=== PATIENT | female | born 1955 | race Caucasian/White ===

== ENCOUNTER → 2016-11-15 | Outpatient (CLI) | payer OTHER ==
[~2016-11-15] MED LIST: ASPI1TAB PO; CALCTAB68 PO; CLAR10CA3 PO; CO Q200C PO; CRES5TAB PO; CULT10CA2 PO; ESTRCAP PO; MULTCAP PO; [UNRECOGNIZED DRUG - OTHER] PO; claritan
--- NOTE | 2016-11-22 01:11 | ECWPNPC ---
PATIENT NAME: IAM DHALIWAL : 1955 GENDER: FEMALE VISIT DATE: 11/15/2016 DISCHARGE DATE: 11/15/16 1120 VISIT LOCKED DATE TIME: PHYSICIAN: ELENO BONE RESOURCE: ELENO BONE REASON FOR APPOINTMENT 1. NECK AREA HISTORY OF PRESENT ILLNESS HISTORY OF PRESENT ILLNESS: PAIN THE PATIENT DESCRIBES THE PAIN... 61 YEAR OLD FEMALE PATIENT WITH HISTORY OF CHRONIC NECK PAIN. PATIENT DESCRIBES THE PAIN BURNING, STABBING, AND HAVING IT ALL THE TIME WITH A PAIN SCORE OF 7/8-10. PATIENT IS CURRENTLY ONLY USING IBUPROFEN AND ASPER CREME TO AID IN PAIN RELIEF AND REPORTS THAT IT DOES HELP AT TIMES. PATIENT SPOKE WITH DR. NOE, A SALES REPRESENTATIVE [employer]IST[employer] FOR A SECOND OPINION THAT STATED HE DID NOT SEE AN ISSUE WITH THE PATIENT MOVING FORWARD WITH INJECTIONS. MRS. DHALIWAL STATES THAT ANY TYPE OF MOVEMENT INCREASES THE PAIN AND IT IS GETTING DIFFICULT TO MOVE HER HEAD IN ANY DIRECTION. PATIENT DENIES UNEXPLAINABLE WEIGHT LOSS, FEVER, CHILLS, NEW CHANGES ON HER URINARY OR BOWEL CONTROL. FALL RISK SCREENING: SCREENING :NO FALLS IN THE PAST YEAR CURRENT MEDICATIONS TAKING CRESTOR 5 MG TABLET 1 TABLET ORALLY ONCE A DAY, NOTES: 05-20-162299 TAKING ASPIR-81 81 MG TABLET DELAYED RELEASE 1 TABLET ORALLY EVERY OTHER DAY, NOTES: 05-14-16 TAKING FISH OIL TRIPLE STRENGTH 2100 MG 1 CAPSULE ORALLY ONCE A DAY, NOTES: 05-20-161829 TAKING COQ-10 200 MG CAPSULE 1 CAPSULE WITH A MEAL ORALLY ONCE A DAY, NOTES: 05-20-161829 TAKING CALTRATE 600+D PLUS MINERALS 600-800 MG-UNIT TABLET 1 TABLET ORALLY TWICE A DAY, NOTES: 05-20-161829 TAKING ESTROVEN + ENERGY MAX STRENGTH TABLET 1 TAB ORALLY , NOTES: 05-21-16829 TAKING CLARITIN 10 MG TABLET 1 TABLET ORALLY ONCE A DAY, NOTES: 05-21 TAKING EMERGEN-C IMMUNE PACKET ORALLY ONCE DAILY, NOTES: 05-20-16829 TAKING MULTIVITAMINS CAPSULE ORALLY ONCE DAILY, NOTES: 05-20-161829 TAKING CULTURELLE CAPSULE ORALLY ONCE DAILY, NOTES: 05-20-161529 TAKING ASPERCREME 10 % CREAM 1 APPLICATION TO AFFECTED AREA NEEDED EXTERNALLY TWICE DAILY, NOTES: 2329 TAKING IBUPROFEN 200 MG 1 TAB ORAL EVERY OTHER NIGHT-ALTERNATE WITH TYLENOL TAKING TYLENOL ARTHRITIS PAIN 650 MG TABLET EXTENDED RELEASE 1 ORALLY AT BEDTIME-ALTERNATE WITH IBUPROFEN TAKING LOTEMAX 0.5 % SUSPENSION 1 DROP INTO AFFECTED EYE OPHTHALMIC DAILY TAKING MOVE [employer] ADVANCE - TABLET ORALLY TAKING DULOXETINE HCL 30 MG CAPSULE DELAYED RELEASE PARTICLES 1 CAPSULE ORALLY ONCE A DAY DISCONTINUED VENLAFAXINE HCL ER 75 MG CAPSULE EXTENDED RELEASE 24 HOUR 1 CAPSULE WITH FOOD ORALLY ONCE A DAY, NOTES: 05-21-16 0830 DISCONTINUED VALIUM 5 MG TABLET 2 TABLET S ORALLY ON ARRIVAL TO CLINIC FOR PROCEDURE MDD=2, NOTES: 05-21-16 1110 DISCONTINUED PERCOCET 7.5-325 MG TABLET 1 TABLET ORALLY TAKE 1 TAB PRIOR TO PROCEDURE AND ONE TAB IN 4 HOURS MDD=2, NOTES: 05-21-16 111 DISCONTINUED VALIUM 5 MG TABLET 1 TABLET ORALLY TAKE ONE TAB 1 HOUR PRIOR TO TESTING AND ONE ON ARRIVAL TO THE TEST. DO NOT DRIVE MEDICATION LIST REVIEWED AND RECONCILED WITH THE PATIENT PAST MEDICAL HISTORY BRI - CPAP IMPLANTABLE LOOP RECORDER- FOR EPISODES OF SYNCOPE HYPERLIPID CHRONIC BACK AND NECK PAIN HEADACHES DIZZINESS ALLERGIES TAPE: RASH ORANGE: DRY MOUTH/DIFFICULTY SWALLOWING PINE: RASH/CONGESTION GRASS: SNEEZING, WATERY EYES SURGICAL HISTORY TONSILLECTOMY 1965 D/C (MISCARRIAGE) 12/1978 D/C ENDOMETRIAL ABLATION 08/1979 HYSTERECTOMY/OOPHORECTOMY 11/2009 IMPLANTABLE LOOP RECORDER 01/2015 THYROID BX 06/2016 FAMILY HISTORY NO FAMILY HISTORY DOCUMENTED. SOCIAL HISTORY GENERAL: TOBACCO USE ARE YOU A:NONSMOKER LEARNING BARRIERS / SPECIAL NEEDS ORIENTED TO PLAN OF CARE: PATIENT, PAIN MANAGEMENT PATIENT, ORIENTED TO PLAN OF CARE: PATIENT, PAIN MANAGEMENT PATIENT. NEW PATIENT PAIN DIARY TODAY'S VISITNOTES FROM 0-10, WHAT LEVEL IS YOUR PAIN TODAY?0 PAIN CLINIC PFS, CLERGY, PUBLIC HEALTH REFERRALS PFS REFERRAL NEEDED?NO CLERGY REFERRAL NEEDED?NO PUBLIC HEALTH REFERRAL NEEDED?NO WAS THE PROVIDER NOTIFIED OF ANY PERTINENT INFO?NO PFS REFERRAL NEEDED?NO CLERGY REFERRAL NEEDED?NO PUBLIC HEALTH REFERRAL NEEDED?NO WAS THE PROVIDER NOTIFIED OF ANY PERTINENT INFO?NO HOSPITALIZATION/MAJOR DIAGNOSTIC PROCEDURE NO HOSPITALIZATION HISTORY. REVIEW OF SYSTEMS CONSTITUTIONAL: ANY CHANGE IN YOUR MEDICAL CONDITION? NO . CHILLS NO . FEVER NO . INFECTION: DO YOU HAVE NEW INFECTIONS? NO . DO YOU HAVE HISTORY OF MRSA? NO . MUSCULOSKELETAL: ANY NEW PATTERNS OF PAIN OR NUMBNESS? YES, ARMS AND UNABLE TO REGIONAL REHABILITATION DIRECTOR??? . GASTROENTEROLOGY: ANY NEW CHANGE IN BOWEL CONTROL? NO . GENITOURINARY: ANY NEW CHANGE IN BLADDER CONTROL? NO . IS THERE A CHANCE YOU COULD BE ? NO . HEMATOLOGY/LYMPH: DO YOU TAKE ANY BLOOD THINNERS? (FOR EXAMPLE- COUMADIN, PLAVIX, AGGRENOX, PLATEL, PRADAXA, OR XARELTO) NO . WHEN WAS YOUR LAST DOSE? DATE: TIME: . NEUROLOGY: HAVE YOU FALLEN IN THE PAST 6 MONTHS? NO . ANY NEW EXTREMITY NUMBNESS OR WEAKNESS? NO . CARDIOLOGY: DO YOU HAVE A PACEMAKER OR DEFIBRILLATOR? YES, HAS A LOOP RECORDER . RESPIRATORY: HAVE YOU BEEN SICK IN THE PAST WEEK? NO . FEVER NO . FLU LIKE SYMPTOMS? NO . COUGH NO . INTEGUMENTARY: DO YOU HAVE ANY RASHES OR OPEN SORES? NO . ALLERGIC/IMMUNO: ARE YOU ALLERGIC TO SHELLFISH OR IV DYE? NO . ANY NEW ALLERGIES? NO . PSYCHIATRIC: DO YOU HAVE THOUGHTS OF HURTING YOURSELF OR SOMEONE ELSE? NO . ARE YOU ABUSED, NEGLECTED, OR IN AN UNSAFE ENVIRONMENT? NO . ENDOCRINOLOGY: ARE YOU DIABETIC? NO . OTHER: DO YOU NEED ANY PRESCRIPTIONS? NO . IF YES, PLEASE LIST: ____ . ANY NEW PROBLEMS WITH YOUR MEDICATIONS? NO . WHEN DID YOU LAST EAT? ____ . WHEN DID YOU LAST DRINK? ____ . WHAT DID YOU LAST DRINK? ____ . NAME OF PERSON DRIVING YOU HOME? ____ . DO YOU HAVE ANY OTHER QUESTIONS OR CONCERNS YES, HAS ANYONE BEEN ABLE TO TALK WITH ANY OF THE SALES REPRESENTATIVE [employer] REGISTERS? CONCERN - INCREASED WEAKNESS IN ARMS, NUMBNESS, ABILITY TO REGIONAL REHABILITATION DIRECTOR? CHANGE IN MEDICINE BY PRIMARY CARE. WHO IS IN CHARGE??? . REVIEWED BY: PROVIDER: ELENO BONE MD . VITAL SIGNS WT 175 LBS, HT 66 IN, BMI 28.24 INDEX, BP 148/88 MM HG, HR 71 /MIN, RR 16 /MIN, TEMP 99.O, OXYGEN SAT % 100%, NA INITIALS SC09:41, REVIEWED BY: CM. EXAMINATION : PATIENT IS ALERT O X 3 AND COOPERATIVE. TENDERNESS IN THE CERVICAL AREA AND PARASPINAL MUSCLE GROUP. LEFT ARM IS WEAKER THEN THE RIGHT AT EXTENSION AND FLEXION. 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 MRI DONE OF THE CERVICAL SPINE ON 04/22/16 SHOWS CERVICAL SPONDYLOSIS FROM C2-C3 THROUGH C6-C7 AND A 1.2 CM HYPO DENSITY IN THE LEFT THYROID LOBE. PATIENT ABLE TO MOVE HEAD TO LEFT 5 DEGREES, RIGHT 45 DEGREES, EXTEND 5 DEGREES AND THE PATIENT IS UNABLE TO FLEX HER NECK. ASSESSMENTS MYALGIA - M79.1 SPONDYLOSIS WITHOUT MYELOPATHY OR RADICULOPATHY, CERVICAL REGION - M47.812 TREATMENT MYALGIA NOTES: WE DISCUSSED SEVERAL ISSUES WITH MRS. DHALIWAL''S PAIN MANAGEMENT CASE. AT THIS TIME THE PATIENT WILL CONTINUE WITH THE SAME MEDICATION MANAGEMENT BEFORE. MRS. DHALIWAL WAS RECOMMENDED TO CONTINUE SEEING A NEUROLOGIST FOR THE NUMBNESS IN THE ARMS. PATIENT REPORTS NOT WANTING TO USE MEDICATIONS DUE TO HER DROPPING HEART RATE AND WOULD PREFER TO TRY INJECTIONS. I WOULD LIKE TO SPEAK WITH THE SALES REPRESENTATIVE [employer]ASH REGISTERS DR. NOE HE STATED THAT THE PATIENT IS ABLE TO GET INJECTIONS IF SHE WISHES. I WOULD LIKE THE PATIENT TO RETURN TO THE CLINIC IN 2 WEEKS AFTER I HAVE SPOKEN WITH THE SALES REPRESENTATIVE [employer] REGISTERS. INSTRUCTIONS WERE GIVEN, QUESTIONS WERE ANSWERED, PATIENT REPORTS UNDERSTANDING AND AGREES WITH THE PLAN. I, KARLA RIVERA, DOCUMENTED THE ABOVE INFORMATION ACTING A SCRIBE FOR DR. BONE. I HAVE REVIEWED THE ABOVE DOCUMENT, WRITTEN BY KARLA COWAN AND I VERIFY THAT IT IS ACCURATE. PROCEDURE CODES FA211 ESTABILISHED PATIENT [facility] FACILITY CHARGE G8427 DOC MEDS VERIFIED W/PT OR RE G8730 PAIN ASSESS POS TOOL F/U PLAN DOC FOLLOW UP 3 WEEKS ELECTRONICALLY SIGNED BY ELENO OBNE MD ON 11/21/2016 AT 06:02 PM EST DISCLAIMER : THIS IS A VISIT SUMMARY EXTRACTED FROM THE [employer] CHART. IT IS NOT A COPY OF THE [employer] PROGRESS NOTE. ALCON
== END ==
LOC: M PAIN 09:20
PROVIDERS: ATTEND Anesthesiology
DX: Z09 Encounter for follow-up examination after completed treatment for conditions other than malignant neoplasm (principal); G89.29 Other chronic pain; M79.1 Myalgia; M47.812 Spondylosis without myelopathy or radiculopathy, cervical region; E78.5 Hyperlipidemia, unspecified; R51 Headache; J30.89 Other allergic rhinitis; J30.1 Allergic rhinitis due to pollen; L23.1 Allergic contact dermatitis due to adhesives; Z91.018 Allergy to other foods; Z79.82 Long term (current) use of aspirin; Z79.1 Long term (current) use of non-steroidal anti-inflammatories (NSAID); Z79.899 Other long term (current) drug therapy; Z86.69 Personal history of other diseases of the nervous system and sense organs; G47.30 Sleep apnea, unspecified; Z95.818 Presence of other cardiac implants and grafts

== ENCOUNTER → 2016-12-03 | Outpatient (CLI) | payer OTHER ==
--- NOTE | 2016-12-04 23:50 | ECWPNPC ---
PATIENT NAME: IAM DHALIWAL : 1955 GENDER: FEMALE VISIT DATE: 12/03/2016 DISCHARGE DATE: 12/03/16 1239 VISIT LOCKED DATE TIME: PHYSICIAN: ELENO BONE RESOURCE: ELENO BONE REASON FOR APPOINTMENT 1. NECK PAIN HISTORY OF PRESENT ILLNESS HISTORY OF PRESENT ILLNESS: PAIN THE PATIENT DESCRIBES THE PAIN... 61 YEAR OLD FEMALE WITH HISTORY OF CHRONIC NECK PAIN. PATIENT DESCRIBES THE PAIN BURNING AND HAVING IT ALL THE TIME AND STABBING BUT IT COMES AND GOES WITH A PAIN SCORE OF 8/10 ON TODAY'S VISIT. PATIENT REPORTS THAT SHE HAS HAD A LOOP RECORDER PUT IN JANUARY 2015. PATIENT STATES THAT SHE TAKES DULOXETINE AND DOES NOT FEEL A DIFFERENCE IN HER PAIN LEVELS. PATIENT REPORTS THAT SHE HAS TINGLINESS IN THE ARM AND SHE HAD DIFFICULTIES PICKING UP ITEMS. PATIENT DENIES UNEXPLAINABLE WEIGHT LOSS, FEVER, CHILLS, NEW CHANGES ON HER URINARY OR BOWEL CONTROL. FALL RISK SCREENING: SCREENING :NO FALLS IN THE PAST YEAR CURRENT MEDICATIONS TAKING CRESTOR 5 MG TABLET 1 TABLET ORALLY ONCE A DAY, NOTES: 05-20-162299 TAKING ASPIR-81 81 MG TABLET DELAYED RELEASE 1 TABLET ORALLY EVERY OTHER DAY, NOTES: 05-14-16 TAKING FISH OIL TRIPLE STRENGTH 2100 MG 1 CAPSULE ORALLY ONCE A DAY, NOTES: 05-20-161829 TAKING COQ-10 200 MG CAPSULE 1 CAPSULE WITH A MEAL ORALLY ONCE A DAY, NOTES: 05-20-161829 TAKING CALTRATE 600+D PLUS MINERALS 600-800 MG-UNIT TABLET 1 TABLET ORALLY TWICE A DAY, NOTES: 05-20-161829 TAKING ESTROVEN + ENERGY MAX STRENGTH TABLET 1 TAB ORALLY , NOTES: 05-21-16829 TAKING CLARITIN 10 MG TABLET 1 TABLET ORALLY ONCE A DAY, NOTES: 05-21 TAKING EMERGEN-C IMMUNE PACKET ORALLY ONCE DAILY, NOTES: 05-20-16829 TAKING MULTIVITAMINS CAPSULE ORALLY ONCE DAILY, NOTES: 05-20-161829 TAKING CULTURELLE CAPSULE ORALLY ONCE DAILY, NOTES: 05-20-161529 TAKING ASPERCREME 10 % CREAM 1 APPLICATION TO AFFECTED AREA NEEDED EXTERNALLY TWICE DAILY, NOTES: 2330 TAKING IBUPROFEN 200 MG 1 TAB ORAL NIGHTLY TAKING [employer] ADVANCE - TABLET ORALLY TAKING DULOXETINE HCL 30 MG CAPSULE DELAYED RELEASE PARTICLES 1 CAPSULE ORALLY ONCE A DAY NOT-TAKING TYLENOL ARTHRITIS PAIN 650 MG TABLET EXTENDED RELEASE 1 ORALLY AT BEDTIME-ALTERNATE WITH IBUPROFEN DISCONTINUED LOTEMAX 0.5 % SUSPENSION 1 DROP INTO AFFECTED EYE OPHTHALMIC DAILY MEDICATION LIST REVIEWED AND RECONCILED WITH THE PATIENT PAST MEDICAL HISTORY BRI - CPAP IMPLANTABLE LOOP RECORDER- FOR EPISODES OF SYNCOPE HYPERLIPID CHRONIC BACK AND NECK PAIN HEADACHES DIZZINESS ALLERGIES TAPE: RASH ORANGE: DRY MOUTH/DIFFICULTY SWALLOWING PINE: RASH/CONGESTION GRASS: SNEEZING, WATERY EYES SURGICAL HISTORY TONSILLECTOMY 1965 D/C (MISCARRIAGE) 12/1978 D/C ENDOMETRIAL ABLATION 08/1979 HYSTERECTOMY/OOPHORECTOMY 11/2009 IMPLANTABLE LOOP RECORDER 01/2015 THYROID BX 06/2016 FAMILY HISTORY NO FAMILY HISTORY DOCUMENTED. SOCIAL HISTORY GENERAL: TOBACCO USE ARE YOU A:NONSMOKER LEARNING BARRIERS / SPECIAL NEEDS ORIENTED TO PLAN OF CARE: PATIENT, PAIN MANAGEMENT PATIENT, ORIENTED TO PLAN OF CARE: PATIENT, PAIN MANAGEMENT PATIENT. NEW PATIENT PAIN DIARY TODAY'S VISITNOTES FROM 0-10, WHAT LEVEL IS YOUR PAIN TODAY?0 PAIN CLINIC PFS, CLERGY, PUBLIC HEALTH REFERRALS PFS REFERRAL NEEDED?NO CLERGY REFERRAL NEEDED?NO PUBLIC HEALTH REFERRAL NEEDED?NO WAS THE PROVIDER NOTIFIED OF ANY PERTINENT INFO?NO PFS REFERRAL NEEDED?NO CLERGY REFERRAL NEEDED?NO PUBLIC HEALTH REFERRAL NEEDED?NO WAS THE PROVIDER NOTIFIED OF ANY PERTINENT INFO?NO HOSPITALIZATION/MAJOR DIAGNOSTIC PROCEDURE NO HOSPITALIZATION HISTORY. REVIEW OF SYSTEMS CONSTITUTIONAL: ANY CHANGE IN YOUR MEDICAL CONDITION? NO . CHILLS NO . FEVER NO . INFECTION: DO YOU HAVE NEW INFECTIONS? NO . DO YOU HAVE HISTORY OF MRSA? NO . MUSCULOSKELETAL: ANY NEW PATTERNS OF PAIN OR NUMBNESS? NO . GASTROENTEROLOGY: ANY NEW CHANGE IN BOWEL CONTROL? NO . GENITOURINARY: ANY NEW CHANGE IN BLADDER CONTROL? NO . IS THERE A CHANCE YOU COULD BE ? NO . HEMATOLOGY/LYMPH: DO YOU TAKE ANY BLOOD THINNERS? (FOR EXAMPLE- COUMADIN, PLAVIX, AGGRENOX, PLATEL, PRADAXA, OR XARELTO) NO . WHEN WAS YOUR LAST DOSE? DATE: TIME: . NEUROLOGY: HAVE YOU FALLEN IN THE PAST 6 MONTHS? NO . ANY NEW EXTREMITY NUMBNESS OR WEAKNESS? NO . CARDIOLOGY: DO YOU HAVE A PACEMAKER OR DEFIBRILLATOR? NO . RESPIRATORY: HAVE YOU BEEN SICK IN THE PAST WEEK? NO . FEVER NO . FLU LIKE SYMPTOMS? NO . COUGH NO . INTEGUMENTARY: DO YOU HAVE ANY RASHES OR OPEN SORES? NO . ALLERGIC/IMMUNO: ARE YOU ALLERGIC TO SHELLFISH OR IV DYE? NO . ANY NEW ALLERGIES? NO . PSYCHIATRIC: DO YOU HAVE THOUGHTS OF HURTING YOURSELF OR SOMEONE ELSE? NO . ARE YOU ABUSED, NEGLECTED, OR IN AN UNSAFE ENVIRONMENT? NO . ENDOCRINOLOGY: ARE YOU DIABETIC? NO . OTHER: DO YOU NEED ANY PRESCRIPTIONS? NO . IF YES, PLEASE LIST: ____ . ANY NEW PROBLEMS WITH YOUR MEDICATIONS? NO . WHEN DID YOU LAST EAT? ____ . WHEN DID YOU LAST DRINK? ____ . WHAT DID YOU LAST DRINK? ____ . NAME OF PERSON DRIVING YOU HOME? ____ . DO YOU HAVE ANY OTHER QUESTIONS OR CONCERNS YES NOTES INCREASE IN ARM WEAKNESS, INABILITY TO GRASP ITEMS WITH HANDS. ALSO NOTES LEG/FEET WEAKNESS. &QUOT;COULD WE SEND PMC NOTES TO DR WREN?&QUOT; . REVIEWED BY: PROVIDER: ELENO BONE MD . VITAL SIGNS WT 193.8 LBS, HT 66 IN, BMI 31.28 INDEX, BP 156/88 MANUAL, HR 79 /MIN, RR 16 /MIN, TEMP 96.2 F, OXYGEN SAT % 99, NA INITIALS TL 1105, REVIEWED BY: MLF. EXAMINATION : PATIENT IS ALERT O X 3 AND COOPERATIVE. TENDERNESS IN THE CERVICAL AREA AND PARASPINAL MUSCLE GROUP WITH BANDS OF TISSUE, RESTRICTION OF MOVEMENT AND PRESENCE OF TRIGGER POINTS. LEFT ARM IS WEAKER THEN THE RIGHT AT EXTENSION AND FLEXION. WEAKNESS IN LEFT AND RIGHT HAND MANAGER BAR. MRI DONE OF THE CERVICAL SPINE ON 04/22/16 SHOWS CERVICAL SPONDYLOSIS FROM C2-C3 THROUGH C6-C7 AND A 1.2 CM HYPO DENSITY IN THE LEFT THYROID LOBE. 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 DHALIWAL'S PAIN MANAGEMENT CASE. AT THIS TIME THE PATIENT WILL CONTINUE ON THE SAME MEDICATION REGIMEN BEFORE. PATIENT IS A GOOD CANDIDATE FOR BILATERAL CERVICOTHORACIC FACET BLOCK, DUE TO THE PATIENT'S HEART CONDITION, I WILL DO THE PROCEDURE WITH IV FLUIDS FOR THE PATIENT. WE DISCUSSED THE RISK, BENEFITS, AND ALTERNATIVES AND THE PATIENT WOULD LIKE TO PROCEED. INSTRUCTIONS WERE GIVEN, QUESTIONS WERE ANSWERED, PATIENT REPORTS UNDERSTANDING AND AGREES WITH THE PLAN. I, CORBY HIDALGO, DOCUMENTED THE ABOVE INFORMATION ACTING A SCRIBE FOR DR. BONE. I HAVE REVIEWED THE ABOVE DOCUMENT, WRITTEN BY CORBY HIDALGO SCRIBE AND I VERIFY THAT IT IS ACCURATE. PREVENTIVE MEDICINE PAIN CLINIC TEACHING: MEDICATIONS PT INFORMED SHE WILL BE RECEIVING CONSCIOUS SEDATION FOR PROCEDURE. PROCEDURE TEACHING REVIEWED PRE PROCEDURE EDUCATION/PT VERBALIZES UNDERSTANDING. PROCEDURE CODES FA211 ESTABILISHED PATIENT [facility] FACILITY CHARGE G8730 PAIN ASSESS POS TOOL F/U PLAN DOC G8427 DOC MEDS VERIFIED W/PT OR RE FOLLOW UP CFBT PENDING APPROVAL ELECTRONICALLY SIGNED BY ELENO BONE MD ON 12/04/2016 AT 07:38 PM EST DISCLAIMER : THIS IS A VISIT SUMMARY EXTRACTED FROM THE [employer] CHART. IT IS NOT A COPY OF THE [employer] PROGRESS NOTE. ALCON
== END ==
LOC: M PAIN 11:00
PROVIDERS: ATTEND Anesthesiology
DX: Z09 Encounter for follow-up examination after completed treatment for conditions other than malignant neoplasm (principal); G89.29 Other chronic pain; M79.1 Myalgia; M47.812 Spondylosis without myelopathy or radiculopathy, cervical region; M47.813 Spondylosis without myelopathy or radiculopathy, cervicothoracic region; G47.33 Obstructive sleep apnea (adult) (pediatric); E78.5 Hyperlipidemia, unspecified; R51 Headache; L23.1 Allergic contact dermatitis due to adhesives; Z91.018 Allergy to other foods; Z91.048 Other nonmedicinal substance allergy status; Z79.82 Long term (current) use of aspirin; Z79.1 Long term (current) use of non-steroidal anti-inflammatories (NSAID); Z79.899 Other long term (current) drug therapy; Z96.89 Presence of other specified functional implants; Z86.69 Personal history of other diseases of the nervous system and sense organs

== ENCOUNTER 2016-12-10 15:26 | Emergency (ER) | payer OTHER ==
[~2016-12-10 15:26] MED LIST changes: -ATROPINE SULF 1MG/10ML SYRINGE (J0461) As Ordered ONE; -diazePAM 5 MG TAB As Ordered ONE; -ePHEDrine SULFATE 25 MG/5 ML(5MG/ML) SYRINGE As Ordered ONE; -oxyCODONE 5MG TAB As Ordered ONE
[2016-12-10] MEDS ORDERED: ASPIRIN 81 MG CHEW TABLET As Ordered ONE (15:39)
[2016-12-10 16:14] LABS: BASO % 0.1 % (0.0-1.0); EOS % 0.7 % (0.0-3.0); LARGE UNSTAINED CELL # 0.1 K/mm3 (0.0-0.4); LARGE UNSTAINED CELL % 1.8 % (0.0-4.0); LYMPH # 2.5 K/mm3 (1.5-4.5); LYMPH % 30.6 % (24.0-44.0); MEAN CORPUSCULAR VOLUME 88.7 fl (80.0-96.0); MONO # 0.4 K/mm3 (0.0-0.8); NEUTROPHILS # 4.8 K/mm3 (1.8-7.7); NEUTROPHILS % 61.9 % (36.0-66.0); PLATELET COUNT, AUTOMATED 203 k/mm3 (150-450); RED CELL DISTRIBUTION WIDTH 12.7 % (11.5-14.5); WHITE BLOOD COUNT 7.8 K/mm3 (4.0-10.0)
[2016-12-10] MEDS ORDERED: ASPIRIN 325 MG TAB As Ordered ONE (16:14)
--- NOTE | 2016-12-10 16:37 | REP ---
Clinical: Acute chest pain . Comparison: None . Findings: The mediastinum and cardiac silhouette are stable and within normal limits for portable technique. The lung kessler are clear without acute consolidation, effusion, or pneumothorax. Skeletal structures are intact. Impression: Normal portable chest x-ray Signed by Marvin Garg MD 12/10/2016 04:28 P
[2016-12-10 17:13] LABS: ANION GAP 8 MEQ/L (8-16); BLOOD UREA NITROGEN 16 MG/DL (7-18); CALCIUM LEVEL 9.5 MG/DL (8.5-10.1); CARBON DIOXIDE LEVEL 26 MEQ/L (21-32); CHLORIDE LEVEL 108 MEQ/L (98-107); GLOMERULAR FILTRATION RATE > 60.0 (>51); GLUCOSE, FASTING 90 MG/DL (70-105); SODIUM LEVEL 142 MEQ/L (136-145)
--- NOTE | 2016-12-10 20:56 | EDDOCDS ---
Nurse's Notes [facility] Name: Paula Resendiz Age: 61 yrs Sex: Female : 1955 Arrival Date: 12/10/2016 Time: 15:26 Bed 13 Private MD: Esperanza Rashid A Diagnosis: Chest pain, unspecified Presentation: 12/10 15:29 Presenting complaint: Patient states: pt arrives from Pain clinic where she was mk4 preparing for a thoracic block when she developed chest pain around 2;15 pm , pain at that time was mid sternal and non radiating , pt currently has a loop recorder in place for a syncopal episode and is followed by Dr Mclean for it, pt arrives to ks with chest pain almost resolved at a 1/10 and remains mid sternal. Pt had been pre medicated with valium 10 mg and oxycontin 5 mg both po. Aspirin was not taken prior to arrival. Adult Sepsis Screening: The patient does not have new or worsening altered mentation. Patient's respiratory rate is less than 22. Systolic blood pressure is greater than 100. Patient has a qSOFA score of 0- Negative Sepsis Screen. Suicide/Homicide risk assessment- the patient denies having any suicidal and/or homicidal ideations and does not present with any other emotional, behavioral or mental health complaints. Status: Patient is not a liquid fertilizer servicer or dependent. Transition of care: patient was not received from another setting of care. 15:29 Acuity: ANAT Level 3 mk4 15:29 Method Of Arrival: Other 4 Triage Assessment: 15:39 General: Appears in no apparent distress. Pain: Location: mid-sternal area Pain 4 currently is 1 out of 10 on a pain scale. HIV screening NA for this visit Offered previously. Cardiovascular: Chest pain is described as mild, radiates Does not radiate. episodes are intermittent began 1 hour prior to arrival. Historical: - Allergies: nka; - Home Meds: 1. duloxetine 30 mg Oral cpDR once daily 2. Crestor 5 mg Oral tab once daily 3. aspirin 81 mg Oral TbEC once daily 4. CoQ-10 100 mg oral cap 2 tab daily 5. Caltrate 600 + D 600 mg (1,500 mg)-800 unit oral chew twice a day 6. Estroven Maximum Strength 400 mcg oral tab daily 7. Claritin 10 mg Oral tab once daily 8. Fish Oil Oral 2100 mg daily 9. Emergen-C 1,000 mg oral pwep daily 10. multivitamin Oral cap daily 11. Culturelle 10 billion cell oral cap daily 12. Move Free Ultra 40-10-3.3 mg oral tab daily 13. aspercream twice a day 14. Tylenol Arthritis Pain 650 mg oral TbER nightly - PMHx: cervical radiculopthy; Headaches; Hypercholesterolemia; implanted loop recorder; Sleep Apnea w/ CPAP; Arthritis; Degenerative disc disease; - PSHx: Tonsillectomy; D & C; Hysterectomy; numerous blocks and injections from pain clinic; - Social history: Smoking status: Patient states former smoker of tobacco. No barriers to communication noted, The patient speaks fluent Paraguayan. - Family history: Not pertinent. - : The pt / caregiver states he / she is not on anticoagulants. Home medication list is obtained from the patient. - Exposure Risk Screening:: None identified. Screenin:15 Screening information is obtained from the patient. Fall risk: No risks identified. ms18 Assistance ADL's: requires no assistance with activities of daily living. Assistance ADL's: requires no assistance with activities of daily living. Abuse/DV Screen: The patient / caregiver reports he/she is: not in a situation that causes fear, pain or injury. Nutritional screening: No deficits noted. Advance Directives: There is no living will. home support is adequate. Assessment: 16:16 General: Pt in no acute distress. Will continue to monitor pt. ms18 17:16 General: Appears in no apparent distress, Behavior is cooperative, ambulated in pantoja to 4 bathroom with min assist , gait steady denies any dizziness or syncope feelings, returned to bed . Pain: Location: back. Neurological: Level of Consciousness is awake, alert. Cardiovascular: Rhythm is regular. 17:23 General: Appears in no apparent distress, comfortable, well nourished, well groomed, ms18 Behavior is appropriate for age, cooperative, pleasant. General: Pt informed that the doctor wants to do repeat bloodwork and EKG at 1900. Pt verbalized understanding of this. Pain: Pain currently is 1 out of 10 on a pain scale. Neurological: No deficits noted. Respiratory: Airway is patent Respiratory effort is even, unlabored, Respiratory pattern is regular, symmetrical. Derm: Skin is pink, warm & dry. 18:18 General: Appears in no apparent distress, comfortable, Behavior is appropriate for age, ms18 cooperative, pleasant. Pain: Pain currently is 1 out of 10 on a pain scale. Neurological: No deficits noted. Respiratory: Airway is patent Respiratory effort is even, unlabored. Derm: Skin is pink, warm & dry. 19:45 General: Appears in no apparent distress, comfortable, Behavior is appropriate for age, ms18 cooperative, Pt in no acute distress. Awaiting lab work at this time. Will continue to monitor pt. Respiratory: No deficits noted. Derm: Skin is pink, warm & dry. 20:51 General: Appears in no apparent distress, comfortable, Behavior is appropriate for age, ms18 cooperative, pleasant. Pain: Denies pain. Neurological: No deficits noted. Cardiovascular: Rhythm is regular. Respiratory: Airway is patent Respiratory effort is even, unlabored. GI: Abdomen is non- distended. Derm: Skin is pink, warm & dry. normal. Vital Signs: 15:19 BP 173 / 74 (auto/); mk4 15:23 Pulse 68 MON; Pulse Ox 97% ; mk4 15:36 BP 181 / 79 (auto/); ms18 15:36 Pulse 74 MON; Pulse Ox 97% ; ms18 15:39 BP 173 / 74; Pulse 71; Resp 18; Pulse Ox 97% on R/A; Weight 86.18 kg; Height 5 ft. 6 mk4 in. (167.64 cm); 15:50 Pulse 62 MON; Pulse Ox 95% ; ms18 15:51 BP 162 / 75 (auto/); ms18 16:06 BP 150 / 73 (auto/); ms18 16:06 Pulse 64 MON; Pulse Ox 97% ; ms18 16:19 Pulse 62 MON; Pulse Ox 97% ; ms18 16:21 BP 142 / 67 (auto/); ms18 16:36 Pulse 68 MON; Pulse Ox 96% ; ms18 16:41 BP 145 / 67 (auto/); ms18 16:51 BP 142 / 80 (auto/); ms18 16:51 Pulse 62 MON; Pulse Ox 96% ; ms18 17:06 BP 139 / 67 (auto/); ms18 17:08 Pulse 62 MON; Resp 18; Pulse Ox 95% ; ms18 17:20 Pulse 64 MON; Pulse Ox 94% ; ms18 17:21 BP 151 / 71 (auto/); ms18 17:35 Pulse 62 MON; Pulse Ox 95% ; ms18 17:36 BP 138 / 68 (auto/); ms18 17:51 BP 132 / 75 (auto/); ms18 17:51 Pulse 62 MON; Pulse Ox 94% ; ms18 18:06 BP 140 / 74 (auto/); ms18 18:06 Pulse 62 MON; Resp 18; Pulse Ox 95% ; ms18 18:21 BP 146 / 72 (auto/); ms18 18:21 Pulse 58 MON; Pulse Ox 95% ; ms18 18:36 BP 138 / 71 (auto/); ms18 18:36 Pulse 60 MON; Pulse Ox 95% ; ms18 18:51 BP 141 / 74 (auto/); ms18 18:51 Pulse 64 MON; Pulse Ox 96% ; ms18 19:36 BP 142 / 67 (auto/); ms18 19:36 Pulse 58 MON; Pulse Ox 96% ; ms18 20:21 BP 140 / 70 (auto/); ms18 20:21 Pulse 58 MON; Pulse Ox 95% ; ms18 20:36 BP 138 / 74 (auto/); ms18 20:39 Pulse 58 MON; Resp 18; Temp 98(O); Pulse Ox 95% ; ms18 15:39 Body Mass Index 30.67 (86.18 kg, 167.64 cm) mk4 Vitals: 20:54 Log In Time N/A - ambulance arrival. ms18 ED Course: 15:27 Patient visited by Juliann Barajas, Outsole Molder. lbd 15:27 Patient moved to Waiting lbd 15:28 Esperanza Rashid is Private Physician. lbd 15:29 Swathi Resendiz,RN is Primary Nurse. lbd 15:29 Patient moved to 13 lbd 15:32 Triage Initiated mk4 15:35 Alysia Mireles MD is Attending Physician. fg 15:41 Patient visited by Alysia Mireles MD. fg 15:41 EKG done. (by ED staff). Reviewed by Alysia Mireles MD. jlm 15:42 Patient visited by Cynthia Phillips, Outsole Molder. jlm 16:01 B-Type Natiuretic Peptide Sent. mb9 16:01 Basic Metabolic Profile Sent. mb9 16:01 CBC with Diff Sent. mb9 16:01 Cardiac Injury Profile Sent. mb9 16:01 Troponin Sent. mb9 16:10 Patient visited by Swathi Resendiz RN. ms18 16:53 portable chest Returned. EDMS 16:58 Patient visited by Ramona Amaral RN. mk4 17:15 The patient / caregiver is instructed regarding the plan of care and ED course. ms18 Accompanied by Family Member, Patient has correct armband on for positive identification. Placed in gown. Bed in low position. Call light in reach. customer service specialist on. Pulse ox on. NIBP on. Property :Personal belongings accompany Pt. 17:15 Maintain field IV. Dressing intact. Good blood return noted. Site clean & dry. Gauge & ms18 site: 22 g, L hand. 17:23 Patient visited by Swathi Resendiz RN. ms18 17:38 [facility] Payment Agreement was scanned into Easily[employer] and attached to record. ks16 17:59 Patient visited by Swathi Resendiz RN. ms18 18:29 Patient visited by Swathi Resendiz RN. ms18 18:52 Patient visited by Turner Oliveros PCA. jmv 18:52 EKG done. (by ED staff). Reviewed by Alysia Mireles MD. jmv 19:30 Patient visited by Swathi Resendiz RN. ms18 19:30 Troponin: 1900 Sent. ms18 19:30 Cardiac Injury Profile: 1900 Sent. ms18 20:29 Patient visited by Swathi Resendiz RN. ms18 20:39 Discontinued IV lock intact, bleeding controlled, pressure dressing applied, No ms18 redness/swelling at site. No procedures done that require assistance. 20:40 Esperanza Rashid is Referral Physician. fg 20:51 Patient visited by Swathi Resendiz RN. ms18 Administered Medications: 15:51 Not Given (Patient Refused): Aspirin Chewable Tablet 324 mg PO once mb9 16:21 Drug: Aspirin 324 mg [aspirin 81 mg chewable tablet (4 tabs)] {Note: Pt cannot take ms18 orange flavored aspirin. PT give 325mg aspirin PO, Dr. Mireles aware and OK with this.} Route: PO; 18:17 Follow up: Response: No Adverse Reaction ms18 Order Results: Lab Order: B-Type Natiuretic Peptide; SPEC'M 12/10/16 15:58 Test: BRAIN NATRIURETIC PEPTIDE; Value: 7.0; Range: <100; Units: PG/ML; Status: F Lab Order: Basic Metabolic Profile; SPEC'12/10/16 16:34 Test: GLUCOSE, FASTING; Value: 90; Range: 70-105; Units: MG/DL; Status: F Test: BLOOD UREA NITROGEN; Value: 16; Range: 7-18; Units: MG/DL; Status: F Test: CREATININE FOR GFR; Value: 0.70; Range: 0.55-1.02; Units: MG/DL; Status: F Test: GLOMERULAR FILTRATION RATE; Value: > 60.0; Range: >51; Status: F Test: SODIUM LEVEL; Value: 142; Range: 136-145; Units: MEQ/L; Status: F Test: POTASSIUM SERUM; Value: 4.0; Range: 3.5-5.1; Units: MEQ/L; Status: F Test: CHLORIDE LEVEL; Value: 108; Range: 98-107; Abnormal: Above high normal; Units: MEQ/L; Status: F Test: CARBON DIOXIDE LEVEL; Value: 26; Range: 21-32; Units: MEQ/L; Status: F Test: ANION GAP; Value: 8; Range: 8-16; Units: MEQ/L; Status: F Test: CALCIUM LEVEL; Value: 9.5; Range: 8.5-10.1; Units: MG/DL; Status: F Test Note: ; Units are mL/min/1.73 m2 Chronic Kidney Disease Staging per NKF: Stage I & II GFR >=60 Normal to Mildly Decreased Stage III GFR 30-59 Moderately Decreased Stage IV GFR 15-29 Severely Decreased Stage V GFR <15 Very Little GFR Left ESRD GFR <15 on RANCH HAND LIVESTOCK Lab Order: CBC with Diff; SPEC'12/10/16 15:58 Test: WHITE BLOOD COUNT; Value: 7.8; Range: 4.0-10.0; Units: K/mm3; Status: F Test: RED BLOOD COUNT; Value: 4.04; Range: 4.00-5.40; Units: M/mm3; Status: F Test: HEMOGLOBIN; Value: 12.5; Range: 12.0-16.0; Units: g/dl; Status: F Test: HEMATOCRIT; Value: 35.8; Range: 36.0-47.0; Abnormal: Below low normal; Units: %; Status: F Test: MEAN CORPUSCULAR VOLUME; Value: 88.7; Range: 80.0-96.0; Units: fl; Status: F Test: MEAN CORPUSCULAR HEMOGLOBIN; Value: 31.0; Range: 27.0-33.0; Units: pg; Status: F Test: MEAN CORPUSCULAR HGB CONC; Value: 35.0; Range: 32.0-36.5; Units: g/dl; Status: F Test: RED CELL DISTRIBUTION WIDTH; Value: 12.7; Range: 11.5-14.5; Units: %; Status: F Test: PLATELET COUNT, AUTOMATED; Value: 203; Range: 150-450; Units: k/mm3; Status: F Test: NEUTROPHILS %; Value: 61.9; Range: 36.0-66.0; Units: %; Status: F Test: LYMPH %; Value: 30.6; Range: 24.0-44.0; Units: %; Status: F Test: MONO %; Value: 5.0; Range: 0.0-5.0; Units: %; Status: F Test: EOS %; Value: 0.7; Range: 0.0-3.0; Units: %; Status: F Test: BASO %; Value: 0.1; Range: 0.0-1.0; Units: %; Status: F Test: LARGE UNSTAINED CELL %; Value: 1.8; Range: 0.0-4.0; Units: %; Status: F Test: NEUTROPHILS #; Value: 4.8; Range: 1.8-7.7; Units: K/mm3; Status: F Test: LYMPH #; Value: 2.5; Range: 1.5-4.5; Units: K/mm3; Status: F Test: MONO #; Value: 0.4; Range: 0.0-0.8; Units: K/mm3; Status: F Test: EOS #; Value: 0.0; Range: 0.0-0.50; Units: K/mm3; Status: F Test: BASO #; Value: 0.0; Range: 0.0-0.2; Units: K/mm3; Status: F Test: LARGE UNSTAINED CELL #; Value: 0.1; Range: 0.0-0.4; Units: K/mm3; Status: F Lab Order: Cardiac Injury Profile; [facility] 12/10/16 16:34 Test: CPK CREATINE PHOSPHOKINASE; Value: 123; Range: 26-192; Units: U/L; Status: F Test: CK-MB VALUE MASS; Value: 2.2; Range: 0.0-3.6; Units: NG/ML; Status: F Test: MB/CK RELATIVE INDEX; Value: 1.78; Range: < OR =4; Status: F Test Note: ; DIAGNOSIS CRITERIA MMB ng/ml Relative Index (RI) NON-AMI < or = 5 N/A IVAN ZONE > 5 < or = 4 AMI > 5 > 4 Lab Order: Troponin; [facility] 12/10/16 16:34 Test: TROPONIN I; Value: < 0.02; Range: < 0.10; Units: NG/ML; Status: F Test Note: ; Troponin I Reference Interval for [employer] LOCI: 99th Percentile= 0.00-0.045 ng/ml Risk Stratification: <= 0.10 ng/ml Decreased Risk for Adverse Clinical Events. 0.10-1.50 ng/ml Increased Risk for Adverse Clinical Events. Evaluation of additional criterion and/or repeat testing in 2-6 hours is suggested to rule out myocardial damage. >= 1.50 ng/ml Indicative of Myocardial Injury. Lab Order: Cardiac Injury Profile: 1900; [facility] 12/10/16 19:27 Test: CPK CREATINE PHOSPHOKINASE; Value: 129; Range: 26-192; Units: U/L; Status: F Test: CK-MB VALUE MASS; Value: 1.1; Range: 0.0-3.6; Units: NG/ML; Status: F Test: MB/CK RELATIVE INDEX; Value: 0.85; Range: < OR =4; Status: F Test Note: ; DIAGNOSIS CRITERIA MMB ng/ml Relative Index (RI) NON-AMI < or = 5 N/A IVAN ZONE > 5 < or = 4 AMI > 5 > 4 Lab Order: Troponin: 1900; [facility] 12/10/16 19:27 Test: TROPONIN I; Value: < 0.02; Range: < 0.10; Units: NG/ML; Status: F Test Note: ; Troponin I Reference Interval for [employer] [place] LOCI: 99th Percentile= 0.00-0.045 ng/ml Risk Stratification: <= 0.10 ng/ml Decreased Risk for Adverse Clinical Events. 0.10-1.50 ng/ml Increased Risk for Adverse Clinical Events. Evaluation of additional criterion and/or repeat testing in 2-6 hours is suggested to rule out myocardial damage. >= 1.50 ng/ml Indicative of Myocardial Injury. Radiology Order: portable chest Test: portable chest REASON FOR EXAMINATION: Chest Pain; Clinical: Acute chest pain .; ; Comparison: None .; ; Findings:; The mediastinum and cardiac silhouette are stable and within normal limits for; portable technique. The lung kessler are clear without acute consolidation,; effusion, or pneumothorax. Skeletal structures are intact.; ; Impression:; Normal portable chest x-ray; ; ; Signed by; Marvin Garg MD 12/10/2016 04:28 P; Outcome: 20:39 Discharge Assessment: Patient awake, alert and oriented x 3. No cognitive and/or ms18 functional deficits noted. Patient verbalized understanding of disposition instructions. patient administered narcotics - no. The following High Risk Discharge criteria are identified: None. Discharged to home ambulatory, with significant other. Condition: good Condition: stable Condition: improved. Discharge instructions given to patient, Instructed on discharge instructions, follow up and referral plans. Demonstrated understanding of instructions, Pt was receptive of discharge instructions/ teaching. No special radiology studies were completed. 20:41 Discharge ordered by Provider. fg 20:55 Patient left the ED. ms18 Signatures: Dispatcher [employer] EDMS Juliann Barajas, Outsole Molder Unit Ramona Augustin RN RN mk4 Cynthia Phillips, Outsole Molder Unit Swathi Dao RN RN ms18 Akshat Villalpando,RN RN mb9 Alysia Mireles MD MD fg Genevieve Lovett, Reg Reg ks16 Turner Oliveros, LUMBER TYING MACHINE OPERATOR LUMBER TYING MACHINE OPERATOR jmv Corrections: (The following items were deleted from the chart) 15:43 15:29 Presenting complaint: Patient states: pt arrives from Pain clinic where she was mk4 preparing for a thoracic blocke when she developed chest pain around 2;15 pm , pain at that time was mid sternal and non radiating , pt currently has a loop recorder in place for a syncopal episode and is followed by Dr Mclean for it, pt arrives to me with chest pain almost resolved at a 11/05 and remains mid sternal. Pt had been pre medicated with valium 10 mg and oxycontin 5 mg both po mk4 17:58 17:15 Maintain field IV. Dressing intact. Good blood return noted. Site clean & dry. ms18 Gauge & site: 22 g, R hand. ms18 MTDD
--- NOTE | 2016-12-10 20:56 | EDDOCDS ---
Physician Documentation [facility] Name: Paula Resendiz Age: 61 yrs Sex: Female : 1955 Arrival Date: 12/10/2016 Time: 15:26 Bed 13 Private MD: Esperanza Rashid A Disposition: 12/10/16 20:41 Discharged to Home/Self Care. Impression: Chest pain, unspecified. - Condition is Stable. - Discharge Instructions: Nonspecific Chest Pain. - Medication Reconciliation, Local Pharmacy Hours form. - Follow up: Esperanza Rashid; When: Call to arrange an appointment; Reason: Continuance of care. - Problem is new. - Symptoms have improved. Historical: - Allergies: nka; - Home Meds: 1. duloxetine 30 mg Oral cpDR once daily 2. Crestor 5 mg Oral tab once daily 3. aspirin 81 mg Oral TbEC once daily 4. CoQ-10 100 mg oral cap 2 tab daily 5. Caltrate 600 + D 600 mg (1,500 mg)-800 unit oral chew twice a day 6. Estroven Maximum Strength 400 mcg oral tab daily 7. Claritin 10 mg Oral tab once daily 8. Fish Oil Oral 2100 mg daily 9. Emergen-C 1,000 mg oral pwep daily 10. multivitamin Oral cap daily 11. Culturelle 10 billion cell oral cap daily 12. Move Free Ultra 40-10-3.3 mg oral tab daily 13. aspercream twice a day 14. Tylenol Arthritis Pain 650 mg oral TbER nightly - PMHx: cervical radiculopthy; Headaches; Hypercholesterolemia; implanted loop recorder; Sleep Apnea w/ CPAP; Arthritis; Degenerative disc disease; - PSHx: Tonsillectomy; D & C; Hysterectomy; numerous blocks and injections from pain clinic; - Social history: Smoking status: Patient states former smoker of tobacco. No barriers to communication noted, The patient speaks fluent Cymro. - Family history: Not pertinent. - : The pt / caregiver states he / she is not on anticoagulants. Home medication list is obtained from the patient. - Exposure Risk Screening:: None identified. Vital Signs: 12/10 15:19 BP 173 / 74 (auto/); mk4 15:23 Pulse 68 MON; Pulse Ox 97% ; mk4 15:36 BP 181 / 79 (auto/); ms18 15:36 Pulse 74 MON; Pulse Ox 97% ; ms18 15:39 BP 173 / 74; Pulse 71; Resp 18; Pulse Ox 97% on R/A; Weight 86.18 kg / 189.99 lbs; mk4 Height 5 ft. 6 in. (167.64 cm); 15:50 Pulse 62 MON; Pulse Ox 95% ; ms18 15:51 BP 162 / 75 (auto/); ms18 16:06 BP 150 / 73 (auto/); ms18 16:06 Pulse 64 MON; Pulse Ox 97% ; ms18 16:19 Pulse 62 MON; Pulse Ox 97% ; ms18 16:21 BP 142 / 67 (auto/); ms18 16:36 Pulse 68 MON; Pulse Ox 96% ; ms18 16:41 BP 145 / 67 (auto/); ms18 16:51 BP 142 / 80 (auto/); ms18 16:51 Pulse 62 MON; Pulse Ox 96% ; ms18 17:06 BP 139 / 67 (auto/); ms18 17:08 Pulse 62 MON; Resp 18; Pulse Ox 95% ; ms18 17:20 Pulse 64 MON; Pulse Ox 94% ; ms18 17:21 BP 151 / 71 (auto/); ms18 17:35 Pulse 62 MON; Pulse Ox 95% ; ms18 17:36 BP 138 / 68 (auto/); ms18 17:51 BP 132 / 75 (auto/); ms18 17:51 Pulse 62 MON; Pulse Ox 94% ; ms18 18:06 BP 140 / 74 (auto/); ms18 18:06 Pulse 62 MON; Resp 18; Pulse Ox 95% ; ms18 18:21 BP 146 / 72 (auto/); ms18 18:21 Pulse 58 MON; Pulse Ox 95% ; ms18 18:36 BP 138 / 71 (auto/); ms18 18:36 Pulse 60 MON; Pulse Ox 95% ; ms18 18:51 BP 141 / 74 (auto/); ms18 18:51 Pulse 64 MON; Pulse Ox 96% ; ms18 19:36 BP 142 / 67 (auto/); ms18 19:36 Pulse 58 MON; Pulse Ox 96% ; ms18 20:21 BP 140 / 70 (auto/); ms18 20:21 Pulse 58 MON; Pulse Ox 95% ; ms18 20:36 BP 138 / 74 (auto/); ms18 20:39 Pulse 58 MON; Resp 18; Temp 98(O); Pulse Ox 95% ; ms18 15:39 Body Mass Index 30.67 (86.18 kg, 167.64 cm) mk4 MDM: 15:30 ECG WITH READING ER PHYS+CARDIAG ordered. EDMS 15:36 Aspirin Chewable Tablet 324 mg PO once ordered. fg 15:36 Assembly Line Supervisor/Pulse Ox/q 30 min VS ordered. fg 15:36 IV Saline Lock ordered. fg 15:36 Rhythm Strip to chart ordered. fg 15:36 Undress patient appropriately for examination ordered. fg 15:37 B-Type Natiuretic Peptide Ordered. EDMS 15:37 Basic Metabolic Profile Ordered. EDMS 15:37 CBC with Diff Ordered. EDMS 15:37 Cardiac Injury Profile Ordered. EDMS 15:37 Troponin Ordered. EDMS 15:37 portable chest Ordered. EDMS 16:11 Aspirin 324 mg PO once ordered. fg 16:36 Financial registration complete. ks16 17:38 [facility] Payment Agreement was scanned into Not[employer] and attached to record. ks16 18:21 Repeat EKG (put time details section) ordered. fg 18:22 Cardiac Injury Profile: 1900 Ordered. EDMS 18:22 Troponin: 1900 Ordered. EDMS 18:41 Repeat EKG (put time details section) complete. lbd 18:44 ECG WITH READING ER PHYS ordered. EDMS Administered Medications: 15:51 Not Given (Patient Refused): Aspirin Chewable Tablet 324 mg PO once mb9 16:21 Drug: Aspirin 324 mg [aspirin 81 mg chewable tablet (4 tabs)] {Note: Pt cannot take ms18 orange flavored aspirin. PT give 325mg aspirin PO, Dr. Mireles aware and OK with this.} Route: PO; 18:17 Follow up: Response: No Adverse Reaction ms18 Signatures: Dispatcher [employer] EDMS Juliann Barajas, Computer Systems Design Analyst Unit lbd Ramona Amaral RN RN mk4 Swathi Resendiz RN RN ms18 Alysia Mireles MD MD Genevieve Lovett, Reg Reg ks16 Akshat Villalpando RN mb9 The chart was reviewed and I authenticate all verbal orders and agree with the evaluation and treatment provided.Attachments: 17:38 [facility] Payment Agreement ks16 MTDD
--- NOTE | 2016-12-11 08:43 | ECGEPIP ---
Stationary ECG Study [facility] - ED Test Date: 2016-12-10 Pat Name: IAM DHALIWAL Department: Room: - Gender: F Cell Cleaner: rajesh : 1955 Requested By: Barry Connor Order Number: [id number] Reading MD: Barry Valencia Measurements Intervals [place] Rate: 63 P: 49 ID: [id number] QRS: 12 QRSD: 98 T: 42 QT: 427 QTc: 439 Interpretive Statements SINUS RHYTHM Electronically Signed On 12-11-2016 8:43:12 EST by Barry Valencia
--- NOTE | 2016-12-11 08:50 | ECGEPIP ---
Stationary ECG Study [facility] - ED Test Date: 2016-12-10 Pat Name: IAM DHALIWAL Department: Room: - Gender: F Scrape Gatherer: estela : 1955 Requested By: LYNDSEY Enriquez Order Number: [id number] Reading MD: Barry Valencia Measurements Intervals [place] Rate: 54 P: 48 NH: 176 QRS: 7 QRSD: 87 T: 42 QT: 426 QTc: 407 Interpretive Statements SINUS BRADYCARDIA Electronically Signed On 12-11-2016 8:50:10 EST by Barry Valencia
--- NOTE | 2016-12-12 21:56 | EDDOCDS ---
Physician Documentation [facility] Name: Paula Resendzi Age: 61 yrs Sex: Female : 1955 Arrival Date: 12/10/2016 Time: 15:26 Bed 13 Private MD: Esperanza Rashid A Disposition: 12/10/16 20:41 Discharged to Home/Self Care. Impression: Chest pain, unspecified. - Condition is Stable. - Discharge Instructions: Nonspecific Chest Pain. - Medication Reconciliation, Local Pharmacy Hours form. - Follow up: Esperanza Rashid; When: Call to arrange an appointment; Reason: Continuance of care. - Problem is new. - Symptoms have improved. Historical: - Allergies: nka; - Home Meds: 1. duloxetine 30 mg Oral cpDR once daily 2. Crestor 5 mg Oral tab once daily 3. aspirin 81 mg Oral TbEC once daily 4. CoQ-10 100 mg oral cap 2 tab daily 5. Caltrate 600 + D 600 mg (1,500 mg)-800 unit oral chew twice a day 6. Estroven Maximum Strength 400 mcg oral tab daily 7. Claritin 10 mg Oral tab once daily 8. Fish Oil Oral 2100 mg daily 9. Emergen-C 1,000 mg oral pwep daily 10. multivitamin Oral cap daily 11. Culturelle 10 billion cell oral cap daily 12. Move Free Ultra 40-10-3.3 mg oral tab daily 13. aspercream twice a day 14. Tylenol Arthritis Pain 650 mg oral TbER nightly - PMHx: cervical radiculopthy; Headaches; Hypercholesterolemia; implanted loop recorder; Sleep Apnea w/ CPAP; Arthritis; Degenerative disc disease; - PSHx: Tonsillectomy; D & C; Hysterectomy; numerous blocks and injections from pain clinic; - Social history: Smoking status: Patient states former smoker of tobacco. No barriers to communication noted, The patient speaks fluent Albanian. - Family history: Not pertinent. - : The pt / caregiver states he / she is not on anticoagulants. Home medication list is obtained from the patient. - Exposure Risk Screening:: None identified. Vital Signs: 12/10 15:19 BP 173 / 74 (auto/); mk4 15:23 Pulse 68 MON; Pulse Ox 97% ; mk4 15:36 BP 181 / 79 (auto/); ms18 15:36 Pulse 74 MON; Pulse Ox 97% ; ms18 15:39 BP 173 / 74; Pulse 71; Resp 18; Pulse Ox 97% on R/A; Weight 86.18 kg / 189.99 lbs; mk4 Height 5 ft. 6 in. (167.64 cm); 15:50 Pulse 62 MON; Pulse Ox 95% ; ms18 15:51 BP 162 / 75 (auto/); ms18 16:06 BP 150 / 73 (auto/); ms18 16:06 Pulse 64 MON; Pulse Ox 97% ; ms18 16:19 Pulse 62 MON; Pulse Ox 97% ; ms18 16:21 BP 142 / 67 (auto/); ms18 16:36 Pulse 68 MON; Pulse Ox 96% ; ms18 16:41 BP 145 / 67 (auto/); ms18 16:51 BP 142 / 80 (auto/); ms18 16:51 Pulse 62 MON; Pulse Ox 96% ; ms18 17:06 BP 139 / 67 (auto/); ms18 17:08 Pulse 62 MON; Resp 18; Pulse Ox 95% ; ms18 17:20 Pulse 64 MON; Pulse Ox 94% ; ms18 17:21 BP 151 / 71 (auto/); ms18 17:35 Pulse 62 MON; Pulse Ox 95% ; ms18 17:36 BP 138 / 68 (auto/); ms18 17:51 BP 132 / 75 (auto/); ms18 17:51 Pulse 62 MON; Pulse Ox 94% ; ms18 18:06 BP 140 / 74 (auto/); ms18 18:06 Pulse 62 MON; Resp 18; Pulse Ox 95% ; ms18 18:21 BP 146 / 72 (auto/); ms18 18:21 Pulse 58 MON; Pulse Ox 95% ; ms18 18:36 BP 138 / 71 (auto/); ms18 18:36 Pulse 60 MON; Pulse Ox 95% ; ms18 18:51 BP 141 / 74 (auto/); ms18 18:51 Pulse 64 MON; Pulse Ox 96% ; ms18 19:36 BP 142 / 67 (auto/); ms18 19:36 Pulse 58 MON; Pulse Ox 96% ; ms18 20:21 BP 140 / 70 (auto/); ms18 20:21 Pulse 58 MON; Pulse Ox 95% ; ms18 20:36 BP 138 / 74 (auto/); ms18 20:39 Pulse 58 MON; Resp 18; Temp 98(O); Pulse Ox 95% ; ms18 15:39 Body Mass Index 30.67 (86.18 kg, 167.64 cm) mk4 MDM: 15:30 ECG WITH READING ER PHYS+CARDIAG ordered. EDMS 15:36 Aspirin Chewable Tablet 324 mg PO once ordered. fg 15:36 Asset Analyst/Pulse Ox/q 30 min VS ordered. fg 15:36 IV Saline Lock ordered. fg 15:36 Rhythm Strip to chart ordered. fg 15:36 Undress patient appropriately for examination ordered. fg 15:37 B-Type Natiuretic Peptide Ordered. EDMS 15:37 Basic Metabolic Profile Ordered. EDMS 15:37 CBC with Diff Ordered. EDMS 15:37 Cardiac Injury Profile Ordered. EDMS 15:37 Troponin Ordered. EDMS 15:37 portable chest Ordered. EDMS 16:11 Aspirin 324 mg PO once ordered. fg 16:36 Financial registration complete. ks16 17:38 [facility] [place] Agreement was scanned into [employer] and attached to record. ks16 18:21 Repeat EKG (put time details section) ordered. fg 18:22 Cardiac Injury Profile: 1900 Ordered. EDMS 18:22 Troponin: 1900 Ordered. EDMS 18:41 Repeat EKG (put time details section) complete. lbd 18:44 ECG WITH READING ER PHYS ordered. EDMS 12/11 13:16 T-Sheet-- Draft Copy was scanned into [employer] and attached to record. gb 13:16 ECG/EKG was scanned into [employer] and attached to record. gb Administered Medications: 12/10 15:51 Not Given (Patient Refused): Aspirin Chewable Tablet 324 mg PO once mb9 16:21 Drug: Aspirin 324 mg [aspirin 81 mg chewable tablet (4 tabs)] {Note: Pt cannot take ms18 orange flavored aspirin. PT give 325mg aspirin PO, Dr. Mireles aware and OK with this.} Route: PO; 18:17 Follow up: Response: No Adverse Reaction ms18 Signatures: Dispatcher [employer] EDMS Juliann Barajas, Sole Painter Unit lbd Melva Castro, Reg Reg gb Ramona Amaral RN RN mk4 Swathi Resendiz RN RN ms18 Alysia Mireles MD MD fg Sorenson, Kimberly, Reg Reg ks16 Akshat Villalpando RN mb9 The chart was reviewed and I authenticate all verbal orders and agree with the evaluation and treatment provided.Attachments: 17:38 [facility] [place] Agreement ks16 12/11 13:16 T-Sheet-- Draft Copy gb 13:16 ECG/EKG gb Chart Complete MTDD
--- NOTE | 2016-12-12 21:56 | EDDOCDS ---
Nurse's Notes [facility] Name: Paula Resendiz Age: 61 yrs Sex: Female : 1955 Arrival Date: 12/10/2016 Time: 15:26 Bed 13 Private MD: Esperanza Rashid A Diagnosis: Chest pain, unspecified Presentation: 12/10 15:29 Presenting complaint: Patient states: pt arrives from Pain clinic where she was mk4 preparing for a thoracic block when she developed chest pain around 2;15 pm , pain at that time was mid sternal and non radiating , pt currently has a loop recorder in place for a syncopal episode and is followed by Dr Mclean for it, pt arrives to [place] with chest pain almost resolved at a 1/10 and remains mid sternal. Pt had been pre medicated with valium 10 mg and oxycontin 5 mg both po. Aspirin was not taken prior to arrival. Adult Sepsis Screening: The patient does not have new or worsening altered mentation. Patient's respiratory rate is less than 22. Systolic blood pressure is greater than 100. Patient has a qSOFA score of 0- Negative Sepsis Screen. Suicide/Homicide risk assessment- the patient denies having any suicidal and/or homicidal ideations and does not present with any other emotional, behavioral or mental health complaints. Status: Patient is not a neighborhood service center director or dependent. Transition of care: patient was not received from another setting of care. 15:29 Acuity: ANAT Level 3 mk4 15:29 Method Of Arrival: Other 4 Triage Assessment: 15:39 General: Appears in no apparent distress. Pain: Location: mid-sternal area Pain 4 currently is 1 out of 10 on a pain scale. HIV screening NA for this visit Offered previously. Cardiovascular: Chest pain is described as mild, radiates Does not radiate. episodes are intermittent began 1 hour prior to arrival. Historical: - Allergies: nka; - Home Meds: 1. duloxetine 30 mg Oral cpDR once daily 2. Crestor 5 mg Oral tab once daily 3. aspirin 81 mg Oral TbEC once daily 4. CoQ-10 100 mg oral cap 2 tab daily 5. Caltrate 600 + D 600 mg (1,500 mg)-800 unit oral chew twice a day 6. Estroven Maximum Strength 400 mcg oral tab daily 7. Claritin 10 mg Oral tab once daily 8. Fish Oil Oral 2100 mg daily 9. Emergen-C 1,000 mg oral pwep daily 10. multivitamin Oral cap daily 11. Culturelle 10 billion cell oral cap daily 12. Move Free Ultra 40-10-3.3 mg oral tab daily 13. aspercream twice a day 14. Tylenol Arthritis Pain 650 mg oral TbER nightly - PMHx: cervical radiculopthy; Headaches; Hypercholesterolemia; implanted loop recorder; Sleep Apnea w/ CPAP; Arthritis; Degenerative disc disease; - PSHx: Tonsillectomy; D & C; Hysterectomy; numerous blocks and injections from pain clinic; - Social history: Smoking status: Patient states former smoker of tobacco. No barriers to communication noted, The patient speaks fluent Tunisian. - Family history: Not pertinent. - : The pt / caregiver states he / she is not on anticoagulants. Home medication list is obtained from the patient. - Exposure Risk Screening:: None identified. Screenin:15 Screening information is obtained from the patient. Fall risk: No risks identified. ms18 Assistance ADL's: requires no assistance with activities of daily living. Assistance ADL's: requires no assistance with activities of daily living. Abuse/DV Screen: The patient / caregiver reports he/she is: not in a situation that causes fear, pain or injury. Nutritional screening: No deficits noted. Advance Directives: There is no living will. home support is adequate. Assessment: 16:16 General: Pt in no acute distress. Will continue to monitor pt. ms18 17:16 General: Appears in no apparent distress, Behavior is cooperative, ambulated in pantoja to 4 bathroom with min assist , gait steady denies any dizziness or syncope feelings, returned to bed . Pain: Location: back. Neurological: Level of Consciousness is awake, alert. Cardiovascular: Rhythm is regular. 17:23 General: Appears in no apparent distress, comfortable, well nourished, well groomed, ms18 Behavior is appropriate for age, cooperative, pleasant. General: Pt informed that the doctor wants to do repeat bloodwork and EKG at 1900. Pt verbalized understanding of this. Pain: Pain currently is 1 out of 10 on a pain scale. Neurological: No deficits noted. Respiratory: Airway is patent Respiratory effort is even, unlabored, Respiratory pattern is regular, symmetrical. Derm: Skin is pink, warm & dry. 18:18 General: Appears in no apparent distress, comfortable, Behavior is appropriate for age, ms18 cooperative, pleasant. Pain: Pain currently is 1 out of 10 on a pain scale. Neurological: No deficits noted. Respiratory: Airway is patent Respiratory effort is even, unlabored. Derm: Skin is pink, warm & dry. 19:45 General: Appears in no apparent distress, comfortable, Behavior is appropriate for age, ms18 cooperative, Pt in no acute distress. Awaiting lab work at this time. Will continue to monitor pt. Respiratory: No deficits noted. Derm: Skin is pink, warm & dry. 20:51 General: Appears in no apparent distress, comfortable, Behavior is appropriate for age, ms18 cooperative, pleasant. Pain: Denies pain. Neurological: No deficits noted. Cardiovascular: Rhythm is regular. Respiratory: Airway is patent Respiratory effort is even, unlabored. GI: Abdomen is non- distended. Derm: Skin is pink, warm & dry. normal. Vital Signs: 15:19 BP 173 / 74 (auto/); mk4 15:23 Pulse 68 MON; Pulse Ox 97% ; mk4 15:36 BP 181 / 79 (auto/); ms18 15:36 Pulse 74 MON; Pulse Ox 97% ; ms18 15:39 BP 173 / 74; Pulse 71; Resp 18; Pulse Ox 97% on R/A; Weight 86.18 kg; Height 5 ft. 6 mk4 in. (167.64 cm); 15:50 Pulse 62 MON; Pulse Ox 95% ; ms18 15:51 BP 162 / 75 (auto/); ms18 16:06 BP 150 / 73 (auto/); ms18 16:06 Pulse 64 MON; Pulse Ox 97% ; ms18 16:19 Pulse 62 MON; Pulse Ox 97% ; ms18 16:21 BP 142 / 67 (auto/); ms18 16:36 Pulse 68 MON; Pulse Ox 96% ; ms18 16:41 BP 145 / 67 (auto/); ms18 16:51 BP 142 / 80 (auto/); ms18 16:51 Pulse 62 MON; Pulse Ox 96% ; ms18 17:06 BP 139 / 67 (auto/); ms18 17:08 Pulse 62 MON; Resp 18; Pulse Ox 95% ; ms18 17:20 Pulse 64 MON; Pulse Ox 94% ; ms18 17:21 BP 151 / 71 (auto/); ms18 17:35 Pulse 62 MON; Pulse Ox 95% ; ms18 17:36 BP 138 / 68 (auto/); ms18 17:51 BP 132 / 75 (auto/); ms18 17:51 Pulse 62 MON; Pulse Ox 94% ; ms18 18:06 BP 140 / 74 (auto/); ms18 18:06 Pulse 62 MON; Resp 18; Pulse Ox 95% ; ms18 18:21 BP 146 / 72 (auto/); ms18 18:21 Pulse 58 MON; Pulse Ox 95% ; ms18 18:36 BP 138 / 71 (auto/); ms18 18:36 Pulse 60 MON; Pulse Ox 95% ; ms18 18:51 BP 141 / 74 (auto/); ms18 18:51 Pulse 64 MON; Pulse Ox 96% ; ms18 19:36 BP 142 / 67 (auto/); ms18 19:36 Pulse 58 MON; Pulse Ox 96% ; ms18 20:21 BP 140 / 70 (auto/); ms18 20:21 Pulse 58 MON; Pulse Ox 95% ; ms18 20:36 BP 138 / 74 (auto/); ms18 20:39 Pulse 58 MON; Resp 18; Temp 98(O); Pulse Ox 95% ; ms18 15:39 Body Mass Index 30.67 (86.18 kg, 167.64 cm) mk4 Vitals: 20:54 Log In Time N/A - ambulance arrival. ms18 ED Course: 15:27 Patient visited by Juliann Barajas, Beam Doffer. lbd 15:27 Patient moved to Waiting lbd 15:28 Esperanza Rashid is Private Physician. lbd 15:29 Swathi Resendiz,RN is Primary Nurse. lbd 15:29 Patient moved to 13 lbd 15:32 Triage Initiated mk4 15:35 Alysia Mireles MD is Attending Physician. fg 15:41 Patient visited by Alysia Mireles MD. fg 15:41 EKG done. (by ED staff). Reviewed by Alysia Mireles MD. jlm 15:42 Patient visited by Cynthia Phillips, Beam Doffer. jlm 16:01 B-Type Natiuretic Peptide Sent. mb9 16:01 Basic Metabolic Profile Sent. mb9 16:01 CBC with Diff Sent. mb9 16:01 Cardiac Injury Profile Sent. mb9 16:01 Troponin Sent. mb9 16:10 Patient visited by Swathi Resendiz RN. ms18 16:53 portable chest Returned. EDMS 16:58 Patient visited by Ramona Amaral RN. mk4 17:15 The patient / caregiver is instructed regarding the plan of care and ED course. ms18 Accompanied by Family Member, Patient has correct armband on for positive identification. Placed in gown. Bed in low position. Call light in reach. bar and filler assembler on. Pulse ox on. NIBP on. Property :Personal belongings accompany Pt. 17:15 Maintain field IV. Dressing intact. Good blood return noted. Site clean & dry. Gauge & ms18 site: 22 g, L hand. 17:23 Patient visited by Swathi Resendiz RN. ms18 17:38 [facility] Payment Agreement was scanned into [employer] and attached to record. ks16 17:59 Patient visited by Swathi Resendiz RN. ms18 18:29 Patient visited by Swathi Resendiz,EV. ms18 18:52 Patient visited by Turner Oliveros PCA. jmv 18:52 EKG done. (by ED staff). Reviewed by Alysia Mireles MD. jmv 19:30 Patient visited by Swathi Resendiz RN. ms18 19:30 Troponin: 1900 Sent. ms18 19:30 Cardiac Injury Profile: 1900 Sent. ms18 20:29 Patient visited by Swathi Resendiz RN. ms18 20:39 Discontinued IV lock intact, bleeding controlled, pressure dressing applied, No ms18 redness/swelling at site. No procedures done that require assistance. 20:40 Esperanza Rashid is Referral Physician. fg 20:51 Patient visited by Swathi Resendiz RN. ms18 12/11 08:51 EKG-ADULT Returned. EDMS 08:52 ECG WITH READING ER PHYS Returned. EDMS 13:16 T-Sheet-- Draft Copy was scanned into [employer] and attached to record. gb 13:16 ECG/EKG was scanned into [employer] and attached to record. gb Administered Medications: 12/10 15:51 Not Given (Patient Refused): Aspirin Chewable Tablet 324 mg PO once mb9 16:21 Drug: Aspirin 324 mg [aspirin 81 mg chewable tablet (4 tabs)] {Note: Pt cannot take ms18 orange flavored aspirin. PT give 325mg aspirin PO, Dr. Mireles aware and OK with this.} Route: PO; 18:17 Follow up: Response: No Adverse Reaction ms18 Order Results: Lab Order: B-Type Natiuretic Peptide; SPEC12/10/16 15:58 Test: BRAIN NATRIURETIC PEPTIDE; Value: 7.0; Range: <100; Units: PG/ML; Status: F Lab Order: Basic Metabolic Profile; SPEC12/10/16 16:34 Test: GLUCOSE, FASTING; Value: 90; Range: 70-105; Units: MG/DL; Status: F Test: BLOOD UREA NITROGEN; Value: 16; Range: 7-18; Units: MG/DL; Status: F Test: CREATININE FOR GFR; Value: 0.70; Range: 0.55-1.02; Units: MG/DL; Status: F Test: GLOMERULAR FILTRATION RATE; Value: > 60.0; Range: >51; Status: F Test: SODIUM LEVEL; Value: 142; Range: 136-145; Units: MEQ/L; Status: F Test: POTASSIUM SERUM; Value: 4.0; Range: 3.5-5.1; Units: MEQ/L; Status: F Test: CHLORIDE LEVEL; Value: 108; Range: 98-107; Abnormal: Above high normal; Units: MEQ/L; Status: F Test: CARBON DIOXIDE LEVEL; Value: 26; Range: 21-32; Units: MEQ/L; Status: F Test: ANION GAP; Value: 8; Range: 8-16; Units: MEQ/L; Status: F Test: CALCIUM LEVEL; Value: 9.5; Range: 8.5-10.1; Units: MG/DL; Status: F Test Note: ; Units are mL/min/1.73 m2 Chronic Kidney Disease Staging per NKF: Stage I & II GFR >=60 Normal to Mildly Decreased Stage III GFR 30-59 Moderately Decreased Stage IV GFR 15-29 Severely Decreased Stage V GFR <15 Very Little GFR Left ESRD GFR <15 on WASHING MACHINE MECHANIC Lab Order: CBC with Diff; SPEC12/10/16 15:58 Test: WHITE BLOOD COUNT; Value: 7.8; Range: 4.0-10.0; Units: K/mm3; Status: F Test: RED BLOOD COUNT; Value: 4.04; Range: 4.00-5.40; Units: M/mm3; Status: F Test: HEMOGLOBIN; Value: 12.5; Range: 12.0-16.0; Units: g/dl; Status: F Test: HEMATOCRIT; Value: 35.8; Range: 36.0-47.0; Abnormal: Below low normal; Units: %; Status: F Test: MEAN CORPUSCULAR VOLUME; Value: 88.7; Range: 80.0-96.0; Units: fl; Status: F Test: MEAN CORPUSCULAR HEMOGLOBIN; Value: 31.0; Range: 27.0-33.0; Units: pg; Status: F Test: MEAN CORPUSCULAR HGB CONC; Value: 35.0; Range: 32.0-36.5; Units: g/dl; Status: F Test: RED CELL DISTRIBUTION WIDTH; Value: 12.7; Range: 11.5-14.5; Units: %; Status: F Test: PLATELET COUNT, AUTOMATED; Value: 203; Range: 150-450; Units: k/mm3; Status: F Test: NEUTROPHILS %; Value: 61.9; Range: 36.0-66.0; Units: %; Status: F Test: LYMPH %; Value: 30.6; Range: 24.0-44.0; Units: %; Status: F Test: MONO %; Value: 5.0; Range: 0.0-5.0; Units: %; Status: F Test: EOS %; Value: 0.7; Range: 0.0-3.0; Units: %; Status: F Test: BASO %; Value: 0.1; Range: 0.0-1.0; Units: %; Status: F Test: LARGE UNSTAINED CELL %; Value: 1.8; Range: 0.0-4.0; Units: %; Status: F Test: NEUTROPHILS #; Value: 4.8; Range: 1.8-7.7; Units: K/mm3; Status: F Test: LYMPH #; Value: 2.5; Range: 1.5-4.5; Units: K/mm3; Status: F Test: MONO #; Value: 0.4; Range: 0.0-0.8; Units: K/mm3; Status: F Test: EOS #; Value: 0.0; Range: 0.0-0.50; Units: K/mm3; Status: F Test: BASO #; Value: 0.0; Range: 0.0-0.2; Units: K/mm3; Status: F Test: LARGE UNSTAINED CELL #; Value: 0.1; Range: 0.0-0.4; Units: K/mm3; Status: F Lab Order: Cardiac Injury Profile; [facility] 12/10/16 16:34 Test: CPK CREATINE PHOSPHOKINASE; Value: 123; Range: 26-192; Units: U/L; Status: F Test: CK-MB VALUE MASS; Value: 2.2; Range: 0.0-3.6; Units: NG/ML; Status: F Test: MB/CK RELATIVE INDEX; Value: 1.78; Range: < OR =4; Status: F Test Note: ; DIAGNOSIS CRITERIA MMB ng/ml Relative Index (RI) NON-AMI < or = 5 N/A IVAN ZONE > 5 < or = 4 AMI > 5 > 4 Lab Order: Troponin; [facility] 12/10/16 16:34 Test: TROPONIN I; Value: < 0.02; Range: < 0.10; Units: NG/ML; Status: F Test Note: ; Troponin I Reference Interval for [employer] LOCI: 99th Percentile= 0.00-0.045 ng/ml Risk Stratification: <= 0.10 ng/ml Decreased Risk for Adverse Clinical Events. 0.10-1.50 ng/ml Increased Risk for Adverse Clinical Events. Evaluation of additional criterion and/or repeat testing in 2-6 hours is suggested to rule out myocardial damage. >= 1.50 ng/ml Indicative of Myocardial Injury. Lab Order: Cardiac Injury Profile: 1900; [facility] 12/10/16 19:27 Test: CPK CREATINE PHOSPHOKINASE; Value: 129; Range: 26-192; Units: U/L; Status: F Test: CK-MB VALUE MASS; Value: 1.1; Range: 0.0-3.6; Units: NG/ML; Status: F Test: MB/CK RELATIVE INDEX; Value: 0.85; Range: < OR =4; Status: F Test Note: ; DIAGNOSIS CRITERIA MMB ng/ml Relative Index (RI) NON-AMI < or = 5 N/A IVAN ZONE > 5 < or = 4 AMI > 5 > 4 Lab Order: Troponin: 1900; [facility] 12/10/16 19:27 Test: TROPONIN I; Value: < 0.02; Range: < 0.10; Units: NG/ML; Status: F Test Note: ; Troponin I Reference Interval for [employer] LOCI: 99th Percentile= 0.00-0.045 ng/ml Risk Stratification: <= 0.10 ng/ml Decreased Risk for Adverse Clinical Events. 0.10-1.50 ng/ml Increased Risk for Adverse Clinical Events. Evaluation of additional criterion and/or repeat testing in 2-6 hours is suggested to rule out myocardial damage. >= 1.50 ng/ml Indicative of Myocardial Injury. Radiology Order: EKG-ADULT Test: EKG-ADULT REASON FOR EXAMINATION: Chest Pain; Stationary ECG Study; [facility] ED; ; Test Date: 2016-12-10; Pat Name: PAULA RESENDIZ Department:; Room: -; Gender: F Director Of Security: rajesh; : 1955 Requested By: Barry Connor; Order Number: [id number] Reading MD: Barry Valencia; Measurements; Intervals [place]; Rate: 63 P: 49; KS: 168 QRS: 12; QRSD: 98 T: 42; QT: 427; QTc: 439; Interpretive Statements; SINUS RHYTHM; ; Electronically Signed On 12-11-2016 8:43:12 EST by Barry Valencia; Radiology Order: portable chest Test: portable chest REASON FOR EXAMINATION: Chest Pain; Clinical: Acute chest pain .; ; Comparison: None .; ; Findings:; The mediastinum and cardiac silhouette are stable and within normal limits for; portable technique. The lung kessler are clear without acute consolidation,; effusion, or pneumothorax. Skeletal structures are intact.; ; Impression:; Normal portable chest x-ray; ; ; Signed by; Marvin Garg MD 12/10/2016 04:28 P; Radiology Order: ECG WITH READING ER PHYS Test: ECG WITH READING ER PHYS REASON FOR EXAMINATION: CHEST PAIN (REPEAT EKG AT 1900); Stationary ECG Study; [facility] ED; ; Test Date: 2016-12-10; Pat Name: PAULA RESENDIZ Department:; Room: -; Gender: F Director Of Security: jv; : 1955 Requested By: ALYSIA Enriquez; Order Number: [id number] Reading MD: Barry Valencia; Measurements; Intervals [place]; Rate: 54 P: 48; KS: 176 QRS: 7; QRSD: 87 T: 42; QT: 426; QTc: 407; Interpretive Statements; SINUS BRADYCARDIA; ; Electronically Signed On 12-11-2016 8:50:10 EST by Barry Valencia; Outcome: 20:39 Discharge Assessment: Patient awake, alert and oriented x 3. No cognitive and/or ms18 functional deficits noted. Patient verbalized understanding of disposition instructions. patient administered narcotics - no. The following High Risk Discharge criteria are identified: None. Discharged to home ambulatory, with significant other. Condition: good Condition: stable Condition: improved. Discharge instructions given to patient, Instructed on discharge instructions, follow up and referral plans. Demonstrated understanding of instructions, Pt was receptive of discharge instructions/ teaching. No special radiology studies were completed. 20:41 Discharge ordered by Provider. fg 20:55 Patient left the ED. ms18 Signatures: Dispatcher [employer] EDMS Juliann Barajas, Beam Doffer Unit lbd Melva Castro, Reg Reg gb Ramona Amaral, RN RN mk4 Cynthia Phillips, Beam Doffer Unit jlSwathi Rankin,RN RN ms18 Akshat Villalpando,RN RN Alysia Tariq MD MD fg Sorenson, Kimberly, Reg Reg ks16 Domo, Turner, BARGE MASTER BARGE MASTER jmv Corrections: (The following items were deleted from the chart) 15:43 15:29 Presenting complaint: Patient states: pt arrives from Pain clinic where she was mk4 preparing for a thoracic blocke when she developed chest pain around 2;15 pm , pain at that time was mid sternal and non radiating , pt currently has a loop recorder in place for a syncopal episode and is followed by Dr Mclean for it, pt arrives to [place] with chest pain almost resolved at a 1/10 and remains mid sternal. Pt had been pre medicated with valium 10 mg and oxycontin 5 mg both po mk4 17:58 17:15 Maintain field IV. Dressing intact. Good blood return noted. Site clean & dry. ms18 Gauge & site: 22 g, R hand. ms18 Chart Complete MTDD
--- NOTE | 2016-12-12 21:56 | EDDOCDS ---
Physician Documentation [facility] Name: Paula Resendiz Age: 61 yrs Sex: Female : 1955 Arrival Date: 12/10/2016 Time: 15:26 Bed 13 Private MD: Esperanza Rashid A Disposition: 12/10/16 20:41 Discharged to Home/Self Care. Impression: Chest pain, unspecified. - Condition is Stable. - Discharge Instructions: Nonspecific Chest Pain. - Medication Reconciliation, Local Pharmacy Hours form. - Follow up: Esperanza Rashid; When: Call to arrange an appointment; Reason: Continuance of care. - Problem is new. - Symptoms have improved. Historical: - Allergies: nka; - Home Meds: 1. duloxetine 30 mg Oral cpDR once daily 2. Crestor 5 mg Oral tab once daily 3. aspirin 81 mg Oral TbEC once daily 4. CoQ-10 100 mg oral cap 2 tab daily 5. Caltrate 600 + D 600 mg (1,500 mg)-800 unit oral chew twice a day 6. Estroven Maximum Strength 400 mcg oral tab daily 7. Claritin 10 mg Oral tab once daily 8. Fish Oil Oral 2100 mg daily 9. Emergen-C 1,000 mg oral pwep daily 10. multivitamin Oral cap daily 11. Culturelle 10 billion cell oral cap daily 12. Move Free Ultra 40-10-3.3 mg oral tab daily 13. aspercream twice a day 14. Tylenol Arthritis Pain 650 mg oral TbER nightly - PMHx: cervical radiculopthy; Headaches; Hypercholesterolemia; implanted loop recorder; Sleep Apnea w/ CPAP; Arthritis; Degenerative disc disease; - PSHx: Tonsillectomy; D & C; Hysterectomy; numerous blocks and injections from pain clinic; - Social history: Smoking status: Patient states former smoker of tobacco. No barriers to communication noted, The patient speaks fluent Croatian. - Family history: Not pertinent. - : The pt / caregiver states he / she is not on anticoagulants. Home medication list is obtained from the patient. - Exposure Risk Screening:: None identified. Vital Signs: 12/10 15:19 BP 173 / 74 (auto/); mk4 15:23 Pulse 68 MON; Pulse Ox 97% ; mk4 15:36 BP 181 / 79 (auto/); ms18 15:36 Pulse 74 MON; Pulse Ox 97% ; ms18 15:39 BP 173 / 74; Pulse 71; Resp 18; Pulse Ox 97% on R/A; Weight 86.18 kg / 189.99 lbs; mk4 Height 5 ft. 6 in. (167.64 cm); 15:50 Pulse 62 MON; Pulse Ox 95% ; ms18 15:51 BP 162 / 75 (auto/); ms18 16:06 BP 150 / 73 (auto/); ms18 16:06 Pulse 64 MON; Pulse Ox 97% ; ms18 16:19 Pulse 62 MON; Pulse Ox 97% ; ms18 16:21 BP 142 / 67 (auto/); ms18 16:36 Pulse 68 MON; Pulse Ox 96% ; ms18 16:41 BP 145 / 67 (auto/); ms18 16:51 BP 142 / 80 (auto/); ms18 16:51 Pulse 62 MON; Pulse Ox 96% ; ms18 17:06 BP 139 / 67 (auto/); ms18 17:08 Pulse 62 MON; Resp 18; Pulse Ox 95% ; ms18 17:20 Pulse 64 MON; Pulse Ox 94% ; ms18 17:21 BP 151 / 71 (auto/); ms18 17:35 Pulse 62 MON; Pulse Ox 95% ; ms18 17:36 BP 138 / 68 (auto/); ms18 17:51 BP 132 / 75 (auto/); ms18 17:51 Pulse 62 MON; Pulse Ox 94% ; ms18 18:06 BP 140 / 74 (auto/); ms18 18:06 Pulse 62 MON; Resp 18; Pulse Ox 95% ; ms18 18:21 BP 146 / 72 (auto/); ms18 18:21 Pulse 58 MON; Pulse Ox 95% ; ms18 18:36 BP 138 / 71 (auto/); ms18 18:36 Pulse 60 MON; Pulse Ox 95% ; ms18 18:51 BP 141 / 74 (auto/); ms18 18:51 Pulse 64 MON; Pulse Ox 96% ; ms18 19:36 BP 142 / 67 (auto/); ms18 19:36 Pulse 58 MON; Pulse Ox 96% ; ms18 20:21 BP 140 / 70 (auto/); ms18 20:21 Pulse 58 MON; Pulse Ox 95% ; ms18 20:36 BP 138 / 74 (auto/); ms18 20:39 Pulse 58 MON; Resp 18; Temp 98(O); Pulse Ox 95% ; ms18 15:39 Body Mass Index 30.67 (86.18 kg, 167.64 cm) mk4 MDM: 15:30 ECG WITH READING ER PHYS+CARDIAG ordered. EDMS 15:36 Aspirin Chewable Tablet 324 mg PO once ordered. fg 15:36 Electrophysiology Nurse Practitioner/Pulse Ox/q 30 min VS ordered. fg 15:36 IV Saline Lock ordered. fg 15:36 Rhythm Strip to chart ordered. fg 15:36 Undress patient appropriately for examination ordered. fg 15:37 B-Type Natiuretic Peptide Ordered. EDMS 15:37 Basic Metabolic Profile Ordered. EDMS 15:37 CBC with Diff Ordered. EDMS 15:37 Cardiac Injury Profile Ordered. EDMS 15:37 Troponin Ordered. EDMS 15:37 portable chest Ordered. EDMS 16:11 Aspirin 324 mg PO once ordered. fg 16:36 Financial registration complete. [email or web address] 17:38 [facility] Payment Agreement was scanned into [employer] and attached to record. [email or web address] 18:21 Repeat EKG (put time details section) ordered. fg 18:22 Cardiac Injury Profile: 1900 Ordered. EDMS 18:22 Troponin: 1900 Ordered. EDMS 18:41 Repeat EKG (put time details section) complete. lbd 18:44 ECG WITH READING ER PHYS ordered. EDMS 12/11 13:16 T-Sheet-- Draft Copy was scanned into [employer] and attached to record. gb 13:16 ECG/EKG was scanned into [employer] and attached to record. gb Administered Medications: 12/10 15:51 Not Given (Patient Refused): Aspirin Chewable Tablet 324 mg PO once mb9 16:21 Drug: Aspirin 324 mg [aspirin 81 mg chewable tablet (4 tabs)] {Note: Pt cannot take ms18 orange flavored aspirin. PT give 325mg aspirin PO, Dr. Mireles aware and OK with this.} Route: PO; 18:17 Follow up: Response: No Adverse Reaction ms18 Signatures: Dispatcher [employer] EDMS Juliann Barajas, Seat Mender Unit lbd Melva Castro, Reg Reg gb Ramona Amaral RN RN mk4 Swathi Resendiz RN RN ms18 Alysia Mireles MD MD fg Sorenson, Kimberly, Reg Reg ks16 Akshat Villalpando RN mb9 The chart was reviewed and I authenticate all verbal orders and agree with the evaluation and treatment provided.Attachments: 17:38 [facility] Payment Agreement [email or web address] 12/11 13:16 T-Sheet-- Draft Copy gb 13:16 ECG/EKG gb Chart Complete MTDD
== END 2016-12-10 20:55 | disposition home or self-care (01) ==
LOC: M ED 15:26
DX: R07.9 Chest pain, unspecified (principal); E78.5 Hyperlipidemia, unspecified; G47.33 Obstructive sleep apnea (adult) (pediatric); M19.90 Unspecified osteoarthritis, unspecified site; M51.9 Unspecified thoracic, thoracolumbar and lumbosacral intervertebral disc disorder; M54.12 Radiculopathy, cervical region; R51 Headache; Z79.899 Other long term (current) drug therapy; Z79.82 Long term (current) use of aspirin; Z87.891 Personal history of nicotine dependence

== ENCOUNTER → 2016-12-10 | Outpatient (CLI) | payer OTHER ==
[~2016-12-10] MED LIST changes: +ATROPINE SULF 1MG/10ML SYRINGE (J0461) As Ordered ONE; +diazePAM 5 MG TAB As Ordered ONE; +ePHEDrine SULFATE 25 MG/5 ML(5MG/ML) SYRINGE As Ordered ONE; +oxyCODONE 5MG TAB As Ordered ONE
--- NOTE | 2016-12-14 23:26 | ECWPNPC ---
PATIENT NAME: IAM DHALIWAL : 1955 GENDER: FEMALE VISIT DATE: 12/10/2016 DISCHARGE DATE: 12/10/16 162 VISIT LOCKED DATE TIME: PHYSICIAN: ELENO BONE RESOURCE: ELENO BONE REASON FOR APPOINTMENT 1. CERVICAL/THORACIC FBT W/ IV HISTORY OF PRESENT ILLNESS HISTORY OF PRESENT ILLNESS: PAIN THE PATIENT DESCRIBES THE PAIN... 61 YEAR OLD FEMALE WITH HISTORY OF CHRONIC NECK PAIN. PATIENT DESCRIBES THE PAIN BURNING, AND HAVING IT ALL THE TIME IN THE NECK WITH A ACHING PAIN IN THE LEFT ARM WITH A PAIN SCORE OF 8-9/10 ON TODAY'S VISIT. PATIENT HAS A LOOP RECORDER PUT IN JANUARY OF 2015. PATIENT REPORTS THAT SHE HAS DIFFICULTIES PICKING UP ITEMS WITH HER HANDS. PATIENT DENIES UNEXPLAINABLE WEIGHT LOSS, FEVER, CHILLS, NEW CHANGES ON HER URINARY OR BOWEL CONTROL. FALL RISK SCREENING: SCREENING :NO FALLS IN THE PAST YEAR CURRENT MEDICATIONS TAKING CRESTOR 5 MG TABLET 1 TABLET ORALLY ONCE A DAY, NOTES: 12/09/162099 TAKING ASPIR-81 81 MG TABLET DELAYED RELEASE 1 TABLET ORALLY EVERY OTHER DAY, NOTES: 12/09/16599 TAKING FISH OIL TRIPLE STRENGTH 2100 MG 1 CAPSULE ORALLY ONCE A DAY, NOTES: 12/09/161729 TAKING COQ-10 200 MG CAPSULE 1 CAPSULE WITH A MEAL ORALLY ONCE A DAY, NOTES: 12/09/161729 TAKING CALTRATE 600+D PLUS MINERALS 600-800 MG-UNIT TABLET 1 TABLET ORALLY TWICE A DAY, NOTES: 12/10/16629 TAKING ESTROVEN + ENERGY MAX STRENGTH TABLET 1 TAB ORALLY , NOTES: 12/10/16629 TAKING CLARITIN 10 MG TABLET 1 TABLET ORALLY ONCE A DAY, NOTES: 12/10/16629 TAKING EMERGEN-C IMMUNE PACKET ORALLY ONCE DAILY, NOTES: 12/09/16 07 TAKING MULTIVITAMINS CAPSULE ORALLY ONCE DAILY, NOTES: 12/09/161729 TAKING CULTURELLE CAPSULE ORALLY ONCE DAILY, NOTES: 12/08/16 TAKING ASPERCREME 10 % CREAM 1 APPLICATION TO AFFECTED AREA NEEDED EXTERNALLY TWICE DAILY, NOTES: 12/09/16599 TAKING MOVE FREE JOINT HEALTH ADVANCE - TABLET ORALLY , NOTES: 12/09/161729 TAKING DULOXETINE HCL 30 MG CAPSULE DELAYED RELEASE PARTICLES 1 CAPSULE ORALLY ONCE A DAY, NOTES: 2/14/17 0630 TAKING TYLENOL ARTHRITIS PAIN 650 MG TABLET EXTENDED RELEASE 1 ORALLY AT BEDTIME, NOTES: 12/09/16 2030 NOT-TAKING IBUPROFEN 200 MG 1 TAB ORAL NIGHTLY MEDICATION LIST REVIEWED AND RECONCILED WITH THE PATIENT PAST MEDICAL HISTORY BRI - CPAP IMPLANTABLE LOOP RECORDER- FOR EPISODES OF SYNCOPE HYPERLIPID CHRONIC BACK AND NECK PAIN HEADACHES DIZZINESS ALLERGIES TAPE: RASH ORANGE: DRY MOUTH/DIFFICULTY SWALLOWING PINE: RASH/CONGESTION GRASS: SNEEZING, WATERY EYES SURGICAL HISTORY TONSILLECTOMY 1965 D/C (MISCARRIAGE) 12/1978 D/C ENDOMETRIAL ABLATION 08/1979 HYSTERECTOMY/OOPHORECTOMY 11/2009 IMPLANTABLE LOOP RECORDER 01/2015 THYROID BX 06/2016 FAMILY HISTORY NO FAMILY HISTORY DOCUMENTED. SOCIAL HISTORY GENERAL: TOBACCO USE ARE YOU A:NONSMOKER LEARNING BARRIERS / SPECIAL NEEDS ORIENTED TO PLAN OF CARE: PATIENT, PAIN MANAGEMENT PATIENT, ORIENTED TO PLAN OF CARE: PATIENT, PAIN MANAGEMENT PATIENT. NEW PATIENT PAIN DIARY TODAY'S VISITNOTES FROM 0-10, WHAT LEVEL IS YOUR PAIN TODAY?0 PAIN CLINIC PFS, CLERGY, PUBLIC HEALTH REFERRALS PFS REFERRAL NEEDED?NO CLERGY REFERRAL NEEDED?NO PUBLIC HEALTH REFERRAL NEEDED?NO WAS THE PROVIDER NOTIFIED OF ANY PERTINENT INFO?NO PFS REFERRAL NEEDED?NO CLERGY REFERRAL NEEDED?NO PUBLIC HEALTH REFERRAL NEEDED?NO WAS THE PROVIDER NOTIFIED OF ANY PERTINENT INFO?NO HOSPITALIZATION/MAJOR DIAGNOSTIC PROCEDURE SURGERIES REVIEW OF SYSTEMS CONSTITUTIONAL: ANY CHANGE IN YOUR MEDICAL CONDITION? NO . CHILLS NO . FEVER NO . INFECTION: DO YOU HAVE NEW INFECTIONS? NO . DO YOU HAVE HISTORY OF MRSA? NO . MUSCULOSKELETAL: ANY NEW PATTERNS OF PAIN OR NUMBNESS? NO . GASTROENTEROLOGY: ANY NEW CHANGE IN BOWEL CONTROL? NO . GENITOURINARY: ANY NEW CHANGE IN BLADDER CONTROL? NO . IS THERE A CHANCE YOU COULD BE ? NO . HEMATOLOGY/LYMPH: DO YOU TAKE ANY BLOOD THINNERS? (FOR EXAMPLE- COUMADIN, PLAVIX, AGGRENOX, PLATEL, PRADAXA, OR XARELTO) NO . WHEN WAS YOUR LAST DOSE? DATE: TIME: . NEUROLOGY: HAVE YOU FALLEN IN THE PAST 6 MONTHS? NO . ANY NEW EXTREMITY NUMBNESS OR WEAKNESS? NO . CARDIOLOGY: DO YOU HAVE A PACEMAKER OR DEFIBRILLATOR? HAS LOOP RECORDER . RESPIRATORY: HAVE YOU BEEN SICK IN THE PAST WEEK? NO . FEVER NO . FLU LIKE SYMPTOMS? NO . COUGH NO . INTEGUMENTARY: DO YOU HAVE ANY RASHES OR OPEN SORES? NO . ALLERGIC/IMMUNO: ARE YOU ALLERGIC TO SHELLFISH OR IV DYE? NO . ANY NEW ALLERGIES? NO . PSYCHIATRIC: DO YOU HAVE THOUGHTS OF HURTING YOURSELF OR SOMEONE ELSE? NO . ARE YOU ABUSED, NEGLECTED, OR IN AN UNSAFE ENVIRONMENT? NO . ENDOCRINOLOGY: ARE YOU DIABETIC? NO . OTHER: DO YOU NEED ANY PRESCRIPTIONS? NO . IF YES, PLEASE LIST: ____ . ANY NEW PROBLEMS WITH YOUR MEDICATIONS? NO . WHEN DID YOU LAST EAT? 0700 . WHEN DID YOU LAST DRINK? 1100 . WHAT DID YOU LAST DRINK? WATER . NAME OF PERSON DRIVING YOU HOME? ASHLEIGH DHALIWAL . DO YOU HAVE ANY OTHER QUESTIONS OR CONCERNS WHEN CAN I RESUME THERAPEUTIC MASSAGE? . REVIEWED BY: PROVIDER: ELENO BONE MD . VITAL SIGNS WT 190 LBS, HT 66 IN, BMI 30.66 INDEX, BP 152/95 MM HG, HR 74 /MIN, RR 16 /MIN, TEMP 98.9 F, OXYGEN SAT % 95, REVIEWED BY: EPHRAIM. EXAMINATION : PATIENT IS ALERT O X 3 AND COOPERATIVE. MRI DONE OF THE CERVICAL SPINE ON 04/22/16 SHOWS CERVICAL SPONDYLOSIS FROM C2-C3 THROUGH C6-C7 AND A 1.2 CM HYPO DENSITY IN THE LEFT THYROID LOBE. 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 DHALIWAL'S PAIN MANAGEMENT CASE. THE PATIENT COMPLAINED OF CHEST PAIN TODAY. I DISCUSSED THE CASE WITH THE PATIENTS INSOLE CEMENTER. THE PATIENT WILL BE TAKEN DOWN TO THE ER FOR EVALUATION. INSTRUCTIONS WERE GIVEN, QUESTIONS WERE ANSWERED, PATIENT REPORTS UNDERSTANDING AND AGREES WITH THE PLAN. I, CORBY HIDALGO, DOCUMENTED THE ABOVE INFORMATION ACTING A SCRIBE FOR DR. BONE. I HAVE REVIEWED THE ABOVE DOCUMENT, WRITTEN BY CORBY HIDALGO SCRIBJoseph AND I VERIFY THAT IT IS ACCURATE. DIAGNOSTIC IMAGING [facility] FACET BLOCK (PAIN)[id number] PROCEDURE CODES G8730 PAIN ASSESS POS TOOL F/U PLAN DOC G8427 DOC MEDS VERIFIED W/PT OR RE DISPOSITION & COMMUNICATION FOLLOW UP PATIENT WILL CALL TO SCHEDULE ELECTRONICALLY SIGNED BY ELENO BONE MD ON 12/14/2016 AT 08:57 PM EST DISCLAIMER : THIS IS A VISIT SUMMARY EXTRACTED FROM THE [employer] CHART. IT IS NOT A COPY OF THE [employer] PROGRESS NOTE. ALCON
== END ==
LOC: M PAIN 13:20
PROVIDERS: ATTEND Anesthesiology
DX: Z09 Encounter for follow-up examination after completed treatment for conditions other than malignant neoplasm (principal); G89.29 Other chronic pain; M79.1 Myalgia; M47.812 Spondylosis without myelopathy or radiculopathy, cervical region; M47.813 Spondylosis without myelopathy or radiculopathy, cervicothoracic region; G47.33 Obstructive sleep apnea (adult) (pediatric); E78.5 Hyperlipidemia, unspecified; R51 Headache; R42 Dizziness and giddiness; Z91.048 Other nonmedicinal substance allergy status; Z91.018 Allergy to other foods; Z79.82 Long term (current) use of aspirin; Z79.899 Other long term (current) drug therapy

== ENCOUNTER → 2016-12-16 | Outpatient (CLI) | payer OTHER ==
--- NOTE | 2016-12-16 11:44 | REPMRS ---
Patient History The patient states she had a clinical breast exam in 2015. Patient has gained 20 pounds due to quiting smoking. Patient is postmenopausal. Family history of colorectal cancer in father at age 50 or over, endometrial cancer in mother at age 50 or over, unknown cancer in paternal aunt at age 50 or over, and unknown cancer in paternal uncle at age 50 or over. Patient has a loop recorder. Digital Mammo Screening Bilat: December 16, 2016 - Exam #: [id number] Bilateral CC and MLO view(s) were taken. Technologist: Anne Diez, Technologist Prior study comparison: June 08, 2015, bilateral digital mammo screening bilat performed at [facility]. December 16, 2014, right breast digital mammo diagnostic unilateral performed at [facility]. FINDINGS: There are scattered fibroglandular densities. There has been no change in the appearance of the mammogram from the prior studies. There is a mild amount of residual fibroglandular tissue which is fairly symmetric. There is no interval development of dominant mass, architectural distortion, or clustered microcalcification suggestive of malignancy. A loop recorder device again seen in LIQ left breast. No significant changes when compared with prior studies. ASSESSMENT: BI-RADS/ACR category 1 mammogram. Negative. Recommendation Routine screening mammogram in 1 year (for women over age 40). This mammogram was interpreted with the aid of an FDA-approved computer-aided dectection system. A. Negative x-ray reports should not delay biopsy if a dominant or clinically suspicious mass is present. B. Four to eight percent of cancers are not identified by mammography. C. Adenosis and dense breast may obscure an underlying neoplasm. Electronically Signed By: Stevo Tran MD 12/16/16 [id number]
== END ==
LOC: M RAD 11:00
PROVIDERS: ATTEND Family Medicine
DX: Z12.31 Encounter for screening mammogram for malignant neoplasm of breast (principal); Z78.0 Asymptomatic menopausal state

== ENCOUNTER → 2017-01-02 | Outpatient (CLI) | payer OTHER | LOC: M PAIN 15:20 | PROVIDERS: ATTEND Anesthesiology | DX: Z53.29 Procedure and treatment not carried out because of patient's decision for other reasons (principal) ==

== ENCOUNTER → 2017-01-08 | Outpatient (CLI) | payer OTHER ==
[~2017-01-08] MED LIST changes: +BUPIVACAINE HCL 0.25% 30 ML VIAL As Ordered ONE; +ISOVUE-M 300 61% 15ML VIAL (Q9967) As Ordered ONE; +LIDOCAINE 1% SDV INJ 30 ML VIAL As Ordered ONE; +MIDAZOLAM INJ 2 MG/2 ML VIAL (J2250) As Ordered ONE; +TRIAMCINOLONE ACETONIDE SUSP 40 MG/ML VIAL (J3301) As Ordered ONE; +fentaNYL 100 MCG/2 ML INJECTION (J3010) As Ordered ONE
--- NOTE | 2017-01-08 14:40 | REP ---
FLUOROSCOPIC GUIDANCE FOR CERVICAL FACET BLOCK: 01/08/2017 CLINICAL HISTORY: Neck pain. FINDINGS: A single image from C-arm fluoroscopy provided to Dr. Aguirre of the pain clinic for bilateral cervical facet injections at C5-6, C6-7, and C7-T1 levels. Contrast seen adjacent to those needles. FLUOROSCOPY TIME: 11 seconds. Signed by Stevo Tran MD 01/08/2017 06:40 P
--- NOTE | 2017-01-13 23:51 | ECWPNPC ---
PATIENT NAME: IAM DHALIWAL : 1955 GENDER: FEMALE VISIT DATE: 01/08/2017 DISCHARGE DATE: 01/08/17 1120 VISIT LOCKED DATE TIME: PHYSICIAN: ELENO BONE RESOURCE: ELENO BONE REASON FOR APPOINTMENT 1. CFBT CURRENT MEDICATIONS TAKING CRESTOR 5 MG TABLET 1 TABLET ORALLY ONCE A DAY, NOTES: 01/07/17@2100 TAKING ASPIR-81 81 MG TABLET DELAYED RELEASE 1 TABLET ORALLY EVERY OTHER DAY, NOTES: 01/07/17@0800 TAKING FISH OIL TRIPLE STRENGTH 2100 MG 1 CAPSULE ORALLY ONCE A DAY, NOTES: 12/1416@1800 TAKING COQ-10 200 MG CAPSULE 1 CAPSULE WITH A MEAL ORALLY ONCE A DAY, NOTES: 01/07/17@1800 TAKING CALTRATE 600+D PLUS MINERALS 600-800 MG-UNIT TABLET 1 TABLET ORALLY TWICE A DAY, NOTES: 01/07/17@1800 TAKING ESTROVEN + ENERGY MAX STRENGTH TABLET 1 TAB ORALLY , NOTES: 01/07/17@1000 TAKING CLARITIN 10 MG TABLET 1 TABLET ORALLY ONCE A DAY, NOTES: 01/07/17@0800 TAKING EMERGEN-C IMMUNE PACKET ORALLY ONCE DAILY, NOTES: 01/06/17@0700 TAKING MULTIVITAMINS CAPSULE ORALLY ONCE DAILY, NOTES: 01/07/17@1800 TAKING CULTURELLE CAPSULE ORALLY ONCE DAILY, NOTES: 01/07/17@1530 TAKING ASPERCREME 10 % CREAM 1 APPLICATION TO AFFECTED AREA NEEDED EXTERNALLY TWICE DAILY, NOTES: 01/07/17@0700 TAKING MOVE FREE JOINT HEALTH ADVANCE - TABLET ORALLY , NOTES: 01/07/17@1800 TAKING DULOXETINE HCL 30 MG CAPSULE DELAYED RELEASE PARTICLES 1 CAPSULE ORALLY ONCE A DAY, NOTES: 01/08/17@0600 TAKING TYLENOL ARTHRITIS PAIN 650 MG TABLET EXTENDED RELEASE 1 ORALLY AT BEDTIME, NOTES: 01/07/17@2100 TAKING VALIUM 5 MG TABLET 1 TABLET ORALLY IN AM THE DAY OF THE PROCEDURE, NOTES: 02/08/17@0830 NOT-TAKING IBUPROFEN 200 MG 1 TAB ORAL NIGHTLY MEDICATION LIST REVIEWED AND RECONCILED WITH THE PATIENT PAST MEDICAL HISTORY BRI - CPAP IMPLANTABLE LOOP RECORDER- FOR EPISODES OF SYNCOPE HYPERLIPID CHRONIC BACK AND NECK PAIN HEADACHES DIZZINESS ALLERGIES TAPE: RASH ORANGE: DRY MOUTH/DIFFICULTY SWALLOWING PINE: RASH/CONGESTION GRASS: SNEEZING, WATERY EYES VITAL SIGNS WT 185 LBS, HT 66 IN, BMI 29.86 INDEX, BP 150/81 MM HG, HR 73 /MIN, RR 18 /MIN, TEMP 98.8 F, OXYGEN SAT % 98, NA INITIALS [id number], REVIEWED BY: VD. ASSESSMENTS SPONDYLOSIS WITHOUT MYELOPATHY OR RADICULOPATHY, CERVICAL REGION - M47.812 (PRIMARY) SPONDYLOSIS WITHOUT MYELOPATHY OR RADICULOPATHY, CERVICOTHORACIC REGION - M47.813 PROCEDURES PN CERVICAL FACET BLOCK HIGH LATERAL CERVICAL PRE PROCEDURE DIAGNOSIS CERVICAL SPONDYLOSIS POST PROCEDURE DIAGNOSIS CERVICAL SPONDYLOSIS PROCEDURE BILATERAL C5-C6, BILATERAL C6-C7, AND BILATERAL C7-T1 FACET BLOCK SURGEON DR. ELENO BONE COFFEE SHOP MANAGER NONE ANESTHESIA LOCAL WITH IV SEDATION PRE PROCEDURE NOTE THE PATIENT HAS HISTORY OF CHRONIC CERVICAL PAIN. I EVALUATED THE PATIENT AND REVIEWED THE CHART, PATIENT HAS A LOOP RECORDER, AND DUE TO THE POSSIBLE OF THE VASOVAGAL, PATIENT WILL HAVE AN IV. I WENT OVER THE RISKS, ALTERNATIVES, AND BENEFITS ASSOCIATED WITH THIS PROCEDURE. DUE TO THE IMPLICATIONS OF THE PROCEDURE, PATIENT WANTS TO HAVE AN IV SEDATION DUE TO ANXIETY AND DISCOMFORT THAT THIS PROCEDURE WILL CAUSE TO HER. THE PATIENT SUFFERED A SEVERE VASOVAGAL WITH A PREVIOUS PROCEDURE. THE PATIENT WOULD LIKE TO PROCEED AND GIVE CONSENT TO PERFORMED THE PROCEDURE UNDER IV SEDATION. THE PATIENT DENIES UNEXPLAINABLE WEIGHT LOSS, FEVER, CHILLS, OR NEW CHANGES IN URINARY OR BOWEL CONTROL. DESCRIPTION OF PROCEDURE THE PATIENT WAS BROUGHT TO THE PROCEDURE ROOM AND PLACED IN THE [] LATERAL DECUBITUS POSITION. THE RIGHT AND LEFT CERVICAL AREA AND RIGHT AND LEFT CERVICOTHORACIC WAS CLEANED WITH CHLORAPREP SOLUTION AND DRAPED ASEPTICALLY. THE PROCEDURE WAS DONE UNDER STERILE CONDITIONS. I CHECKED LATERALITY AND THE LEVEL WHERE THE PROCEDURE WAS GOING TO BE PERFORMED WITH THE PATIENT AND THE SUPPORTING STAFF AT THE MOMENT OF THE TIME OUT IN THE PROCEDURE ROOM. UNDER FLUOROSCOPIC GUIDANCE, TARGET POINT WAS SELECTED AT THE RIGHT AND LEFT C5-C6, RIGHT AND LEFT C6-C7, AND RIGHT AND LEFT C7-T1 FACET. TARGET POINTS WERE SELECTED AFTER LATERAL ROTATION AND TILT OF THE MAGNIFIER OF THE C-ARM. LIDOCAINE 0.5% WAS USED TO NUMB THE SKIN AND THE SUBCUTANEOUS TISSUE BELOW IT. SPINAL NEEDLES, 22-GAUGE, WERE ADVANCED UNDER FLUOROSCOPIC GUIDANCE AND FOLLOWING PATIENT FEEDBACK UNTIL THE TARGETS WERE TOUCHED. THE POSITION OF THE NEEDLES WAS VERIFIED WITH AP AND LATERAL VIEWS. AFTER PROPER POSITION OF THE NEEDLES WAS ACHIEVED, ISOVUE M DYE 30, 0.1 ML WAS INJECTED SHOWING SPREAD OF THE DYE. THEN A SOLUTION OF 0.9 ML OF BUPIVACAINE 0.125% AND KENALOG 10 MG WAS INJECTED AT EACH SITE. PATIENT RECEIVED 150 MCG OF FENTANYL AND 2 G OF VERSED THROUGH THE IV, FACE TO FACE TIME WAS 20 MINUTES. THERE WAS NO EVIDENCE OF BLOOD, PARESTHESIA OR CEREBROSPINAL FLUID DURING THE PROCEDURE. THE PATIENT WAS SENT TO THE RECOVERY ROOM. THE PATIENT WAS MOVING THE EXTREMITIES AND DOING WELL. THERE WAS NO COMPLICATION DURING THE PROCEDURE. FLUOROSCOPY TIME WAS 11 SECONDS POST PROCEDURE NOTE THE PATIENT WILL BE SEEN IN A FOLLOW UP IN THE NEXT FEW WEEKS. INSTRUCTIONS WERE GIVEN, QUESTIONS WERE ANSWERED, AND THE PATIENT EXPRESSED UNDERSTANDING AND AGREED WITH THE PLAN. INSTRUCTIONS WERE GIVEN, QUESTIONS WERE ANSWERED, PATIENT REPORTS UNDERSTANDING AND AGREES WITH THE PLAN. I, CORBY HIDALGO, DOCUMENTED THE ABOVE INFORMATION ACTING A SCRIBE FOR DR. BONE. I HAVE REVIEWED THE ABOVE DOCUMENT, WRITTEN BY CORBY HIDALGO SCRIBE AND I VERIFY THAT IT IS ACCURATE. PROCEDURE CODES 06401 INJ PARAVERT F JNT L/S 1 LEV 52603 INJ PARAVERT F JNT L/S 2 LEV 68947 INJ PARAVERT F JNT L/S 3 LEV 6045F RADXPS IN END [id number] PXD 59323 MOD SED SAME PHYS/QHP 5/>YRS DISPOSITION & COMMUNICATION FOLLOW UP 3 WEEKS ELECTRONICALLY SIGNED BY ELENO BONE MD ON 01/13/2017 AT 06:28 PM EDT DISCLAIMER : THIS IS A VISIT SUMMARY EXTRACTED FROM THE [employer] CHART. IT IS NOT A COPY OF THE [employer] PROGRESS NOTE. MTDD
== END ==
LOC: M PAIN 08:40
PROVIDERS: ATTEND Anesthesiology
DX: G89.29 Other chronic pain (principal); M47.812 Spondylosis without myelopathy or radiculopathy, cervical region; M47.813 Spondylosis without myelopathy or radiculopathy, cervicothoracic region; M54.2 Cervicalgia; M54.5 Low back pain; G47.33 Obstructive sleep apnea (adult) (pediatric); E78.5 Hyperlipidemia, unspecified; R51 Headache; R42 Dizziness and giddiness; Z91.048 Other nonmedicinal substance allergy status; Z91.018 Allergy to other foods; Z79.82 Long term (current) use of aspirin; Z79.899 Other long term (current) drug therapy
CPT/HCPCS: 64493; 64494; 64495; 99152; J2250; J3010; J3301; Q9967

== ENCOUNTER → 2017-01-15 | Outpatient (CLI) | payer OTHER ==
[~2017-01-15] MED LIST changes: -BUPIVACAINE HCL 0.25% 30 ML VIAL As Ordered ONE; -ISOVUE-M 300 61% 15ML VIAL (Q9967) As Ordered ONE; -LIDOCAINE 1% SDV INJ 30 ML VIAL As Ordered ONE; -MIDAZOLAM INJ 2 MG/2 ML VIAL (J2250) As Ordered ONE; -TRIAMCINOLONE ACETONIDE SUSP 40 MG/ML VIAL (J3301) As Ordered ONE; -fentaNYL 100 MCG/2 ML INJECTION (J3010) As Ordered ONE
--- NOTE | 2017-01-21 02:26 | ECWPNPC ---
PATIENT NAME: IAM DHALIWAL : 1955 GENDER: FEMALE VISIT DATE: 01/15/2017 DISCHARGE DATE: 01/15/17 1415 VISIT LOCKED DATE TIME: PHYSICIAN: ELEON BONE RESOURCE: ELENO BONE REASON FOR APPOINTMENT 1. NECK PAIN HISTORY OF PRESENT ILLNESS GENERAL: 61 YEAR OLD FEMALE PATIENT WITH HISTORY OF CHRONIC NECK PAIN. PATIENT DESCRIBES THE PAIN BURNING, SHARP, AND HAVING THE PAIN ALL THE TIME WITH A PAIN SCORE OF 8/10. PATIENT RECEIVED A CERVICAL FACET BLOCK ON 01/08/17 AND STATED THAT SHE ONLY RECEIVED RELIEF FOR 2-3 DAYS. PATIENT IS CURRENTLY USING IBUPROFEN TO AID IN PAIN RELIEF BUT REPORTS SHE IS STILL IN SEVERE PAIN. MRS. DHALIWAL STATES THAT IT IS DIFFICULT TO USE HER HANDS AT TIMES DUE TO THE PAIN THAT RADIATES DOWN HER ARMS. PATIENT DENIES UNEXPLAINABLE WEIGHT LOSS, FEVER, CHILLS, NEW CHANGES ON HER URINARY OR BOWEL CONTROL. CURRENT MEDICATIONS TAKING CRESTOR 5 MG TABLET 1 TABLET ORALLY ONCE A DAY TAKING ASPIR-81 81 MG TABLET DELAYED RELEASE 1 TABLET ORALLY EVERY OTHER DAY TAKING FISH OIL TRIPLE STRENGTH 2100 MG 1 CAPSULE ORALLY ONCE A DAY TAKING COQ-10 200 MG CAPSULE 1 CAPSULE WITH A MEAL ORALLY ONCE A DAY TAKING CALTRATE 600+D PLUS MINERALS 600-800 MG-UNIT TABLET 1 TABLET ORALLY TWICE A DAY TAKING ESTROVEN + ENERGY MAX STRENGTH TABLET 1 TAB ORALLY TAKING CLARITIN 10 MG TABLET 1 TABLET ORALLY ONCE A DAY TAKING EMERGEN-C IMMUNE PACKET ORALLY ONCE DAILY TAKING MULTIVITAMINS CAPSULE ORALLY ONCE DAILY TAKING CULTURELLE CAPSULE ORALLY ONCE DAILY TAKING ASPERCREME 10 % CREAM 1 APPLICATION TO AFFECTED AREA NEEDED EXTERNALLY TWICE DAILY TAKING [facility] ADVANCE - TABLET ORALLY TAKING DULOXETINE HCL 30 MG CAPSULE DELAYED RELEASE PARTICLES 1 CAPSULE ORALLY ONCE A DAY TAKING TYLENOL ARTHRITIS PAIN 650 MG TABLET EXTENDED RELEASE 1 ORALLY AT BEDTIME TAKING VALIUM 5 MG TABLET 1 TABLET ORALLY IN AM THE DAY OF THE PROCEDURE NOT-TAKING IBUPROFEN 200 MG 1 TAB ORAL NIGHTLY MEDICATION LIST REVIEWED AND RECONCILED WITH THE PATIENT PAST MEDICAL HISTORY BRI - CPAP IMPLANTABLE LOOP RECORDER- FOR EPISODES OF SYNCOPE HYPERLIPID CHRONIC BACK AND NECK PAIN HEADACHES DIZZINESS ALLERGIES TAPE: RASH ORANGE: DRY MOUTH/DIFFICULTY SWALLOWING PINE: RASH/CONGESTION GRASS: SNEEZING, WATERY EYES SURGICAL HISTORY TONSILLECTOMY 1965 D/C (MISCARRIAGE) 12/1978 D/C ENDOMETRIAL ABLATION 08/1979 HYSTERECTOMY/OOPHORECTOMY 11/2009 IMPLANTABLE LOOP RECORDER 01/2015 THYROID BX 06/2016 FAMILY HISTORY NO FAMILY HISTORY DOCUMENTED. SOCIAL HISTORY GENERAL: TOBACCO USE ARE YOU A:NONSMOKER LEARNING BARRIERS / SPECIAL NEEDS ORIENTED TO PLAN OF CARE: PATIENT, PAIN MANAGEMENT PATIENT, ORIENTED TO PLAN OF CARE: PATIENT, PAIN MANAGEMENT PATIENT. NEW PATIENT PAIN DIARY TODAY'S VISITNOTES FROM 0-10, WHAT LEVEL IS YOUR PAIN TODAY?0 PAIN CLINIC PFS, CLERGY, PUBLIC HEALTH REFERRALS PFS REFERRAL NEEDED?NO CLERGY REFERRAL NEEDED?NO PUBLIC HEALTH REFERRAL NEEDED?NO WAS THE PROVIDER NOTIFIED OF ANY PERTINENT INFO?NO PFS REFERRAL NEEDED?NO CLERGY REFERRAL NEEDED?NO PUBLIC HEALTH REFERRAL NEEDED?NO WAS THE PROVIDER NOTIFIED OF ANY PERTINENT INFO?NO HOSPITALIZATION/MAJOR DIAGNOSTIC PROCEDURE SURGERIES VITAL SIGNS WT 180 LBS, HT 66 IN, BMI 29.05 INDEX, BP 153/68 MM HG, HR 74 /MIN, RR 18 /MIN, TEMP 99.1 F, OXYGEN SAT % 98, NA INITIALS AW107, REVIEWED BY: CLARE. EXAMINATION GENERAL: PATIENT IS ALERT O X 3 AND COOPERATIVE. TENDERNESS IN THE CERVICAL AND PARASPINAL MUSCLE GROUP. BANDS OF TISSUE, RESTRICTION OF MOVEMENT, AND PRESENCE OF TRIGGER POINTS IN THE CERVICAL AREA. LEFT ARM IS WEAKER THEN THE RIGHT AT EXTENSION AND FLEXION. WEAKNESS IN LEFT AND RIGHT HAND ENERGY CONSERVATION SPECIALIST. MRI DONE OF THE CERVICAL SPINE ON 04/22/16 SHOWS CERVICAL SPONDYLOSIS FROM C2-C3 THROUGH C6-C7 AND A 1.2 CM HYPO DENSITY IN THE LEFT THYROID LOBE. ASSESSMENTS SPONDYLOSIS WITHOUT MYELOPATHY OR RADICULOPATHY, CERVICAL REGION - M47.812 (PRIMARY) SPONDYLOSIS WITHOUT MYELOPATHY OR RADICULOPATHY, CERVICOTHORACIC REGION - M47.813 TREATMENT SPONDYLOSIS WITHOUT MYELOPATHY OR RADICULOPATHY, CERVICAL REGION NOTES: WE DISCUSSED SEVERAL ISSUES WITH MRS. DHALIWAL'S PAIN MANAGEMENT CASE. AT THIS TIME THE PATIENT WILL CONTINUE WITH THE SAME MEDICATION REGIME THIS TIME. WE DISCUSSED INTERVENTIONS THAT MAY AID IN PAIN RELIEF AT THIS TIME. DUE TO THE STIFFNESS AND TRIGGER POINTS IN THE CERVICAL AREA THE PATIENT MAY BENEFIT FROM TRIGGER POINT INJECTIONS. I WOULD LIKE TO PLACE AN IV DUE TO THE PRESYNCOPE BEFORE THE INJECTION. I WOULD ALSO LIKE TO SPEAK WITH THE SPECIAL SKILLS OFFICER AGAIN TO DISCUSS MORE INVASIVE INJECTIONS. WE DISCUSSED THE RISKS, BENENFITS, AND ALTNERATIVES OF THE INJECTION AND THE PATIENT WOULD LIKE TO PROCEED. INSTRUCTIONS WERE GIVEN, QUESTIONS WERE ANSWERED, PATIENT REPORTS UNDERSTANDING AND AGREES WITH THE PLAN. I, KARLA RIVERA, DOCUMENTED THE ABOVE INFORMATION ACTING A SCRIBE FOR DR. BONE. I HAVE REVIEWED THE ABOVE DOCUMENT, WRITTEN BY KARLA COWAN AND I VERIFY THAT IT IS ACCURATE. PREVENTIVE MEDICINE TRIGGER POINT INJECTION INFORMATION GIVEN TO PT. PROCEDURE CODES FA211 ESTABILISHED PATIENT [facility] FACILITY CHARGE G8427 DOC MEDS VERIFIED W/PT OR RE G8730 PAIN ASSESS POS TOOL F/U PLAN DOC DISPOSITION & COMMUNICATION FOLLOW UP TPI AFTER APPROVAL ELECTRONICALLY SIGNED BY ELENO BONE MD ON 01/20/2017 AT 06:13 PM EDT DISCLAIMER : THIS IS A VISIT SUMMARY EXTRACTED FROM THE [employer] CHART. IT IS NOT A COPY OF THE [employer] PROGRESS NOTE. ALCON
== END ==
LOC: M PAIN 13:00
PROVIDERS: ATTEND Anesthesiology
DX: Z09 Encounter for follow-up examination after completed treatment for conditions other than malignant neoplasm (principal); M47.812 Spondylosis without myelopathy or radiculopathy, cervical region; M47.813 Spondylosis without myelopathy or radiculopathy, cervicothoracic region; G47.33 Obstructive sleep apnea (adult) (pediatric); E78.5 Hyperlipidemia, unspecified; L23.1 Allergic contact dermatitis due to adhesives; Z91.018 Allergy to other foods; Z91.048 Other nonmedicinal substance allergy status; Z79.82 Long term (current) use of aspirin; Z79.891 Long term (current) use of opiate analgesic; Z79.899 Other long term (current) drug therapy; Z95.818 Presence of other cardiac implants and grafts

== ENCOUNTER → 2017-01-23 | Outpatient (CLI) | payer OTHER ==
[~2017-01-23] MED LIST changes: +BUPIVACAINE HCL 0.25% 10 ML VIAL As Ordered ONE; +BUPIVACAINE HCL 0.25% 30 ML VIAL As Ordered ONE; +TRIAMCINOLONE ACETONIDE SUSP 40 MG/ML VIAL (J3301) As Ordered ONE; +diazePAM 5 MG TAB As Ordered ONE; +oxyCODONE 5MG TAB As Ordered ONE
--- NOTE | 2017-02-04 01:24 | ECWPNPC ---
PATIENT NAME: IAM DHALIWAL : 1955 GENDER: FEMALE VISIT DATE: 01/23/2017 DISCHARGE DATE: 01/23/17 1603 VISIT LOCKED DATE TIME: PHYSICIAN: ELENO BONE RESOURCE: ELENO BONE REASON FOR APPOINTMENT 1. NECK TPI HISTORY OF PRESENT ILLNESS HISTORY OF PRESENT ILLNESS: PAIN THE PATIENT DESCRIBES THE PAIN... FALL RISK SCREENING: SCREENING :NO FALLS IN THE PAST YEAR CURRENT MEDICATIONS TAKING CRESTOR 5 MG TABLET 1 TABLET ORALLY ONCE A DAY, NOTES: 01/22 9PM TAKING ASPIR-81 81 MG TABLET DELAYED RELEASE 1 TABLET ORALLY EVERY OTHER DAY, NOTES: 12/27 6AM TAKING FISH OIL TRIPLE STRENGTH 2100 MG 1 CAPSULE ORALLY ONCE A DAY, NOTES: 01/22 6PM TAKING COQ-10 200 MG CAPSULE 1 CAPSULE WITH A MEAL ORALLY ONCE A DAY, NOTES: 01/22 6PM TAKING CALTRATE 600+D PLUS MINERALS 600-800 MG-UNIT TABLET 1 TABLET ORALLY TWICE A DAY, NOTES: 01/22 PM TAKING ESTROVEN + ENERGY MAX STRENGTH TABLET 1 TAB ORALLY , NOTES: 01/23 6AM TAKING CLARITIN 10 MG TABLET 1 TABLET ORALLY ONCE A DAY, NOTES: 01/23 6AM TAKING EMERGEN-C IMMUNE PACKET ORALLY ONCE DAILY, NOTES: 01/22 6AM TAKING MULTIVITAMINS CAPSULE ORALLY ONCE DAILY, NOTES: 01/22 6PM TAKING CULTURELLE CAPSULE ORALLY ONCE DAILY, NOTES: 01/22 3PM TAKING ASPERCREME 10 % CREAM 1 APPLICATION TO AFFECTED AREA NEEDED EXTERNALLY TWICE DAILY, NOTES: 2 WEEKS TAKING [employer] FREE JOINT HEALTH ADVANCE - TABLET ORALLY , NOTES: 01/22 6PM TAKING DULOXETINE HCL 30 MG CAPSULE DELAYED RELEASE PARTICLES 1 CAPSULE ORALLY ONCE A DAY, NOTES: 01/23 6AM TAKING TYLENOL ARTHRITIS PAIN 650 MG TABLET EXTENDED RELEASE 1 ORALLY AT BEDTIME, NOTES: 01/22 9PM TAKING LOTEMAX 0.5 % SUSPENSION 1 DROP INTO AFFECTED EYE OPHTHALMIC TWICE DAILY NOT-TAKING VALIUM 5 MG TABLET 1 TABLET ORALLY IN AM THE DAY OF THE PROCEDURE NOT-TAKING IBUPROFEN 200 MG 1 TAB ORAL NIGHTLY MEDICATION LIST REVIEWED AND RECONCILED WITH THE PATIENT PAST MEDICAL HISTORY BRI - CPAP IMPLANTABLE LOOP RECORDER- FOR EPISODES OF SYNCOPE HYPERLIPID CHRONIC BACK AND NECK PAIN HEADACHES DIZZINESS ALLERGIES TAPE: RASH ORANGE: DRY MOUTH/DIFFICULTY SWALLOWING PINE: RASH/CONGESTION GRASS: SNEEZING, WATERY EYES REVIEW OF SYSTEMS CONSTITUTIONAL: ANY CHANGE IN YOUR MEDICAL CONDITION? NO . CHILLS NO . FEVER NO . INFECTION: DO YOU HAVE NEW INFECTIONS? NO . DO YOU HAVE HISTORY OF MRSA? NO . MUSCULOSKELETAL: ANY NEW PATTERNS OF PAIN OR NUMBNESS? NO . GASTROENTEROLOGY: ANY NEW CHANGE IN BOWEL CONTROL? NO . GENITOURINARY: ANY NEW CHANGE IN BLADDER CONTROL? NO . IS THERE A CHANCE YOU COULD BE ? NO . HEMATOLOGY/LYMPH: DO YOU TAKE ANY BLOOD THINNERS? (FOR EXAMPLE- COUMADIN, PLAVIX, AGGRENOX, PLATEL, PRADAXA, OR XARELTO) NO . WHEN WAS YOUR LAST DOSE? DATE: TIME: . NEUROLOGY: HAVE YOU FALLEN IN THE PAST 6 MONTHS? NO . ANY NEW EXTREMITY NUMBNESS OR WEAKNESS? NO . CARDIOLOGY: DO YOU HAVE A PACEMAKER OR DEFIBRILLATOR? LOOP RECORDER . RESPIRATORY: HAVE YOU BEEN SICK IN THE PAST WEEK? NO . FEVER NO . FLU LIKE SYMPTOMS? NO . COUGH NO . INTEGUMENTARY: DO YOU HAVE ANY RASHES OR OPEN SORES? NO . ALLERGIC/IMMUNO: ARE YOU ALLERGIC TO SHELLFISH OR IV DYE? NO . ANY NEW ALLERGIES? NO . PSYCHIATRIC: DO YOU HAVE THOUGHTS OF HURTING YOURSELF OR SOMEONE ELSE? NO . ARE YOU ABUSED, NEGLECTED, OR IN AN UNSAFE ENVIRONMENT? NO . ENDOCRINOLOGY: ARE YOU DIABETIC? NO . OTHER: DO YOU NEED ANY PRESCRIPTIONS? NO . IF YES, PLEASE LIST: ____ . ANY NEW PROBLEMS WITH YOUR MEDICATIONS? NO . WHEN DID YOU LAST EAT? 12/27/16 6:45AM . WHEN DID YOU LAST DRINK? 12/27 11AM . WHAT DID YOU LAST DRINK? WATER . NAME OF PERSON DRIVING YOU HOME? ASHLEIGH DHALIWAL . DO YOU HAVE ANY OTHER QUESTIONS OR CONCERNS WHEN CAN PT RESUME MASSAGES AFTER TODAY? . REVIEWED BY: PROVIDER: . VITAL SIGNS WT 180.0 LBS, HT 66 IN, BMI 29.05 INDEX, BP 150/80 MM HG, HR 79 /MIN, RR 16 /MIN, TEMP 98.0 F, OXYGEN SAT % 98%, SAFE IN ENV? (Y/N) Y, NA INITIALS TL 1301, REVIEWED BY: DS. ASSESSMENTS MYALGIA - M79.1 (PRIMARY) PROCEDURES PN TRIGGER POINT INJECTION WITH STEROIDS PRE PROCEDURE DIAGNOSIS 1. MYALGIA 2. PAIN AT BILATERAL NECK AREA POST PROCEDURE DIAGNOSIS 1. MYALGIA 2. PAIN AT BILATERAL NECK AREA PROCEDURE TRIGGER POINT INJECTION AT BILATERAL NECK AREA SURGEON DR. ELENO BONE HEATING TECHNICIAN NONE ANESTHESIA LOCAL PRE PROCEDURE NOTE THE PATIENT HAS A HISTORY OF CHRONIC PAIN AT THE RIGHT AND LEFT NECK AREA. I EVALUATE THE PATIENT AND REVIEWED THE CHART. THERE IS EVIDENCE OF BANDS OF TISSUE WITH RESTRICTION OF MOVEMENT AND PRESENCE OF TRIGGER POINT AT THE AFFECTED AREA. I WENT OVER THE RISKS, ALTERNATIVES, AND BENEFITS ASSOCIATED WITH THIS PROCEDURE. THE PATIENT WOULD LIKE TO PROCEED AND GIVE CONSENT TO PERFORMED THE PROCEDURE. THE PATIENT DENIES UNEXPLAINABLE WEIGHT LOSS, FEVER, CHILLS, OR NEW CHANGES IN URINARY OR BOWEL CONTROL DESCRIPTION OF PROCEDURE THE PATIENT WAS BROUGHT TO THE PROCEDURE ROOM AND PLACED IN THE SITTING POSITION. THE AREA WAS CLEANED WITH ALCOHOL. THE PROCEDURE WAS DONE USING ASEPTIC STERILE TECHNIQUE. I CHECKED LATERALITY AND THE LEVEL WHERE THE PROCEDURE WAS GOING TO BE PERFORMED WITH THE PATIENT AND THE SUPPORTING STAFF AT THE MOMENT OF THE TIME OUT IN THE PROCEDURE ROOM. USING A 25-GAUGE NEEDLE, TRIGGER POINTS WERE INJECTED AT THE RIGHT AND LEFT AREA WITH A TOTAL OF 40 ML OF BUPIVACAINE 0.25% AND KENALOG 40 MG. THERE WAS NO EVIDENCE OF BLOOD, PARESTHESIA OR CEREBROSPINAL FLUID DURING THE PROCEDURE. THE PATIENT WAS SENT TO THE RECOVERY ROOM. THE PATIENT WAS MOVING THE EXTREMITIES AND DOING WELL. THERE WAS NO COMPLICATION DURING THE PROCEDURE POST PROCEDURE NOTE THE PATIENT WILL BE SEEN IN A FOLLOW UP IN THE NEXT FEW WEEKS. INSTRUCTIONS WERE GIVEN, QUESTIONS WERE ANSWERED, AND THE PATIENT EXPRESSED UNDERSTANDING AND AGREES WITH THE PLAN. I, CORBY HIDALGO, DOCUMENTED THE ABOVE INFORMATION ACTING A SCRIBE FOR DR. BONE. I HAVE REVIEWED THE ABOVE DOCUMENT, WRITTEN BY CORBY HIDALGO SCRIBJoseph AND I VERIFY THAT IT IS ACCURATE PROCEDURE CODES 91216 INJ TRIGGER POINT / [facility] [place]ITION & COMMUNICATION FOLLOW UP 3 WEEKS ELECTRONICALLY SIGNED BY ELENO BONE MD ON 02/03/2017 AT 12:20 PM EDT DISCLAIMER : THIS IS A VISIT SUMMARY EXTRACTED FROM THE [employer] CHART. IT IS NOT A COPY OF THE [employer] PROGRESS NOTE. MTDMya
== END ==
LOC: M PAIN 13:00
PROVIDERS: ATTEND Anesthesiology
DX: G89.29 Other chronic pain (principal); M79.1 Myalgia; M54.2 Cervicalgia; G47.33 Obstructive sleep apnea (adult) (pediatric); E78.5 Hyperlipidemia, unspecified; L23.1 Allergic contact dermatitis due to adhesives; Z91.018 Allergy to other foods; Z91.048 Other nonmedicinal substance allergy status; Z79.82 Long term (current) use of aspirin; Z79.899 Other long term (current) drug therapy; Z95.818 Presence of other cardiac implants and grafts
CPT/HCPCS: 20552; J3301

== ENCOUNTER → 2017-02-01 | Outpatient (CLI) | payer OTHER ==
[~2017-02-01] MED LIST changes: -BUPIVACAINE HCL 0.25% 10 ML VIAL As Ordered ONE; -BUPIVACAINE HCL 0.25% 30 ML VIAL As Ordered ONE; -TRIAMCINOLONE ACETONIDE SUSP 40 MG/ML VIAL (J3301) As Ordered ONE; -diazePAM 5 MG TAB As Ordered ONE; -oxyCODONE 5MG TAB As Ordered ONE
[2017-02-01 18:51] LABS: ALBUMIN 3.9 GM/DL (3.2-5.2); ALBUMIN/GLOBULIN RATIO 1.44 (1.00-1.93); ALKALINE PHOSPHATASE 72 U/L (45-117); ALT/SGPT 50 U/L (12-78); ANION GAP 7 MEQ/L (8-16); AST/SGOT 24 U/L (15-37); BILIRUBIN,TOTAL 0.4 MG/DL (0.2-1.0); BLOOD UREA NITROGEN 16 MG/DL (7-18); CALCIUM LEVEL 8.7 MG/DL (8.5-10.1); CARBON DIOXIDE LEVEL 28 MEQ/L (21-32); CHLORIDE LEVEL 104 MEQ/L (98-107); CHOLESTEROL LEVEL 165 MG/DL (<200); CREATININE FOR GFR 0.66 MG/DL (0.55-1.02); GLOMERULAR FILTRATION RATE > 60.0 (>51); GLUCOSE, FASTING 85 MG/DL (70-105); SODIUM LEVEL 139 MEQ/L (136-145); TOTAL PROTEIN 6.6 GM/DL (6.4-8.2); TRIGLYCERIDES LEVEL 93 MG/DL (<150)
[2017-02-01 19:09] LABS: EOS % 0.1 % (0.0-3.0); LARGE UNSTAINED CELL # 0.1 K/mm3 (0.0-0.4); LYMPH # 1.9 K/mm3 (1.5-4.5); LYMPH % 29.3 % (24.0-44.0); MEAN CORPUSCULAR VOLUME 93.8 fl (80.0-96.0); MONO # 0.4 K/mm3 (0.0-0.8); NEUTROPHILS # 4.1 K/mm3 (1.8-7.7); NEUTROPHILS % 62.4 % (36.0-66.0); PLATELET COUNT, AUTOMATED 213 k/mm3 (150-450); RED CELL DISTRIBUTION WIDTH 13.7 % (11.5-14.5); WHITE BLOOD COUNT 6.6 K/mm3 (4.0-10.0)
== END ==
LOC: M WUC 09:14
PROVIDERS: ATTEND Family Medicine
DX: E78.2 Mixed hyperlipidemia (principal)

== ENCOUNTER → 2017-02-07 | Outpatient (CLI) | payer OTHER ==
--- NOTE | 2017-02-16 23:52 | ECWPNPC ---
PATIENT NAME: IAM DHALIWAL : 1955 GENDER: FEMALE VISIT DATE: 02/07/2017 DISCHARGE DATE: 02/07/17 1654 VISIT LOCKED DATE TIME: PHYSICIAN: ELENO BONE RESOURCE: ELENO BONE REASON FOR APPOINTMENT 1. 2 WEEKS PER HISTORY OF PRESENT ILLNESS HISTORY OF PRESENT ILLNESS: PAIN THE PATIENT DESCRIBES THE PAIN... 61 YEAR OLD FEMALE PATIENT WITH HISTORY OF CHRONIC NECK PAIN. PATIENT DESCRIBES THE PAIN BURNING, SHARP, IT COMES AND GOES, AND HAVING IT ALL THE TIME WITH A PAIN SCORE OF 6-7/10 ON TODAY'S VISIT. PATIENT REPORTS THAT HER MAIN PAIN IS IN HER NECK WITH RADIATING PAIN DOWN BOTH HER ARMS. PATIENT RECEIVED A TPI ON 01/23/2017 AND STATES THAT IT DID NOT PROVIDE HER WITH ANY PAIN RELIEF. PATIENT STATES THAT SINCE THE INJECTION SHE FEELS THE STRENGTH IN HER ARMS TO BE STRONGER. PATIENT DENIES UNEXPLAINABLE WEIGHT LOSS, FEVER, CHILLS, NEW CHANGES ON HER URINARY OR BOWEL CONTROL. FALL RISK SCREENING: SCREENING :NO FALLS IN THE PAST YEAR CURRENT MEDICATIONS TAKING CRESTOR 5 MG TABLET 1 TABLET ORALLY ONCE A DAY, NOTES: 01/22 9PM TAKING ASPIR-81 81 MG TABLET DELAYED RELEASE 1 TABLET ORALLY EVERY OTHER DAY, NOTES: 12/27 6AM TAKING FISH OIL TRIPLE STRENGTH 2100 MG 1 CAPSULE ORALLY ONCE A DAY, NOTES: 01/22 6PM TAKING COQ-10 200 MG CAPSULE 1 CAPSULE WITH A MEAL ORALLY ONCE A DAY, NOTES: 01/22 6PM TAKING CALTRATE 600+D PLUS MINERALS 600-800 MG-UNIT TABLET 1 TABLET ORALLY TWICE A DAY, NOTES: 01/22 PM TAKING ESTROVEN + ENERGY MAX STRENGTH TABLET 1 TAB ORALLY , NOTES: 01/23 6AM TAKING CLARITIN 10 MG TABLET 1 TABLET ORALLY ONCE A DAY, NOTES: 01/23 6AM TAKING EMERGEN-C IMMUNE PACKET ORALLY ONCE DAILY, NOTES: 01/22 6AM TAKING MULTIVITAMINS CAPSULE ORALLY ONCE DAILY, NOTES: 01/22 6PM TAKING CULTURELLE CAPSULE ORALLY ONCE DAILY, NOTES: 01/22 3PM TAKING [employer] FREE JOINT HEALTH ADVANCE - TABLET ORALLY DAILY, NOTES: 01/22 6PM TAKING DULOXETINE HCL 30 MG CAPSULE DELAYED RELEASE PARTICLES 1 CAPSULE ORALLY ONCE A DAY, NOTES: 01/23 6AM TAKING TYLENOL ARTHRITIS PAIN 650 MG TABLET EXTENDED RELEASE 1 ORALLY AT BEDTIME, NOTES: 01/22 9PM TAKING LOTEMAX 0.5 % SUSPENSION 1 DROP INTO AFFECTED EYE OPHTHALMIC TWICE DAILY NOT-TAKING ASPERCREME 10 % CREAM 1 APPLICATION TO AFFECTED AREA NEEDED EXTERNALLY TWICE DAILY, NOTES: 2 WEEKS NOT-TAKING VALIUM 5 MG TABLET 1 TABLET ORALLY IN AM THE DAY OF THE PROCEDURE NOT-TAKING IBUPROFEN 200 MG 1 TAB ORAL NIGHTLY MEDICATION LIST REVIEWED AND RECONCILED WITH THE PATIENT PAST MEDICAL HISTORY BRI - CPAP IMPLANTABLE LOOP RECORDER- FOR EPISODES OF SYNCOPE HYPERLIPID CHRONIC BACK AND NECK PAIN HEADACHES DIZZINESS ALLERGIES TAPE: RASH ORANGE: DRY MOUTH/DIFFICULTY SWALLOWING PINE: RASH/CONGESTION GRASS: SNEEZING, WATERY EYES SURGICAL HISTORY TONSILLECTOMY 1965 D/C (MISCARRIAGE) 12/1978 D/C ENDOMETRIAL ABLATION 08/1979 HYSTERECTOMY/OOPHORECTOMY 11/2009 IMPLANTABLE LOOP RECORDER 01/2015 THYROID BX 06/2016 FAMILY HISTORY NO FAMILY HISTORY DOCUMENTED. SOCIAL HISTORY GENERAL: PAIN CLINIC PFS, CLERGY, PUBLIC HEALTH REFERRALS CLERGY REFERRAL NEEDED?NO WAS THE PROVIDER NOTIFIED OF ANY PERTINENT INFO?NO PFS REFERRAL NEEDED?NO PUBLIC HEALTH REFERRAL NEEDED?NO PATIENT: ____. HOSPITALIZATION/MAJOR DIAGNOSTIC PROCEDURE SURGERIES REVIEW OF SYSTEMS CONSTITUTIONAL: ANY CHANGE IN YOUR MEDICAL CONDITION? NO . CHILLS NO . FEVER NO . INFECTION: DO YOU HAVE NEW INFECTIONS? NO . DO YOU HAVE HISTORY OF MRSA? NO . MUSCULOSKELETAL: ANY NEW PATTERNS OF PAIN OR NUMBNESS? NO . GASTROENTEROLOGY: ANY NEW CHANGE IN BOWEL CONTROL? NO . GENITOURINARY: ANY NEW CHANGE IN BLADDER CONTROL? NO . IS THERE A CHANCE YOU COULD BE ? NO . HEMATOLOGY/LYMPH: DO YOU TAKE ANY BLOOD THINNERS? (FOR EXAMPLE- COUMADIN, PLAVIX, AGGRENOX, PLATEL, PRADAXA, OR XARELTO) NO . WHEN WAS YOUR LAST DOSE? DATE: TIME: . NEUROLOGY: HAVE YOU FALLEN IN THE PAST 6 MONTHS? NO . ANY NEW EXTREMITY NUMBNESS OR WEAKNESS? NO . CARDIOLOGY: DO YOU HAVE A PACEMAKER OR DEFIBRILLATOR? NO . RESPIRATORY: HAVE YOU BEEN SICK IN THE PAST WEEK? NO . FEVER NO . FLU LIKE SYMPTOMS? NO . COUGH NO . INTEGUMENTARY: DO YOU HAVE ANY RASHES OR OPEN SORES? YES FINE PINK RASH ON ARMS . ALLERGIC/IMMUNO: ARE YOU ALLERGIC TO SHELLFISH OR IV DYE? NO . ANY NEW ALLERGIES? NO . PSYCHIATRIC: DO YOU HAVE THOUGHTS OF HURTING YOURSELF OR SOMEONE ELSE? NO . ARE YOU ABUSED, NEGLECTED, OR IN AN UNSAFE ENVIRONMENT? NO . ENDOCRINOLOGY: ARE YOU DIABETIC? NO . OTHER: DO YOU NEED ANY PRESCRIPTIONS? NO . IF YES, PLEASE LIST: ____ . ANY NEW PROBLEMS WITH YOUR MEDICATIONS? NO . WHEN DID YOU LAST EAT? ____ . WHEN DID YOU LAST DRINK? ____ . WHAT DID YOU LAST DRINK? ____ . NAME OF PERSON DRIVING YOU HOME? ____ . DO YOU HAVE ANY OTHER QUESTIONS OR CONCERNS YES STRENGTH HAS IMPROVED IN BOTH HANDS. PT NOTES ZOO DIRECTOR IS WORSENED AND NOTES MORE INTENSE PAIN IN BOTH HANDS/ARMS. . REVIEWED BY: PROVIDER: ELENO BONE MD . VITAL SIGNS WT 180 LBS, HT 66 IN, BMI 29.05 INDEX, BP 163/70 MM HG, HR 62 /MIN, RR 18 /MIN, TEMP 99.1 F, OXYGEN SAT % 97%, NA INITIALS SC 15:06, REVIEWED BY: MLF. EXAMINATION : PATIENT IS ALERT O X 3 AND COOPERATIVE. PATIENT'S LEFT HAND ZOO DIRECTOR IS WEAKER COMPARED TO THE RIGHT. PATIENT IS ABLE TO ABDUCT HER UPPER EXTREMITIES TO SHOULDER LEVEL ONLY. CT DONE OF THE CERVICAL SPINE ON 04/22/16 SHOWS CERVICAL SPONDYLOSIS FROM C2-C3 THROUGH C6-C7 AND A 1.2 CM HYPO DENSITY IN THE LEFT THYROID LOBE. ASSESSMENTS CERVICAL DISC DISORDER WITH RADICULOPATHY, HIGH CERVICAL REGION - M50.11 (PRIMARY) CERVICAL DISC DISORDER AT C4-C5 LEVEL WITH RADICULOPATHY - M50.121 CERVICAL DISC DISORDER AT C5-C6 LEVEL WITH RADICULOPATHY - M50.122 CERVICAL DISC DISORDER AT C6-C7 LEVEL WITH RADICULOPATHY - M50.123 TREATMENT CERVICAL DISC DISORDER WITH RADICULOPATHY, HIGH CERVICAL REGION NOTES: WE DISCUSSED SEVERAL ISSUES WITH MRS. DHALIWAL'S PAIN MANAGEMENT CASE. AT THIS TIME THE PATIENT WILL CONTINUE WITH THE SAME MEDICATION REGIME THIS TIME. WE DISCUSSED INTERVENTIONS THAT MAY AID IN PAIN RELIEF AT THIS TIME. AFTER EXAMINING THE PATIENT AND REVIEWING THE CT, THE PATIENT IS A GOOD CANDIDATE FOR A HEIKE, WE DISCUSSED THE RISK, BENEFITS, AND ALTERNATIVES AND THE PATIENT WOULD LIKE TO PROCEED. PATIENT WILL BE BOOKED PENDING APPROVAL. INSTRUCTIONS WERE GIVEN, QUESTIONS WERE ANSWERED, PATIENT REPORTS UNDERSTANDING AND AGREES WITH THE PLAN. ICORBY, DOCUMENTED THE ABOVE INFORMATION ACTING A SCRIBE FOR DR. BONE. I HAVE REVIEWED THE ABOVE DOCUMENT, WRITTEN BY CORBY HIDALGO SCRIBE AND I VERIFY THAT IT IS ACCURATE. PROCEDURE CODES FA211 ESTABILISHED PATIENT [facility] FACILITY CHARGE G8730 PAIN ASSESS POS TOOL F/U PLAN DOC G8427 DOC MEDS VERIFIED W/PT OR RE DISPOSITION & COMMUNICATION FOLLOW UP HEIKE PENDING APPROVAL ELECTRONICALLY SIGNED BY ELENO BONE MD ON 02/16/2017 AT 04:33 PM EDT DISCLAIMER : THIS IS A VISIT SUMMARY EXTRACTED FROM THE [employer] CHART. IT IS NOT A COPY OF THE [employer] PROGRESS NOTE. ALCON
== END ==
LOC: M PAIN 14:40
PROVIDERS: ATTEND Anesthesiology
DX: G89.29 Other chronic pain (principal); M50.11 Cervical disc disorder with radiculopathy, high cervical region; M50.121 Cervical disc disorder at C4-C5 level with radiculopathy; M50.122 Cervical disc disorder at C5-C6 level with radiculopathy; M50.123 Cervical disc disorder at C6-C7 level with radiculopathy; G47.33 Obstructive sleep apnea (adult) (pediatric); E78.5 Hyperlipidemia, unspecified; L23.1 Allergic contact dermatitis due to adhesives; Z91.018 Allergy to other foods; J30.2 Other seasonal allergic rhinitis; Z79.82 Long term (current) use of aspirin; Z79.899 Other long term (current) drug therapy

== ENCOUNTER → 2017-02-28 | Outpatient (CLI) | payer OTHER ==
[~2017-02-28] MED LIST changes: +ISOVUE-M 300 61% 15ML VIAL (Q9967) As Ordered ONE; +LIDOCAINE 1% SDV INJ 30 ML VIAL As Ordered ONE; +MIDAZOLAM INJ 2 MG/2 ML VIAL (J2250) As Ordered ONE; +fentaNYL 100 MCG/2 ML INJECTION (J3010) As Ordered ONE; +methylPREDNISolone SUSP 40 MG/ML (DEPO-medrol) VIAL (J1030) As Ordered ONE
--- NOTE | 2017-03-01 09:21 | REP ---
FLUOROSCOPIC GUIDED SPINAL INJECTION: The films were reviewed with Dr. Arreola. The patient has a history of neck pain. The portable C-Arm is provided in the OR for Dr. Damon for fluoroscopic guidance. Three intraoperative fluoroscopic spot films were obtained for needle placement verification for cervical epidural injection. The films are on the PACs system and are available for review. 17 seconds of fluoroscopy time was utilized for this procedure. Reviewed by DAYSI Ko 03/03/2017 07:12 PEdited and Signed by Saturnino Arreola MD 03/04/2017 03:57 P
--- NOTE | 2017-03-04 01:41 | ECWPNPC ---
PATIENT NAME: IAM DHALIWAL : 1955 GENDER: FEMALE VISIT DATE: 02/28/2017 DISCHARGE DATE: 02/28/17 1336 VISIT LOCKED DATE TIME: PHYSICIAN: ELENO BONE RESOURCE: ELENO BONE REASON FOR APPOINTMENT 1. LESI IV FLUIDS NEEDED/HYDRATION HISTORY OF PRESENT ILLNESS HISTORY OF PRESENT ILLNESS: PAIN THE PATIENT DESCRIBES THE PAIN... FALL RISK SCREENING: SCREENING :NO FALLS IN THE PAST YEAR CURRENT MEDICATIONS TAKING CRESTOR 5 MG TABLET 1 TABLET ORALLY ONCE A DAY, NOTES: 02/27/17@2230 TAKING ASPIR-81 81 MG TABLET DELAYED RELEASE 1 TABLET ORALLY EVERY OTHER DAY, NOTES: 02/27/17@0600 TAKING FISH OIL TRIPLE STRENGTH 2100 MG 1 CAPSULE ORALLY ONCE A DAY, NOTES: @1800 TAKING COQ-10 200 MG CAPSULE 1 CAPSULE WITH A MEAL ORALLY ONCE A DAY, NOTES: 02/27/17@1800 TAKING CALTRATE 600+D PLUS MINERALS 600-800 MG-UNIT TABLET 1 TABLET ORALLY TWICE A DAY, NOTES: 02/27/17@1800 TAKING ESTROVEN + ENERGY MAX STRENGTH TABLET 1 TAB ORALLY , NOTES: 02/27/17@0600 TAKING CLARITIN 10 MG TABLET 1 TABLET ORALLY ONCE A DAY, NOTES: 0900 TAKING EMERGEN-C IMMUNE PACKET ORALLY ONCE DAILY, NOTES: 1 WEEK AGO TAKING MULTIVITAMINS CAPSULE ORALLY ONCE DAILY, NOTES: 02/27/17@1800 TAKING CULTURELLE CAPSULE ORALLY ONCE DAILY, NOTES: 02/27/17@1600 TAKING MOVE FREE JOINT HEALTH ADVANCE - TABLET ORALLY DAILY, NOTES: 02/27/17@1800 TAKING DULOXETINE HCL 60 MG CAPSULE DELAYED RELEASE PARTICLES 1 CAPSULE ORALLY ONCE A DAY, NOTES: 0730 TAKING TYLENOL ARTHRITIS PAIN 650 MG TABLET EXTENDED RELEASE 1 ORALLY AT BEDTIME, NOTES: 1 WEEK AGO TAKING DESONIDE CREA-MOISTURIZING LOT 0.05 % KIT EXTERNALLY , NOTES: 0830 NOT-TAKING ASPERCREME 10 % CREAM 1 APPLICATION TO AFFECTED AREA NEEDED EXTERNALLY TWICE DAILY, NOTES: 2 WEEKS NOT-TAKING VALIUM 5 MG TABLET 1 TABLET ORALLY IN AM THE DAY OF THE PROCEDURE NOT-TAKING IBUPROFEN 200 MG 1 TAB ORAL NIGHTLY DISCONTINUED LOTEMAX 0.5 % SUSPENSION 1 DROP INTO AFFECTED EYE OPHTHALMIC TWICE DAILY MEDICATION LIST REVIEWED AND RECONCILED WITH THE PATIENT PAST MEDICAL HISTORY BRI - CPAP IMPLANTABLE LOOP RECORDER- FOR EPISODES OF SYNCOPE HYPERLIPID CHRONIC BACK AND NECK PAIN HEADACHES DIZZINESS ALLERGIES TAPE: RASH ORANGE: DRY MOUTH/DIFFICULTY SWALLOWING PINE: RASH/CONGESTION GRASS: SNEEZING, WATERY EYES REVIEW OF SYSTEMS CONSTITUTIONAL: ANY CHANGE IN YOUR MEDICAL CONDITION? NO . CHILLS NO . FEVER NO . INFECTION: DO YOU HAVE NEW INFECTIONS? NO . DO YOU HAVE HISTORY OF MRSA? NO . MUSCULOSKELETAL: ANY NEW PATTERNS OF PAIN OR NUMBNESS? NO . GASTROENTEROLOGY: ANY NEW CHANGE IN BOWEL CONTROL? NO . GENITOURINARY: ANY NEW CHANGE IN BLADDER CONTROL? NO . IS THERE A CHANCE YOU COULD BE ? NO . HEMATOLOGY/LYMPH: DO YOU TAKE ANY BLOOD THINNERS? (FOR EXAMPLE- COUMADIN, PLAVIX, AGGRENOX, PLATEL, PRADAXA, OR XARELTO) NO . WHEN WAS YOUR LAST DOSE? DATE: TIME: . NEUROLOGY: HAVE YOU FALLEN IN THE PAST 6 MONTHS? NO . ANY NEW EXTREMITY NUMBNESS OR WEAKNESS? NO . CARDIOLOGY: DO YOU HAVE A PACEMAKER OR DEFIBRILLATOR? NO, LOOP RECORDER . RESPIRATORY: HAVE YOU BEEN SICK IN THE PAST WEEK? NO . FEVER NO . FLU LIKE SYMPTOMS? NO . COUGH NO . INTEGUMENTARY: DO YOU HAVE ANY RASHES OR OPEN SORES? NO . ALLERGIC/IMMUNO: ARE YOU ALLERGIC TO SHELLFISH OR IV DYE? NO . ANY NEW ALLERGIES? NO . PSYCHIATRIC: DO YOU HAVE THOUGHTS OF HURTING YOURSELF OR SOMEONE ELSE? NO . ARE YOU ABUSED, NEGLECTED, OR IN AN UNSAFE ENVIRONMENT? NO . ENDOCRINOLOGY: ARE YOU DIABETIC? NO . OTHER: DO YOU NEED ANY PRESCRIPTIONS? NO . IF YES, PLEASE LIST: ____ . ANY NEW PROBLEMS WITH YOUR MEDICATIONS? NO . WHEN DID YOU LAST EAT? ____02/27/17 . WHEN DID YOU LAST DRINK? ____0900 . WHAT DID YOU LAST DRINK? ____WATER . NAME OF PERSON DRIVING YOU HOME? ____ASHLEIGH DHALIWAL . DO YOU HAVE ANY OTHER QUESTIONS OR CONCERNS NO . REVIEWED BY: PROVIDER: . VITAL SIGNS WT 180.0 LBS, HT 66 IN, BMI 29.05 INDEX, BP 170/90 MM HG, HR 75 /MIN, RR 18 /MIN, TEMP 97.8 F, OXYGEN SAT % 98%, NA INITIALS TL 1104, REVIEWED BY: VD. 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 ELENO BONE GAS TESTER NONE ANESTHESIA LOCAL PRE PROCEDURE NOTE THE PATIENT HAS A HISTORY OF CHRONIC CERVICAL PAIN. I EVALUATE THE PATIENT AND REVIEWED THE CHART. I WENT OVER THE RISKS, ALTERNATIVES, AND BENEFITS ASSOCIATED WITH THIS PROCEDURE. PATIENT WANTS IV SEDATION DUE TO THE DISCOMFORT, PAIN, AND ANXIETY THIS PROCEDURE WILL CAUSE HER. ALSO PT HAS HX OF VASOVAGAL. THE PATIENT WOULD LIKE TO PROCEED AND GIVE CONSENT TO PERFORMED THE PROCEDURE WITH IV SEDATION. THE PATIENT DENIES UNEXPLAINABLE WEIGHT LOSS, FEVER, CHILLS, OR NEW CHANGES IN URINARY OR BOWEL CONTROL DESCRIPTION OF PROCEDURE THE PATIENT WAS BROUGHT TO THE PROCEDURE ROOM AND PLACED IN THE PRONE POSITION. THE CERVICOTHORACIC AREA WAS CLEANED WITH BETADINE SOLUTION AND DRAPED ASEPTICALLY. THE PROCEDURE WAS DONE UNDER STERILE CONDITIONS. I CHECKED LATERALITY AND THE LEVEL WHERE THE PROCEDURE WAS GOING TO BE PERFORMED WITH THE PATIENT AND THE SUPPORTING STAFF AT THE MOMENT OF THE TIME OUT IN THE PROCEDURE ROOM. UNDER FLUOROSCOPIC GUIDANCE, THE TARGET WAS SELECTED AT THE INTERLAMINAR LEVEL OF C7-T1. LIDOCAINE WAS USED TO NUMB THE SKIN AND THE SUBCUTANEOUS TISSUE BELOW IT. EPIDURAL TUOHY NEEDLE 17-GAUGE WAS ADVANCED UNDER FLUOROSCOPIC GUIDANCE AND FOLLOWING PATIENT FEEDBACK UNTIL THE EPIDURAL SPACE WAS REACHED 6 CM DEEP INTO THE SKIN BY THE LOSS OF RESISTANCE TECHNIQUE. ISOVUE M DYE 30%, 0.25 ML, WAS INJECTED SHOWING ADEQUATE SPREAD OF THE DYE. THEN, A SOLUTION OF 3 ML OF NORMAL SALINE WITH DEPO-MEDROL 60 MG WAS INJECTED SLOWLY FOLLOWING PATIENT FEEDBACK. THERE WAS NO EVIDENCE OF BLOOD, PARESTHESIA OR CEREBROSPINAL FLUID DURING THE PROCEDURE. PATIENT RECEIVED VERSED 2 MG AND FENTANYL 100 MCG IV DIVIDED DOSES. FACE TO FACE TIME WAS 17 MINUTES. THE PATIENT WAS SENT TO THE RECOVERY ROOM. THE PATIENT WAS MOVING THE EXTREMITIES AND DOING WELL. THERE WAS NO COMPLICATION DURING THE PROCEDURE. FLUOROSCOPY TIME WAS 17 SECONDS POST PROCEDURE NOTE THE PATIENT WILL BE SEEN IN A FOLLOW UP IN THE NEXT FEW WEEKS. INSTRUCTIONS WERE GIVEN, QUESTIONS WERE ANSWERED, AND THE PATIENT EXPRESSED UNDERSTANDING AND AGREES WITH THE PLAN. ICORBY, DOCUMENTED THE ABOVE INFORMATION ACTING A SCRIBE FOR DR. BONE. I HAVE REVIEWED THE ABOVE DOCUMENT, WRITTEN BY CORBY HIDALGO SCRIBE AND I VERIFY THAT IT IS ACCURATE DIAGNOSTIC IMAGING [facility] FLUORO GUIDE SPINE INJECTION (PAIN)[id number] PROCEDURE CODES 35709 CERVICAL/THORACIC W/ IMAGING 55375 MOD SED SAME PHYS/QHP 5/>YRS 6045F RADXPS IN END [id number] PXD DISPOSITION & COMMUNICATION FOLLOW UP 3 WEEKS ELECTRONICALLY SIGNED BY ELENO BONE MD ON 03/03/2017 AT 08:08 PM EDT DISCLAIMER : THIS IS A VISIT SUMMARY EXTRACTED FROM THE [employer] CHART. IT IS NOT A COPY OF THE [employer] PROGRESS NOTE. MTDD
== END ==
LOC: M PAIN 11:00
PROVIDERS: ATTEND Anesthesiology
DX: G89.29 Other chronic pain (principal); M50.13 Cervical disc disorder with radiculopathy, cervicothoracic region; G47.33 Obstructive sleep apnea (adult) (pediatric); E78.5 Hyperlipidemia, unspecified; R51 Headache; R42 Dizziness and giddiness; Z79.82 Long term (current) use of aspirin; Z79.899 Other long term (current) drug therapy; Z91.018 Allergy to other foods; Z91.048 Other nonmedicinal substance allergy status
CPT/HCPCS: 62321; 99152; J1030; J2250; J3010; Q9967

== ENCOUNTER → 2017-03-05 | Outpatient (CLI) | payer OTHER ==
[~2017-03-05] MED LIST changes: -ISOVUE-M 300 61% 15ML VIAL (Q9967) As Ordered ONE; -LIDOCAINE 1% SDV INJ 30 ML VIAL As Ordered ONE; -MIDAZOLAM INJ 2 MG/2 ML VIAL (J2250) As Ordered ONE; -fentaNYL 100 MCG/2 ML INJECTION (J3010) As Ordered ONE; -methylPREDNISolone SUSP 40 MG/ML (DEPO-medrol) VIAL (J1030) As Ordered ONE
--- NOTE | 2017-03-06 11:27 | REP ---
CT study of the lumbar spine without contrast: History: Low back pain. Comparison radiographs are from August 29, 2014. Technique: Helical scanning is acquired. Contiguous 4 mm axial images are reformatted. Coronal and sagittal multiplanar re-formation images are generated and reviewed. CT findings: Lumbar vertebral body heights are preserved. Alignment is normal. No fracture or collapse is seen. No bony destructive lesion is seen. Normal caliber aorta containing some vascular calcification. There is no evidence of spondylolysis or spondylolisthesis. At T11-12, there is degenerative disc narrowing with vacuum phenomenon. No disc protrusion is seen. T12-L1 disc level is unremarkable. At L1-L2, no disc herniation is seen. No central canal stenosis is seen. At L2-L3, there is minimal facet hypertrophy on the right. Mild diffuse disc bulging is seen. No central canal stenosis or bony neural foraminal encroachment. At L3-4, there is mild to moderate bilateral facet hypertrophy. Mild diffuse disc bulging is seen. No central canal stenosis seen. No neural foraminal encroachment noted. At L4-L5, there is diffuse disc bulging. Moderate bilateral osteoarthritic facet sclerosis is seen with hypertrophy. This is a little more prominent on the right than the left. No neural foraminal narrowing is appreciated. There is some dystrophic calcification in the 4-5 disc. At L5-S1, there is diffuse disc bulging without thecal sac compression. Mild facet hypertrophy is noted. Impression: Degenerative spondylosis changes with diffuse disc bulging. There is advanced facet osteoarthritis at L4-5 noted particularly on the right. No neural foraminal narrowing is appreciated. Signed by Johnson Perkins MD 03/06/2017 01:00 P
== END ==
LOC: M RAD 16:36
PROVIDERS: ATTEND Nurse Practitioner Family
DX: G89.29 Other chronic pain (principal); M51.26 Other intervertebral disc displacement, lumbar region; M54.16 Radiculopathy, lumbar region

== ENCOUNTER → 2017-03-18 | Outpatient (CLI) | payer OTHER ==
--- NOTE | 2017-04-01 00:56 | ECWPNPC ---
PATIENT NAME: IAM DHALIWAL : 1955 GENDER: FEMALE VISIT DATE: 03/18/2017 DISCHARGE DATE: 03/18/17 1458 VISIT LOCKED DATE TIME: PHYSICIAN: ELENO BONE RESOURCE: ELENO BONE REASON FOR APPOINTMENT 1. NECK PAIN HISTORY OF PRESENT ILLNESS FALL RISK SCREENING: SCREENING :NO FALLS IN THE PAST YEAR HISTORY OF PRESENT ILLNESS: 62 YEAR OLD FEMALE PATIENT WITH HISTORY OF CHRONIC NECK PAIN. PATIENT DESCRIBES THE PAIN BURNING, SHARP, STABBING, THROBBING AND HAVING IT ALL THE TIME WITH A PAIN SCORE OF 7/10. PATIENT RECEIVED A CERVICAL FACET BLOCK ON 02/28/17 AND REPORTS ONLY HAVING A RELIEF FOR A FEW DAYS FROM THE INJECTION. MRS. DHALIWAL STATES IT IS GETTING DIFFICULT TO WRITE AND USE HER ARMS DUE TO THE PAIN RADIATING FROM THE NECK. CURRENTLY THE PATIENT IS USING GABAPENTIN AND ADVIL TO TRY TO CONTROL THE PAIN. PATIENT REPORTS THE LOOP RECORDER BEING REMOVED NEXT DECEMBER. PATIENT DENIES UNEXPLAINABLE WEIGHT LOSS, FEVER, CHILLS, NEW CHANGES ON HER URINARY OR BOWEL CONTROL. CURRENT MEDICATIONS TAKING CRESTOR 5 MG TABLET 1 TABLET ORALLY ONCE A DAY, NOTES: 02/27/17@2230 TAKING ASPIR-81 81 MG TABLET DELAYED RELEASE 1 TABLET ORALLY EVERY OTHER DAY, NOTES: 02/27/17@0600 TAKING FISH OIL TRIPLE STRENGTH 2100 MG 1 CAPSULE ORALLY ONCE A DAY, NOTES: @1800 TAKING COQ-10 200 MG CAPSULE 1 CAPSULE WITH A MEAL ORALLY ONCE A DAY, NOTES: 02/27/17@1800 TAKING CALTRATE 600+D PLUS MINERALS 600-800 MG-UNIT TABLET 1 TABLET ORALLY TWICE A DAY, NOTES: 02/27/17@1800 TAKING ESTROVEN + ENERGY MAX STRENGTH TABLET 1 TAB ORALLY , NOTES: 02/27/17@0600 TAKING CLARITIN 10 MG TABLET 1 TABLET ORALLY ONCE A DAY, NOTES: 0900 TAKING EMERGEN-C IMMUNE PACKET ORALLY ONCE DAILY, NOTES: 1 WEEK AGO TAKING MULTIVITAMINS CAPSULE ORALLY ONCE DAILY, NOTES: 02/27/17@1800 TAKING CULTURELLE CAPSULE ORALLY ONCE DAILY, NOTES: 02/27/17@1600 TAKING MOVE FREE JOINT HEALTH ADVANCE - TABLET ORALLY DAILY, NOTES: 02/27/17@1800 TAKING GABAPENTIN 300 MG CAPSULE 1 CAPSULE ORALLY THREE TIMES A DAY NOT-TAKING DULOXETINE HCL 60 MG CAPSULE DELAYED RELEASE PARTICLES 1 CAPSULE ORALLY ONCE A DAY, NOTES: 0730 NOT-TAKING TYLENOL ARTHRITIS PAIN 650 MG TABLET EXTENDED RELEASE 1 ORALLY AT BEDTIME, NOTES: 1 WEEK AGO NOT-TAKING DESONIDE CREA-MOISTURIZING LOT 0.05 % KIT EXTERNALLY , NOTES: 08 NOT-TAKING ASPERCREME 10 % CREAM 1 APPLICATION TO AFFECTED AREA NEEDED EXTERNALLY TWICE DAILY, NOTES: 2 WEEKS NOT-TAKING VALIUM 5 MG TABLET 1 TABLET ORALLY IN AM THE DAY OF THE PROCEDURE NOT-TAKING IBUPROFEN 200 MG 1 TAB ORAL NIGHTLY MEDICATION LIST REVIEWED AND RECONCILED WITH THE PATIENT PAST MEDICAL HISTORY BRI - CPAP IMPLANTABLE LOOP RECORDER- FOR EPISODES OF SYNCOPE HYPERLIPID CHRONIC BACK AND NECK PAIN HEADACHES DIZZINESS ALLERGIES TAPE: RASH ORANGE: DRY MOUTH/DIFFICULTY SWALLOWING PINE: RASH/CONGESTION GRASS: SNEEZING, WATERY EYES SURGICAL HISTORY TONSILLECTOMY 1965 D/C (MISCARRIAGE) 12/1978 D/C ENDOMETRIAL ABLATION 08/1979 HYSTERECTOMY/OOPHORECTOMY 11/2009 IMPLANTABLE LOOP RECORDER 01/2015 THYROID BX 06/2016 FAMILY HISTORY NO FAMILY HISTORY DOCUMENTED. SOCIAL HISTORY GENERAL: PAIN CLINIC PFS, CLERGY, PUBLIC HEALTH REFERRALS CLERGY REFERRAL NEEDED?NO WAS THE PROVIDER NOTIFIED OF ANY PERTINENT INFO?NO PFS REFERRAL NEEDED?NO PUBLIC HEALTH REFERRAL NEEDED?NO PATIENT: ____. HOSPITALIZATION/MAJOR DIAGNOSTIC PROCEDURE SURGERIES REVIEW OF SYSTEMS CONSTITUTIONAL: ANY CHANGE IN YOUR MEDICAL CONDITION? NO . CHILLS NO . FEVER NO . INFECTION: DO YOU HAVE NEW INFECTIONS? NO . DO YOU HAVE HISTORY OF MRSA? NO . MUSCULOSKELETAL: ANY NEW PATTERNS OF PAIN OR NUMBNESS? NO . GASTROENTEROLOGY: ANY NEW CHANGE IN BOWEL CONTROL? NO . GENITOURINARY: ANY NEW CHANGE IN BLADDER CONTROL? NO . IS THERE A CHANCE YOU COULD BE ? NO . HEMATOLOGY/LYMPH: DO YOU TAKE ANY BLOOD THINNERS? (FOR EXAMPLE- COUMADIN, PLAVIX, AGGRENOX, PLATEL, PRADAXA, OR XARELTO) NO . WHEN WAS YOUR LAST DOSE? DATE: TIME: . NEUROLOGY: HAVE YOU FALLEN IN THE PAST 6 MONTHS? NO . ANY NEW EXTREMITY NUMBNESS OR WEAKNESS? NO . CARDIOLOGY: DO YOU HAVE A PACEMAKER OR DEFIBRILLATOR? NO . RESPIRATORY: HAVE YOU BEEN SICK IN THE PAST WEEK? NO . FEVER NO . FLU LIKE SYMPTOMS? NO . COUGH NO . INTEGUMENTARY: DO YOU HAVE ANY RASHES OR OPEN SORES? NO . ALLERGIC/IMMUNO: ARE YOU ALLERGIC TO SHELLFISH OR IV DYE? NO . ANY NEW ALLERGIES? NO . PSYCHIATRIC: DO YOU HAVE THOUGHTS OF HURTING YOURSELF OR SOMEONE ELSE? NO . ARE YOU ABUSED, NEGLECTED, OR IN AN UNSAFE ENVIRONMENT? NO . ENDOCRINOLOGY: ARE YOU DIABETIC? NO . OTHER: DO YOU NEED ANY PRESCRIPTIONS? NO . IF YES, PLEASE LIST: ____ . ANY NEW PROBLEMS WITH YOUR MEDICATIONS? NO . WHEN DID YOU LAST EAT? ____ . WHEN DID YOU LAST DRINK? ____ . WHAT DID YOU LAST DRINK? ____ . NAME OF PERSON DRIVING YOU HOME? ____ . DO YOU HAVE ANY OTHER QUESTIONS OR CONCERNS NO . REVIEWED BY: PROVIDER: ELENO BONE MD . VITAL SIGNS WT 195.2 LBS, HT 66 IN, BMI 31.50 INDEX, BP 126/74 MM HG, HR 83 /MIN, RR 16 /MIN, TEMP 98.7 F, OXYGEN SAT % 98%, NA INITIALS TL 1331, REVIEWED BY: CLPT WEIGHED ON PMC SCALE- TL. EXAMINATION : PATIENT IS ALERT O X 3 AND COOPERATIVE. TENDERNESS IN THE CERVICAL AREA AND PARASPINAL MUSCLE GROUP. PATIENT'S LEFT HAND LOCKSTITCH TUNNEL ELASTIC OPERATOR IS WEAKER COMPARED TO THE RIGHT, BOTH HAND BALE OPENER ARE VERY WEAK. PATIENT IS ABLE TO ABDUCT HER UPPER EXTREMITIES TO SHOULDER LEVEL ONLY. PATIENT ABLE TO EXTEND NECK 45 DEGREES, FLEX 20 DEGREES, LATERAL RATION TO THE LEFT 45 DEGREES AND RIGHT 45 DEGREES. PATIENT REPORTS NUMBNESS ON THE BACK OF THE ARMS. CT DONE OF THE CERVICAL SPINE ON 04/22/16 SHOWS CERVICAL SPONDYLOSIS FROM C2-C3 THROUGH C6-C7 AND A 1.2 CM HYPO DENSITY IN THE LEFT THYROID LOBE. ASSESSMENTS SPONDYLOSIS WITHOUT MYELOPATHY OR RADICULOPATHY, CERVICAL REGION - M47.812 (PRIMARY) SPONDYLOSIS WITHOUT MYELOPATHY OR RADICULOPATHY, CERVICOTHORACIC REGION - M47.813 CERVICAL DISC DISORDER WITH RADICULOPATHY, HIGH CERVICAL REGION - M50.11 TREATMENT SPONDYLOSIS WITHOUT MYELOPATHY OR RADICULOPATHY, CERVICAL REGION NOTES: WE DISCUSSED SEVERAL ISSUES WITH MRS. DHALIWAL'S PAIN MANAGEMENT CASE. AT THIS TIME THE PATIENT WILL CONTINUE WITH THE SAME MEDICATION REGIME BEFORE. PATIENT WILL SLOWLY INCREASE GABAPENTIN TO SEE IF IT WILL AID IN RELIEF FROM THE NEUROPATHIC PAIN. PATIENT WAS ADVISED TO DISCONTINUE THE MEDICATION IF SHE HAS ANY ADVERSE SIDE EFFECTS. I WOULD LIKE THE PATIENT TO SPEAK WITH DR. NOE THE SKIVER HEEL TAP TO SEE IF THE LOOP RECORDER MAY BE TAKEN OUT AT AN EARLIER DATE SO THE PATIENT CAN RECEIVE MRI'S. PATIENT WILL BE REFERRED TO A NEUROLOGIST WELL. DUE TO THE TIGHTNESS THROUGHOUT THE BACK I WOULD LIKE TO THE PATIENT TO RECEIVE TRIGGER POINT INJECTIONS WITH IV DUE TO HISTORY WITH INJECTIONS. WE DISCUSSED THE RISKS, BENENFITS, AND ALTNERATIVES OF THE INJECTION AND THE PATIENT WOULD LIKE TO PROCEED AT THIS TIME. INSTRUCTIONS WERE GIVEN, QUESTIONS WERE ANSWERED, PATIENT REPORTS UNDERSTANDING AND AGREES WITH THE PLAN. I, KARLA RIVERA, DOCUMENTED THE ABOVE INFORMATION ACTING A SCRIBE FOR DR. BONE. I HAVE REVIEWED THE ABOVE DOCUMENT, WRITTEN BY KARLA COWAN AND I VERIFY THAT IT IS ACCURATE. PROCEDURE CODES FA211 ESTABILISHED PATIENT [facility] CHARGE G8427 DOC MEDS VERIFIED W/PT OR RE G8730 PAIN ASSESS POS TOOL F/U PLAN DOC DISPOSITION & COMMUNICATION FOLLOW UP TPI AFTER APPROVAL ELECTRONICALLY SIGNED BY ELENO BONE MD ON 03/31/2017 AT 09:18 PM EDT DISCLAIMER : THIS IS A VISIT SUMMARY EXTRACTED FROM THE [employer] CHART. IT IS NOT A COPY OF THE [employer] PROGRESS NOTE. MARCIND
== END ==
LOC: M PAIN 13:20
PROVIDERS: ATTEND Anesthesiology
DX: G89.29 Other chronic pain (principal); M47.812 Spondylosis without myelopathy or radiculopathy, cervical region; M47.813 Spondylosis without myelopathy or radiculopathy, cervicothoracic region; M50.11 Cervical disc disorder with radiculopathy, high cervical region; G47.33 Obstructive sleep apnea (adult) (pediatric); E78.5 Hyperlipidemia, unspecified; R51 Headache; L23.1 Allergic contact dermatitis due to adhesives; Z91.018 Allergy to other foods; J30.2 Other seasonal allergic rhinitis; Z79.82 Long term (current) use of aspirin; Z79.899 Other long term (current) drug therapy

== ENCOUNTER → 2017-03-27 | Outpatient (CLI) | payer OTHER ==
[~2017-03-27] MED LIST changes: +BUPIVACAINE HCL 0.25% 10 ML VIAL As Ordered ONE; +BUPIVACAINE HCL 0.25% 30 ML VIAL As Ordered ONE; +TRIAMCINOLONE ACETONIDE SUSP 40 MG/ML VIAL (J3301) As Ordered ONE; +diazePAM 5 MG TAB As Ordered ONE; +oxyCODONE 5MG TAB As Ordered ONE
--- NOTE | 2017-04-06 23:42 | ECWPNPC ---
PATIENT NAME: IAM DHALIWAL : 1955 GENDER: FEMALE VISIT DATE: 03/27/2017 DISCHARGE DATE: 03/27/17 1350 VISIT LOCKED DATE TIME: PHYSICIAN: ELENO BONE RESOURCE: ELENO BONE REASON FOR APPOINTMENT 1. TPI WITH IV HISTORY OF PRESENT ILLNESS HISTORY OF PRESENT ILLNESS: PAIN THE PATIENT DESCRIBES THE PAIN... FALL RISK SCREENING: SCREENING :NO FALLS IN THE PAST YEAR CURRENT MEDICATIONS TAKING CRESTOR 5 MG TABLET 1 TABLET ORALLY ONCE A DAY, NOTES: 03/26/17 2130 TAKING ASPIR-81 81 MG TABLET DELAYED RELEASE 1 TABLET ORALLY EVERY OTHER DAY, NOTES: 03/25/17 0600 TAKING FISH OIL TRIPLE STRENGTH 2100 MG 1 CAPSULE ORALLY ONCE A DAY, NOTES: 03/21/17 1800 TAKING COQ-10 200 MG CAPSULE 1 CAPSULE WITH A MEAL ORALLY ONCE A DAY, NOTES: 03/26/17 1800 TAKING CALTRATE 600+D PLUS MINERALS 600-800 MG-UNIT TABLET 1 TABLET ORALLY TWICE A DAY, NOTES: 02/27/17 1800 TAKING ESTROVEN + ENERGY MAX STRENGTH TABLET 1 TAB ORALLY , NOTES: 03/26/17 06 TAKING CLARITIN 10 MG TABLET 1 TABLET ORALLY ONCE A DAY, NOTES: 03/27/17 0800 TAKING EMERGEN-C IMMUNE PACKET ORALLY ONCE DAILY, NOTES: 03/26/17 06 TAKING MULTIVITAMINS CAPSULE ORALLY ONCE DAILY, NOTES: 03/26/17 1800 TAKING CULTURELLE CAPSULE ORALLY ONCE DAILY, NOTES: 03/26/17 1600 TAKING MOVE FREE JOINT HEALTH ADVANCE - TABLET ORALLY DAILY, NOTES: 03/26/17 1800 TAKING GABAPENTIN 300 MG CAPSULE 1 CAPSULE ORALLY THREE TIMES A DAY, NOTES: 03/27/17 0800 NOT-TAKING DULOXETINE HCL 60 MG CAPSULE DELAYED RELEASE PARTICLES 1 CAPSULE ORALLY ONCE A DAY, NOTES: 0730 NOT-TAKING TYLENOL ARTHRITIS PAIN 650 MG TABLET EXTENDED RELEASE 1 ORALLY AT BEDTIME, NOTES: 1 WEEK AGO NOT-TAKING DESONIDE CREA-MOISTURIZING LOT 0.05 % KIT EXTERNALLY , NOTES: 829 NOT-TAKING ASPERCREME 10 % CREAM 1 APPLICATION TO AFFECTED AREA NEEDED EXTERNALLY TWICE DAILY, NOTES: 2 WEEKS NOT-TAKING VALIUM 5 MG TABLET 1 TABLET ORALLY IN AM THE DAY OF THE PROCEDURE NOT-TAKING IBUPROFEN 200 MG 1 TAB ORAL NIGHTLY MEDICATION LIST REVIEWED AND RECONCILED WITH THE PATIENT PAST MEDICAL HISTORY BRI - CPAP IMPLANTABLE LOOP RECORDER- FOR EPISODES OF SYNCOPE HYPERLIPID CHRONIC BACK AND NECK PAIN HEADACHES DIZZINESS ALLERGIES TAPE: RASH ORANGE: DRY MOUTH/DIFFICULTY SWALLOWING PINE: RASH/CONGESTION GRASS: SNEEZING, WATERY EYES REVIEW OF SYSTEMS CONSTITUTIONAL: ANY CHANGE IN YOUR MEDICAL CONDITION? NO . CHILLS NO . FEVER NO . INFECTION: DO YOU HAVE NEW INFECTIONS? NO . DO YOU HAVE HISTORY OF MRSA? NO . MUSCULOSKELETAL: ANY NEW PATTERNS OF PAIN OR NUMBNESS? YES WEAKNESS IN ARMS/HANDS/LEGS GETTING WORSE . GASTROENTEROLOGY: ANY NEW CHANGE IN BOWEL CONTROL? NO . GENITOURINARY: ANY NEW CHANGE IN BLADDER CONTROL? NO . IS THERE A CHANCE YOU COULD BE ? NO . HEMATOLOGY/LYMPH: DO YOU TAKE ANY BLOOD THINNERS? (FOR EXAMPLE- COUMADIN, PLAVIX, AGGRENOX, PLATEL, PRADAXA, OR XARELTO) NO . WHEN WAS YOUR LAST DOSE? DATE: TIME: . NEUROLOGY: HAVE YOU FALLEN IN THE PAST 6 MONTHS? NO . ANY NEW EXTREMITY NUMBNESS OR WEAKNESS? NO . CARDIOLOGY: DO YOU HAVE A PACEMAKER OR DEFIBRILLATOR? NO . RESPIRATORY: HAVE YOU BEEN SICK IN THE PAST WEEK? NO . FEVER NO . FLU LIKE SYMPTOMS? NO . COUGH NO . INTEGUMENTARY: DO YOU HAVE ANY RASHES OR OPEN SORES? NO . ALLERGIC/IMMUNO: ARE YOU ALLERGIC TO SHELLFISH OR IV DYE? NO . ANY NEW ALLERGIES? NO . PSYCHIATRIC: DO YOU HAVE THOUGHTS OF HURTING YOURSELF OR SOMEONE ELSE? NO . ARE YOU ABUSED, NEGLECTED, OR IN AN UNSAFE ENVIRONMENT? NO . ENDOCRINOLOGY: ARE YOU DIABETIC? NO . OTHER: DO YOU NEED ANY PRESCRIPTIONS? NO . IF YES, PLEASE LIST: ____ . ANY NEW PROBLEMS WITH YOUR MEDICATIONS? NO . WHEN DID YOU LAST EAT? ____ . WHEN DID YOU LAST DRINK? ____ . WHAT DID YOU LAST DRINK? ____ . NAME OF PERSON DRIVING YOU HOME? ____ . DO YOU HAVE ANY OTHER QUESTIONS OR CONCERNS YES PT HAS A MASSAGE SCHEDULED FOR NEXT WEEK, WANTS TO KNOW IF THAT IS OK . REVIEWED BY: PROVIDER: . VITAL SIGNS WT 195.2 LBS, HT 66 IN, BMI 31.50 INDEX, BP 158/87 MM HG, HR 79 /MIN, RR 16 /MIN, TEMP 98.8 F, OXYGEN SAT % 98%, SAFE IN ENV? (Y/N) YES, NA INITIALS TL 1144, REVIEWED BY: LAS. DRIVER MYALGIA - M79.1 (PRIMARY) PROCEDURES PN TRIGGER POINT INJECTION WITH STEROIDS PRE PROCEDURE DIAGNOSIS 1. MYALGIA 2. PAIN AT BILATERAL THORACIC AREA AND BILATERAL LOWER BACK AREA POST PROCEDURE DIAGNOSIS 1. MYALGIA 2. PAIN AT BILATERAL THORACIC AREA AND BILATERAL LOWER BACK AREA PROCEDURE TRIGGER POINT INJECTION AT BILATERAL THORACIC AREA AND BILATERAL LOWER BACK AREA SURGEON DR. ELENO BONE FEED MILL OPERATOR NONE ANESTHESIA LOCAL PRE PROCEDURE NOTE THE PATIENT HAS A HISTORY OF CHRONIC PAIN AT THE BILATERAL THORACIC AREA AND BILATERAL LOWER BACK AREA. I EVALUATE THE PATIENT AND REVIEWED THE CHART. THERE IS EVIDENCE OF BANDS OF TISSUE WITH RESTRICTION OF MOVEMENT AND PRESENCE OF TRIGGER POINT AT THE AFFECTED AREA. I WENT OVER THE RISKS, ALTERNATIVES, AND BENEFITS ASSOCIATED WITH THIS PROCEDURE. THE PATIENT WOULD LIKE TO PROCEED AND GIVE CONSENT TO PERFORMED THE PROCEDURE. THE PATIENT DENIES UNEXPLAINABLE WEIGHT LOSS, FEVER, CHILLS, OR NEW CHANGES IN URINARY OR BOWEL CONTROL DESCRIPTION OF PROCEDURE THE PATIENT WAS BROUGHT TO THE PROCEDURE ROOM AND PLACED IN THE SITTING POSITION. THE AREA WAS CLEANED WITH ALCOHOL. THE PROCEDURE WAS DONE USING ASEPTIC STERILE TECHNIQUE. I CHECKED LATERALITY AND THE LEVEL WHERE THE PROCEDURE WAS GOING TO BE PERFORMED WITH THE PATIENT AND THE SUPPORTING STAFF AT THE MOMENT OF THE TIME OUT IN THE PROCEDURE ROOM. USING A 25-GAUGE NEEDLE, TRIGGER POINTS WERE INJECTED AT THE RIGHT AND LEFT THORACIC AREA AND RIGHT AND LEFT LOWER BACK AREA WITH A TOTAL OF 40 ML OF BUPIVACAINE 0.25% AND KENALOG 40 MG. THERE WAS NO EVIDENCE OF BLOOD, PARESTHESIA OR CEREBROSPINAL FLUID DURING THE PROCEDURE. THE PATIENT WAS SENT TO THE RECOVERY ROOM. THE PATIENT WAS MOVING THE EXTREMITIES AND DOING WELL. THERE WAS NO COMPLICATION DURING THE PROCEDURE POST PROCEDURE NOTE THE PATIENT WILL BE SEEN IN A FOLLOW UP IN THE NEXT FEW WEEKS. INSTRUCTIONS WERE GIVEN, QUESTIONS WERE ANSWERED, AND THE PATIENT EXPRESSED UNDERSTANDING AND AGREES WITH THE PLAN. I, CORBY HIDALGO, DOCUMENTED THE ABOVE INFORMATION ACTING A SCRIBE FOR DR. BONE. I HAVE REVIEWED THE ABOVE DOCUMENT, WRITTEN BY CORBY HIDALGO SCRIBJoseph AND I VERIFY THAT IT IS ACCURATE PROCEDURE CODES 74399 INJECT TRIGGER POINTS 3/> DISPOSITION & COMMUNICATION FOLLOW UP 3 WEEKS ELECTRONICALLY SIGNED BY ELENO BONE MD ON 04/06/2017 AT 07:12 PM EDT DISCLAIMER : THIS IS A VISIT SUMMARY EXTRACTED FROM THE [employer] CHART. IT IS NOT A COPY OF THE [employer] PROGRESS NOTE. ALCON
== END ==
LOC: M PAIN 11:40
PROVIDERS: ATTEND Anesthesiology
DX: G89.29 Other chronic pain (principal); M79.1 Myalgia; M54.6 Pain in thoracic spine; M54.5 Low back pain; G47.33 Obstructive sleep apnea (adult) (pediatric); E78.5 Hyperlipidemia, unspecified; L23.1 Allergic contact dermatitis due to adhesives; Z91.018 Allergy to other foods; J30.1 Allergic rhinitis due to pollen; Z79.82 Long term (current) use of aspirin; Z79.899 Other long term (current) drug therapy
CPT/HCPCS: 20553; J3301

== ENCOUNTER → 2017-04-05 | Outpatient (CLI) | payer OTHER ==
[~2017-04-05] MED LIST changes: -BUPIVACAINE HCL 0.25% 10 ML VIAL As Ordered ONE; -BUPIVACAINE HCL 0.25% 30 ML VIAL As Ordered ONE; -TRIAMCINOLONE ACETONIDE SUSP 40 MG/ML VIAL (J3301) As Ordered ONE; -diazePAM 5 MG TAB As Ordered ONE; -oxyCODONE 5MG TAB As Ordered ONE
[2017-04-05 11:35] LABS: BLOOD UREA NITROGEN 18 MG/DL (7-18); CREATININE FOR GFR 0.76 MG/DL (0.55-1.02); GLOMERULAR FILTRATION RATE > 60.0 (>45)
[2017-04-05 11:37] LABS: INR 0.86
[2017-04-05 11:43] LABS: MEAN CORPUSCULAR HEMOGLOBIN 32.3 pg (27.0-33.0); MEAN CORPUSCULAR VOLUME 92.1 fl (80.0-96.0); RED CELL DISTRIBUTION WIDTH 13.8 % (11.5-14.5); WHITE BLOOD COUNT 8.1 K/mm3 (4.0-10.0)
== END ==
LOC: M LAB 09:44
PROVIDERS: ATTEND Orthopaedic Surgery
DX: M54.6 Pain in thoracic spine (principal)

== ENCOUNTER → 2017-04-16 | Outpatient (CLI) | payer OTHER ==
[~2017-04-16] MED LIST changes: -CO Q200C PO; +CO Q200C10 PO
--- NOTE | 2017-04-29 23:43 | ECWPNPC ---
PATIENT NAME: IAM DHALIWAL : 1955 GENDER: FEMALE VISIT DATE: 04/16/2017 DISCHARGE DATE: 04/16/17 1527 VISIT LOCKED DATE TIME: PHYSICIAN: ELENO BONE RESOURCE: ELENO BONE HISTORY OF PRESENT ILLNESS HISTORY OF PRESENT ILLNESS: PAIN THE PATIENT DESCRIBES THE PAIN... 62 YEAR OLD FEMALE PATIENT WITH HISTORY OF CHRONIC NECK PAIN. PATIENT DESCRIBES THE PAIN BURNING, SHOOTING, HAVING IT ALL THE TIME AND IT COMES AND GOES WITH A PAIN SCORE OF 7/10 ON TODAY'S VISIT. PATIENT RECEIVED A BILATERAL THORACIC AND BILATERAL LOWE BACK TRIGGER POINT INJECTION ON 03-27-2017 AND STATES THAT THE INJECTION DID NOT WORK FOR AT ALL. PATIENT REPORTS THAT SHE IS GOING TO GET A CT/MYELOGRAM DONE THIS FRIDAY AND THEN GOING TO [facility] ON FRIDAY TO GO OVER THE RESULTS. PATIENT REPORTS OF RADIATING PAIN DOWN THE BACK FROM HER NECK. PATIENT DENIES UNEXPLAINABLE WEIGHT LOSS, FEVER, CHILLS, NEW CHANGES ON HER URINARY OR BOWEL CONTROL. FALL RISK SCREENING: SCREENING :NO FALLS IN THE PAST YEAR CURRENT MEDICATIONS TAKING CRESTOR 5 MG TABLET 1 TABLET ORALLY ONCE A DAY TAKING ASPIR-81 81 MG TABLET DELAYED RELEASE 1 TABLET ORALLY EVERY OTHER DAY TAKING FISH OIL TRIPLE STRENGTH 2100 MG 1 CAPSULE ORALLY ONCE A DAY TAKING COQ-10 200 MG CAPSULE 1 CAPSULE WITH A MEAL ORALLY ONCE A DAY TAKING CALTRATE 600+D PLUS MINERALS 600-800 MG-UNIT TABLET 1 TABLET ORALLY TWICE A DAY TAKING ESTROVEN + ENERGY MAX STRENGTH TABLET 1 TAB ORALLY TAKING CLARITIN 10 MG TABLET 1 TABLET ORALLY ONCE A DAY TAKING EMERGEN-C IMMUNE PACKET ORALLY ONCE DAILY TAKING MULTIVITAMINS CAPSULE ORALLY ONCE DAILY TAKING CULTURELLE CAPSULE ORALLY ONCE DAILY TAKING MOVE FREE JOINT HEALTH ADVANCE - TABLET ORALLY DAILY TAKING GABAPENTIN 300 MG CAPSULE 1 CAPSULE ORALLY THREE TIMES A DAY NOT-TAKING DULOXETINE HCL 60 MG CAPSULE DELAYED RELEASE PARTICLES 1 CAPSULE ORALLY ONCE A DAY, NOTES: 07 NOT-TAKING TYLENOL ARTHRITIS PAIN 650 MG TABLET EXTENDED RELEASE 1 ORALLY AT BEDTIME, NOTES: 1 WEEK AGO NOT-TAKING DESONIDE CREA-MOISTURIZING LOT 0.05 % KIT EXTERNALLY , NOTES: 829 NOT-TAKING ASPERCREME 10 % CREAM 1 APPLICATION TO AFFECTED AREA NEEDED EXTERNALLY TWICE DAILY, NOTES: 2 WEEKS NOT-TAKING VALIUM 5 MG TABLET 1 TABLET ORALLY IN AM THE DAY OF THE PROCEDURE NOT-TAKING IBUPROFEN 200 MG 1 TAB ORAL NIGHTLY MEDICATION LIST REVIEWED AND RECONCILED WITH THE PATIENT PAST MEDICAL HISTORY BRI - CPAP IMPLANTABLE LOOP RECORDER- FOR EPISODES OF SYNCOPE HYPERLIPID CHRONIC BACK AND NECK PAIN HEADACHES DIZZINESS HAS BEEN KNOWN TO VASAL VAGAL SEVERLY WITH PROCEDURES INVOLVING NEEDES ALLERGIES TAPE: RASH ORANGE: DRY MOUTH/DIFFICULTY SWALLOWING PINE: RASH/CONGESTION GRASS: SNEEZING, WATERY EYES REVIEW OF SYSTEMS REVIEWED BY: PROVIDER: . CONSTITUTIONAL: ANY CHANGE IN YOUR MEDICAL CONDITION? HAS BEEN TO [facility] AND THEY WILL SEE HER AGAIN ON . TO RESULT THE TESTS . CHILLS NO . FEVER NO . INFECTION: DO YOU HAVE NEW INFECTIONS? NO . DO YOU HAVE HISTORY OF MRSA? NO . MUSCULOSKELETAL: ANY NEW PATTERNS OF PAIN OR NUMBNESS? YES, LEGS AND ARMS ARE WORSE NOW . GASTROENTEROLOGY: ANY NEW CHANGE IN BOWEL CONTROL? NO . GENITOURINARY: ANY NEW CHANGE IN BLADDER CONTROL? NO . IS THERE A CHANCE YOU COULD BE ? NO . HEMATOLOGY/LYMPH: DO YOU TAKE ANY BLOOD THINNERS? (FOR EXAMPLE- COUMADIN, PLAVIX, AGGRENOX, PLATEL, PRADAXA, OR XARELTO) NO . WHEN WAS YOUR LAST DOSE? DATE: TIME: . NEUROLOGY: HAVE YOU FALLEN IN THE PAST 6 MONTHS? NO . ANY NEW EXTREMITY NUMBNESS OR WEAKNESS? NO . CARDIOLOGY: DO YOU HAVE A PACEMAKER OR DEFIBRILLATOR? YES, IMPLANTABLE LOOP RECORDER . RESPIRATORY: HAVE YOU BEEN SICK IN THE PAST WEEK? NO . FEVER NO . FLU LIKE SYMPTOMS? NO . COUGH NO . INTEGUMENTARY: DO YOU HAVE ANY RASHES OR OPEN SORES? NO . ALLERGIC/IMMUNO: ARE YOU ALLERGIC TO SHELLFISH OR IV DYE? NO . ANY NEW ALLERGIES? NO . PSYCHIATRIC: DO YOU HAVE THOUGHTS OF HURTING YOURSELF OR SOMEONE ELSE? NO . ARE YOU ABUSED, NEGLECTED, OR IN AN UNSAFE ENVIRONMENT? NO . ENDOCRINOLOGY: ARE YOU DIABETIC? NO . OTHER: DO YOU NEED ANY PRESCRIPTIONS? DO YOU WANT TO TAKE OVER THE GABAPENTIN ?? . IF YES, PLEASE LIST: ____ . ANY NEW PROBLEMS WITH YOUR MEDICATIONS? NO . WHEN DID YOU LAST EAT? ____ . WHEN DID YOU LAST DRINK? ____ . WHAT DID YOU LAST DRINK? ____ . NAME OF PERSON DRIVING YOU HOME? ____ . DO YOU HAVE ANY OTHER QUESTIONS OR CONCERNS NEED TO DISCUSS CT/MYELOGRAM WITH YOU. NEED PRE MED FOR THIS AND PROBABLY NEED IV FLUIDS TOO. . VITAL SIGNS WT 195.2 LBS, HT 66 IN, BMI 31.50 INDEX, BP 138/77 MM HG, HR 90 /MIN, RR 16 /MIN, TEMP 97.2 F, OXYGEN SAT % 96%, NA INITIALS TL 1347, REVIEWED BY: NL. EXAMINATION : PATIENT IS ALERT O X 3 AND COOPERATIVE. TENDERNESS IN THE CERVICAL AREA AND PARASPINAL MUSCLE GROUP. CT DONE OF THE CERVICAL SPINE ON 04/22/16 SHOWS CERVICAL SPONDYLOSIS FROM C2-C3 THROUGH C6-C7 AND A 1.2 CM HYPO DENSITY IN THE LEFT THYROID LOBE. ASSESSMENTS CERVICALGIA - M54.2 (PRIMARY) TREATMENT CERVICALGIA NOTES: WE DISCUSSED SEVERAL ISSUES WITH MRS. DHALIWAL'S PAIN MANAGEMENT CASE. AT THIS TIME I WILL HAVE THE PATIENT START TAKING GABAPENTIN 4 TIMES A DAY FOR THE NEUROPATHIC PAIN. I WILL PRESCRIBE VALIUM FOR SPASTICITY AND OXYCODONE FOR THE PAIN THE PATIENT IS EXPERIENCING. PATIENT WILL FOLLOW UP WITH ME IN 4 WEEKS TO DISCUSS THE RESULTS OF THE CT/MYELOGRAM. , INSTRUCTIONS WERE GIVEN, QUESTIONS WERE ANSWERED, PATIENT REPORTS UNDERSTANDING AND AGREES WITH THE PLAN. I, CORBY HIDALGO, DOCUMENTED THE ABOVE INFORMATION ACTING A SCRIBE FOR DR. BONE. I HAVE REVIEWED THE ABOVE DOCUMENT, WRITTEN BY CORBY HIDALGO SCRIBJoseph AND I VERIFY THAT IT IS ACCURATE. OTHERS REFILL GABAPENTIN CAPSULE, 300 MG, 1 CAPSULE, ORALLY, FOUR TIMES DAILY, 30 DAY(S), 120, REFILLS 0 START VALIUM TABLET, 5 MG, 1 TABLET NEEDED, ORALLY FOR SPASMS, EVERY 8 HOURS NEEDED, 10 DAY(S), 2, REFILLS 0 START OXYCODONE HCL TABLET, 5 MG, 1 TABLET, ORALLY, EVERY 6 HRS NEEDED FOR PAIN MDD2, 10 DAY(S), 2, REFILLS 0 PROCEDURE CODES FA211 ESTABILISHED PATIENT [facility] FACILITY CHARGE G9930 PAIN ASSESS POS TOOL F/U PLAN DOC G8427 DOC MEDS VERIFIED W/PT OR RE DISPOSITION & COMMUNICATION FOLLOW UP 4 WEEKS ELECTRONICALLY SIGNED BY ELENO BONE MD ON 04/29/2017 AT 09:34 PM EDT DISCLAIMER : THIS IS A VISIT SUMMARY EXTRACTED FROM THE [employer] CHART. IT IS NOT A COPY OF THE [employer] PROGRESS NOTE. MTDD
== END ==
LOC: M PAIN 14:00
PROVIDERS: ATTEND Anesthesiology
DX: G89.29 Other chronic pain (principal); M54.2 Cervicalgia; G47.33 Obstructive sleep apnea (adult) (pediatric); E78.5 Hyperlipidemia, unspecified; R51 Headache; R42 Dizziness and giddiness; J30.1 Allergic rhinitis due to pollen; Z91.048 Other nonmedicinal substance allergy status; Z91.018 Allergy to other foods; Z79.82 Long term (current) use of aspirin; Z79.899 Other long term (current) drug therapy

== ENCOUNTER → 2017-04-18 | Outpatient (CLI) | payer OTHER ==
[~2017-04-18] MED LIST changes: +CO Q200C PO; -CO Q200C10 PO; +ISOVUE-M 300 61% 15ML VIAL (Q9967) As Ordered ONE
--- NOTE | 2017-04-18 09:52 | REP ---
REASON: Back pain. Post myelographic CT images have been presented for interpretation. There is no evidence of thoracic spinal cord compression at any level. There is no evidence of impingement upon the anterior thecal sac secondary to an extruded disc. The intervertebral foramina appear ample bilaterally. Vertebral body height and alignment is within normal limits. A small amount of air density is seen in the T7-8, T9-10, and T11-12 disc spaces consistent with vacuum phenomenon from degenerative disc disease. There is anterior lipping seen from T4-T12 inclusive with partial syndesmophyte formation seen bilaterally and complete syndesmophyte formation seen at multiple levels from T5-6 to T7-8 inclusive. Vertebral body height and alignment is within normal limits. IMPRESSION: Findings as described above. Signed by Ulices Monet DO 04/18/2017 10:01 A
--- NOTE | 2017-04-18 10:37 | REP ---
Post myelographic cervical spine CT has been made available for interpretation. The myelogram component of the exam was performed in my absentia. Prior standard CT of 04/22/2016 was reviewed. Once again, there is cervical spondylosis seen from C2-3 through C6-7 in a fashion unchanged from the prior exam. Once again, broad based annular bulges are seen C3-4 through C5-6 essentially unchanged. The broad based annular bulges cause effacement of the ventral subarachnoid space but the ventral subarachnoid space is not completely obliterated at any cervical level and there is no evidence of elva cord compression. The intervertebral foramina appear unchanged at all imaged cervical levels. Minimal foraminal narrowing of the neural foramina from C2-3 through C6-7 noted status quo. Anterolisthesis of C3 upon C4 of 2 mm is unchanged. There is no focal obliteration of the ventral subarachnoid space that would be considered consistent with a disc extrusion. IMPRESSION: Multilevel discogenic changes and other related findings essentially stable from the prior exam as described above. Signed by Ulices Monet DO 04/18/2017 10:41 A
--- NOTE | 2017-04-18 10:39 | REP ---
Lumbar myelographic CT images were submitted for interpretation. The lumbar myelogram itself was performed in my absentia. Comparison: Standard lumbar CT of 03/05/2017 was reviewed. There is loss of disc space height posteriorly at every level status quo. Mild broad based annular bulges are again seen at every level. Degenerative facet joint changes again seen bilaterally at every level, but particularly L3-4 through L5-S1 heaviest at L4-5. The broad based annular bulge seen in conjunction with thickening of the ligamentum flava and degenerative facet joint changes at L3-4 cause mild central canal stenosis. There is no elva foraminal narrowing of acute disc extrusion. At L4-5 heavy degenerative facet joint changes an thickening of the ligamentum flava seen with a broad based annular bulge cause mild central canal stenosis and suspected mild bilateral foraminal narrowing. There is no evidence of an acute disc extrusion. There is a broad based annular bulge at L5-S1 without evidence of foraminal narrowing, central canal stenosis, or acute disc extrusion. IMPRESSION: Chronic changes as described above. These findings appear stable from 03/05/2017. Signed by Ulices Monet DO 04/18/2017 10:41 A
--- NOTE | 2017-04-18 16:58 | REP ---
FLUOROSCOPIC GUIDANCE FOR CERVICAL, THORACIC, AND LUMBAR MYELOGRAM INJECTION: The procedure was performed under the general supervision of Dr. Tran. The risks and benefits of the procedure were explained to the patient and informed consent was obtained. The L3-4 interspace was localized using fluoroscopic guidance. The skin was prepped and draped in a sterile fashion. 1% lidocaine was used as a local anesthetic. Using fluoroscopic guidance a 22 gauge spinal needle was inserted and advanced into the thecal sac. 10 mL of Isovue M 300 was injected. The needle was then removed. The table was then tipped Trendelenburg and the contrast was seen extending up into the neck. The patient was taken to CAT scan for post procedural imaging. The patient tolerated the procedure well and there were no immediate complications. After the appropriate amount of monitored convalescence the patient was discharged from the department. 1 minute and 1 second of fluoroscopy time was utilized for this procedure. Reviewed by DAYSI Ko 04/18/2017 05:47 PEdited and Signed by Stevo Tran MD 04/18/2017 08:36 P
== END ==
LOC: M RADPRO 07:35
PROVIDERS: ATTEND Orthopaedic Surgery
DX: M54.2 Cervicalgia (principal); M43.12 Spondylolisthesis, cervical region; M47.812 Spondylosis without myelopathy or radiculopathy, cervical region; M51.36 Other intervertebral disc degeneration, lumbar region; M51.26 Other intervertebral disc displacement, lumbar region; M48.06 Spinal stenosis, lumbar region; Z91.011 Allergy to milk products
CPT/HCPCS: 62284; 72125; 72128; 72131; 72240; Q9967

== ENCOUNTER → 2017-04-21 | Outpatient (CLI) | payer OTHER ==
[~2017-04-21] MED LIST changes: -ISOVUE-M 300 61% 15ML VIAL (Q9967) As Ordered ONE
[2017-04-21 13:14] LABS: ANION GAP 5 MEQ/L (8-16); BLOOD UREA NITROGEN 15 MG/DL (7-18); CALCIUM LEVEL 9.7 MG/DL (8.8-10.2); CARBON DIOXIDE LEVEL 30 MEQ/L (21-32); CHLORIDE LEVEL 103 MEQ/L (98-107); CREATININE FOR GFR 0.74 MG/DL (0.55-1.02); GLOMERULAR FILTRATION RATE > 60.0 (>45); GLUCOSE, FASTING 89 MG/DL (80-110); SODIUM LEVEL 138 MEQ/L (136-145)
[2017-04-21 13:42] LABS: BASO % 0.1 % (0.0-1.0); EOS % 0.2 % (0.0-3.0); LARGE UNSTAINED CELL # 0.1 K/mm3 (0.0-0.4); LARGE UNSTAINED CELL % 1.8 % (0.0-4.0); LYMPH # 2.5 K/mm3 (1.5-4.5); LYMPH % 30.6 % (24.0-44.0); MEAN CORPUSCULAR HEMOGLOBIN 32.1 pg (27.0-33.0); MEAN CORPUSCULAR VOLUME 91.8 fl (80.0-96.0); MONO # 0.4 K/mm3 (0.0-0.8); MONO % 5.3 % (0.0-5.0); NEUTROPHILS # 4.8 K/mm3 (1.8-7.7); NEUTROPHILS % 61.9 % (36.0-66.0); PLATELET COUNT, AUTOMATED 199 k/mm3 (150-450); RED CELL DISTRIBUTION WIDTH 13.4 % (11.5-14.5); WHITE BLOOD COUNT 7.7 K/mm3 (4.0-10.0)
== END ==
LOC: M LAB 11:36
PROVIDERS: ATTEND Internal Medicine Cardiovascular Disease
DX: R07.9 Chest pain, unspecified (principal)

== ENCOUNTER → 2017-05-14 | Outpatient (CLI) | payer OTHER ==
[~2017-05-14] MED LIST changes: -CO Q200C PO; +CO Q200C10 PO
--- NOTE | 2017-05-29 00:59 | ECWPNPC ---
PATIENT NAME: IAM DHALIWAL : 1955 GENDER: FEMALE VISIT DATE: 05/14/2017 DISCHARGE DATE: 05/14/17 1429 VISIT LOCKED DATE TIME: PHYSICIAN: ELENO BONE RESOURCE: ELENO BONE REASON FOR APPOINTMENT 1. NECK PAIN HISTORY OF PRESENT ILLNESS HISTORY OF PRESENT ILLNESS: PAIN THE PATIENT DESCRIBES THE PAIN... 62 YEAR OLD FEMALE PATIENT WITH HISTORY OF CHRONIC NECK PAIN. PATIENT DESCRIBES THE PAIN BURNING, SHOOTING, HAVING IT ALL THE TIME AND IT COMES AND GOES WITH A PAIN SCORE OF 6/10 ON TODAY'S VISIT. MRS. DHALIWAL STATES SHE SPOKE WITH HER LIFT SUPERVISOR WHO WOULD LIKE THE LOOP RECORDER TO STAY IN FOR ANOTHER YEAR. CURRENTLY THE PATIENT IS USING THE GABAPENTIN FOR THE ARM PAIN SHE IS FEELING. PATIENT REPORTS NUMBNESS IN THE HANDS AND HAS DIFFICULTY HOLDING ONTO THINGS. PATIENT REPORTS OF RADIATING PAIN DOWN THE BACK FROM HER NECK. PATIENT DENIES UNEXPLAINABLE WEIGHT LOSS, FEVER, CHILLS, NEW CHANGES ON HER URINARY OR BOWEL CONTROL. FALL RISK SCREENING: SCREENING :NO FALLS IN THE PAST YEAR CURRENT MEDICATIONS TAKING CRESTOR 5 MG TABLET 1 TABLET ORALLY ONCE A DAY TAKING ASPIR-81 81 MG TABLET DELAYED RELEASE 1 TABLET ORALLY EVERY OTHER DAY TAKING FISH OIL TRIPLE STRENGTH 2100 MG 1 CAPSULE ORALLY ONCE A DAY TAKING COQ-10 200 MG CAPSULE 1 CAPSULE WITH A MEAL ORALLY ONCE A DAY TAKING CALTRATE 600+D PLUS MINERALS 600-800 MG-UNIT TABLET 1 TABLET ORALLY TWICE A DAY TAKING ESTROVEN + ENERGY MAX STRENGTH TABLET 1 TAB ORALLY TAKING CLARITIN 10 MG TABLET 1 TABLET ORALLY ONCE A DAY TAKING EMERGEN-C IMMUNE PACKET ORALLY ONCE DAILY TAKING MULTIVITAMINS CAPSULE ORALLY ONCE DAILY TAKING CULTURELLE CAPSULE ORALLY ONCE DAILY TAKING MOVE FREE JOINT HEALTH ADVANCE - TABLET ORALLY DAILY TAKING GABAPENTIN 300 MG CAPSULE 1 CAPSULE ORALLY FOUR TIMES DAILY NOT-TAKING VALIUM 5 MG TABLET 1 TABLET NEEDED ORALLY FOR SPASMS EVERY 8 HOURS NEEDED NOT-TAKING OXYCODONE HCL 5 MG TABLET 1 TABLET ORALLY EVERY 6 HRS NEEDED FOR PAIN MDD2 NOT-TAKING DULOXETINE HCL 60 MG CAPSULE DELAYED RELEASE PARTICLES 1 CAPSULE ORALLY ONCE A DAY, NOTES: 729 NOT-TAKING TYLENOL ARTHRITIS PAIN 650 MG TABLET EXTENDED RELEASE 1 ORALLY AT BEDTIME, NOTES: 1 WEEK AGO NOT-TAKING DESONIDE CREA-MOISTURIZING LOT 0.05 % KIT EXTERNALLY , NOTES: 0830 NOT-TAKING ASPERCREME 10 % CREAM 1 APPLICATION TO AFFECTED AREA NEEDED EXTERNALLY TWICE DAILY, NOTES: 2 WEEKS NOT-TAKING VALIUM 5 MG TABLET 1 TABLET ORALLY IN AM THE DAY OF THE PROCEDURE NOT-TAKING IBUPROFEN 200 MG 1 TAB ORAL NIGHTLY MEDICATION LIST REVIEWED AND RECONCILED WITH THE PATIENT PAST MEDICAL HISTORY BRI - CPAP IMPLANTABLE LOOP RECORDER- FOR EPISODES OF SYNCOPE HYPERLIPID CHRONIC BACK AND NECK PAIN HEADACHES DIZZINESS HAS BEEN KNOWN TO VASAL VAGAL SEVERLY WITH PROCEDURES INVOLVING NEEDES ALLERGIES TAPE: RASH ORANGE: DRY MOUTH/DIFFICULTY SWALLOWING PINE: RASH/CONGESTION GRASS: SNEEZING, WATERY EYES SURGICAL HISTORY TONSILLECTOMY 1965 D/C (MISCARRIAGE) 12/1978 D/C ENDOMETRIAL ABLATION 08/1979 HYSTERECTOMY/OOPHORECTOMY 11/2009 IMPLANTABLE LOOP RECORDER 01/2015 THYROID BX 06/2016 FAMILY HISTORY NO FAMILY HISTORY DOCUMENTED. SOCIAL HISTORY GENERAL: PAIN CLINIC PFS, CLERGY, PUBLIC HEALTH REFERRALS CLERGY REFERRAL NEEDED?NO WAS THE PROVIDER NOTIFIED OF ANY PERTINENT INFO?NO PFS REFERRAL NEEDED?NO PUBLIC HEALTH REFERRAL NEEDED?NO PATIENT: ____. HOSPITALIZATION/MAJOR DIAGNOSTIC PROCEDURE SURGERIES REVIEW OF SYSTEMS REVIEWED BY: PROVIDER: ELENO BONE MD . CONSTITUTIONAL: ANY CHANGE IN YOUR MEDICAL CONDITION? NO . CHILLS NO . FEVER NO . INFECTION: DO YOU HAVE NEW INFECTIONS? NO . DO YOU HAVE HISTORY OF MRSA? NO . MUSCULOSKELETAL: ANY NEW PATTERNS OF PAIN OR NUMBNESS? NO . GASTROENTEROLOGY: ANY NEW CHANGE IN BOWEL CONTROL? NO . GENITOURINARY: ANY NEW CHANGE IN BLADDER CONTROL? NO . IS THERE A CHANCE YOU COULD BE ? NO . HEMATOLOGY/LYMPH: DO YOU TAKE ANY BLOOD THINNERS? (FOR EXAMPLE- COUMADIN, PLAVIX, AGGRENOX, PLATEL, PRADAXA, OR XARELTO) NO . WHEN WAS YOUR LAST DOSE? DATE: TIME: . NEUROLOGY: HAVE YOU FALLEN IN THE PAST 6 MONTHS? NO . ANY NEW EXTREMITY NUMBNESS OR WEAKNESS? NO . CARDIOLOGY: DO YOU HAVE A PACEMAKER OR DEFIBRILLATOR? NO . RESPIRATORY: HAVE YOU BEEN SICK IN THE PAST WEEK? NO . FEVER NO . FLU LIKE SYMPTOMS? NO . COUGH NO . INTEGUMENTARY: DO YOU HAVE ANY RASHES OR OPEN SORES? NO . ALLERGIC/IMMUNO: ARE YOU ALLERGIC TO SHELLFISH OR IV DYE? NO . ANY NEW ALLERGIES? NO . PSYCHIATRIC: DO YOU HAVE THOUGHTS OF HURTING YOURSELF OR SOMEONE ELSE? NO . ARE YOU ABUSED, NEGLECTED, OR IN AN UNSAFE ENVIRONMENT? NO . ENDOCRINOLOGY: ARE YOU DIABETIC? NO . OTHER: DO YOU NEED ANY PRESCRIPTIONS? YES . IF YES, PLEASE LIST: ____GABAPENTIN . ANY NEW PROBLEMS WITH YOUR MEDICATIONS? NO . WHEN DID YOU LAST EAT? ____ . WHEN DID YOU LAST DRINK? ____ . WHAT DID YOU LAST DRINK? ____ . NAME OF PERSON DRIVING YOU HOME? ____ . DO YOU HAVE ANY OTHER QUESTIONS OR CONCERNS NO . VITAL SIGNS WT 195.2 LBS, HT 66 IN, BMI 31.50 INDEX, BP 142/96 MM HG, HR 84 /MIN, RR 16 /MIN, TEMP 97.5 F, OXYGEN SAT % 99%, NA INITIALS TL 1346. EXAMINATION : PATIENT IS ALERT O X 3 AND COOPERATIVE. TENDERNESS IN THE CERVICAL AREA AND PARASPINAL MUSCLE GROUP. WEAKNESS IN THE ARMS AND HAND TINTER PHOTOGRAPH. CT DONE OF THE CERVICAL SPINE ON 04/22/16 SHOWS CERVICAL SPONDYLOSIS FROM C2-C3 THROUGH C6-C7 AND A 1.2 CM HYPO DENSITY IN THE LEFT THYROID LOBE. ASSESSMENTS CERVICALGIA - M54.2 (PRIMARY) CERVICAL DISC DISORDER AT C4-C5 LEVEL WITH RADICULOPATHY - M50.121 CERVICAL DISC DISORDER AT C5-C6 LEVEL WITH RADICULOPATHY - M50.122 CERVICAL DISC DISORDER AT C6-C7 LEVEL WITH RADICULOPATHY - M50.123 TREATMENT CERVICALGIA NOTES: WE DISCUSSED SEVERAL ISSUES WITH MRS. DHALIWAL'S PAIN MANAGEMENT CASE. AT THIS TIME I WOULD LIKE THE PATIENT TO CONTINUE USING GABAPENTIN AND I WOULD LIKE THE PATIENT TO START USING CYMBALTA. PATIENT WAS ADVISED TO STOP THE MEDICATION IS SHE HAS ANY ADVERSE SIDE EFFECTS. I WOULD LIKE THE PATIENT TO DISCUSS USING A TENNS UNIT WITH HER LIFT SUPERVISOR BEFORE PROCEEDING. PATIENT WILL ALSO START MASSAGE THERAPY, PATIENT HAS TRIED THIS IN THE PAST AND HAD PAIN RELIEF. I WOULD LIKE THE PATIENT TO CONSIDER A CERVICAL EPIDURAL DUE TO THE RADICULAR PAIN. PATIENT WILL FOLLOW UP IN 1 MONTH. OTHERS REFILL GABAPENTIN CAPSULE, 300 MG, 1 CAPSULE, ORALLY, FOUR TIMES DAILY, 30 DAY(S), 120, REFILLS 0 START CYMBALTA CAPSULE DELAYED RELEASE PARTICLES, 30 MG, 1 CAPSULE, ORALLY, TWICE A DAY FOR PAIN, 30 DAY(S), 60, REFILLS 1 PROCEDURE CODES FA211 ESTABILISHED PATIENT [facility] FACILITY CHARGE G4336 DOC MEDS VERIFIED W/PT OR RE Y1610 PAIN ASSESS POS TOOL F/U PLAN DOC DISPOSITION & COMMUNICATION FOLLOW UP 3 WEEKS ELECTRONICALLY SIGNED BY ELENO BONE MD ON 05/26/2017 AT 11:36 AM EDT DISCLAIMER : THIS IS A VISIT SUMMARY EXTRACTED FROM THE [employer] CHART. IT IS NOT A COPY OF THE [employer] PROGRESS NOTE. MTDD
== END ==
LOC: M PAIN 13:40
PROVIDERS: ATTEND Anesthesiology
DX: G89.29 Other chronic pain (principal); M50.121 Cervical disc disorder at C4-C5 level with radiculopathy; M50.122 Cervical disc disorder at C5-C6 level with radiculopathy; M50.123 Cervical disc disorder at C6-C7 level with radiculopathy; G47.33 Obstructive sleep apnea (adult) (pediatric); E78.5 Hyperlipidemia, unspecified; Z86.79 Personal history of other diseases of the circulatory system; L23.1 Allergic contact dermatitis due to adhesives; Z91.018 Allergy to other foods; L23.7 Allergic contact dermatitis due to plants, except food; J30.2 Other seasonal allergic rhinitis; Z79.82 Long term (current) use of aspirin; Z79.899 Other long term (current) drug therapy

== ENCOUNTER → 2017-06-13 | Outpatient (CLI) | payer OTHER ==
--- NOTE | 2017-06-30 23:49 | ECWPNPC ---
PATIENT NAME: IAM DHALIWAL : 1955 GENDER: FEMALE VISIT DATE: 06/13/2017 DISCHARGE DATE: 06/13/17 1639 VISIT LOCKED DATE TIME: PHYSICIAN: ELENO BONE RESOURCE: ELENO BONE REASON FOR APPOINTMENT 1. NECK PAIN HISTORY OF PRESENT ILLNESS HISTORY OF PRESENT ILLNESS: PAIN THE PATIENT DESCRIBES THE PAIN... 62 YEAR OLD FEMALE PATIENT WITH HISTORY OF CHRONIC NECK PAIN. PATIENT DESCRIBES THE PAIN BURNING AND HAVING IT ALL THE TIME WITH A PAIN SCORE OF 5-6/10 AT TODAY'S VISIT. MRS. DHALIWAL STATES SHE IS CURRENTLY TAKING THE GABAPENTIN FOR THE ARM PAIN SHE IS FEELING AND SAYS IT TAKES THE EDGE OFF THE PAIN. PATIENT REPORTS NUMBNESS IN THE HANDS AND HAS DIFFICULTY HOLDING ONTO THINGS. PATIENT REPORTS OF RADIATING PAIN IN THE CENTER OF HER NECK AND STATES THAT IS WHERE THE WORST PAIN IS. MRS. DHALIWAL IS ALSO CURRENTLY TAKING CYMBALTA THAT DOES SEEM TO HELP SOME IN PAIN RELIEF. PATIENT DENIES UNEXPLAINABLE WEIGHT LOSS, FEVER, CHILLS, NEW CHANGES ON HER URINARY OR BOWEL CONTROL. FALL RISK SCREENING: SCREENING :NO FALLS IN THE PAST YEAR CURRENT MEDICATIONS TAKING GABAPENTIN 300 MG CAPSULE 1 CAPSULE ORALLY FOUR TIMES DAILY TAKING CYMBALTA 30 MG CAPSULE DELAYED RELEASE PARTICLES 1 CAPSULE ORALLY TWICE A DAY FOR PAIN TAKING CRESTOR 5 MG TABLET 1 TABLET ORALLY ONCE A DAY TAKING ASPIR-81 81 MG TABLET DELAYED RELEASE 1 TABLET ORALLY EVERY OTHER DAY TAKING FISH OIL TRIPLE STRENGTH 2100 MG 1 CAPSULE ORALLY ONCE A DAY TAKING COQ-10 200 MG CAPSULE 1 CAPSULE WITH A MEAL ORALLY ONCE A DAY TAKING CALTRATE 600+D PLUS MINERALS 600-800 MG-UNIT TABLET 1 TABLET ORALLY TWICE A DAY TAKING ESTROVEN + ENERGY MAX STRENGTH TABLET 1 TAB ORALLY TAKING CLARITIN 10 MG TABLET 1 TABLET ORALLY ONCE A DAY TAKING EMERGEN-C IMMUNE PACKET ORALLY ONCE DAILY TAKING MULTIVITAMINS CAPSULE ORALLY ONCE DAILY TAKING CULTURELLE CAPSULE ORALLY ONCE DAILY TAKING MOVE FREE JOINT HEALTH ADVANCE - TABLET ORALLY DAILY NOT-TAKING VALIUM 5 MG TABLET 1 TABLET NEEDED ORALLY FOR SPASMS EVERY 8 HOURS NEEDED NOT-TAKING OXYCODONE HCL 5 MG TABLET 1 TABLET ORALLY EVERY 6 HRS NEEDED FOR PAIN MDD2 NOT-TAKING DULOXETINE HCL 60 MG CAPSULE DELAYED RELEASE PARTICLES 1 CAPSULE ORALLY ONCE A DAY, NOTES: 0730 NOT-TAKING TYLENOL ARTHRITIS PAIN 650 MG TABLET EXTENDED RELEASE 1 ORALLY AT BEDTIME, NOTES: 1 WEEK AGO NOT-TAKING DESONIDE CREA-MOISTURIZING LOT 0.05 % KIT EXTERNALLY , NOTES: 0830 NOT-TAKING ASPERCREME 10 % CREAM 1 APPLICATION TO AFFECTED AREA NEEDED EXTERNALLY TWICE DAILY, NOTES: 2 WEEKS NOT-TAKING VALIUM 5 MG TABLET 1 TABLET ORALLY IN AM THE DAY OF THE PROCEDURE NOT-TAKING IBUPROFEN 200 MG 1 TAB ORAL NIGHTLY MEDICATION LIST REVIEWED AND RECONCILED WITH THE PATIENT PAST MEDICAL HISTORY BRI - CPAP IMPLANTABLE LOOP RECORDER- FOR EPISODES OF SYNCOPE HYPERLIPID CHRONIC BACK AND NECK PAIN HEADACHES DIZZINESS HAS BEEN KNOWN TO VASAL VAGAL SEVERLY WITH PROCEDURES INVOLVING NEEDES ALLERGIES TAPE: RASH ORANGE: DRY MOUTH/DIFFICULTY SWALLOWING PINE: RASH/CONGESTION GRASS: SNEEZING, WATERY EYES REVIEW OF SYSTEMS REVIEWED BY: PROVIDER: ELENO BONE MD . CONSTITUTIONAL: ANY CHANGE IN YOUR MEDICAL CONDITION? NO . CHILLS NO . FEVER NO . INFECTION: DO YOU HAVE NEW INFECTIONS? NO . DO YOU HAVE HISTORY OF MRSA? NO . MUSCULOSKELETAL: ANY NEW PATTERNS OF PAIN OR NUMBNESS? NO . GASTROENTEROLOGY: ANY NEW CHANGE IN BOWEL CONTROL? NO . GENITOURINARY: ANY NEW CHANGE IN BLADDER CONTROL? NO . IS THERE A CHANCE YOU COULD BE ? NO . HEMATOLOGY/LYMPH: DO YOU TAKE ANY BLOOD THINNERS? (FOR EXAMPLE- COUMADIN, PLAVIX, AGGRENOX, PLATEL, PRADAXA, OR XARELTO) NO . WHEN WAS YOUR LAST DOSE? DATE: TIME: . NEUROLOGY: HAVE YOU FALLEN IN THE PAST 6 MONTHS? NO . ANY NEW EXTREMITY NUMBNESS OR WEAKNESS? NO . CARDIOLOGY: DO YOU HAVE A PACEMAKER OR DEFIBRILLATOR? NO . RESPIRATORY: HAVE YOU BEEN SICK IN THE PAST WEEK? NO . FEVER NO . FLU LIKE SYMPTOMS? NO . COUGH NO . INTEGUMENTARY: DO YOU HAVE ANY RASHES OR OPEN SORES? NO . ALLERGIC/IMMUNO: ARE YOU ALLERGIC TO SHELLFISH OR IV DYE? NO . ANY NEW ALLERGIES? NO . PSYCHIATRIC: DO YOU HAVE THOUGHTS OF HURTING YOURSELF OR SOMEONE ELSE? NO . ARE YOU ABUSED, NEGLECTED, OR IN AN UNSAFE ENVIRONMENT? NO . ENDOCRINOLOGY: ARE YOU DIABETIC? NO . OTHER: DO YOU NEED ANY PRESCRIPTIONS? YES IF PRESCRIPTIONS ARE GOING TO REMAIN THE SAME, PLEASE SEND PRESCRIPTIONS TO [employer] FOR 90 DAY SUPPLIES. . IF YES, PLEASE LIST: ____ . ANY NEW PROBLEMS WITH YOUR MEDICATIONS? NO . WHEN DID YOU LAST EAT? ____ . WHEN DID YOU LAST DRINK? ____ . WHAT DID YOU LAST DRINK? ____ . NAME OF PERSON DRIVING YOU HOME? ____ . DO YOU HAVE ANY OTHER QUESTIONS OR CONCERNS YES PER PT EMG IS NORMAL, NEUROLOGIST IS GOING TO CHECK PREVIOUS BRAIN SCAN AND POSSIBLY REFER TO A LEAK HUNTER. ARMS/HANDS ARE STILL A PROBLEM. LOWER BACK IS STILL A PROBLEM. . VITAL SIGNS WT 208 LBS, HT 66 IN, BMI 33.57 INDEX, BP 138/77 MM HG, HR 86 /MIN, RR 16 /MIN, TEMP 98.1 F, OXYGEN SAT % 95%, NA INITIALS AW 1523. EXAMINATION : PATIENT IS ALERT O X 3 AND COOPERATIVE. WEAKNESS IN THE ARMS AND HAND BEEF TAGGER. TENDERNESS IN THE CERVICAL AREA AND PARASPINAL MUSCLE GROUP. CT DONE OF THE CERVICAL SPINE ON 04/22/16 SHOWS CERVICAL SPONDYLOSIS FROM C2-C3 THROUGH C6-C7 AND A 1.2 CM HYPO DENSITY IN THE LEFT THYROID LOBE. ASSESSMENTS CERVICALGIA - M54.2 (PRIMARY) CERVICAL DISC DISORDER AT C4-C5 LEVEL WITH RADICULOPATHY - M50.121 CERVICAL DISC DISORDER AT C5-C6 LEVEL WITH RADICULOPATHY - M50.122 CERVICAL DISC DISORDER AT C6-C7 LEVEL WITH RADICULOPATHY - M50.123 TREATMENT CERVICALGIA CLINICAL NOTES: WE DISCUSSED SEVERAL ISSUES WITH MRS. DHALIWAL'S PAIN MANAGEMENT CASE. AT THIS TIME I WOULD LIKE THE PATIENT TO CONTINUE USING GABAPENTIN AND CYMBALTA. PATIENT WAS ADVISED TO STOP THE MEDICATION IS SHE HAS ANY ADVERSE SIDE EFFECTS. I WILL REQUEST A TENS UNIT FOR THE PATIENT TO HELP WITH THE PAIN IT WAS CLEARED BY HER STATE ASSESSED PROPERTIES DIRECTOR. I WOULD LIKE THE PATIENT TO CONSIDER A CERVICAL EPIDURAL DUE TO THE RADICULAR PAIN. I AM ALSO PUTTING IN A REFERRAL TO A LEAK HUNTER. PATIENT WILL FOLLOWUP WITH ME IN 6 WEEKS. I DELORES GUILLEN DOCUMENTED THE ABOVE INFORMATION ACTING A RETORT PRE COOKER FOR DR. BONE. I HAVE REVIEWED THE ABOVE DOCUMENT WRITTEN BY DELORES GUILLEN SCRIBJoseph AND I VERIFY THAT IT IS ACCURATE. OTHERS REFILL GABAPENTIN CAPSULE, 300 MG, 1 CAPSULE, ORALLY, FOUR TIMES DAILY, 90 DAYS, 270, REFILLS 1 REFILL CYMBALTA CAPSULE DELAYED RELEASE PARTICLES, 30 MG, 1 CAPSULE, ORALLY, TWICE A DAY FOR PAIN, 90 DAYS, 180, REFILLS 1 PROCEDURE CODES FA211 ESTABILISHED PATIENT [facility] CHARGE 40920 OFFICE/OUTPATIENT VISIT EST G8427 DOC MEDS VERIFIED W/PT OR RE G8730 PAIN ASSESS POS TOOL F/U PLAN DOC DISPOSITION & COMMUNICATION FOLLOW UP 6 WEEKS ELECTRONICALLY SIGNED BY ELENO BONE MD ON 06/30/2017 AT 08:29 PM EDT DISCLAIMER : THIS IS A VISIT SUMMARY EXTRACTED FROM THE [employer] CHART. IT IS NOT A COPY OF THE [employer] PROGRESS NOTE. MTDD
== END ==
LOC: M PAIN 15:20
PROVIDERS: ATTEND Anesthesiology
DX: G89.29 Other chronic pain (principal); M50.121 Cervical disc disorder at C4-C5 level with radiculopathy; M50.122 Cervical disc disorder at C5-C6 level with radiculopathy; M50.123 Cervical disc disorder at C6-C7 level with radiculopathy; G47.33 Obstructive sleep apnea (adult) (pediatric); E78.5 Hyperlipidemia, unspecified; R55 Syncope and collapse; L23.1 Allergic contact dermatitis due to adhesives; Z91.018 Allergy to other foods; J30.2 Other seasonal allergic rhinitis; Z79.82 Long term (current) use of aspirin; Z79.899 Other long term (current) drug therapy

== ENCOUNTER → 2017-07-25 | Outpatient (CLI) | payer OTHER ==
--- NOTE | 2017-08-06 01:17 | ECWPNPC ---
PATIENT NAME: IAM DHALIWAL : 1955 GENDER: FEMALE VISIT DATE: 07/25/2017 DISCHARGE DATE: 07/25/17 1355 VISIT LOCKED DATE TIME: PHYSICIAN: ELENO BONE RESOURCE: ELENO BONE REASON FOR APPOINTMENT 1. NECK PAIN HISTORY OF PRESENT ILLNESS HISTORY OF PRESENT ILLNESS: PAIN THE PATIENT DESCRIBES THE PAIN... 62 YEAR OLD FEMALE PATIENT WITH HISTORY OF CHRONIC NECK PAIN. PATIENT DESCRIBES THE PAIN BURNING AND HAVING IT ALL THE TIME WITH A PAIN SCORE OF 5-6/10 AT TODAY'S VISIT. PATIENT REPORTS NUMBNESS IN THE HANDS AND HAS DIFFICULTY HOLDING ONTO THINGS. PATIENT REPORTS OF RADIATING PAIN IN THE CENTER OF HER NECK AND STATES THAT IS WHERE THE WORST PAIN IS. CURRENTLY THE PATIENT IS USING GABAPENTIN AND CYMBALTA BUT THE PATIENT WOULD LIKE TO STOP USING THE MEDICATION TO SEE IF IT IS ACTUALLY AIDING IN PAIN RELIEF. PATIENT DENIES UNEXPLAINABLE WEIGHT LOSS, FEVER, CHILLS, NEW CHANGES ON HER URINARY OR BOWEL CONTROL. FALL RISK SCREENING: SCREENING :NO FALLS IN THE PAST YEAR CURRENT MEDICATIONS UNKNOWN CRESTOR 5 MG TABLET 1 TABLET ORALLY ONCE A DAY UNKNOWN ASPIR-81 81 MG TABLET DELAYED RELEASE 1 TABLET ORALLY EVERY OTHER DAY UNKNOWN FISH OIL TRIPLE STRENGTH 2100 MG 1 CAPSULE ORALLY ONCE A DAY UNKNOWN COQ-10 200 MG CAPSULE 1 CAPSULE WITH A MEAL ORALLY ONCE A DAY UNKNOWN CALTRATE 600+D PLUS MINERALS 600-800 MG-UNIT TABLET 1 TABLET ORALLY TWICE A DAY UNKNOWN ESTROVEN + ENERGY MAX STRENGTH TABLET 1 TAB ORALLY UNKNOWN CLARITIN 10 MG TABLET 1 TABLET ORALLY ONCE A DAY UNKNOWN EMERGEN-C IMMUNE PACKET ORALLY ONCE DAILY UNKNOWN MULTIVITAMINS CAPSULE ORALLY ONCE DAILY UNKNOWN CULTURELLE CAPSULE ORALLY ONCE DAILY UNKNOWN MOVE FREE JOINT HEALTH ADVANCE - TABLET ORALLY DAILY UNKNOWN CYMBALTA 30 MG CAPSULE DELAYED RELEASE PARTICLES 1 CAPSULE ORALLY TWICE A DAY FOR PAIN UNKNOWN GABAPENTIN 300 MG CAPSULE 1 CAPSULE ORALLY FOUR TIMES DAILY UNKNOWN VALIUM 5 MG TABLET 1 TABLET NEEDED ORALLY FOR SPASMS EVERY 8 HOURS NEEDED UNKNOWN OXYCODONE HCL 5 MG TABLET 1 TABLET ORALLY EVERY 6 HRS NEEDED FOR PAIN MDD2 UNKNOWN DULOXETINE HCL 60 MG CAPSULE DELAYED RELEASE PARTICLES 1 CAPSULE ORALLY ONCE A DAY, NOTES: 0730 UNKNOWN TYLENOL ARTHRITIS PAIN 650 MG TABLET EXTENDED RELEASE 1 ORALLY AT BEDTIME, NOTES: 1 WEEK AGO UNKNOWN DESONIDE CREA-MOISTURIZING LOT 0.05 % KIT EXTERNALLY , NOTES: 0830 UNKNOWN ASPERCREME 10 % CREAM 1 APPLICATION TO AFFECTED AREA NEEDED EXTERNALLY TWICE DAILY, NOTES: 2 WEEKS UNKNOWN VALIUM 5 MG TABLET 1 TABLET ORALLY IN AM THE DAY OF THE PROCEDURE UNKNOWN IBUPROFEN 200 MG 1 TAB ORAL NIGHTLY MEDICATION LIST REVIEWED AND RECONCILED WITH THE PATIENT PAST MEDICAL HISTORY BRI - CPAP IMPLANTABLE LOOP RECORDER- FOR EPISODES OF SYNCOPE HYPERLIPID CHRONIC BACK AND NECK PAIN HEADACHES DIZZINESS HAS BEEN KNOWN TO VASAL VAGAL SEVERLY WITH PROCEDURES INVOLVING NEEDES ALLERGIES TAPE: RASH ORANGE: DRY MOUTH/DIFFICULTY SWALLOWING PINE: RASH/CONGESTION GRASS: SNEEZING, WATERY EYES REVIEW OF SYSTEMS REVIEWED BY: PROVIDER: ELENO BONE MD . CONSTITUTIONAL: ANY CHANGE IN YOUR MEDICAL CONDITION? NO . CHILLS NO . FEVER NO . INFECTION: DO YOU HAVE NEW INFECTIONS? NO . DO YOU HAVE HISTORY OF MRSA? NO . MUSCULOSKELETAL: ANY NEW PATTERNS OF PAIN OR NUMBNESS? NO . GASTROENTEROLOGY: ANY NEW CHANGE IN BOWEL CONTROL? NO . GENITOURINARY: ANY NEW CHANGE IN BLADDER CONTROL? NO . IS THERE A CHANCE YOU COULD BE ? NO . HEMATOLOGY/LYMPH: DO YOU TAKE ANY BLOOD THINNERS? (FOR EXAMPLE- COUMADIN, PLAVIX, AGGRENOX, PLATEL, PRADAXA, OR XARELTO) NO . WHEN WAS YOUR LAST DOSE? DATE: TIME: . NEUROLOGY: HAVE YOU FALLEN IN THE PAST 6 MONTHS? YES CAUGHT HER TOE AND FELL . ANY NEW EXTREMITY NUMBNESS OR WEAKNESS? NO . CARDIOLOGY: DO YOU HAVE A PACEMAKER OR DEFIBRILLATOR? NO . RESPIRATORY: HAVE YOU BEEN SICK IN THE PAST WEEK? NO . FEVER NO . FLU LIKE SYMPTOMS? NO . COUGH NO . INTEGUMENTARY: DO YOU HAVE ANY RASHES OR OPEN SORES? NO . ALLERGIC/IMMUNO: ARE YOU ALLERGIC TO SHELLFISH OR IV DYE? NO . ANY NEW ALLERGIES? NO . PSYCHIATRIC: DO YOU HAVE THOUGHTS OF HURTING YOURSELF OR SOMEONE ELSE? NO . ARE YOU ABUSED, NEGLECTED, OR IN AN UNSAFE ENVIRONMENT? NO . ENDOCRINOLOGY: ARE YOU DIABETIC? NO . OTHER: DO YOU NEED ANY PRESCRIPTIONS? NO . IF YES, PLEASE LIST: ____ . ANY NEW PROBLEMS WITH YOUR MEDICATIONS? NO . WHEN DID YOU LAST EAT? ____ . WHEN DID YOU LAST DRINK? ____ . WHAT DID YOU LAST DRINK? ____ . NAME OF PERSON DRIVING YOU HOME? ____ . DO YOU HAVE ANY OTHER QUESTIONS OR CONCERNS YES DIRECTOR NETWORK DEVELOPMENT REFERRAL? . EXAMINATION : PATIENT IS ALERT O X 3 AND COOPERATIVE. 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 TENDERNESS IN THE CERVICAL AREA AND PARASPINAL MUSCLE GROUP. CT DONE OF THE CERVICAL SPINE ON 04/22/16 SHOWS CERVICAL SPONDYLOSIS FROM C2-C3 THROUGH C6-C7 AND A 1.2 CM HYPO DENSITY IN THE LEFT THYROID LOBE. 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 DHALIWAL'S PAIN MANAGEMENT CASE. AT THIS TIME THE PATIENT WILL START TO WEAN HERSELF FROM GABAPENTIN AND THEN FROM THE CYMBALTA TO SEE IF SHE IS GETTING ANY RELIEF FROM THESE MEDICATIONS. CURRENTLY THE PATIENT IS BEING SEEN AT THE ORTHOPEDIC GROUP DUE TO A RECENT INJURY WITH HER KNEE. I WOULD LIKE THE PATIENT TO RECEIVE A TENNS UNIT TO SEE IF IT WILL AID IN RELIEF IN THE CERVICAL AREA. PATIENT WILL RETURN TO THE CLINIC IN 1-2 MONTHS ONCE SHE HAS WEANED HERSELF OFF THE MEDICATIONS. INSTRUCTIONS WERE GIVEN, QUESTIONS WERE ANSWERED, PATIENT REPORTS UNDERSTANDING AND AGREES WITH THE PLAN. I, KARLA RIVERA, DOCUMENTED THE ABOVE INFORMATION ACTING A SCRIBE FOR DR. BONE. I HAVE REVIEWED THE ABOVE DOCUMENT, WRITTEN BY KARLA COWAN AND I VERIFY THAT IT IS ACCURATE. PROCEDURE CODES FA211 ESTABILISHED PATIENT [facility] FACILITY CHARGE G8427 DOC MEDS VERIFIED W/PT OR RE G8730 PAIN ASSESS POS TOOL F/U PLAN DOC DISPOSITION & COMMUNICATION FOLLOW UP 3 WEEKS ELECTRONICALLY SIGNED BY ELENO BONE MD ON 08/04/2017 AT 03:04 PM EDT DISCLAIMER : THIS IS A VISIT SUMMARY EXTRACTED FROM THE [employer] CHART. IT IS NOT A COPY OF THE [employer] PROGRESS NOTE. MARCIND
== END ==
LOC: M PAIN 13:15
PROVIDERS: ATTEND Anesthesiology
DX: G89.29 Other chronic pain (principal); M50.121 Cervical disc disorder at C4-C5 level with radiculopathy; M50.122 Cervical disc disorder at C5-C6 level with radiculopathy; M50.123 Cervical disc disorder at C6-C7 level with radiculopathy; G47.30 Sleep apnea, unspecified; E78.5 Hyperlipidemia, unspecified; L23.1 Allergic contact dermatitis due to adhesives; J30.2 Other seasonal allergic rhinitis; Z91.018 Allergy to other foods; Z79.82 Long term (current) use of aspirin; Z79.1 Long term (current) use of non-steroidal anti-inflammatories (NSAID); Z79.899 Other long term (current) drug therapy

== ENCOUNTER → 2017-07-28 | Outpatient (CLI) | payer OTHER ==
--- NOTE | 2017-07-28 12:58 | REP ---
MRI OF THE LEFT LOWER LEG WITHOUT CONTRAST: History: Contusion of the left leg. Question stress fracture. Lower leg pain and swelling. Comparison sonography July 11, 2017 showed no evidence of DVT. MR technique: Sagittal, axial and coronal imaging planes were utilized. T1 and T2-weighted scans are included with and without fat saturation. MRI findings: Cortical and medullary bone signal intensity are normal in the tibia and fibula as imaged. There is no MR evidence of stress fracture. The distal most tibia is excluded from the field of view. Calf musculature shows normal T1 and T2-weighted signal intensity and normal contours. No vascular abnormality is seen. No hematoma or abnormal fluid collection is appreciated. IMPRESSION: Negative left calf MRI study. No evidence of soft tissue hematoma or fluid collection. No MR evidence of stress fracture. Signed by Johnson Perkins MD 07/28/2017 03:05 P
== END ==
LOC: M PLARAD 09:47
PROVIDERS: ATTEND Orthopaedic Surgery
DX: S80.12XA Contusion of left lower leg, initial encounter (principal); X58.XXXA Exposure to other specified factors, initial encounter; Y92.89 Other specified places as the place of occurrence of the external cause; Y93.89 Activity, other specified; Y99.8 Other external cause status

== ENCOUNTER → 2017-09-26 | Outpatient (CLI) | payer OTHER ==
--- NOTE | 2017-09-26 12:32 | REP ---
MRI LUMBAR SPINE WITHOUT CONTRAST: HISTORY: Back pain. Decreased signal intensity on T2-weighted images is present in the lumbar intervertebral discs. The discs are decreased in height. These findings are consistent with disc degeneration. There is no disc bulge or herniation at the L1-2 and L2-3 levels. There is hypertrophy of the posterior articulating facets at the L2-3 level. The nerves exit the neural foramina without compression. A diffuse disc bulge is present at the L3-4 level. There is minimal compression of the thecal sac. There is hypertrophy of the ligamenta flava and posterior articulating facets. The L3 nerves exit the neural foramina without compression. A diffuse disc bulge is present at the L4-5 level. This abuts the thecal sac. There is hypertrophy of the posterior articulating facets. The L4 nerves exit the neural foramina without compression. A diffuse disc bulge is present at the L5-S1 level. This abuts the thecal sac and S1 nerves. There is hypertrophy of the posterior articulating facets. The L5 nerves exit the neural foramina without compression. The conus medullaris is normal in appearance terminating at the level of the L1-2 intervertebral disc. A hemangioma is present in the L4 vertebral body. Increased signal intensity on T2-weighted images is present in the inferior end plate of the L5 vertebral body. This represents degenerative change. IMPRESSION: 1. Diffuse disc bulge at the L3-4 level with minimal thecal sac compression. 2. Diffuse disc bulge at the L4-5 level. This abuts the thecal sac. 3. Diffuse disc bulge at the L5-S1 level. This abuts the thecal sac and S1 nerves. Signed by Curtis Ross MD 09/26/2017 12:57 P
== END ==
LOC: M PLARAD 09:44
PROVIDERS: ATTEND Orthopaedic Surgery
DX: M51.26 Other intervertebral disc displacement, lumbar region (principal); M51.27 Other intervertebral disc displacement, lumbosacral region

== ENCOUNTER → 2017-09-30 | Outpatient (CLI) | payer OTHER ==
--- NOTE | 2017-10-12 23:58 | ECWPNPC ---
PATIENT NAME: IAM DHALIWAL : 1955 GENDER: FEMALE VISIT DATE: 09/30/2017 DISCHARGE DATE: 09/30/17 1343 VISIT LOCKED DATE TIME: PHYSICIAN: ELENO BONE RESOURCE: ELENO BONE REASON FOR APPOINTMENT 1. NECK PAIN/BACK PAIN HISTORY OF PRESENT ILLNESS HISTORY OF PRESENT ILLNESS: PAIN THE PATIENT DESCRIBES THE PAIN... 62 YEAR OLD FEMALE PATIENT WITH HISTORY OF CHRONIC NECK AND BACK PAIN. PATIENT DESCRIBES THE PAIN IN HER NECK BURNING AND HAVING IT ALL THE TIME WITH A PAIN SCORE OF 5-6/10 AT TODAY'S VISIT. PATIENT REPORTS NUMBNESS IN THE HANDS AND HAS DIFFICULTY HOLDING ONTO THINGS. PATIENT REPORTS OF RADIATING PAIN IN THE CENTER OF HER NECK AND STATES THAT IS WHERE THE WORST PAIN IS. PATIENT STATES THAT SHE HAS NUMBNESS DOWN HER ARM AND INTO HER FINGERTIPS OF HER PINKIE AND RING FINGER OF HER RIGHT HAND. THE PATIENT DESCRIBES HER BACK PAIN THROBBING PAIN THAT MAKES HER NAUSEOUS WITH A PAIN SCORE OF 7/10. CURRENTLY THE PATIENT IS USING GABAPENTIN AND CYMBALTA BUT THE PATIENT WOULD LIKE TO STOP USING THE MEDICATION TO SEE IF IT IS ACTUALLY AIDING IN PAIN RELIEF. PATIENT SAW A NEUROLOGIST IN APRIL 2017. KARINA RHODES . PATIENT DENIES UNEXPLAINABLE WEIGHT LOSS, FEVER, CHILLS, NEW CHANGES ON HER URINARY OR BOWEL CONTROL. FALL RISK SCREENING: SCREENING :NO FALLS IN THE PAST YEAR CURRENT MEDICATIONS TAKING CRESTOR 5 MG TABLET 1 TABLET ORALLY ONCE A DAY TAKING ASPIR-81 81 MG TABLET DELAYED RELEASE 1 TABLET ORALLY EVERY OTHER DAY TAKING FISH OIL TRIPLE STRENGTH 2100 MG 1 CAPSULE ORALLY ONCE A DAY TAKING COQ-10 200 MG CAPSULE 1 CAPSULE WITH A MEAL ORALLY ONCE A DAY TAKING CALTRATE 600+D PLUS MINERALS 600-800 MG-UNIT TABLET 1 TABLET ORALLY TWICE A DAY TAKING ESTROVEN + ENERGY MAX STRENGTH TABLET 1 TAB ORALLY TAKING CLARITIN 10 MG TABLET 1 TABLET ORALLY ONCE A DAY TAKING EMERGEN-C IMMUNE PACKET ORALLY ONCE DAILY TAKING MULTIVITAMINS CAPSULE ORALLY ONCE DAILY TAKING CULTURELLE CAPSULE ORALLY ONCE DAILY TAKING MOVE FREE JOINT HEALTH ADVANCE - TABLET ORALLY DAILY TAKING CYMBALTA 30 MG CAPSULE DELAYED RELEASE PARTICLES 1 CAPSULE ORALLY TWICE A DAY FOR PAIN TAKING GABAPENTIN 300 MG CAPSULE 1 CAPSULE ORALLY FOUR TIMES DAILY, NOTES: TAKING 1 TID TAKING IBUPROFEN 200 MG 1 TAB ORAL BEFORE BEDTIME PRN DISCONTINUED VALIUM 5 MG TABLET 1 TABLET NEEDED ORALLY FOR SPASMS EVERY 8 HOURS NEEDED DISCONTINUED OXYCODONE HCL 5 MG TABLET 1 TABLET ORALLY EVERY 6 HRS NEEDED FOR PAIN MDD2 DISCONTINUED DULOXETINE HCL 60 MG CAPSULE DELAYED RELEASE PARTICLES 1 CAPSULE ORALLY ONCE A DAY, NOTES: 729 DISCONTINUED TYLENOL ARTHRITIS PAIN 650 MG TABLET EXTENDED RELEASE 1 ORALLY AT BEDTIME, NOTES: 1 WEEK AGO DISCONTINUED DESONIDE CREA-MOISTURIZING LOT 0.05 % KIT EXTERNALLY , NOTES: 829 DISCONTINUED ASPERCREME 10 % CREAM 1 APPLICATION TO AFFECTED AREA NEEDED EXTERNALLY TWICE DAILY, NOTES: 2 WEEKS DISCONTINUED VALIUM 5 MG TABLET 1 TABLET ORALLY IN AM THE DAY OF THE PROCEDURE MEDICATION LIST REVIEWED AND RECONCILED WITH THE PATIENT PAST MEDICAL HISTORY BRI - CPAP IMPLANTABLE LOOP RECORDER- FOR EPISODES OF SYNCOPE HYPERLIPID CHRONIC BACK AND NECK PAIN HEADACHES DIZZINESS HAS BEEN KNOWN TO VASAL VAGAL SEVERLY WITH PROCEDURES INVOLVING NEEDLES ALLERGIES TAPE: RASH ORANGE: DRY MOUTH/DIFFICULTY SWALLOWING PINE: RASH/CONGESTION GRASS: SNEEZING, WATERY EYES SOCIAL HISTORY GENERAL: TOBACCO USE ARE YOU A:FORMER SMOKER HOW LONG HAS IT BEEN SINCE YOU LAST SMOKED? QUIT 12/2015 ALCOHOL SCREENING POINTS0 INTERPRETATIONNEGATIVE RECREATIONAL DRUG USE DRUG USE?NO CAFFEINE CAFFEINE USE?YES HOW OFTEN AND HOW MUCH? 2 CUPS COFFEE/DAY OCCUPATION: [employer]. DIET: REGULAR. EXERCISE: WALKS. MARITAL STATUS: . 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 ADVANCE DIRECTIVES HEALTH CARE PROXY?NO WOULD YOU LIKE MORE INFORMATION?NO DO YOU HAVE A DNR?NO WOULD YOU LIKE MORE INFORMATION?NO LIVING WILL?NO WOULD YOU LIKE MORE INFORMATION?NO POWER OF LOG COOKER?NO WOULD YOU LIKE MORE INFORMATION?NO DOMESTIC VIOLENCE DO YOU FEEL SAFE IN YOUR ENVIRONMENT?YES REVIEW OF SYSTEMS REVIEWED BY: PROVIDER: ELENO BONE MD . CONSTITUTIONAL: ANY CHANGE IN YOUR MEDICAL CONDITION? NO . CHILLS NO . FEVER NO . INFECTION: DO YOU HAVE NEW INFECTIONS? NO . DO YOU HAVE HISTORY OF MRSA? NO . MUSCULOSKELETAL: ANY NEW PATTERNS OF PAIN OR NUMBNESS? YES, BOTH HAND NUMB X 3 WEEKS, RIGHT IS WORSE . GASTROENTEROLOGY: ANY NEW CHANGE IN BOWEL CONTROL? NO . GENITOURINARY: ANY NEW CHANGE IN BLADDER CONTROL? NO . IS THERE A CHANCE YOU COULD BE ? NO . HEMATOLOGY/LYMPH: DO YOU TAKE ANY BLOOD THINNERS? (FOR EXAMPLE- COUMADIN, PLAVIX, AGGRENOX, PLATEL, PRADAXA, OR XARELTO) NO . WHEN WAS YOUR LAST DOSE? DATE: TIME: . NEUROLOGY: HAVE YOU FALLEN IN THE PAST 6 MONTHS? YES, END OF MAY--TRIPPED , INJURYING LEFT KNEE . ANY NEW EXTREMITY NUMBNESS OR WEAKNESS? NO . CARDIOLOGY: DO YOU HAVE A PACEMAKER OR DEFIBRILLATOR? NO HAS LOOP RECORDER . RESPIRATORY: HAVE YOU BEEN SICK IN THE PAST WEEK? NO . FEVER NO . FLU LIKE SYMPTOMS? NO . COUGH NO . INTEGUMENTARY: DO YOU HAVE ANY RASHES OR OPEN SORES? NO . ALLERGIC/IMMUNO: ARE YOU ALLERGIC TO SHELLFISH OR IV DYE? NO . ANY NEW ALLERGIES? NO . PSYCHIATRIC: DO YOU HAVE THOUGHTS OF HURTING YOURSELF OR SOMEONE ELSE? NO . ARE YOU ABUSED, NEGLECTED, OR IN AN UNSAFE ENVIRONMENT? NO . ENDOCRINOLOGY: ARE YOU DIABETIC? NO . OTHER: DO YOU NEED ANY PRESCRIPTIONS? NO . IF YES, PLEASE LIST: ____ . ANY NEW PROBLEMS WITH YOUR MEDICATIONS? NO . WHEN DID YOU LAST EAT? ____ . WHEN DID YOU LAST DRINK? ____ . WHAT DID YOU LAST DRINK? ____ . NAME OF PERSON DRIVING YOU HOME? ____ . DO YOU HAVE ANY OTHER QUESTIONS OR CONCERNS NO . VITAL SIGNS WT 200 LBS, HT 66 IN, BMI 32.28 INDEX, BP 152/69 MM HG, HR 80 /MIN, RR 18 /MIN, TEMP 100 F, OXYGEN SAT % 96%, SAFE IN ENV? (Y/N) Y, NA INITIALS SC 11:49, REVIEWED BY: AD. EXAMINATION : PATIENT IS ALERT O X 3 AND COOPERATIVE. 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 TENDERNESS IN THE CERVICAL/THORA SIC AREA AND PARASPINAL MUSCLE GROUP. PATIENT HAS HAD NUMBNESS IN HER HANDS FOR THE PAST 3 WEEKS. PATIENT ALSO HAS BACK PAIN THAT RADIATES DOWN INTO HER CALF. PATIENT STATES THAT THE PAIN IS SEVERE. LEFT LEG IS WEAKER THAN HER RIGHT LEG AT EXTENSION AND FLEXION. LEFT LEG (+) AT 20 DEGREES. PATIENT IS LIMPING ON HER LEFT LEG. ASSESSMENTS INTERVERTEBRAL DISC DISORDER WITH RADICULOPATHY OF LUMBAR REGION - M51.16 (PRIMARY) CERVICALGIA - M54.2 CERVICAL DISC DISORDER AT C5-C6 LEVEL WITH RADICULOPATHY - M50.122 CERVICAL DISC DISORDER AT C6-C7 LEVEL WITH RADICULOPATHY - M50.123 TREATMENT INTERVERTEBRAL DISC DISORDER WITH RADICULOPATHY OF LUMBAR REGION CLINICAL NOTES: WE DISCUSSED SEVERAL ISSUES WITH MRS. DHALIWAL'S PAIN MANAGEMENT CASE. AT THIS TIME THE PATIENT WILL INCREASE THE GABAPENTIN TO 4X PER DAY. PATIENT WILL CONTINUE WITH THE CYMBALTA.. CURRENTLY THE PATIENT IS BEING SEEN AT THE ORTHOPEDIC GROUP AND HAS TRIED PHYSICAL THERAPY BUT SHE IS UNABLE TO DO THE PHYSICAL THERAPY SO WHILE THERE THEY ARE ONLY DOING THE TENNS UNIT OR ULTRASOUND. CERVICAL MRI WAS ORDERED PATIENT HAS A LOOP RECORDER. WE WILL DISCUSS A LESI WITH IV SEDATION WITH THE PATIENT IN THE FOLLOW UP AFTER THE MRI RESULTS ARE REVIEWED. PATIENT WILL HAVE A FOLLOW UP IN 1 MONTH. INSTRUCTIONS WERE GIVEN, QUESTIONS WERE ANSWERED, PATIENT REPORTS UNDERSTANDING AND AGREES WITH THE PLAN. I, ALFREDA PULLIAM, DOCUMENTED THE ABOVE INFORMATION ACTING A SCRIBE FOR DR. BONE. I HAVE REVIEWED THE ABOVE DOCUMENT, WRITTEN BY ALFREDA COWAN AND I VERIFY THAT IT IS ACCURATE. DEAR DR. TSANG:THANK YOU FOR YOUR KIND REFERRAL OF IAM DHALIWAL. IF YOU WANT TO DISCUSS HER/HIS CASE WITH ME PLEASE CALL ME AT THE PAIN CENTER AT [phone]. SINCERELY, ELENO BONE MD PAIN MEDICINE. OTHERS START DIAZEPAM TABLET, 5 MG, 1 TABLET NEEDED, ORALLY, 1 HR PRIOR MRI MAY REPEAT 15 MINUTES PRIOR MRI MDD2, 1 DOSE(S), 2, REFILLS 0 PROCEDURE CODES FA211 ESTABILISHED PATIENT [facility] FACILITY CHARGE [id number] OFFICE/OUTPATIENT VISIT EST G7130 PAIN ASSESS POS TOOL F/U PLAN DOC G8427 DOC MEDS VERIFIED W/PT OR RE DISPOSITION & COMMUNICATION FOLLOW UP 3 WEEKS ELECTRONICALLY SIGNED BY ELENO BONE MD ON 10/12/2017 AT 06:58 PM EST DISCLAIMER : THIS IS A VISIT SUMMARY EXTRACTED FROM THE [employer] CHART. IT IS NOT A COPY OF THE [employer] PROGRESS NOTE. ALCON
== END ==
LOC: M PAIN 10:45
PROVIDERS: ATTEND Anesthesiology
DX: G89.29 Other chronic pain (principal); M51.16 Intervertebral disc disorders with radiculopathy, lumbar region; M50.122 Cervical disc disorder at C5-C6 level with radiculopathy; M50.123 Cervical disc disorder at C6-C7 level with radiculopathy; G47.33 Obstructive sleep apnea (adult) (pediatric); E78.5 Hyperlipidemia, unspecified; J30.1 Allergic rhinitis due to pollen; R51 Headache; R42 Dizziness and giddiness; Z87.891 Personal history of nicotine dependence; Z79.82 Long term (current) use of aspirin; Z79.1 Long term (current) use of non-steroidal anti-inflammatories (NSAID); Z79.899 Other long term (current) drug therapy; Z91.048 Other nonmedicinal substance allergy status; Z91.018 Allergy to other foods

== ENCOUNTER → 2017-10-13 | Outpatient (CLI) | payer OTHER ==
--- NOTE | 2017-10-13 10:26 | REP ---
MRI CERVICAL SPINE WITHOUT CONTRAST: HISTORY: Radiculopathy. Comparison is made with CT study of the cervical spine with intrathecal contrast done April 18, 2017. TECHNIQUE: Sagittal and axial T1- and T2-weighted scans are acquired in the usual fashion with and without fat saturation. Sequences include spin echo, turbo spin-echo, and STIR imaging sequences. MRI FINDINGS: There is straightening and reversal of the normal cervical lordosis. Cortical and medullary bone signal intensity are normal. Vertebral body heights are preserved. No extra vertebral abnormality is seen. There is diffuse degenerative spondylosis change. Axial and sagittal images at the C2-3 level show mild central disc bulging. No cord compression is seen. No neural foraminal narrowing. At C3-C4, there is a mild degenerative 2 mm C3-4 subluxation, unchanged from the CT images. No disc herniation is seen. Mild central disc bulging is seen. No central canal stenosis seen. At C4-C5, there is minimal right-sided uncovertebral spurring and mild diffuse disc bulging. At C5-C6, there is diffuse disc bulging effacing the ventral subarachnoid space. Mild bilateral uncovertebral spurring is seen. Neural foramina appear adequate. No central canal stenosis is seen. At C6-7, there is marked narrowing of the disc with posterior and anterior osteophytic ridging, and diffuse disc bulging is seen. This effaces the ventral subarachnoid space but does not compress the cord. No significant canal stenosis is seen. There is uncovertebral spurring producing some neural foraminal narrowing bilaterally. At C7-T1, there is no abnormality. IMPRESSION: Diffuse degenerative spondylosis changes most pronounced at C6-7. Mild bilateral uncovertebral spurring at C6-7 and to a lesser extent at C5-6. Stable 2 mm C3-4 anterior subluxation. Findings appear to be unchanged from the April 18, 2017 study. Signed by Johnson Perkins MD 10/13/2017 04:09 P
== END ==
LOC: M PLARAD 09:00
PROVIDERS: ATTEND Anesthesiology
DX: M50.10 Cervical disc disorder with radiculopathy, unspecified cervical region (principal); M50.21 Other cervical disc displacement, high cervical region; M50.221 Other cervical disc displacement at C4-C5 level; M50.222 Other cervical disc displacement at C5-C6 level; M50.223 Other cervical disc displacement at C6-C7 level

== ENCOUNTER → 2017-10-17 | Outpatient (CLI) | payer OTHER | LOC: M PAIN 11:00 | DX: M50.122 Cervical disc disorder at C5-C6 level with radiculopathy (principal); M47.812 Spondylosis without myelopathy or radiculopathy, cervical region; E78.5 Hyperlipidemia, unspecified; G47.33 Obstructive sleep apnea (adult) (pediatric); R55 Syncope and collapse; J30.1 Allergic rhinitis due to pollen; Z91.018 Allergy to other foods; Z91.048 Other nonmedicinal substance allergy status; Z79.82 Long term (current) use of aspirin; Z79.1 Long term (current) use of non-steroidal anti-inflammatories (NSAID); Z79.899 Other long term (current) drug therapy; Z87.891 Personal history of nicotine dependence; Z95.818 Presence of other cardiac implants and grafts | CPT/HCPCS: G0463 ==

== ENCOUNTER → 2017-11-17 | Outpatient (CLI) | payer OTHER ==
[~2017-11-17] MED LIST changes: -ASPI1TAB PO; -CALCTAB68 PO; -CLAR10CA3 PO; -CO Q200C10 PO; -CRES5TAB PO; -CULT10CA2 PO; -ESTRCAP PO; +ISOVUE-M 300 61% 15ML VIAL (Q9967) As Ordered; +LIDOCAINE 1% SDV INJ 30 ML VIAL As Ordered; +MIDAZOLAM INJ 2 MG/2 ML VIAL (J2250) As Ordered; -MULTCAP PO; -[UNRECOGNIZED DRUG - OTHER] PO; -claritan; +fentaNYL 100 MCG/2 ML INJECTION (J3010) As Ordered; +methylPREDNISolone SUSP 40 MG/ML (DEPO-medrol) VIAL (J1030) As Ordered
== END ==
LOC: M PAIN 13:00
DX: G89.29 Other chronic pain (principal); M51.16 Intervertebral disc disorders with radiculopathy, lumbar region; G47.33 Obstructive sleep apnea (adult) (pediatric); E78.5 Hyperlipidemia, unspecified; R51 Headache; R42 Dizziness and giddiness; Z79.82 Long term (current) use of aspirin; Z79.899 Other long term (current) drug therapy; Z87.891 Personal history of nicotine dependence; Z91.018 Allergy to other foods; Z91.048 Other nonmedicinal substance allergy status
CPT/HCPCS: J1030

== ENCOUNTER → 2017-12-01 | Outpatient (CLI) | payer OTHER | LOC: M PAIN 09:15 | DX: M50.122 Cervical disc disorder at C5-C6 level with radiculopathy (principal); M51.27 Other intervertebral disc displacement, lumbosacral region; E78.5 Hyperlipidemia, unspecified; R51 Headache; R55 Syncope and collapse; J30.2 Other seasonal allergic rhinitis; Z79.82 Long term (current) use of aspirin; Z79.899 Other long term (current) drug therapy; Z91.048 Other nonmedicinal substance allergy status; Z87.891 Personal history of nicotine dependence | CPT/HCPCS: G0463 ==

== ENCOUNTER → 2017-12-15 | Outpatient (CLI) | payer OTHER | LOC: M PAIN 12:30 | DX: G89.29 Other chronic pain (principal); M51.17 Intervertebral disc disorders with radiculopathy, lumbosacral region; G47.33 Obstructive sleep apnea (adult) (pediatric); R51 Headache; J30.2 Other seasonal allergic rhinitis; Z79.82 Long term (current) use of aspirin; Z79.899 Other long term (current) drug therapy; Z91.09 Other allergy status, other than to drugs and biological substances; Z91.018 Allergy to other foods; Z95.818 Presence of other cardiac implants and grafts; Z86.79 Personal history of other diseases of the circulatory system; Z87.891 Personal history of nicotine dependence | CPT/HCPCS: J1030 ==

== ENCOUNTER → 2017-12-31 | Outpatient (CLI) | payer OTHER | LOC: M PAIN 13:30 | DX: M50.122 Cervical disc disorder at C5-C6 level with radiculopathy (principal); E78.5 Hyperlipidemia, unspecified; Z79.82 Long term (current) use of aspirin; Z79.899 Other long term (current) drug therapy; Z91.048 Other nonmedicinal substance allergy status; Z87.891 Personal history of nicotine dependence; Z91.018 Allergy to other foods; J30.1 Allergic rhinitis due to pollen; Z95.818 Presence of other cardiac implants and grafts | CPT/HCPCS: G0463 ==

== ENCOUNTER → 2018-01-27 | Outpatient (CLI) | payer OTHER ==
[~2018-01-27] MED LIST changes: +BUPIVACAINE HCL 0.25% 30 ML VIAL As Ordered; -MIDAZOLAM INJ 2 MG/2 ML VIAL (J2250) As Ordered; +TRIAMCINOLONE ACETONIDE SUSP 40 MG/ML VIAL (J3301) As Ordered; +diazePAM 5 MG TAB As Ordered; -fentaNYL 100 MCG/2 ML INJECTION (J3010) As Ordered; -methylPREDNISolone SUSP 40 MG/ML (DEPO-medrol) VIAL (J1030) As Ordered; +oxyCODONE 5MG TAB As Ordered
== END ==
LOC: M PAIN 13:45
DX: G89.29 Other chronic pain (principal); M46.1 Sacroiliitis, not elsewhere classified; M53.88 Other specified dorsopathies, sacral and sacrococcygeal region; E78.5 Hyperlipidemia, unspecified; R51 Headache; G47.33 Obstructive sleep apnea (adult) (pediatric); J30.2 Other seasonal allergic rhinitis; Z79.82 Long term (current) use of aspirin; Z79.899 Other long term (current) drug therapy; Z91.09 Other allergy status, other than to drugs and biological substances; Z91.018 Allergy to other foods; Z86.79 Personal history of other diseases of the circulatory system; Z87.891 Personal history of nicotine dependence; Z95.818 Presence of other cardiac implants and grafts
CPT/HCPCS: J3301

== ENCOUNTER → 2018-02-16 | Outpatient (CLI) | payer OTHER | LOC: M RAD 09:25 | DX: Z12.31 Encounter for screening mammogram for malignant neoplasm of breast (principal); Z78.0 Asymptomatic menopausal state ==

== ENCOUNTER → 2018-04-18 | Outpatient (CLI) | payer OTHER ==
[2018-04-18 12:03] LABS: EOS % 0.1 % (0.0-3.0); HEMATOCRIT 37.2 % (36.0-47.0); HEMOGLOBIN 12.9 g/dl (12.0-15.5); IMMATURE GRANULOCYTE % 0.4 % (0-3.0); LYMPH # 2.2 10^3/uL (1.5-4.5); LYMPH % 31.6 % (24.0-44.0); MEAN CORPUSCULAR HEMOGLOBIN 31.1 pg (27.0-33.0); MEAN CORPUSCULAR HGB CONC 34.7 g/dl (32.0-36.5); MEAN CORPUSCULAR VOLUME 89.6 fl (80.0-96.0); MONO # 0.5 10^3/uL (0.0-0.8); MONO % 7.2 % (0.0-5.0); NEUTROPHILS # 4.3 10^3/uL (1.8-7.7); NEUTROPHILS % 60.7 % (36.0-66.0); PLATELET COUNT, AUTOMATED 238 10^3/uL (150-450); RED BLOOD COUNT 4.15 10^6/uL (4.00-5.40); WHITE BLOOD COUNT 7.1 10^3/uL (4.0-10.0)
[2018-04-18 12:22] LABS: ALBUMIN 3.9 GM/DL (3.2-5.2); ALBUMIN/GLOBULIN RATIO 1.26 (1.00-1.93); ALKALINE PHOSPHATASE 85 U/L (45-117); ALT/SGPT 109 U/L (12-78); ANION GAP 9 MEQ/L (8-16); AST/SGOT 54 U/L (7-37); BILIRUBIN,TOTAL 0.5 MG/DL (0.2-1.0); BLOOD UREA NITROGEN 16 MG/DL (7-18); CALCIUM LEVEL 8.8 MG/DL (8.8-10.2); CARBON DIOXIDE LEVEL 27 MEQ/L (21-32); CHLORIDE LEVEL 108 MEQ/L (98-107); CHOLESTEROL LEVEL 187 MG/DL (<200); CREATININE FOR GFR 0.74 MG/DL (0.55-1.30); GLOMERULAR FILTRATION RATE > 60.0 (>45); GLUCOSE, FASTING 99 MG/DL (70-100); HDL CHOLESTEROL 55 MG/DL (>40); NON-HDL-C 132 MG/DL; POTASSIUM SERUM 4.3 MEQ/L (3.5-5.1); SODIUM LEVEL 144 MEQ/L (136-145); TRIGLYCERIDES LEVEL 245 MG/DL (<150)
== END ==
LOC: M WUC 09:56
DX: E78.2 Mixed hyperlipidemia (principal)

== ENCOUNTER → 2018-05-12 | Outpatient (CLI) | payer OTHER | LOC: M PAIN 11:00 | DX: M50.122 Cervical disc disorder at C5-C6 level with radiculopathy (principal); G47.33 Obstructive sleep apnea (adult) (pediatric); E78.5 Hyperlipidemia, unspecified; J30.2 Other seasonal allergic rhinitis; E66.01 Morbid (severe) obesity due to excess calories; Z68.36 Body mass index [BMI] 36.0-36.9, adult; Z79.82 Long term (current) use of aspirin; Z79.899 Other long term (current) drug therapy; Z91.09 Other allergy status, other than to drugs and biological substances; Z91.018 Allergy to other foods; Z86.69 Personal history of other diseases of the nervous system and sense organs; Z87.891 Personal history of nicotine dependence | CPT/HCPCS: G0463 ==

== ENCOUNTER → 2018-08-12 | Outpatient (CLI) | payer OTHER | LOC: M PAIN 11:00 | DX: M53.3 Sacrococcygeal disorders, not elsewhere classified (principal); M54.6 Pain in thoracic spine; G47.33 Obstructive sleep apnea (adult) (pediatric); E78.5 Hyperlipidemia, unspecified; R51 Headache; J30.1 Allergic rhinitis due to pollen; R42 Dizziness and giddiness; Z87.891 Personal history of nicotine dependence; Z79.899 Other long term (current) drug therapy; Z79.82 Long term (current) use of aspirin; Z91.018 Allergy to other foods; Z91.048 Other nonmedicinal substance allergy status | CPT/HCPCS: G0463 ==

== ENCOUNTER → 2018-08-21 | Outpatient (CLI) | payer OTHER | LOC: M RAD 07:15 | DX: M53.3 Sacrococcygeal disorders, not elsewhere classified (principal) | CPT/HCPCS: 72146 ==

== ENCOUNTER → 2018-09-22 | Outpatient (CLI) | payer OTHER | LOC: M PAIN 14:30 | DX: G89.29 Other chronic pain (principal); M46.1 Sacroiliitis, not elsewhere classified; M53.88 Other specified dorsopathies, sacral and sacrococcygeal region; E78.5 Hyperlipidemia, unspecified; R51 Headache; G47.33 Obstructive sleep apnea (adult) (pediatric); J30.2 Other seasonal allergic rhinitis; Z79.82 Long term (current) use of aspirin; Z79.899 Other long term (current) drug therapy; Z91.09 Other allergy status, other than to drugs and biological substances; Z91.02 Food additives allergy status; Z86.69 Personal history of other diseases of the nervous system and sense organs; Z87.891 Personal history of nicotine dependence; Z95.818 Presence of other cardiac implants and grafts | CPT/HCPCS: J3301 ==

== ENCOUNTER → 2018-10-06 | Outpatient (CLI) | payer OTHER ==
[~2018-10-06] MED LIST changes: +ASPI1TAB PO; -BUPIVACAINE HCL 0.25% 30 ML VIAL As Ordered; +CALCTAB68 PO; +CLAR10CA3 PO; +CO Q200C10 PO; +CRES5TAB PO; +CULT10CA2 PO; +ESTRCAP PO; -ISOVUE-M 300 61% 15ML VIAL (Q9967) As Ordered; -LIDOCAINE 1% SDV INJ 30 ML VIAL As Ordered; +MULTCAP PO; -TRIAMCINOLONE ACETONIDE SUSP 40 MG/ML VIAL (J3301) As Ordered; +[UNRECOGNIZED DRUG - OTHER] PO; +claritan; -diazePAM 5 MG TAB As Ordered; -oxyCODONE 5MG TAB As Ordered
--- NOTE | 2018-10-29 01:09 | ECWPNPC ---
PATIENT NAME: IAM DHALIWAL : 1955 GENDER: FEMALE VISIT DATE: 10/06/2018 DISCHARGE DATE: 10/06/18 1039 VISIT LOCKED DATE TIME: PHYSICIAN: EDGARD STEWART RESOURCE: EDGARD STEWART REASON FOR APPOINTMENT 1. POST SIJ HISTORY OF PRESENT ILLNESS DEPRESSION SCREENING: PHQ-2 IN LAST TWO WEEKS HAVE YOU BEEN BOTHERED BY LITTLE INTEREST OR PLEASURE IN DOING THINGSNO FEELING DOWN, DEPRESSED, OR HOPELESSNO HISTORY OF PRESENT ILLNESS: HERE FOR POST PROCEDURE F/U.HAD BILAT. SIJ ON 09-22-18.REPORTING >50 % IMPROVEMENT IN PAIN THAT CONTINUES TODAY.CHIEF AREA OF PAIN IS MID AXILLARY LEFT T12 PAIN.A LUMP IS APPRECIATED 2CM APPROXIMATLEY WITH PAIN WHEN PALPATING THIS AREA.NO REDDNES OR SWELLING.REPORTS SUCH SEVERE PAIN AT TIMES IT MAKES HER NAUSEATED.PAIN IS AGGREVATED WITH MOVEMENT.REPORTING NORMAL BM'S AND URINATION. PAIN THE PATIENT DESCRIBES THE PAIN... FALL RISK SCREENING: SCREENING :NO FALLS IN THE PAST YEAR CURRENT MEDICATIONS TAKING CRESTOR 5 MG TABLET 1 TABLET ORALLY ONCE A DAY TAKING ASPIR-81 81 MG TABLET DELAYED RELEASE 1 TABLET ORALLY EVERY OTHER DAY TAKING FISH OIL TRIPLE STRENGTH 2100 MG 1 CAPSULE ORALLY ONCE A DAY TAKING COQ-10 200 MG CAPSULE 1 CAPSULE WITH A MEAL ORALLY ONCE A DAY TAKING CALTRATE 600+D PLUS MINERALS 600-800 MG-UNIT TABLET 1 TABLET ORALLY TWICE A DAY TAKING ESTROVEN + ENERGY MAX STRENGTH TABLET 1 TAB ORALLY TAKING MULTIVITAMINS CAPSULE ORALLY ONCE DAILY TAKING MOVE FREE JOINT HEALTH ADVANCE - TABLET ORALLY DAILY TAKING MAY USE ULTRA NICA 1 CAP ORALLY DAILY TAKING MAY USE 450MG CEYLON CINNAMON 2 CAP ORALLY ONCE DAILY TAKING CLARITIN 10 MG TABLET 1 TABLET ORALLY ONCE A DAY TAKING CYMBALTA 30 MG CAPSULE DELAYED RELEASE PARTICLES 1 CAPSULE ORALLY TWICE A DAY FOR PAIN TAKING GABAPENTIN 300 MG CAPSULE 1 CAPSULE ORALLY FOUR TIMES DAILY TAKING MAY USE DICLOFENAC GEL 1% TID NOT-TAKING IBUPROFEN 200 MG 1 TAB ORAL BEFORE BEDTIME PRN NOT-TAKING CULTURELLE CAPSULE ORALLY ONCE DAILY NOT-TAKING EMERGEN-C IMMUNE PACKET ORALLY ONCE DAILY NOT-TAKING PAZEO 0.7 % SOLUTION 1 DROP INTO AFFECTED EYE OPHTHALMIC ONCE A DAY NOT-TAKING MAY USE MYOCALM 2 CAPS ORALLY ONCE DAILY NOT-TAKING VALIUM 5 MG TABLET 1 TAB DIRECTED ORALLY 1 TAB 1HR PRE MRI AND 1 TAB AT TIME OF MRI MDD2 MEDICATION LIST REVIEWED AND RECONCILED WITH THE PATIENT PAST MEDICAL HISTORY BRI - CPAP IMPLANTABLE LOOP RECORDER- FOR EPISODES OF SYNCOPE HYPERLIPID CHRONIC BACK AND NECK PAIN HEADACHES DIZZINESS HAS BEEN KNOWN TO VASAL VAGAL SEVERLY WITH PROCEDURES INVOLVING NEEDLES CARPAL TUNNEL RIGHT HAND DE QUERVAIN'S TENOSYNOVITIS-RIGHT TENNIS ELBOW-RIGHT ALLERGIES TAPE: RASH ORANGE: DRY MOUTH/DIFFICULTY SWALLOWING PINE: RASH/CONGESTION GRASS: SNEEZING, WATERY EYES SURGICAL HISTORY TONSILLECTOMY 1965 D/C (MISCARRIAGE) 12/1978 D/C ENDOMETRIAL ABLATION 08/1979 HYSTERECTOMY/OOPHORECTOMY 11/2009 IMPLANTABLE LOOP RECORDER 01/2015 THYROID BX 06/2016 RIGHT HAND CARPAL TUNNEL RELEASE 04/22/2018 SOCIAL HISTORY GENERAL: TOBACCO USE ARE YOU A:FORMER SMOKER HOW LONG HAS IT BEEN SINCE YOU LAST SMOKED? QUIT 12/2015 ALCOHOL SCREENING DID YOU HAVE A DRINK CONTAINING ALCOHOL IN THE PAST YEAR?NO POINTS0 INTERPRETATIONNEGATIVE RECREATIONAL DRUG USE DRUG USE?NO CAFFEINE CAFFEINE USE?YES HOW OFTEN AND HOW MUCH? 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 DIET: REGULAR. EXERCISE: WALKS. MARITAL STATUS: . PAIN CLINIC PFS, CLERGY, PUBLIC HEALTH REFERRALS PFS REFERRAL NEEDED?NO CLERGY REFERRAL NEEDED?NO PUBLIC HEALTH REFERRAL NEEDED?NO WAS THE PROVIDER NOTIFIED OF ANY PERTINENT INFO?NO N/A HAS THE PATIENT BEEN EDUCATED REGARDING HIS/HER PLAN OF CARE?YES HAS THE PATIENT BEEN EDUCATED REGARDING PAIN, THE RISK FOR PAIN, THE IMPORTANCE OF EFFECTIVE PAIN MANAGEMENT, AND THE PAIN ASSESSMENT PROCESS?YES ADVANCE DIRECTIVE ADVANCE DIRECTIVE DISCUSSED WITH PATIENT:NO PT DOES NOT WANT INFO AT THIS TIME REVIEWED WITH PT 08/12/18 1113 BV. HOSPITALIZATION/MAJOR DIAGNOSTIC PROCEDURE SURGERIES REVIEW OF SYSTEMS REVIEWED BY: PROVIDER: EDGARD CONCEPCION . CONSTITUTIONAL: ANY CHANGE IN YOUR MEDICAL CONDITION? NO . CHILLS NO . FEVER NO . INFECTION: DO YOU HAVE NEW INFECTIONS? NO . DO YOU HAVE HISTORY OF MRSA? NO . MUSCULOSKELETAL: ANY NEW PATTERNS OF PAIN OR NUMBNESS? NO . GASTROENTEROLOGY: ANY NEW CHANGE IN BOWEL CONTROL? NO . GENITOURINARY: ANY NEW CHANGE IN BLADDER CONTROL? NO . IS THERE A CHANCE YOU COULD BE ? NO . HEMATOLOGY/LYMPH: DO YOU TAKE ANY BLOOD THINNERS? (FOR EXAMPLE- COUMADIN, PLAVIX, AGGRENOX, PLATEL, PRADAXA, OR XARELTO) NO . WHEN WAS YOUR LAST DOSE? DATE: TIME: . NEUROLOGY: HAVE YOU FALLEN IN THE PAST 6 MONTHS? NO . ANY NEW EXTREMITY NUMBNESS OR WEAKNESS? NO . CARDIOLOGY: DO YOU HAVE A PACEMAKER OR DEFIBRILLATOR? NO . RESPIRATORY: HAVE YOU BEEN SICK IN THE PAST WEEK? NO . FEVER NO . FLU LIKE SYMPTOMS? NO . COUGH NO . INTEGUMENTARY: DO YOU HAVE ANY RASHES OR OPEN SORES? NO . ALLERGIC/IMMUNO: ARE YOU ALLERGIC TO SHELLFISH OR IV DYE? NO . ANY NEW ALLERGIES? NO . PSYCHIATRIC: DO YOU HAVE THOUGHTS OF HURTING YOURSELF OR SOMEONE ELSE? NO . ARE YOU ABUSED, NEGLECTED, OR IN AN UNSAFE ENVIRONMENT? NO . ENDOCRINOLOGY: ARE YOU DIABETIC? NO . OTHER: DO YOU NEED ANY PRESCRIPTIONS? NO . IF YES, PLEASE LIST: ____ . ANY NEW PROBLEMS WITH YOUR MEDICATIONS? NO . WHEN DID YOU LAST EAT? ____ . WHEN DID YOU LAST DRINK? ____ . WHAT DID YOU LAST DRINK? ____ . NAME OF PERSON DRIVING YOU HOME? ____ . DO YOU HAVE ANY OTHER QUESTIONS OR CONCERNS YES, WOULD LIKE TO DISCUSS MIDBACK PAIN/MRI . VITAL SIGNS WT 223.0 LBS, HT 66 IN, BMI 35.99 INDEX, BP 135/87 MM HG, HR 95 /MIN, RR 16 /MIN, TEMP 97.0 F, OXYGEN SAT % 97%, NA INITIALS AW 0943, REVIEWED BY: EM. EXAMINATION GENERAL EXAMINATION: GENERAL APPEARANCE:AWAKE,ALERT ,PLEAASANT . PSYCHAFFECT NORMAL . LUNGS:LUNG [place] ARE CLEAR TO AUSCULTATION BILATERALLY. GOOD MOVEMENT OF AIR . HEART:S1, S2 IN A REGULAR RATE AND RHYTHM. NO SIGNIFICANT MURMURS, RUBS OR GALLOPS NOTED . THORACIC SPINETENDER @T10/12 LEFT MID AXILLARY WITH SOME SWELLING APPRECIATED/NO REDNESS. ASSESSMENTS RIB PAIN ON LEFT SIDE - R07.81 (PRIMARY) SACROILIAC JOINT PAIN - M53.3 (PRIMARY) TREATMENT RIB PAIN ON LEFT SIDE NOTES: CT W CONTRAT LEFT MID AXILLARY T12 W MARKERS. PROCEDURE CODES FA211 ESTABILISHED PATIENT [facility] FACILITY CHARGE DISPOSITION & COMMUNICATION FOLLOW UP PT WILL CALL ELECTRONICALLY SIGNED BY CARLENE FERRELL ON 10/28/2018 AT 03:06 PM EST DISCLAIMER : THIS IS A VISIT SUMMARY EXTRACTED FROM THE [employer] CHART. IT IS NOT A COPY OF THE [employer] PROGRESS NOTE. MARCIND
== END ==
LOC: M PAIN 09:45
PROVIDERS: ATTEND Nurse Practitioner Family
DX: R07.81 Pleurodynia (principal); M53.3 Sacrococcygeal disorders, not elsewhere classified; G47.33 Obstructive sleep apnea (adult) (pediatric); E78.5 Hyperlipidemia, unspecified; R51 Headache; M54.2 Cervicalgia; R42 Dizziness and giddiness; M77.11 Lateral epicondylitis, right elbow; J30.1 Allergic rhinitis due to pollen; Z87.891 Personal history of nicotine dependence; Z79.82 Long term (current) use of aspirin; Z79.899 Other long term (current) drug therapy; Z91.018 Allergy to other foods; Z91.048 Other nonmedicinal substance allergy status

== ENCOUNTER → 2018-10-13 | Outpatient (CLI) | payer OTHER ==
[~2018-10-13] MED LIST changes: +ISOVUE-370 76% 100ML VIAL (Q9967) As Ordered ONE
--- NOTE | 2018-10-16 10:13 | REP ---
Clinical: Mass. Technique: Axial contrast enhanced images from the thoracic inlet to the upper abdomen with coronal and sagittal re-formations using 100 ml Isovue 370 intravenous contrast material. Findings: A marker is identified along the left posterior lower thoracic cage (image 85) and no associated abnormality is identified. The bilateral lung kessler are well-aerated and clear. No consolidation, significant nodule or mass lesion. No pleural effusion. No pneumothorax. Tracheobronchial tree is patent. No axillary, hilar, or mediastinal adenopathy. The mediastinum demonstrates minimal atherosclerotic changes without aortic aneurysm. No cardiomegaly or pericardial effusion. Surrounding musculoskeletal structures are intact and within normal limits. Limited upper abdomen demonstrates fatty infiltration to the liver and normal bilateral adrenal glands. Impression: Normal contrast enhanced chest CT. No obvious abnormality identified at the region of interest. Fatty infiltration to the liver. Electronically Signed by Marvin Garg MD 10/16/2018 10:04 A
== END ==
LOC: M RAD 10:12
PROVIDERS: ATTEND Nurse Practitioner Family
DX: R07.81 Pleurodynia (principal); K76.0 Fatty (change of) liver, not elsewhere classified
CPT/HCPCS: 71260; Q9967

== ENCOUNTER → 2019-01-13 | Outpatient (CLI) | payer OTHER ==
[~2019-01-13] MED LIST changes: -ISOVUE-370 76% 100ML VIAL (Q9967) As Ordered ONE
--- NOTE | 2019-01-28 00:45 | ECWPNPC ---
PATIENT NAME: IAM DHALIWAL : 1955 GENDER: FEMALE VISIT DATE: 01/13/2019 DISCHARGE DATE: 01/13/19 1523 VISIT LOCKED DATE TIME: PHYSICIAN: EDGARD STEWART RESOURCE: EDGARD STEWART HISTORY OF PRESENT ILLNESS HISTORY OF PRESENT ILLNESS: HERE FOR F/U OF CHRONIC LOW BACK PAIN.CHIEF AREA OF PAIN IS LEFT LOW BACK.PAIN IS AGGREVATED BY PROLONGED STANDING OR WALKING.HAS RESPONDED TO SIJ INJECTIONS IN PAST.RATING PAIN VAS 8/10. PAIN THE PATIENT DESCRIBES THE PAIN... FALL RISK SCREENING: SCREENING : NO FALLS IN THE PAST YEAR. CURRENT MEDICATIONS TAKING CRESTOR 5 MG TABLET 1 TABLET ORALLY ONCE A DAY TAKING ASPIR-81 81 MG TABLET DELAYED RELEASE 1 TABLET ORALLY EVERY OTHER DAY TAKING FISH OIL TRIPLE STRENGTH 2100 MG 1 CAPSULE ORALLY ONCE A DAY TAKING COQ-10 200 MG CAPSULE 1 CAPSULE WITH A MEAL ORALLY ONCE A DAY TAKING CALTRATE 600+D PLUS MINERALS 600-800 MG-UNIT TABLET 1 TABLET ORALLY TWICE A DAY TAKING ESTROVEN + ENERGY MAX STRENGTH TABLET 1 TAB ORALLY TAKING MULTIVITAMINS CAPSULE ORALLY ONCE DAILY TAKING MOVE [employer] JOINT HEALTH ADVANCE - TABLET ORALLY DAILY TAKING MAY USE ULTRA NICA 1 CAP ORALLY DAILY TAKING MAY USE 450MG CEYLON CINNAMON 2 CAP ORALLY ONCE DAILY TAKING CLARITIN 10 MG TABLET 1 TABLET ORALLY ONCE A DAY TAKING GABAPENTIN 300 MG CAPSULE 1 CAPSULE ORALLY FOUR TIMES DAILY TAKING CYMBALTA 30 MG CAPSULE DELAYED RELEASE PARTICLES 1 CAPSULE ORALLY TWICE A DAY FOR PAIN NOT-TAKING MAY USE DICLOFENAC GEL 1% TID NOT-TAKING IBUPROFEN 200 MG 1 TAB ORAL BEFORE BEDTIME PRN NOT-TAKING CULTURELLE CAPSULE ORALLY ONCE DAILY NOT-TAKING EMERGEN-C IMMUNE PACKET ORALLY ONCE DAILY NOT-TAKING PAZEO 0.7 % SOLUTION 1 DROP INTO AFFECTED EYE OPHTHALMIC ONCE A DAY NOT-TAKING MAY USE MYOCALM 2 CAPS ORALLY ONCE DAILY NOT-TAKING VALIUM 5 MG TABLET 1 TAB DIRECTED ORALLY 1 TAB 1HR PRE MRI AND 1 TAB AT TIME OF MRI MDD2 MEDICATION LIST REVIEWED AND RECONCILED WITH THE PATIENT PAST MEDICAL HISTORY BRI - CPAP IMPLANTABLE LOOP RECORDER- FOR EPISODES OF SYNCOPE HYPERLIPID CHRONIC BACK AND NECK PAIN HEADACHES DIZZINESS HAS BEEN KNOWN TO VASAL VAGAL SEVERLY WITH PROCEDURES INVOLVING NEEDLES CARPAL TUNNEL RIGHT HAND DE QUERVAIN'S TENOSYNOVITIS-RIGHT TENNIS ELBOW-RIGHT ALLERGIES TAPE: RASH ORANGE: DRY MOUTH/DIFFICULTY SWALLOWING PINE: RASH/CONGESTION GRASS: SNEEZING, WATERY EYES SURGICAL HISTORY TONSILLECTOMY 1965 D/C (MISCARRIAGE) 12/1978 D/C ENDOMETRIAL ABLATION 08/1979 HYSTERECTOMY/OOPHORECTOMY 11/2009 IMPLANTABLE LOOP RECORDER 01/2015 THYROID BX 06/2016 RIGHT HAND CARPAL TUNNEL RELEASE 04/22/2018 SOCIAL HISTORY GENERAL: TOBACCO USE ARE YOU A:FORMER SMOKER HOW LONG HAS IT BEEN SINCE YOU LAST SMOKED? QUIT 12/2015 ALCOHOL SCREENING DID YOU HAVE A DRINK CONTAINING ALCOHOL IN THE PAST YEAR?NO POINTS0 INTERPRETATIONNEGATIVE RECREATIONAL DRUG USE DRUG USE?NO CAFFEINE CAFFEINE USE?YES HOW OFTEN AND HOW MUCH? 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 DIET: REGULAR. EXERCISE: WALKS. MARITAL STATUS: . PAIN CLINIC PFS, CLERGY, PUBLIC HEALTH REFERRALS PFS REFERRAL NEEDED?NO CLERGY REFERRAL NEEDED?NO PUBLIC HEALTH REFERRAL NEEDED?NO WAS THE PROVIDER NOTIFIED OF ANY PERTINENT INFO?NO N/A HAS THE PATIENT BEEN EDUCATED REGARDING HIS/HER PLAN OF CARE?YES HAS THE PATIENT BEEN EDUCATED REGARDING PAIN, THE RISK FOR PAIN, THE IMPORTANCE OF EFFECTIVE PAIN MANAGEMENT, AND THE PAIN ASSESSMENT PROCESS?YES ADVANCE DIRECTIVE ADVANCE DIRECTIVE DISCUSSED WITH PATIENT:YES PT DOES NOT WANT INFO AT THIS TIME REVIEWED WITH PT 08/12/18 1113 BV. HOSPITALIZATION/MAJOR DIAGNOSTIC PROCEDURE SURGERIES REVIEW OF SYSTEMS REVIEWED BY: PROVIDER: EDGARD CONCEPCION . CONSTITUTIONAL: ANY CHANGE IN YOUR MEDICAL CONDITION? NO . CHILLS NO . FEVER NO . INFECTION: DO YOU HAVE NEW INFECTIONS? NO . DO YOU HAVE HISTORY OF MRSA? NO . MUSCULOSKELETAL: ANY NEW PATTERNS OF PAIN OR NUMBNESS? YES, LEFT LEG WEAKNESS . GASTROENTEROLOGY: ANY NEW CHANGE IN BOWEL CONTROL? NO . GENITOURINARY: ANY NEW CHANGE IN BLADDER CONTROL? NO . IS THERE A CHANCE YOU COULD BE ? NO . HEMATOLOGY/LYMPH: DO YOU TAKE ANY BLOOD THINNERS? (FOR EXAMPLE- COUMADIN, PLAVIX, AGGRENOX, PLATEL, PRADAXA, OR XARELTO) NO . WHEN WAS YOUR LAST DOSE? DATE: TIME: . NEUROLOGY: HAVE YOU FALLEN IN THE PAST 12 MONTHS? NO . ANY NEW EXTREMITY NUMBNESS OR WEAKNESS? YES, LEFT LEG WEAKNESS . CARDIOLOGY: DO YOU HAVE A PACEMAKER OR DEFIBRILLATOR? NO . RESPIRATORY: HAVE YOU BEEN SICK IN THE PAST WEEK? NO . FEVER NO . FLU LIKE SYMPTOMS? NO . COUGH NO . INTEGUMENTARY: DO YOU HAVE ANY RASHES OR OPEN SORES? NO . ALLERGIC/IMMUNO: ARE YOU ALLERGIC TO IV DYE? NO . ANY NEW ALLERGIES? NO . PSYCHIATRIC: DO YOU HAVE THOUGHTS OF HURTING YOURSELF OR SOMEONE ELSE? NO . ARE YOU ABUSED, NEGLECTED, OR IN AN UNSAFE ENVIRONMENT? NO . ENDOCRINOLOGY: ARE YOU DIABETIC? NO . OTHER: DO YOU NEED ANY PRESCRIPTIONS? YES, GABAPENTIN . IF YES, PLEASE LIST: ____ . ANY NEW PROBLEMS WITH YOUR MEDICATIONS? NO . WHEN DID YOU LAST EAT? ____ . WHEN DID YOU LAST DRINK? ____ . WHAT DID YOU LAST DRINK? ____ . NAME OF PERSON DRIVING YOU HOME? ____ . DO YOU HAVE ANY OTHER QUESTIONS OR CONCERNS YES, DISCUSS CT, WHAT DO WE DO NEXT? DOES GABAPENTIN CAUSE DREAMS TO BE MORE INTENSE? . VITAL SIGNS WT 229 LBS, HT 66 IN, BMI 36.96 INDEX, BP 159/86 MM HG, HR 118 /MIN, RR 16 /MIN, TEMP 97.8 F, OXYGEN SAT % 95%, NA INITIALS AW 1440, REVIEWED BY: EM. EXAMINATION GENERAL EXAMINATION: GENERAL APPEARANCE: ALERT,NO DISTRESS . PSYCH AFFECT NORMAL . LUNGS: LUNG SOUNDS ARE CLEAR . HEART: HEART RATE REGULAR . MUSCULOSKELETAL: MST 5/5 BILAT. LOWER EXTREMITIES . LUMBAR SACRAL SPINE TENDERNESS LEFT SIJ .POSITIVE SONNY TEST LEFT LEG. DIAGNOSTIC TESTS REVIEWED CT L/S [id number] . ASSESSMENTS SACROILIITIS, NOT ELSEWHERE CLASSIFIED - M46.1 (PRIMARY) TREATMENT SACROILIITIS, NOT ELSEWHERE CLASSIFIED NOTES: LEFT SIJ. PROCEDURE CODES FA211 ESTABILISHED PATIENT [facility] FACILITY CHARGE DISPOSITION & COMMUNICATION FOLLOW UP POST (REASON: LEFT SIJ) ELECTRONICALLY SIGNED BY CARLENE FERRELL ON 01/27/2019 AT 01:51 PM EDT DISCLAIMER : THIS IS A VISIT SUMMARY EXTRACTED FROM THE [employer] CHART. IT IS NOT A COPY OF THE [employer] PROGRESS NOTE. ALCON
== END ==
LOC: M PAIN 14:15
PROVIDERS: ATTEND Nurse Practitioner Family
DX: M46.1 Sacroiliitis, not elsewhere classified (principal); G89.29 Other chronic pain; E78.5 Hyperlipidemia, unspecified; G47.33 Obstructive sleep apnea (adult) (pediatric); J30.2 Other seasonal allergic rhinitis; Z79.82 Long term (current) use of aspirin; Z79.899 Other long term (current) drug therapy; Z91.09 Other allergy status, other than to drugs and biological substances; Z91.018 Allergy to other foods; Z86.69 Personal history of other diseases of the nervous system and sense organs

== ENCOUNTER → 2019-01-29 | Outpatient (CLI) | payer OTHER ==
[~2019-01-29] MED LIST changes: -ASPI1TAB PO; +ASPI81TA26 PO
[2019-01-29 12:56] LABS: ALBUMIN 4.4 GM/DL (3.2-5.2); ALT/SGPT 102 U/L (12-78); BILIRUBIN,TOTAL 0.5 MG/DL (0.2-1.0); BLOOD UREA NITROGEN 17 MG/DL (7-18); CALCIUM LEVEL 9.6 MG/DL (8.8-10.2); CARBON DIOXIDE LEVEL 28 MEQ/L (21-32); CHLORIDE LEVEL 104 MEQ/L (98-107); CHOLESTEROL LEVEL 176 MG/DL (<200); CHOLESTEROL RISK RATIO 3.666 (<5); CREATININE FOR GFR 0.89 MG/DL (0.55-1.30); GLOMERULAR FILTRATION RATE > 60.0 (>45); GLUCOSE, FASTING 103 MG/DL (70-100); HDL CHOLESTEROL 48 MG/DL (>40); LDL CHOLESTEROL 80 MG/DL (<100); NON-HDL-C 128 MG/DL; POTASSIUM SERUM 4.2 MEQ/L (3.5-5.1); SODIUM LEVEL 140 MEQ/L (136-145); TOTAL PROTEIN 7.2 GM/DL (6.4-8.2); TRIGLYCERIDES LEVEL 242 MG/DL (<150)
== END ==
LOC: M WUC 09:23
PROVIDERS: ATTEND Physician Assistant
DX: E78.2 Mixed hyperlipidemia (principal)

== ENCOUNTER → 2019-02-02 | Outpatient (CLI) | payer OTHER ==
[~2019-02-02] MED LIST changes: +BUPIVACAINE HCL 0.25% 30 ML VIAL As Ordered ONE; +ISOVUE-M 300 61% 15ML VIAL (Q9967) As Ordered ONE; +LIDOCAINE 1% SDV INJ 30 ML VIAL As Ordered ONE; +TRIAMCINOLONE ACETONIDE SUSP 40 MG/ML VIAL (J3301) As Ordered ONE; +diazePAM 5 MG TAB As Ordered ONE; +oxyCODONE 5MG TAB As Ordered ONE
--- NOTE | 2019-02-02 16:34 | REP ---
SI joint series: Left-sided: Four views. History: Injection procedure for pain. Findings: 13 seconds of fluoroscopy time is reported. A sequence of four last image hold fluoroscopically obtained spot radiographs of the left SI joint document needle position and contrast injection for injection procedure. Electronically Signed by Johnson Perkins MD 02/02/2019 08:35 P
--- NOTE | 2019-02-14 23:58 | ECWPNPC ---
PATIENT NAME: IAM DHALIWAL : 1955 GENDER: FEMALE VISIT DATE: 02/02/2019 DISCHARGE DATE: 02/02/19 1417 VISIT LOCKED DATE TIME: PHYSICIAN: ELENO BONE MD RESOURCE: ELENO BONE MD REASON FOR APPOINTMENT 1. LEFT SIJ HISTORY OF PRESENT ILLNESS HISTORY OF PRESENT ILLNESS: PAIN THE PATIENT DESCRIBES THE PAIN... FALL RISK SCREENING: SCREENING :NO FALLS REPORTED IN THE LAST YEAR CURRENT MEDICATIONS TAKING CRESTOR 5 MG TABLET 1 TABLET ORALLY ONCE A DAY, NOTES: 02/01/19 TAKING ASPIR-81 81 MG TABLET DELAYED RELEASE 1 TABLET ORALLY EVERY OTHER DAY, NOTES: 02/01/19 TAKING FISH OIL TRIPLE STRENGTH 2100 MG 1 CAPSULE ORALLY ONCE A DAY, NOTES: 02/01/19 TAKING COQ-10 200 MG CAPSULE 1 CAPSULE WITH A MEAL ORALLY ONCE A DAY, NOTES: 02/01/19 TAKING CALTRATE 600+D PLUS MINERALS 600-800 MG-UNIT TABLET 1 TABLET ORALLY TWICE A DAY, NOTES: 02/01/19 TAKING ESTROVEN + ENERGY MAX STRENGTH TABLET 1 TAB ORALLY , NOTES: 02/01/19 TAKING MULTIVITAMINS CAPSULE ORALLY ONCE DAILY, NOTES: 02/01/19 TAKING MOVE FREE JOINT HEALTH ADVANCE - TABLET ORALLY DAILY, NOTES: 02/01/19 TAKING MAY USE ULTRA NICA 1 CAP ORALLY DAILY, NOTES: 02/01/19 TAKING MAY USE 450MG CEYLON CINNAMON 2 CAP ORALLY ONCE DAILY, NOTES: 02/01/19 TAKING CLARITIN 10 MG TABLET 1 TABLET ORALLY ONCE A DAY, NOTES: 02/01/19 TAKING GABAPENTIN 300 MG CAPSULE 1 CAPSULE ORALLY FOUR TIMES DAILY, NOTES: 02/02/19 AM TAKING CYMBALTA 30 MG CAPSULE DELAYED RELEASE PARTICLES 1 CAPSULE ORALLY TWICE A DAY FOR PAIN, NOTES: 02/02/19 AM TAKING LIDOCAINE & ADHESIVE SHEET 5 % KIT DIRECTED EXTERNALLY DAILY, NOTES: 02/01/19 NOT-TAKING MAY USE DICLOFENAC GEL 1% TID NOT-TAKING IBUPROFEN 200 MG 1 TAB ORAL BEFORE BEDTIME PRN NOT-TAKING CULTURELLE CAPSULE ORALLY ONCE DAILY NOT-TAKING EMERGEN-C IMMUNE PACKET ORALLY ONCE DAILY NOT-TAKING PAZEO 0.7 % SOLUTION 1 DROP INTO AFFECTED EYE OPHTHALMIC ONCE A DAY NOT-TAKING MAY USE MYOCALM 2 CAPS ORALLY ONCE DAILY NOT-TAKING VALIUM 5 MG TABLET 1 TAB DIRECTED ORALLY 1 TAB 1HR PRE MRI AND 1 TAB AT TIME OF MRI MDD2 MEDICATION LIST REVIEWED AND RECONCILED WITH THE PATIENT PAST MEDICAL HISTORY BRI - CPAP IMPLANTABLE LOOP RECORDER- FOR EPISODES OF SYNCOPE HYPERLIPID CHRONIC BACK AND NECK PAIN HEADACHES DIZZINESS HAS BEEN KNOWN TO VASAL VAGAL SEVERLY WITH PROCEDURES INVOLVING NEEDLES CARPAL TUNNEL RIGHT HAND DE QUERVAIN'S TENOSYNOVITIS-RIGHT TENNIS ELBOW-RIGHT ALLERGIES TAPE: RASH ORANGE: DRY MOUTH/DIFFICULTY SWALLOWING PINE: RASH/CONGESTION GRASS: SNEEZING, WATERY EYES SURGICAL HISTORY TONSILLECTOMY 1965 D/C (MISCARRIAGE) 12/1978 D/C ENDOMETRIAL ABLATION 08/1979 HYSTERECTOMY/OOPHORECTOMY 11/2009 IMPLANTABLE LOOP RECORDER 01/2015 THYROID BX 06/2016 RIGHT HAND CARPAL TUNNEL RELEASE 04/22/2018 SOCIAL HISTORY GENERAL: TOBACCO USE ARE YOU A:FORMER SMOKER HOW LONG HAS IT BEEN SINCE YOU LAST SMOKED? QUIT 12/2015 ALCOHOL SCREENING DID YOU HAVE A DRINK CONTAINING ALCOHOL IN THE PAST YEAR?NO POINTS0 INTERPRETATIONNEGATIVE RECREATIONAL DRUG USE DRUG USE?NO CAFFEINE CAFFEINE USE?YES HOW OFTEN AND HOW MUCH? 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 DIET: REGULAR. EXERCISE: WALKS. MARITAL STATUS: . PAIN CLINIC PFS, CLERGY, PUBLIC HEALTH REFERRALS PFS REFERRAL NEEDED?NO CLERGY REFERRAL NEEDED?NO PUBLIC HEALTH REFERRAL NEEDED?NO WAS THE PROVIDER NOTIFIED OF ANY PERTINENT INFO?NO N/A HAS THE PATIENT BEEN EDUCATED REGARDING HIS/HER PLAN OF CARE?YES HAS THE PATIENT BEEN EDUCATED REGARDING PAIN, THE RISK FOR PAIN, THE IMPORTANCE OF EFFECTIVE PAIN MANAGEMENT, AND THE PAIN ASSESSMENT PROCESS?YES ADVANCE DIRECTIVE ADVANCE DIRECTIVE DISCUSSED WITH PATIENT:YES PT DOES NOT WANT INFO AT THIS TIME REVIEWED WITH PT 08/12/18 1113 BV. HOSPITALIZATION/MAJOR DIAGNOSTIC PROCEDURE SURGERIES REVIEW OF SYSTEMS REVIEWED BY: PROVIDER: . CONSTITUTIONAL: ANY CHANGE IN YOUR MEDICAL CONDITION? NO . CHILLS NO . FEVER NO . INFECTION: DO YOU HAVE NEW INFECTIONS? NO . DO YOU HAVE HISTORY OF MRSA? NO . MUSCULOSKELETAL: ANY NEW PATTERNS OF PAIN OR NUMBNESS? NO . GASTROENTEROLOGY: ANY NEW CHANGE IN BOWEL CONTROL? NO . GENITOURINARY: ANY NEW CHANGE IN BLADDER CONTROL? NO . IS THERE A CHANCE YOU COULD BE ? NO . HEMATOLOGY/LYMPH: DO YOU TAKE ANY BLOOD THINNERS? (FOR EXAMPLE- COUMADIN, PLAVIX, AGGRENOX, PLATEL, PRADAXA, OR XARELTO) NO . WHEN WAS YOUR LAST DOSE? DATE: TIME: . NEUROLOGY: HAVE YOU FALLEN IN THE PAST 12 MONTHS? NO . ANY NEW EXTREMITY NUMBNESS OR WEAKNESS? NO . CARDIOLOGY: DO YOU HAVE A PACEMAKER OR DEFIBRILLATOR? NO . RESPIRATORY: HAVE YOU BEEN SICK IN THE PAST WEEK? NO . FEVER NO . FLU LIKE SYMPTOMS? NO . COUGH NO . INTEGUMENTARY: DO YOU HAVE ANY RASHES OR OPEN SORES? NO . ALLERGIC/IMMUNO: ARE YOU ALLERGIC TO IV DYE? NO . ANY NEW ALLERGIES? NO . PSYCHIATRIC: DO YOU HAVE THOUGHTS OF HURTING YOURSELF OR SOMEONE ELSE? NO . ARE YOU ABUSED, NEGLECTED, OR IN AN UNSAFE ENVIRONMENT? NO . ENDOCRINOLOGY: ARE YOU DIABETIC? NO . OTHER: DO YOU NEED ANY PRESCRIPTIONS? NO . IF YES, PLEASE LIST: ____ . ANY NEW PROBLEMS WITH YOUR MEDICATIONS? NO . WHEN DID YOU LAST EAT? 02/01/19 1030 . WHEN DID YOU LAST DRINK? 02/02/19 0930 . WHAT DID YOU LAST DRINK? WATER . NAME OF PERSON DRIVING YOU HOME? ASHLEIGH . DO YOU HAVE ANY OTHER QUESTIONS OR CONCERNS NO . VITAL SIGNS WT 227.8 LBS, HT 66 IN, BMI 36.76 INDEX, BP 153/78 MM HG, HR 81 /MIN, RR 16 /MIN, TEMP 97.3 F, OXYGEN SAT % 97%, NA INITIALS AW 1201, REVIEWED BY: EM. ASSESSMENTS SACROILIITIS, NOT ELSEWHERE CLASSIFIED - M46.1 (PRIMARY) TREATMENT SACROILIITIS, NOT ELSEWHERE CLASSIFIED [facility] FLUORO GUIDANCE (PAIN)[id number] PROCEDURES PN SI PRE PROCEDURE DIAGNOSIS SACROILIITIS, SACROILIAC JOINT DYSFUNCTION POST PROCEDURE DIAGNOSIS SACROILIITIS, SACROILIAC JOINT DYSFUNCTION PROCEDURE LEFT SACROILIAC JOINT BLOCK SURGEON DR. ELENO BONE CROP PRODUCTION ADVISOR NONE ANESTHESIA LOCAL PRE PROCEDURE NOTE PATIENT WITH HISTORY OF CHRONIC LOW BACK PAIN. I EVALUATED THE PATIENT AND REVIEWED THE CHART. I WENT OVER THE RISKS, ALTERNATIVES, AND BENEFITS ASSOCIATED WITH THIS PROCEDURE. THE PATIENT WOULD LIKE TO PROCEED AND GAVE CONSENT TO PERFORM THE PROCEDURE. THE PATIENT DENIES UNEXPLAINABLE WEIGHT LOSS, FEVER, CHILLS, OR NEW CHANGES IN URINARY OR BOWEL CONTROL DESCRIPTION OF PROCEDURE THE PATIENT WAS BROUGHT TO THE PROCEDURE ROOM AND PLACED IN THE PRONE POSITION. THE LUMBOSACRAL AREA WAS CLEANED WITH CHLORAPREP SOLUTION AND DRAPED ASEPTICALLY. THE PROCEDURE WAS DONE UNDER STERILE CONDITIONS. I CHECKED LATERALITY AND THE LEVEL WHERE THE PROCEDURE WAS GOING TO BE PERFORMED WITH THE PATIENT AND THE SUPPORTING STAFF AT THE MOMENT OF THE TIME OUT IN THE PROCEDURE ROOM. UNDER FLUOROSCOPIC GUIDANCE, TARGET POINT WAS SELECTED AT THE LOWER BORDER OF THE LEFT SACROILIAC JOINT. TARGET POINT WAS SELECTED AFTER MEDIAL ROTATION AND TILT OF THE MAGNIFIER OF THE C-ARM. LIDOCAINE WAS USED TO NUMB THE SKIN AND SUBCUTANEOUS TISSUE BELOW IT. A SPINAL NEEDLE, 22-GAUGE, WAS ADVANCED UNDER FLUOROSCOPIC GUIDANCE AND FOLLOWING PATIENT FEEDBACK UNTIL THE TARGET AREA WAS TOUCHED. THE POSITION OF THE NEEDLE WAS VERIFIED WITH AP AND LATERAL VIEWS. AFTER PROPER POSITION OF THE NEEDLE WAS ACHIEVED, ISOVUE M DYE 30%, 0.25 ML, WAS INJECTED SHOWING SPREAD OF THE DYE. THEN, A SOLUTION OF 20 MG OF KENALOG WAS INJECTED IN LEFT JOINT WITH 3 ML OF BUPIVACAINE 0.125%. THERE WAS NO EVIDENCE OF BLOOD, PARESTHESIA OR CEREBROSPINAL FLUID DURING THE PROCEDURE. THE PATIENT WAS SENT TO THE RECOVERY ROOM. THE PATIENT WAS MOVING THE EXTREMITIES AND DOING WELL. THERE WAS NO COMPLICATION DURING THE PROCEDURE. FLUOROSCOPY TIME WAS 13 SECONDS POST PROCEDURE NOTE THE PATIENT WILL BE SEEN IN A FOLLOW UP IN THE NEXT FEW WEEKS. INSTRUCTIONS WERE GIVEN, QUESTIONS WERE ANSWERED, AND THE PATIENT EXPRESSED UNDERSTANDING AND AGREED WITH THE PLAN. I, FERDINAND PENNY, DOCUMENTED THE ABOVE INFORMATION ACTING A SCRIBE FOR DR. BONE. I HAVE REVIEWED THE ABOVE DOCUMENT, WRITTEN BY FERDINAND COWAN AND I VERIFY THAT IT IS ACCURATE. PROCEDURE CODES 6045F RADXPS IN END [id number] PXD [id number] INJECT SACROILIAC JOINT, MODIFIERS: LT DISPOSITION & COMMUNICATION FOLLOW UP 3 WEEKS ELECTRONICALLY SIGNED BY ELENO BONE MD, MD ON 02/14/2019 AT 03:08 PM EDT DISCLAIMER : THIS IS A VISIT SUMMARY EXTRACTED FROM THE [employer] CHART. IT IS NOT A COPY OF THE [employer] PROGRESS NOTE. MTDD
== END ==
LOC: M PAIN 11:15
PROVIDERS: ATTEND Anesthesiology
DX: G89.29 Other chronic pain (principal); M46.1 Sacroiliitis, not elsewhere classified; M53.88 Other specified dorsopathies, sacral and sacrococcygeal region; E78.5 Hyperlipidemia, unspecified; G47.33 Obstructive sleep apnea (adult) (pediatric); J30.2 Other seasonal allergic rhinitis; Z79.82 Long term (current) use of aspirin; Z79.899 Other long term (current) drug therapy; Z91.018 Allergy to other foods; Z91.09 Other allergy status, other than to drugs and biological substances; Z86.69 Personal history of other diseases of the nervous system and sense organs; Z87.891 Personal history of nicotine dependence
CPT/HCPCS: G0260; J3301; Q9967

== ENCOUNTER → 2019-02-23 | Outpatient (CLI) | payer OTHER ==
[~2019-02-23] MED LIST changes: -BUPIVACAINE HCL 0.25% 30 ML VIAL As Ordered ONE; -ISOVUE-M 300 61% 15ML VIAL (Q9967) As Ordered ONE; -LIDOCAINE 1% SDV INJ 30 ML VIAL As Ordered ONE; -TRIAMCINOLONE ACETONIDE SUSP 40 MG/ML VIAL (J3301) As Ordered ONE; -diazePAM 5 MG TAB As Ordered ONE; -oxyCODONE 5MG TAB As Ordered ONE
--- NOTE | 2019-03-11 00:31 | ECWPNPC ---
PATIENT NAME: IAM DHALIWAL : 1955 GENDER: FEMALE VISIT DATE: 02/23/2019 DISCHARGE DATE: 02/23/19 1023 VISIT LOCKED DATE TIME: PHYSICIAN: EDGARD STEWART RESOURCE: EDGARD STEWART REASON FOR APPOINTMENT 1. POST PROC HISTORY OF PRESENT ILLNESS HISTORY OF PRESENT ILLNESS: HERE FOR POST PROCEDURE F/U.HAD LEFT SIJ JOINT INJECTION ON 02/02/19.REPORTING >80% REDUCTION IN LEFT LOW BACK PAIN AND NOW RIGHT LOW BACK IN SIJ REGION IS ACTING UP.RATING PAIN VAS 2/10. PAIN THE PATIENT DESCRIBES THE PAIN... FALL RISK SCREENING: SCREENING :NO FALLS REPORTED IN THE LAST YEAR CURRENT MEDICATIONS TAKING CRESTOR 5 MG TABLET 1 TABLET ORALLY ONCE A DAY TAKING ASPIR-81 81 MG TABLET DELAYED RELEASE 1 TABLET ORALLY EVERY OTHER DAY TAKING FISH OIL TRIPLE STRENGTH 1400 MG CAPSULE 2 CAPSULE ORALLY ONCE A DAY, NOTES: 2800 MG DAILY TAKING COQ-10 200 MG CAPSULE 1 CAPSULE WITH A MEAL ORALLY ONCE A DAY TAKING CALTRATE 600+D PLUS MINERALS 600-800 MG-UNIT TABLET 1 TABLET ORALLY TWICE A DAY TAKING ESTROVEN + ENERGY MAX STRENGTH TABLET 1 TAB ORALLY TAKING MULTIVITAMINS CAPSULE ORALLY ONCE DAILY TAKING MOVE FREE JOINT HEALTH ADVANCE - TABLET ORALLY DAILY TAKING MAY USE ULTRA NICA 1 CAP ORALLY DAILY TAKING MAY USE 1 CEYLON CINNAMON 2 CAP ORALLY ONCE DAILY, NOTES: 1200MG DAILY TAKING CLARITIN 10 MG TABLET 1 TABLET ORALLY ONCE A DAY TAKING GABAPENTIN 300 MG CAPSULE 1 CAPSULE ORALLY FOUR TIMES DAILY TAKING CYMBALTA 30 MG CAPSULE DELAYED RELEASE PARTICLES 1 CAPSULE ORALLY TWICE A DAY FOR PAIN TAKING LIDOCAINE & ADHESIVE SHEET 5 % KIT DIRECTED EXTERNALLY DAILY TAKING MAY USE CBD OIL 25MG BID NOT-TAKING MAY USE DICLOFENAC GEL 1% TID NOT-TAKING IBUPROFEN 200 MG 1 TAB ORAL BEFORE BEDTIME PRN NOT-TAKING CULTURELLE CAPSULE ORALLY ONCE DAILY NOT-TAKING EMERGEN-C IMMUNE PACKET ORALLY ONCE DAILY NOT-TAKING PAZEO 0.7 % SOLUTION 1 DROP INTO AFFECTED EYE OPHTHALMIC ONCE A DAY NOT-TAKING MAY USE MYOCALM 2 CAPS ORALLY ONCE DAILY NOT-TAKING VALIUM 5 MG TABLET 1 TAB DIRECTED ORALLY 1 TAB 1HR PRE MRI AND 1 TAB AT TIME OF MRI MDD2 MEDICATION LIST REVIEWED AND RECONCILED WITH THE PATIENT PAST MEDICAL HISTORY BRI - CPAP IMPLANTABLE LOOP RECORDER- FOR EPISODES OF SYNCOPE HYPERLIPID CHRONIC BACK AND NECK PAIN HEADACHES DIZZINESS HAS BEEN KNOWN TO VASAL VAGAL SEVERLY WITH PROCEDURES INVOLVING NEEDLES CARPAL TUNNEL RIGHT HAND DE QUERVAIN'S TENOSYNOVITIS-RIGHT TENNIS ELBOW-RIGHT ALLERGIES TAPE: RASH ORANGE: DRY MOUTH/DIFFICULTY SWALLOWING PINE: RASH/CONGESTION GRASS: SNEEZING, WATERY EYES SURGICAL HISTORY TONSILLECTOMY 1965 D/C (MISCARRIAGE) 12/1978 D/C ENDOMETRIAL ABLATION 08/1979 HYSTERECTOMY/OOPHORECTOMY 11/2009 IMPLANTABLE LOOP RECORDER 01/2015 THYROID BX 06/2016 RIGHT HAND CARPAL TUNNEL RELEASE 04/22/2018 FAMILY HISTORY FATHER: DIAGNOSED WITH DIABETES, HYPERTENSION, STROKE, CANCER MOTHER: CANCER DAUGHTER(S): DIABETES DAUGHTER IS TYPE 1 DIABETIC. SOCIAL HISTORY GENERAL: TOBACCO USE ARE YOU A:FORMER SMOKER HOW LONG HAS IT BEEN SINCE YOU LAST SMOKED? QUIT 12/2015 EDUCATION LEVEL OF EDUCATION:[employer] DIET: REGULAR. LANGUAGE LANGUAGES SPOKEN:GERMAN DOMESTIC VIOLENCE DO YOU FEEL SAFE IN YOUR ENVIRONMENT?YES RECREATIONAL DRUG USE DRUG USE?NO EXERCISE: WALKS. 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 NEEDED?NO PAIN CLINIC PFS, CLERGY, PUBLIC HEALTH REFERRALS PFS REFERRAL NEEDED?NO CLERGY REFERRAL NEEDED?NO PUBLIC HEALTH REFERRAL NEEDED?NO WAS THE PROVIDER NOTIFIED OF ANY PERTINENT INFO?NO N/A HAS THE PATIENT BEEN EDUCATED REGARDING HIS/HER PLAN OF CARE?YES HAS THE PATIENT BEEN EDUCATED REGARDING PAIN, THE RISK FOR PAIN, THE IMPORTANCE OF EFFECTIVE PAIN MANAGEMENT, AND THE PAIN ASSESSMENT PROCESS?YES LATEX QUESTIONNAIRE LATEX ALLERGY : HAVE YOU EVER DEVELOPED ANY TYPE OF REACTION AFTER HANDLING LATEX PRODUCTS SUCH RUBBER GLOVES, CONDOMS, DIAPHRAGMS, BALLOONS, SOCKS, OR UNDERWEAR?NO LATEX ALLERGY : HAVE YOU EVER DEVELOPED ANY TYPE OF REACTION DURING OR AFTER DENTAL APPOINTMENT, VAGINAL/RECTAL EXAMINATION, SURGICAL PROCEDURE, OR ANY OTHER EXPOSURE?NO LATEX RISK : HAVE YOU EVER HAD ANY DIFFICULTY BREATHING OR HIVES AFTER EATING OR HANDLING ANY FRUITS, OR VEGETABLES; SUCH KIWI, BANANAS, STONE FRUITS, OR CHESTNUTSNO LATEX RISK : DO YOU HAVE A PREVIOUS PERSONAL HISTORY OF MORE THAN NINE SURGERIES, SPINA BIFIDA, OR REPEATED CATHERTIZATIONS? NO LATEX RISK : ARE YOU FREQUENTLY EXPOSED TO LATEX PRODUCTS IN YOUR OCCUPATION?NO DATE ASKED : 02/23/2019 CAFFEINE CAFFEINE USE?YES HOW OFTEN AND HOW MUCH? 2 CUPS COFFEE/DAY ADVANCE DIRECTIVE ADVANCE DIRECTIVE DISCUSSED WITH PATIENT:YES PT DOES NOT WANT INFO OR ASSISTANCE AT THIS TIME 02/23/19 BAPTISM [id number] JEW MARITAL STATUS: . ALCOHOL SCREENING DID YOU HAVE A DRINK CONTAINING ALCOHOL IN THE PAST YEAR?NO POINTS0 INTERPRETATIONNEGATIVE OCCUPATION: [employer]. REVIEWED WITH PT 08/12/18 1113 BVREVIEWED WITH PT 02/23/10 1000 BV. HOSPITALIZATION/MAJOR DIAGNOSTIC PROCEDURE SURGERIES REVIEW OF SYSTEMS REVIEWED BY: PROVIDER: EDGARD CONCEPCION . CONSTITUTIONAL: ANY CHANGE IN YOUR MEDICAL CONDITION? NO . CHILLS NO . FEVER NO . INFECTION: DO YOU HAVE NEW INFECTIONS? NO . DO YOU HAVE HISTORY OF MRSA? NO . MUSCULOSKELETAL: ANY NEW PATTERNS OF PAIN OR NUMBNESS? YES, INCREASING INTERMITTENT NUMBNESS/SHARP PAINS IN RIGHT LEG. . GASTROENTEROLOGY: ANY NEW CHANGE IN BOWEL CONTROL? NO . GENITOURINARY: ANY NEW CHANGE IN BLADDER CONTROL? NO . IS THERE A CHANCE YOU COULD BE ? NO . HEMATOLOGY/LYMPH: DO YOU TAKE ANY BLOOD THINNERS? (FOR EXAMPLE- COUMADIN, PLAVIX, AGGRENOX, PLATEL, PRADAXA, OR XARELTO) NO . WHEN WAS YOUR LAST DOSE? DATE: TIME: . NEUROLOGY: HAVE YOU FALLEN IN THE PAST 12 MONTHS? NO . ANY NEW EXTREMITY NUMBNESS OR WEAKNESS? YES, PAIN/INTERMITTENT NUMBNESS IN RIGHT HIP/LEG HAS BEEN INCREASING. . CARDIOLOGY: DO YOU HAVE A PACEMAKER OR DEFIBRILLATOR? NO . RESPIRATORY: HAVE YOU BEEN SICK IN THE PAST WEEK? NO . FEVER NO . FLU LIKE SYMPTOMS? NO . COUGH NO . INTEGUMENTARY: DO YOU HAVE ANY RASHES OR OPEN SORES? NO . ALLERGIC/IMMUNO: ARE YOU ALLERGIC TO IV DYE? NO . ANY NEW ALLERGIES? NO . PSYCHIATRIC: DO YOU HAVE THOUGHTS OF HURTING YOURSELF OR SOMEONE ELSE? NO . ARE YOU ABUSED, NEGLECTED, OR IN AN UNSAFE ENVIRONMENT? NO . ENDOCRINOLOGY: ARE YOU DIABETIC? NO . OTHER: DO YOU NEED ANY PRESCRIPTIONS? NO . IF YES, PLEASE LIST: ____ . ANY NEW PROBLEMS WITH YOUR MEDICATIONS? NO . WHEN DID YOU LAST EAT? ____ . WHEN DID YOU LAST DRINK? ____ . WHAT DID YOU LAST DRINK? ____ . NAME OF PERSON DRIVING YOU HOME? ____ . DO YOU HAVE ANY OTHER QUESTIONS OR CONCERNS NO . VITAL SIGNS WT 227.8 LBS, HT 66 IN, BMI 36.76 INDEX, BP 143/77 MM HG, HR 76 /MIN, RR 18 /MIN, TEMP 98.3 F, OXYGEN SAT % 98%, NA INITIALS SC 09:51, REVIEWED BY: BV. EXAMINATION GENERAL EXAMINATION: GENERAL APPEARANCE: ALERT,NO DISTRESS . PSYCH AFFECT NORMAL . LUNGS: LUNG SOUNDS ARE CLEAR . HEART: HEART RATE REGULAR . MUSCULOSKELETAL: MST 5/5 BILAT. LOWER EXTREMITIES . LUMBAR SACRAL SPINE TENDERNESS RIGHT SIJ .POSITIVE SONNY TEST LEFT LEG. DIAGNOSTIC TESTS REVIEWED CT L/S [id number] . ASSESSMENTS SACROILIITIS, NOT ELSEWHERE CLASSIFIED - M46.1 (PRIMARY) TREATMENT SACROILIITIS, NOT ELSEWHERE CLASSIFIED NOTES: RIGHT SIJ. PREVENTIVE MEDICINE PAIN CLINIC TEACHING: PROCEDURE TEACHING PT GIVEN WRITTEN AND VERBAL PRE PROCEDURE INSTRUCTIONS. PT VERBALIZES UNDERSTANDING OF ALL INSTRUCTIONS. VISHNU JERONIMO 02/23/2019 10:20AM > . PROCEDURE CODES FA211 ESTABILISHED PATIENT [facility] CHARGE DISPOSITION & COMMUNICATION FOLLOW UP POST (REASON: RIGHT SIJ) ELECTRONICALLY SIGNED BY CARLENE FERRELL ON 03/10/2019 AT 08:59 AM EDT DISCLAIMER : THIS IS A VISIT SUMMARY EXTRACTED FROM THE [employer] CHART. IT IS NOT A COPY OF THE [employer] PROGRESS NOTE. ALCON
== END ==
LOC: M PAIN 09:45
PROVIDERS: ATTEND Nurse Practitioner Family
DX: M46.1 Sacroiliitis, not elsewhere classified (principal); E78.5 Hyperlipidemia, unspecified; Z91.09 Other allergy status, other than to drugs and biological substances; Z91.018 Allergy to other foods; J30.2 Other seasonal allergic rhinitis; Z79.82 Long term (current) use of aspirin; Z79.899 Other long term (current) drug therapy; Z86.69 Personal history of other diseases of the nervous system and sense organs; Z87.891 Personal history of nicotine dependence

== ENCOUNTER → 2019-05-05 | Outpatient (CLI) | payer OTHER ==
--- NOTE | 2019-05-18 02:38 | ECWPNPC ---
PATIENT NAME: IAM DHALIWAL : 1955 GENDER: FEMALE VISIT DATE: 05/05/2019 DISCHARGE DATE: 05/05/19 1126 VISIT LOCKED DATE TIME: PHYSICIAN: EDGARD STEWART RESOURCE: EDGARD STEWART REASON FOR APPOINTMENT 1. POST SIJ HISTORY OF PRESENT ILLNESS HISTORY OF PRESENT ILLNESS: HERE FOR POST PROCERDURE F/U.HAD RIGHT SIJ ON 04/10/19.CONTINUES TO DO WELL.CHIEF AREA OF PAIN IS LEFT THORACIC REGION.THIS BEGAN 1 YEAR AGO WITHOUT PRECIPITATING EVENT.CT OF THORACIC AREA WAS NEGATIVE FOR PATHOLOGY.PRIMARY CARE PROVIDER HAS REFERRED HER HERE FOR EVALUATION OF POSSIBLE MUSCLE PAIN.NO RECENT FEVER ,ILLNESS OR SUDDEN WEIGHT LOSS.PAIN HAS GOTTEN WORSE OVER THE PAST 2 MONTHS.PAIN IS DESCRIBED CONSTANT BURNING. PAIN THE PATIENT DESCRIBES THE PAIN... FALL RISK SCREENING: SCREENING :NO FALLS REPORTED IN THE LAST YEAR CURRENT MEDICATIONS TAKING CRESTOR 5 MG TABLET 1 TABLET ORALLY ONCE A DAY TAKING ASPIR-81 81 MG TABLET DELAYED RELEASE 1 TABLET ORALLY EVERY OTHER DAY TAKING FISH OIL TRIPLE STRENGTH 1400 MG CAPSULE 2 CAPSULE ORALLY ONCE A DAY TAKING COQ-10 200 MG CAPSULE 1 CAPSULE WITH A MEAL ORALLY ONCE A DAY TAKING CALTRATE 600+D PLUS MINERALS 600-800 MG-UNIT TABLET 1 TABLET ORALLY TWICE A DAY TAKING ESTROVEN + ENERGY MAX STRENGTH TABLET 1 TAB ORALLY TAKING MULTIVITAMINS CAPSULE ORALLY ONCE DAILY TAKING MOVE FREE JOINT [facility] ADVANCE - TABLET ORALLY DAILY TAKING MAY USE ULTRA NICA 1 CAP ORALLY DAILY TAKING MAY USE 1 CEYLON CINNAMON 2 CAP ORALLY ONCE DAILY TAKING CYMBALTA 30 MG CAPSULE DELAYED RELEASE PARTICLES 1 CAPSULE ORALLY TWICE A DAY FOR PAIN TAKING LIDOCAINE & ADHESIVE SHEET 5 % KIT DIRECTED EXTERNALLY DAILY TAKING MAY USE CBD OIL 25MG BID TAKING GABAPENTIN 300 MG CAPSULE 1 CAPSULE ORALLY FOUR TIMES DAILY TAKING CETIRIZINE HCL 10 MG TABLET 1 TABLET ORALLY ONCE A DAY NOT-TAKING CLARITIN 10 MG TABLET 1 TABLET ORALLY ONCE A DAY NOT-TAKING MAY USE DICLOFENAC GEL 1% TID NOT-TAKING IBUPROFEN 200 MG 1 TAB ORAL BEFORE BEDTIME PRN NOT-TAKING CULTURELLE CAPSULE ORALLY ONCE DAILY NOT-TAKING EMERGEN-C IMMUNE PACKET ORALLY ONCE DAILY NOT-TAKING PAZEO 0.7 % SOLUTION 1 DROP INTO AFFECTED EYE OPHTHALMIC ONCE A DAY NOT-TAKING MAY USE MYOCALM 2 CAPS ORALLY ONCE DAILY NOT-TAKING VALIUM 5 MG TABLET 1 TAB DIRECTED ORALLY 1 TAB 1HR PRE MRI AND 1 TAB AT TIME OF MRI MDD2 MEDICATION LIST REVIEWED AND RECONCILED WITH THE PATIENT PAST MEDICAL HISTORY BRI - CPAP IMPLANTABLE LOOP RECORDER- FOR EPISODES OF SYNCOPE HYPERLIPID CHRONIC BACK AND NECK PAIN HEADACHES DIZZINESS HAS BEEN KNOWN TO VASAL VAGAL SEVERLY WITH PROCEDURES INVOLVING NEEDLES CARPAL TUNNEL RIGHT HAND DE QUERVAIN'S TENOSYNOVITIS-RIGHT TENNIS ELBOW-RIGHT ALLERGIES TAPE: RASH ORANGE: DRY MOUTH/DIFFICULTY SWALLOWING PINE: RASH/CONGESTION GRASS: SNEEZING, WATERY EYES SURGICAL HISTORY TONSILLECTOMY 1965 D/C (MISCARRIAGE) 12/1978 D/C ENDOMETRIAL ABLATION 08/1979 HYSTERECTOMY/OOPHORECTOMY 11/2009 IMPLANTABLE LOOP RECORDER 01/2015 THYROID BX 06/2016 RIGHT HAND CARPAL TUNNEL RELEASE 04/22/2018 REMOVAL OF LOOP RECORDER 06/2018 FAMILY HISTORY FATHER: DIAGNOSED WITH DIABETES, HYPERTENSION, STROKE, CANCER MOTHER: CANCER DAUGHTER(S): DIABETES DAUGHTER IS TYPE 1 DIABETIC. SOCIAL HISTORY GENERAL: TOBACCO USE ARE YOU A:FORMER SMOKER HOW LONG HAS IT BEEN SINCE YOU LAST SMOKED? QUIT 12/2015 EDUCATION LEVEL OF EDUCATION:[employer] DIET: REGULAR. LANGUAGE LANGUAGES SPOKEN:INDONESIAN DOMESTIC VIOLENCE DO YOU FEEL SAFE IN YOUR ENVIRONMENT?YES NEW PATIENT PAIN DIARY PATIENT DESCRIBES PAIN :HAVE IT ALL THE TIME, THROBBING RECREATIONAL DRUG USE DRUG USE?NO EXERCISE: WALKS. 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 N/A HAS THE PATIENT BEEN EDUCATED REGARDING HIS/HER PLAN OF CARE?YES HAS THE PATIENT BEEN EDUCATED REGARDING PAIN, THE RISK FOR PAIN, THE IMPORTANCE OF EFFECTIVE PAIN MANAGEMENT, AND THE PAIN ASSESSMENT PROCESS?YES LATEX QUESTIONNAIRE LATEX ALLERGY : HAVE YOU EVER DEVELOPED ANY TYPE OF REACTION AFTER HANDLING LATEX PRODUCTS SUCH RUBBER GLOVES, CONDOMS, DIAPHRAGMS, BALLOONS, SOCKS, OR UNDERWEAR?NO LATEX ALLERGY : HAVE YOU EVER DEVELOPED ANY TYPE OF REACTION DURING OR AFTER DENTAL APPOINTMENT, VAGINAL/RECTAL EXAMINATION, SURGICAL PROCEDURE, OR ANY OTHER EXPOSURE?NO LATEX RISK : HAVE YOU EVER HAD ANY DIFFICULTY BREATHING OR HIVES AFTER EATING OR HANDLING ANY FRUITS, OR VEGETABLES; SUCH KIWI, BANANAS, STONE FRUITS, OR CHESTNUTSNO LATEX RISK : DO YOU HAVE A PREVIOUS PERSONAL HISTORY OF MORE THAN NINE SURGERIES, SPINA BIFIDA, OR REPEATED CATHERIZATIONS? NO LATEX RISK : ARE YOU FREQUENTLY EXPOSED TO LATEX PRODUCTS IN YOUR OCCUPATION?NO DATE ASKED : 03/31/2019 CAFFEINE CAFFEINE USE?YES HOW OFTEN AND HOW MUCH? 2 CUPS COFFEE/DAY ADVANCE DIRECTIVE ADVANCE DIRECTIVE DISCUSSED WITH PATIENT:YES PT DOES NOT HAVE ANY ADVANCED DIRECTIVES. SHE STATES SHE HAS INFORMATION ON HCP ALREADY. HELP OFFERED IN FILLING FORM OUT IF NEEDED. SHE DECLINES AT THIS TIME. SIKHISM [id number] JEW MARITAL STATUS: . ALCOHOL SCREENING DID YOU HAVE A DRINK CONTAINING ALCOHOL IN THE PAST YEAR?NO POINTS0 INTERPRETATIONNEGATIVE OCCUPATION: [employer]. REVIEWED WITH PT 08/12/18 1113 BVREVIEWED WITH PT 02/23/10 1000 BV. HOSPITALIZATION/MAJOR DIAGNOSTIC PROCEDURE SURGERIES CHILDBIRTH REVIEW OF SYSTEMS REVIEWED BY: PROVIDER: EDGARD CONCEPCION . CONSTITUTIONAL: ANY CHANGE IN YOUR MEDICAL CONDITION? NO . CHILLS NO . FEVER NO . INFECTION: DO YOU HAVE NEW INFECTIONS? NO . DO YOU HAVE HISTORY OF MRSA? NO . MUSCULOSKELETAL: ANY NEW PATTERNS OF PAIN OR NUMBNESS? NO . GASTROENTEROLOGY: ANY NEW CHANGE IN BOWEL CONTROL? NO . GENITOURINARY: ANY NEW CHANGE IN BLADDER CONTROL? NO . IS THERE A CHANCE YOU COULD BE ? NO . HEMATOLOGY/LYMPH: DO YOU TAKE ANY BLOOD THINNERS? (FOR EXAMPLE- COUMADIN, PLAVIX, AGGRENOX, PLATEL, PRADAXA, OR XARELTO) NO . WHEN WAS YOUR LAST DOSE? DATE: TIME: . NEUROLOGY: HAVE YOU FALLEN IN THE PAST 12 MONTHS? NO . ANY NEW EXTREMITY NUMBNESS OR WEAKNESS? NO . CARDIOLOGY: DO YOU HAVE A PACEMAKER OR DEFIBRILLATOR? NO . RESPIRATORY: HAVE YOU BEEN SICK IN THE PAST WEEK? NO . FEVER NO . FLU LIKE SYMPTOMS? NO . COUGH NO . INTEGUMENTARY: DO YOU HAVE ANY RASHES OR OPEN SORES? NO . ALLERGIC/IMMUNO: ARE YOU ALLERGIC TO IV DYE? NO . ANY NEW ALLERGIES? NO . PSYCHIATRIC: DO YOU HAVE THOUGHTS OF HURTING YOURSELF OR SOMEONE ELSE? NO . ARE YOU ABUSED, NEGLECTED, OR IN AN UNSAFE ENVIRONMENT? NO . ENDOCRINOLOGY: ARE YOU DIABETIC? NO . OTHER: DO YOU NEED ANY PRESCRIPTIONS? NO . IF YES, PLEASE LIST: ____ . ANY NEW PROBLEMS WITH YOUR MEDICATIONS? NO . WHEN DID YOU LAST EAT? ____ . WHEN DID YOU LAST DRINK? ____ . WHAT DID YOU LAST DRINK? ____ . NAME OF PERSON DRIVING YOU HOME? ____ . DO YOU HAVE ANY OTHER QUESTIONS OR CONCERNS NO . VITAL SIGNS WT 225.8 LBS, HT 66 IN, BMI 36.44 INDEX, BP 154/104 MM HG, REPEAT BP 148/71 MM HG, HR 85 /MIN, RR 16 /MIN, TEMP 97.1 F, OXYGEN SAT % 99%, NA INITIALS SC 10:13, REVIEWED BY: DENIS RECHECK BP. EXAMINATION GENERAL EXAMINATION: LUNGS: LUNG SOUNDS ARE CLEAR. HEART: S1, S2 IN A REGULAR RATE AND RHYTHM. NO SIGNIFICANT MURMURS, RUBS OR GALLOPS NOTED. THORACIC SPINE SPECIFIC INTERCOSTAL TENDERNESS T6/7 LEFT. DIAGNOSTIC TESTS REVIEWED THORACIC MRI-08/21/18. 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 PROCEDURE CODES FA211 ESTABILISHED PATIENT [facility] CHARGE DISPOSITION & COMMUNICATION FOLLOW UP POST (REASON: LEFT T6/7 INTERCOSTAL BLOCK) ELECTRONICALLY SIGNED BY CARLENE FERRELL ON 05/17/2019 AT 11:02 AM EDT DISCLAIMER : THIS IS A VISIT SUMMARY EXTRACTED FROM THE [employer] CHART. IT IS NOT A COPY OF THE [employer] PROGRESS NOTE. ALCON
== END ==
LOC: M PAIN 10:15
PROVIDERS: ATTEND Nurse Practitioner Family
DX: M79.2 Neuralgia and neuritis, unspecified (principal); G47.33 Obstructive sleep apnea (adult) (pediatric); E78.5 Hyperlipidemia, unspecified; R51 Headache; J30.1 Allergic rhinitis due to pollen; R42 Dizziness and giddiness; M65.4 Radial styloid tenosynovitis [de Quervain]; M77.11 Lateral epicondylitis, right elbow; Z87.891 Personal history of nicotine dependence; Z79.82 Long term (current) use of aspirin; Z79.899 Other long term (current) drug therapy; Z91.048 Other nonmedicinal substance allergy status; Z91.018 Allergy to other foods

== ENCOUNTER → 2019-06-15 | Outpatient (CLI) | payer OTHER ==
[~2019-06-15] MED LIST changes: +BUPIVACAINE HCL 0.25% 30 ML VIAL As Ordered ONE; +ISOVUE-M 200 41% 20ML VIAL (Q9966) As Ordered ONE; +LIDOCAINE 1% SDV INJ 30 ML VIAL As Ordered ONE; +TRIAMCINOLONE ACETONIDE SUSP 40 MG/ML VIAL (J3301) As Ordered ONE; +diazePAM 5 MG TAB As Ordered ONE; +oxyCODONE 5MG TAB As Ordered ONE
--- NOTE | 2019-06-15 14:34 | REP ---
Chest three views: The study is performed post left intercostal nerve block procedure. PA end-inspiration and end-expiration views are performed, in addition to a lateral view. Comparison is 12/10/2016. There is no pneumothorax, hemothorax or pulmonary contusion on the right on the left. Lung kessler otherwise clear. The cardiac size is normal. The noel, mediastinum and skeletal structures are unremarkable. Impression: Essentially negative PA and lateral chest including end expiration and end inspiration views. Electronically Signed by Saturnino Hernandez MD 06/15/2019 02:26 P
--- NOTE | 2019-06-15 15:11 | REP ---
C-ARM VIEWS LEFT CHEST WALL: Five C-Arm views left chest wall performed. Clinical history: Pain. Injection is performed by Dr. Damon. Needle was seen along the left chest wall. Contrast is injected. 43 seconds fluoroscopy time utilized. Electronically Signed by Saturnino Arreola MD 06/16/2019 01:00 P
--- NOTE | 2019-06-19 00:20 | ECWPNPC ---
PATIENT NAME: IAM DHALIWAL : 1955 GENDER: FEMALE VISIT DATE: 06/15/2019 DISCHARGE DATE: 06/15/19 1505 VISIT LOCKED DATE TIME: PHYSICIAN: ELENO BONE MD RESOURCE: ELENO BONE MD REASON FOR APPOINTMENT 1. LEFT T10/T11 INTERCOSTAL BLOCK HISTORY OF PRESENT ILLNESS HISTORY OF PRESENT ILLNESS: PAIN THE PATIENT DESCRIBES THE PAIN... FALL RISK SCREENING: SCREENING :NO FALLS REPORTED IN THE LAST YEAR CURRENT MEDICATIONS TAKING CRESTOR 5 MG TABLET 1 TABLET ORALLY ONCE A DAY TAKING ASPIR-81 81 MG TABLET DELAYED RELEASE 1 TABLET ORALLY EVERY OTHER DAY TAKING FISH OIL TRIPLE STRENGTH 1400 MG CAPSULE 2 CAPSULE ORALLY ONCE A DAY TAKING COQ-10 200 MG CAPSULE 1 CAPSULE WITH A MEAL ORALLY ONCE A DAY TAKING CALTRATE 600+D PLUS MINERALS 600-800 MG-UNIT TABLET 1 TABLET ORALLY TWICE A DAY TAKING ESTROVEN + ENERGY MAX STRENGTH TABLET 1 TAB ORALLY TAKING MULTIVITAMINS CAPSULE ORALLY ONCE DAILY TAKING MOVE FREE JOINT HEALTH ADVANCE - TABLET ORALLY DAILY TAKING MAY USE ULTRA NICA 1 CAP ORALLY DAILY TAKING MAY USE 1 CEYLON CINNAMON 2 CAP ORALLY ONCE DAILY TAKING CYMBALTA 30 MG CAPSULE DELAYED RELEASE PARTICLES 1 CAPSULE ORALLY TWICE A DAY FOR PAIN TAKING LIDOCAINE & ADHESIVE SHEET 5 % KIT DIRECTED EXTERNALLY DAILY TAKING MAY USE CBD OIL 25MG BID TAKING GABAPENTIN 300 MG CAPSULE 1 CAPSULE ORALLY FOUR TIMES DAILY TAKING CETIRIZINE HCL 10 MG TABLET 1 TABLET ORALLY ONCE A DAY NOT-TAKING CLARITIN 10 MG TABLET 1 TABLET ORALLY ONCE A DAY NOT-TAKING MAY USE DICLOFENAC GEL 1% TID NOT-TAKING IBUPROFEN 200 MG 1 TAB ORAL BEFORE BEDTIME PRN NOT-TAKING CULTURELLE CAPSULE ORALLY ONCE DAILY NOT-TAKING EMERGEN-C IMMUNE PACKET ORALLY ONCE DAILY NOT-TAKING PAZEO 0.7 % SOLUTION 1 DROP INTO AFFECTED EYE OPHTHALMIC ONCE A DAY NOT-TAKING MAY USE MYOCALM 2 CAPS ORALLY ONCE DAILY NOT-TAKING VALIUM 5 MG TABLET 1 TAB DIRECTED ORALLY 1 TAB 1HR PRE MRI AND 1 TAB AT TIME OF MRI MDD2 MEDICATION LIST REVIEWED AND RECONCILED WITH THE PATIENT PAST MEDICAL HISTORY BRI - CPAP IMPLANTABLE LOOP RECORDER- FOR EPISODES OF SYNCOPE HYPERLIPID CHRONIC BACK AND NECK PAIN HEADACHES DIZZINESS HAS BEEN KNOWN TO VASAL VAGAL SEVERLY WITH PROCEDURES INVOLVING NEEDLES CARPAL TUNNEL RIGHT HAND DE QUERVAIN'S TENOSYNOVITIS-RIGHT TENNIS ELBOW-RIGHT ALLERGIES TAPE: RASH ORANGE: DRY MOUTH/DIFFICULTY SWALLOWING PINE: RASH/CONGESTION GRASS: SNEEZING, WATERY EYES SURGICAL HISTORY TONSILLECTOMY 1965 D/C (MISCARRIAGE) 12/1978 D/C ENDOMETRIAL ABLATION 08/1979 HYSTERECTOMY/OOPHORECTOMY 11/2009 IMPLANTABLE LOOP RECORDER 01/2015 THYROID BX 06/2016 RIGHT HAND CARPAL TUNNEL RELEASE 04/22/2018 REMOVAL OF LOOP RECORDER 06/2018 FAMILY HISTORY FATHER: DIAGNOSED WITH HYPERTENSION, STROKE, CANCER, DIABETES MOTHER: CANCER DAUGHTER(S): DIABETES DAUGHTER IS TYPE 1 DIABETIC. SOCIAL HISTORY GENERAL: TOBACCO USE ARE YOU A:FORMER SMOKER HOW LONG HAS IT BEEN SINCE YOU LAST SMOKED? QUIT 12/2015 EDUCATION LEVEL OF EDUCATION:[employer] DIET: REGULAR. LANGUAGE LANGUAGES SPOKEN:WELSH DOMESTIC VIOLENCE DO YOU FEEL SAFE IN YOUR ENVIRONMENT?YES NEW PATIENT PAIN DIARY PATIENT DESCRIBES PAIN :HAVE IT ALL THE TIME, THROBBING RECREATIONAL DRUG USE DRUG USE?NO EXERCISE: WALKS. LEARNING BARRIERS / SPECIAL NEEDS BARRIERS TO LEARNING?NO HEARING IMPAIRED?NO VISION IMPAIRED?YES READING GLASSES :CORRECTIVE LENSES COGNITIVELY IMPAIRED?NO READINESS TO LEARN?YES LEARNING PREFERENCES?YES :DEMONSTRATION/VERBAL INSTRUCTION LEARNING CAPABILITIES PRESENT?YES EMOTIONAL BARRIERS?NO SPECIAL DEVICES?YES :CANE PEER SPECIALIST NEEDED?NO PAIN CLINIC PFS, CLERGY, PUBLIC HEALTH REFERRALS PFS REFERRAL NEEDED?NO CLERGY REFERRAL NEEDED?NO PUBLIC HEALTH REFERRAL NEEDED?NO WAS THE PROVIDER NOTIFIED OF ANY PERTINENT INFO? N/A HAS THE PATIENT BEEN EDUCATED REGARDING HIS/HER PLAN OF CARE?YES HAS THE PATIENT BEEN EDUCATED REGARDING PAIN, THE RISK FOR PAIN, THE IMPORTANCE OF EFFECTIVE PAIN MANAGEMENT, AND THE PAIN ASSESSMENT PROCESS?YES LATEX QUESTIONNAIRE LATEX ALLERGY : HAVE YOU EVER DEVELOPED ANY TYPE OF REACTION AFTER HANDLING LATEX PRODUCTS SUCH RUBBER GLOVES, CONDOMS, DIAPHRAGMS, BALLOONS, SOCKS, OR UNDERWEAR?NO LATEX ALLERGY : HAVE YOU EVER DEVELOPED ANY TYPE OF REACTION DURING OR AFTER DENTAL APPOINTMENT, VAGINAL/RECTAL EXAMINATION, SURGICAL PROCEDURE, OR ANY OTHER EXPOSURE?NO LATEX RISK : HAVE YOU EVER HAD ANY DIFFICULTY BREATHING OR HIVES AFTER EATING OR HANDLING ANY FRUITS, OR VEGETABLES; SUCH KIWI, BANANAS, STONE FRUITS, OR CHESTNUTSNO LATEX RISK : DO YOU HAVE A PREVIOUS PERSONAL HISTORY OF MORE THAN NINE SURGERIES, SPINA BIFIDA, OR REPEATED CATHERIZATIONS? NO LATEX RISK : ARE YOU FREQUENTLY EXPOSED TO LATEX PRODUCTS IN YOUR OCCUPATION?NO DATE ASKED : 03/31/2019 CAFFEINE CAFFEINE USE?YES HOW OFTEN AND HOW MUCH? 2 CUPS COFFEE/DAY ADVANCE DIRECTIVE ADVANCE DIRECTIVE DISCUSSED WITH PATIENT:YES PT DOES NOT HAVE ANY ADVANCED DIRECTIVES. SHE STATES SHE HAS INFORMATION ON HCP ALREADY. HELP OFFERED IN FILLING FORM OUT IF NEEDED. SHE DECLINES AT THIS TIME. 06/15/19 LATTER DAY [id number] TENRIISM MARITAL STATUS: . 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 REVIEWED WITH PT 08/12/18 1113 BVREVIEWED WITH PT 02/23/10 1000 BVREVIEWED WITH PT 06/15/19 1135 BV. HOSPITALIZATION/MAJOR DIAGNOSTIC PROCEDURE SURGERIES CHILDBIRTH REVIEW OF SYSTEMS REVIEWED BY: PROVIDER: . CONSTITUTIONAL: ANY CHANGE IN YOUR MEDICAL CONDITION? NO . CHILLS NO . FEVER NO . INFECTION: DO YOU HAVE NEW INFECTIONS? NO . DO YOU HAVE HISTORY OF MRSA? NO . MUSCULOSKELETAL: ANY NEW PATTERNS OF PAIN OR NUMBNESS? NO . GASTROENTEROLOGY: ANY NEW CHANGE IN BOWEL CONTROL? NO . GENITOURINARY: ANY NEW CHANGE IN BLADDER CONTROL? NO . IS THERE A CHANCE YOU COULD BE ? NO . HEMATOLOGY/LYMPH: DO YOU TAKE ANY BLOOD THINNERS? (FOR EXAMPLE- COUMADIN, PLAVIX, AGGRENOX, PLATEL, PRADAXA, OR XARELTO) NO . WHEN WAS YOUR LAST DOSE? DATE: TIME: . NEUROLOGY: HAVE YOU FALLEN IN THE PAST 12 MONTHS? NO . ANY NEW EXTREMITY NUMBNESS OR WEAKNESS? NO . CARDIOLOGY: DO YOU HAVE A PACEMAKER OR DEFIBRILLATOR? NO . RESPIRATORY: HAVE YOU BEEN SICK IN THE PAST WEEK? NO . FEVER NO . FLU LIKE SYMPTOMS? NO . COUGH NO . INTEGUMENTARY: DO YOU HAVE ANY RASHES OR OPEN SORES? NO . ALLERGIC/IMMUNO: ARE YOU ALLERGIC TO IV DYE? NO . ANY NEW ALLERGIES? NO . PSYCHIATRIC: DO YOU HAVE THOUGHTS OF HURTING YOURSELF OR SOMEONE ELSE? NO . ARE YOU ABUSED, NEGLECTED, OR IN AN UNSAFE ENVIRONMENT? NO . ENDOCRINOLOGY: ARE YOU DIABETIC? NO . OTHER: DO YOU NEED ANY PRESCRIPTIONS? NO . IF YES, PLEASE LIST: ____ . ANY NEW PROBLEMS WITH YOUR MEDICATIONS? NO . WHEN DID YOU LAST EAT? 06/14/19 2200 . WHEN DID YOU LAST DRINK? 8/20/19 0830 . WHAT DID YOU LAST DRINK? WATER . NAME OF PERSON DRIVING YOU HOME? ASHLEIGH DHALIWAL- . DO YOU HAVE ANY OTHER QUESTIONS OR CONCERNS NO . VITAL SIGNS WT 227.2 LBS, HT 66 IN, BMI 36.67 INDEX, BP 145/74 MM HG, HR 76 /MIN, RR 16 /MIN, TEMP 98.0 F, OXYGEN SAT % 98%, NA INITIALS AW 1026, REVIEWED BY: BV. 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 CHEST WALL PAINPOST-PROCEDURE DIAGNOSIS: LEFT INTERCOSTAL NEURALGIA. CHEST WALL PAINPROCEDURE: LEFT T10, LEFT T11 INTERCOSTAL NERVE BLOCK UNDER FLUOROSCOPIC GUIDANCE.SURGEON: ELENO BONE MDANESTHESIA: LOCALCOMPLICATIONS: NONEPRE-PROCEDURE NOTE: THE PATIENT IS SUFFERING OF CHEST WALL PAIN. WE HAVE DISCUSSED ALTERNATIVES. I REVIEWED THE CHART. WE BOTH AGREED ON DOING AN INTERCOSTAL NERVE BLOCK OVER THE AFFECTED AREA. I WENT THROUGH THE RISK ALTERNATIVES AND BENEFITS ASSOCIATED WITH THIS PROCEDURE AND THE PATIENT EXPRESSED THAT WANT TO PROCEED. THE PATIENT IS AWARE THAT THE MAIN POTENTIAL COMPLICATION IS THE DEVELOPMENT OF A PNEUMOTHORAX, IN WHICH CASE A CHEST TUBE WILL BE NEEDED. THE PATIENT DENIES UNEXPLAINABLE WEIGHT LOSS FEVER CHILLS NEW CHANGES IN THE URINARY OR BOWEL CONTROL.PROCEDURE NOTE: THE CONSENT WAS REVIEWED WITH THE PATIENT. PATIENT WAS BROUGHT TO THE PROCEDURE ROOM AND PLACED IN THE PRONE POSITION. THORACOLUMBAR AREA WAS CLEANED WITH CHLORAPREP SOLUTION AND A DRAPED ASEPTICALLY. PROCEDURE WAS UNDERSTATED STANDARD CONDITIONS. UNDER FLUOROSCOPIC GUIDANCE TARGET POINT WAS SELECTED AT THE LEFT T10 AND LEFT T11 RIB. LIDOCAINE WAS USED LOCAL ANESTHETIC. NEITHER WAS ADVANCED UNDER FLUOROSCOPIC GUIDANCE UNTIL WE TOUCHED THE AFFECTED RIB. THEN THE NEEDLE WAS MOVED TO THE INFERIOR BORDER OF THE RIB. ISOVUE M-200 CONTRAST THE QUARTER CC WAS INJECTED SHOWING ADEQUATE SPREAD OF THE DYE FOLLOWING THE INFERIOR BORDER OF THE RIB. THEN A SOLUTION OF 10 ML OF BUPIVACAINE 0.125% WITH KENALOG 10 MG WAS INJECTED AT EACH LEVEL. THERE WAS NO EVIDENCE OF VASCULAR UPTAKE OR LUNG PUNCTURE. PATIENT WAS SENT TO THE RECOVERY ROOM. PATIENT WAS DOING WELL THERE WAS NO COMPLICATIONS. FLUOROSCOPIC TIME WAS 43 SECONDS.POST-PROCEDURE NOTE: I DISCUSSED ALTERNATIVES WITH THE PATIENT. CHECK AN AP AND LATERAL WERE DONE. THERE IS NO EVIDENCE OF PNEUMOTHORAX. PATIENT IS GOING TO BE SEEN IN A FOLLOW-UP. THERE WERE NO COMPLICATIONS DURING THE PROCEDURE. I, MARLO WHITT, DOCUMENTED THE ABOVE INFORMATION ACTING A SCRIBE FOR DR. BONE. I HAVE REVIEWED THE ABOVE DOCUMENT, WRITTEN BY MARLO WHITT SCRIBE AND I VERIFY THAT IT IS ACCURATE. PROCEDURE CODES 89416 N BLOCK INJ INTERCOST MONORAIL CHARGER OPERATOR, MODIFIERS: LT 6045F RADXPS IN END [id number] PXD [id number] NEEDLE LOCALIZATION BY XRAY, MODIFIERS: 26 DISPOSITION & COMMUNICATION FOLLOW UP 3 WEEKS ELECTRONICALLY SIGNED BY ELENO BONE MD, MD ON 06/18/2019 AT 02:40 PM EDT DISCLAIMER : THIS IS A VISIT SUMMARY EXTRACTED FROM THE [employer] CHART. IT IS NOT A COPY OF THE [employer] PROGRESS NOTE. MTDD
== END ==
LOC: M PAIN 10:30
PROVIDERS: ATTEND Anesthesiology
DX: G58.8 Other specified mononeuropathies (principal); Z79.82 Long term (current) use of aspirin; Z79.899 Other long term (current) drug therapy; Z87.891 Personal history of nicotine dependence; Z91.048 Other nonmedicinal substance allergy status; Z91.018 Allergy to other foods
CPT/HCPCS: 64421; 71046; J3301; Q9966

== ENCOUNTER → 2019-07-21 | Outpatient (CLI) | payer OTHER ==
[~2019-07-21] MED LIST changes: -BUPIVACAINE HCL 0.25% 30 ML VIAL As Ordered ONE; -ISOVUE-M 200 41% 20ML VIAL (Q9966) As Ordered ONE; -LIDOCAINE 1% SDV INJ 30 ML VIAL As Ordered ONE; -TRIAMCINOLONE ACETONIDE SUSP 40 MG/ML VIAL (J3301) As Ordered ONE; -diazePAM 5 MG TAB As Ordered ONE; -oxyCODONE 5MG TAB As Ordered ONE
--- NOTE | 2019-07-22 00:26 | ECWPNPC ---
PATIENT NAME: IAM DHALIWAL : 1955 GENDER: FEMALE VISIT DATE: 07/21/2019 DISCHARGE DATE: 07/21/19 1412 VISIT LOCKED DATE TIME: PHYSICIAN: EDGARD STEWART RESOURCE: EDGARD STEWART REASON FOR APPOINTMENT 1. POST INTERCOSTAL HISTORY OF PRESENT ILLNESS HISTORY OF PRESENT ILLNESS: HERE FOR POST PROCERDURE F/U.HAD LEFT T11 INTERCOSTAL NERVE BLOCK ON 06/15/19.CONTINUES TO DO WELL POST PROCEDURE.CURRENTLY TAKING GABAPENTIN 300MG QID OVER THE PAST 2 YEARS.HAVING SOME SPEECH IMPAIRMENT-VAGUE SAYS WORDS COME OUT NOT MEANT TO BE SAID. PAIN THE PATIENT DESCRIBES THE PAIN... THE PATIENT DESCRIBES THE PAIN... FALL RISK SCREENING: SCREENING :NO FALLS REPORTED IN THE LAST YEAR CURRENT MEDICATIONS TAKING CRESTOR 5 MG TABLET 1 TABLET ORALLY ONCE A DAY TAKING ASPIR-81 81 MG TABLET DELAYED RELEASE 1 TABLET ORALLY EVERY OTHER DAY TAKING FISH OIL TRIPLE STRENGTH 1400 MG CAPSULE 2 CAPSULE ORALLY ONCE A DAY TAKING COQ-10 200 MG CAPSULE 1 CAPSULE WITH A MEAL ORALLY ONCE A DAY TAKING CALTRATE 600+D PLUS MINERALS 600-800 MG-UNIT TABLET 1 TABLET ORALLY TWICE A DAY TAKING ESTROVEN + ENERGY MAX STRENGTH TABLET 1 TAB ORALLY TAKING MULTIVITAMINS CAPSULE ORALLY ONCE DAILY TAKING MOVE FREE JOINT HEALTH ADVANCE - TABLET ORALLY DAILY TAKING MAY USE ULTRA NICA 1 CAP ORALLY DAILY TAKING MAY USE 1 CEYLON CINNAMON 2 CAP ORALLY ONCE DAILY TAKING CYMBALTA 30 MG CAPSULE DELAYED RELEASE PARTICLES 1 CAPSULE ORALLY TWICE A DAY FOR PAIN TAKING LIDOCAINE & ADHESIVE SHEET 5 % KIT DIRECTED EXTERNALLY DAILY TAKING MAY USE CBD OIL 25MG BID TAKING CETIRIZINE HCL 10 MG TABLET 1 TABLET ORALLY ONCE A DAY TAKING GABAPENTIN 300 MG CAPSULE 1 CAPSULE ORALLY FOUR TIMES DAILY NOT-TAKING CLARITIN 10 MG TABLET 1 TABLET ORALLY ONCE A DAY NOT-TAKING MAY USE DICLOFENAC GEL 1% TID NOT-TAKING IBUPROFEN 200 MG 1 TAB ORAL BEFORE BEDTIME PRN NOT-TAKING CULTURELLE CAPSULE ORALLY ONCE DAILY NOT-TAKING EMERGEN-C IMMUNE PACKET ORALLY ONCE DAILY NOT-TAKING PAZEO 0.7 % SOLUTION 1 DROP INTO AFFECTED EYE OPHTHALMIC ONCE A DAY NOT-TAKING MAY USE MYOCALM 2 CAPS ORALLY ONCE DAILY NOT-TAKING VALIUM 5 MG TABLET 1 TAB DIRECTED ORALLY 1 TAB 1HR PRE MRI AND 1 TAB AT TIME OF MRI MDD2 MEDICATION LIST REVIEWED AND RECONCILED WITH THE PATIENT PAST MEDICAL HISTORY BRI - CPAP IMPLANTABLE LOOP RECORDER- FOR EPISODES OF SYNCOPE HYPERLIPID CHRONIC BACK AND NECK PAIN HEADACHES DIZZINESS HAS BEEN KNOWN TO VASAL VAGAL SEVERLY WITH PROCEDURES INVOLVING NEEDLES CARPAL TUNNEL RIGHT HAND DE QUERVAIN'S TENOSYNOVITIS-RIGHT TENNIS ELBOW-RIGHT ALLERGIES TAPE: RASH ORANGE: DRY MOUTH/DIFFICULTY SWALLOWING PINE: RASH/CONGESTION GRASS: SNEEZING, WATERY EYES SURGICAL HISTORY TONSILLECTOMY 1965 D/C (MISCARRIAGE) 12/1978 D/C ENDOMETRIAL ABLATION 08/1979 HYSTERECTOMY/OOPHORECTOMY 11/2009 IMPLANTABLE LOOP RECORDER 01/2015 THYROID BX 06/2016 RIGHT HAND CARPAL TUNNEL RELEASE 04/22/2018 REMOVAL OF LOOP RECORDER 06/2018 FAMILY HISTORY FATHER: DIAGNOSED WITH DIABETES, HYPERTENSION, UNSPECIFIED CEREBRAL ARTERY OCCLUSION WITH CEREBRAL INFARCTION, OTHER MALIGNANT NEOPLASM OF UNSPECIFIED SITE MOTHER: OTHER MALIGNANT NEOPLASM OF UNSPECIFIED SITE DAUGHTER(S): DIABETES DAUGHTER IS TYPE 1 DIABETIC. SOCIAL HISTORY GENERAL: TOBACCO USE ARE YOU A:FORMER SMOKER HOW LONG HAS IT BEEN SINCE YOU LAST SMOKED? QUIT 12/2015 EDUCATION LEVEL OF EDUCATION:[employer] DIET: REGULAR. LANGUAGE LANGUAGES SPOKEN:ANDORRAN DOMESTIC VIOLENCE DO YOU FEEL SAFE IN YOUR ENVIRONMENT?YES NEW PATIENT PAIN DIARY PATIENT DESCRIBES PAIN :HAVE IT ALL THE TIME, THROBBING RECREATIONAL DRUG USE DRUG USE?NO EXERCISE: WALKS. LEARNING BARRIERS / SPECIAL NEEDS BARRIERS TO LEARNING?NO HEARING IMPAIRED?NO VISION IMPAIRED?YES READING GLASSES COGNITIVELY IMPAIRED?NO :CORRECTIVE LENSES READINESS TO LEARN?YES LEARNING PREFERENCES?YES :DEMONSTRATION/VERBAL INSTRUCTION LEARNING CAPABILITIES PRESENT?YES EMOTIONAL BARRIERS?NO SPECIAL DEVICES?YES :CANE STRUCTURES ENGINEER NEEDED?NO PAIN CLINIC PFS, CLERGY, PUBLIC HEALTH REFERRALS PFS REFERRAL NEEDED?NO CLERGY REFERRAL NEEDED?NO PUBLIC HEALTH REFERRAL NEEDED?NO WAS THE PROVIDER NOTIFIED OF ANY PERTINENT INFO? N/A HAS THE PATIENT BEEN EDUCATED REGARDING HIS/HER PLAN OF CARE?YES HAS THE PATIENT BEEN EDUCATED REGARDING PAIN, THE RISK FOR PAIN, THE IMPORTANCE OF EFFECTIVE PAIN MANAGEMENT, AND THE PAIN ASSESSMENT PROCESS?YES LATEX QUESTIONNAIRE LATEX ALLERGY : HAVE YOU EVER DEVELOPED ANY TYPE OF REACTION AFTER HANDLING LATEX PRODUCTS SUCH RUBBER GLOVES, CONDOMS, DIAPHRAGMS, BALLOONS, SOCKS, OR UNDERWEAR?NO LATEX ALLERGY : HAVE YOU EVER DEVELOPED ANY TYPE OF REACTION DURING OR AFTER DENTAL APPOINTMENT, VAGINAL/RECTAL EXAMINATION, SURGICAL PROCEDURE, OR ANY OTHER EXPOSURE?NO DATE ASKED : 03/31/2019 LATEX RISK : HAVE YOU EVER HAD ANY DIFFICULTY BREATHING OR HIVES AFTER EATING OR HANDLING ANY FRUITS, OR VEGETABLES; SUCH KIWI, BANANAS, STONE FRUITS, OR CHESTNUTSNO LATEX RISK : DO YOU HAVE A PREVIOUS PERSONAL HISTORY OF MORE THAN NINE SURGERIES, SPINA BIFIDA, OR REPEATED CATHERIZATIONS? NO LATEX RISK : ARE YOU FREQUENTLY EXPOSED TO LATEX PRODUCTS IN YOUR OCCUPATION?NO CAFFEINE CAFFEINE USE?YES HOW OFTEN AND HOW MUCH? 2 CUPS COFFEE/DAY ADVANCE DIRECTIVE ADVANCE DIRECTIVE DISCUSSED WITH PATIENT:YES PT DOES NOT HAVE ANY ADVANCED DIRECTIVES. SHE STATES SHE HAS INFORMATION ON HCP ALREADY. HELP OFFERED IN FILLING FORM OUT IF NEEDED. SHE DECLINES AT THIS TIME. RESTORATIONIST [id number] SPIRITISM MARITAL STATUS: . 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 REVIEWED WITH PT 08/12/18 1113 BVREVIEWED WITH PT 02/23/10 1000 BVREVIEWED WITH PT 06/15/19 1135 BV. HOSPITALIZATION/MAJOR DIAGNOSTIC PROCEDURE SURGERIES CHILDBIRTH REVIEW OF SYSTEMS REVIEWED BY: PROVIDER: EDGARD CONCEPCION . CONSTITUTIONAL: ANY CHANGE IN YOUR MEDICAL CONDITION? NO . CHILLS NO . FEVER NO . INFECTION: DO YOU HAVE NEW INFECTIONS? NO . DO YOU HAVE HISTORY OF MRSA? NO . MUSCULOSKELETAL: ANY NEW PATTERNS OF PAIN OR NUMBNESS? YES, OCCASIONAL SHARP STABBING PAIN NEAR SPINAL COLUMN . GASTROENTEROLOGY: ANY NEW CHANGE IN BOWEL CONTROL? NO . GENITOURINARY: ANY NEW CHANGE IN BLADDER CONTROL? NO . IS THERE A CHANCE YOU COULD BE ? NO . HEMATOLOGY/LYMPH: DO YOU TAKE ANY BLOOD THINNERS? (FOR EXAMPLE- COUMADIN, PLAVIX, AGGRENOX, PLATEL, PRADAXA, OR XARELTO) NO . WHEN WAS YOUR LAST DOSE? DATE: TIME: . NEUROLOGY: HAVE YOU FALLEN IN THE PAST 12 MONTHS? NO . ANY NEW EXTREMITY NUMBNESS OR WEAKNESS? NO . CARDIOLOGY: DO YOU HAVE A PACEMAKER OR DEFIBRILLATOR? NO . RESPIRATORY: HAVE YOU BEEN SICK IN THE PAST WEEK? NO . FEVER NO . FLU LIKE SYMPTOMS? NO . COUGH NO . INTEGUMENTARY: DO YOU HAVE ANY RASHES OR OPEN SORES? NO . ALLERGIC/IMMUNO: ARE YOU ALLERGIC TO IV DYE? NO . ANY NEW ALLERGIES? NO . PSYCHIATRIC: DO YOU HAVE THOUGHTS OF HURTING YOURSELF OR SOMEONE ELSE? NO . ARE YOU ABUSED, NEGLECTED, OR IN AN UNSAFE ENVIRONMENT? NO . ENDOCRINOLOGY: ARE YOU DIABETIC? NO . OTHER: DO YOU NEED ANY PRESCRIPTIONS? NO . IF YES, PLEASE LIST: ____ . ANY NEW PROBLEMS WITH YOUR MEDICATIONS? YES, WOULD LIKE TO DISCUSS MEDICATIONS...LANGUAGE ERRORS MORE PRONOUNCED, SUBSTITUTING A WORD THAT BEGINS WITH THE SAME SOUND OR USING THE WRONG WORD, BUT IN CONTEXT . WHEN DID YOU LAST EAT? ____ . WHEN DID YOU LAST DRINK? ____ . WHAT DID YOU LAST DRINK? ____ . NAME OF PERSON DRIVING YOU HOME? ____ . DO YOU HAVE ANY OTHER QUESTIONS OR CONCERNS NO . VITAL SIGNS WT 227.0 LBS, HT 66 IN, BMI 36.63 INDEX, BP 143/73 MM HG, HR 73 /MIN, RR 16 /MIN, TEMP 98.1 F, OXYGEN SAT % 93%, NA INITIALS AW 1332, REVIEWED BY: DARIELA. EXAMINATION GENERAL EXAMINATION: GENERALAWAKE,ALERT ,PLEAASANT . PSYCHAFFECT NORMAL . LUNGS:LUNG [place] ARE CLEAR TO AUSCULTATION BILATERALLY. GOOD MOVEMENT OF AIR . HEART:S1, S2 IN A REGULAR RATE AND RHYTHM. NO SIGNIFICANT MURMURS, RUBS OR GALLOPS NOTED . 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 PROCEDURE CODES FA211 ESTABILISHED PATIENT [facility] CHARGE DISPOSITION & COMMUNICATION FOLLOW UP 2 MONTHS ELECTRONICALLY SIGNED BY CARLENE FERRELL ON 07/21/2019 AT 03:32 PM EDT DISCLAIMER : THIS IS A VISIT SUMMARY EXTRACTED FROM THE [employer] CHART. IT IS NOT A COPY OF THE [employer] PROGRESS NOTE. ALCON
== END ==
LOC: M PAIN 13:30
PROVIDERS: ATTEND Nurse Practitioner Family
DX: G58.8 Other specified mononeuropathies (principal); M46.1 Sacroiliitis, not elsewhere classified; G47.33 Obstructive sleep apnea (adult) (pediatric); E78.5 Hyperlipidemia, unspecified; Z87.891 Personal history of nicotine dependence; Z91.018 Allergy to other foods; Z91.09 Other allergy status, other than to drugs and biological substances; Z79.82 Long term (current) use of aspirin; Z79.899 Other long term (current) drug therapy

== ENCOUNTER → 2019-07-31 | Outpatient (CLI) | payer OTHER ==
--- NOTE | 2019-08-04 12:44 | SLEEPHOME ---
DATE OF PROCEDURE: 07/31/2019 ORDERED BY: Parvin Elias NP Nocturnal polysomnography was performed for the titration of pressure therapy in this patient with a history of obstructive sleep apnea syndrome. For testing, the patient was fit with a [employer]Med standard mask of medium size, 8 cm of water pressure was initially applied to the circuit, and the lights were extinguished. 7 hours and 31 minutes of data were reviewed. There were 257 minutes of sleep identified. Sleep latency was prolonged at 92 minutes. Rapid eye movement (REM) latency was prolonged at 282-minutes. Sleep architecture improved late in the study. There was one REM cycle. Overall sleep efficiency 58.1% due to a period of wake between 12:15 and 1:30. The patient's electrocardiogram showed sinus rhythm with an average heart rate 64 beats per minute. Electroencephalogram (EEG) showed normal waveforms for awake and sleep. Respiratory events were fully palliated with C-PAP to a pressure of +9. IMPRESSION: Obstructive sleep apnea syndrome (G47.33). RECOMMENDATIONS: Nightly use of pressure therapy 9 cm of water.
== END ==
LOC: M SLEEP 20:00
PROVIDERS: ATTEND Nurse Practitioner Adult Health
DX: G47.33 Obstructive sleep apnea (adult) (pediatric) (principal)

== ENCOUNTER → 2019-08-06 | Outpatient (CLI) | payer OTHER ==
--- NOTE | 2019-08-06 12:50 | REP ---
Bilateral lower extremity duplex arterial ultrasound assessment: Right lower extremity: Brachial artery peak systole: 136 mmHg. Dorsalis pedis peak systole: 150 mmHg. JAVA TECHNICAL MANAGER peak systole: 151 mmHg. FABIAN: 1.1 Peak Systolic Phasicity Velocity SOIL AND PLANT SCIENTIST 91.7 triphasic Profunda 95.6 triphasic SFA prox 114.0 triphasic SFA mid 90.9 triphasic SFA dist 85.5 triphasic Pop 62.1 triphasic CHAZ prox 55.7 triphasic Tib/P tr 53.3 triphasic JAVA TECHNICAL MANAGER pr 63.9 triphasic JAVA TECHNICAL MANAGER dst 73.2 triphasic CHAZ dst 63.7 triphasic Left lower extremity: Brachial artery peak systole: 132 mmHg. Dorsalis pedis peak systole: 152 mmHg. JAVA TECHNICAL MANAGER peak systole: 162 mmHg. FABIAN: 1.2 Peak Systolic Phasicity Velocity SOIL AND PLANT SCIENTIST 97.6 triphasic Profunda 82.8 triphasic SFA prox 114 triphasic SFA mid 82.9 triphasic SFA dist 73.5 triphasic Pop 48.1 triphasic CHAZ prox 44.4 triphasic Tib/P tr 47.3 triphasic JAVA TECHNICAL MANAGER pr 49.3 triphasic JAVA TECHNICAL MANAGER dst 77.5 biphasic CHAZ dst 68.2 triphasic There is mild atheromatous plaque bilaterally. There is no significant stenosis on the right on the left. Electronically Signed by Saturnino Hernandez MD 08/06/2019 12:42 P
== END ==
LOC: M RAD 10:01
PROVIDERS: ATTEND Surgery Vascular Surgery
DX: I70.213 Atherosclerosis of native arteries of extremities with intermittent claudication, bilateral legs (principal)

== ENCOUNTER → 2019-10-01 | Outpatient (CLI) | payer OTHER ==
--- NOTE | 2019-10-15 01:49 | ECWPNPC ---
PATIENT NAME: IAM DHALIWAL : 1955 GENDER: FEMALE VISIT DATE: 10/01/2019 DISCHARGE DATE: 10/01/19 1028 VISIT LOCKED DATE TIME: PHYSICIAN: EDGARD STEWART RESOURCE: EDGARD STEWART REASON FOR APPOINTMENT 1. GENERAL PAIN HISTORY OF PRESENT ILLNESS HISTORY OF PRESENT ILLNESS: HERE FOR F/U OF CHRONIC LEFT INTERCOSTAL PAIN.RESPONDED WELL TO LEFT INTERCOSTAL NERVE BLOCK DONE IN [place] UNTIL A FEW WEEKS AGO.PAIN HAS ESCALTED OVER THE PAST 3 MONTH.RATING PAIN VAS 6/10.LEAVING FOR [place] IN 2 WEEKS. PAIN THE PATIENT DESCRIBES THE PAIN... FALL RISK SCREENING: SCREENING :NO FALLS REPORTED IN THE LAST YEAR CURRENT MEDICATIONS TAKING CRESTOR 5 MG TABLET 1 TABLET ORALLY ONCE A DAY TAKING ASPIR-81 81 MG TABLET DELAYED RELEASE 1 TABLET ORALLY EVERY OTHER DAY TAKING FISH OIL TRIPLE STRENGTH 1400 MG CAPSULE 2 CAPSULE ORALLY ONCE A DAY TAKING COQ-10 200 MG CAPSULE 1 CAPSULE WITH A MEAL ORALLY ONCE A DAY TAKING CALTRATE 600+D PLUS MINERALS 600-800 MG-UNIT TABLET 1 TABLET ORALLY TWICE A DAY TAKING ESTROVEN + ENERGY MAX STRENGTH TABLET 1 TAB ORALLY TAKING MULTIVITAMINS CAPSULE ORALLY ONCE DAILY TAKING MOVE FREE motionBEAT inc HEALTH ADVANCE - TABLET ORALLY DAILY TAKING MAY USE ULTRA NICA 1 CAP ORALLY DAILY TAKING MAY USE 1 CEYLON CINNAMON 2 CAP ORALLY ONCE DAILY TAKING LIDOCAINE & ADHESIVE SHEET 5 % KIT DIRECTED EXTERNALLY DAILY TAKING MAY USE CBD OIL 25MG BID, NOTES: 50 IN AM TAKING CETIRIZINE HCL 10 MG TABLET 1 TABLET ORALLY ONCE A DAY TAKING GABAPENTIN 300 MG CAPSULE 1 CAPSULE ORALLY DAILY AT BEDTIME TAKING CYMBALTA 30 MG CAPSULE DELAYED RELEASE PARTICLES 1 CAPSULE ORALLY TWICE A DAY FOR PAIN NOT-TAKING CLARITIN 10 MG TABLET 1 TABLET ORALLY ONCE A DAY NOT-TAKING MAY USE DICLOFENAC GEL 1% TID NOT-TAKING IBUPROFEN 200 MG 1 TAB ORAL BEFORE BEDTIME PRN NOT-TAKING CULTURELLE CAPSULE ORALLY ONCE DAILY NOT-TAKING EMERGEN-C IMMUNE PACKET ORALLY ONCE DAILY NOT-TAKING PAZEO 0.7 % SOLUTION 1 DROP INTO AFFECTED EYE OPHTHALMIC ONCE A DAY NOT-TAKING MAY USE MYOCALM 2 CAPS ORALLY ONCE DAILY NOT-TAKING VALIUM 5 MG TABLET 1 TAB DIRECTED ORALLY 1 TAB 1HR PRE MRI AND 1 TAB AT TIME OF MRI MDD2 PAST MEDICAL HISTORY BRI - CPAP IMPLANTABLE LOOP RECORDER- FOR EPISODES OF SYNCOPE REMOVED HYPERLIPID CHRONIC BACK AND NECK PAIN HEADACHES DIZZINESS HAS BEEN KNOWN TO VASAL VAGAL SEVERLY WITH PROCEDURES INVOLVING NEEDLES CARPAL TUNNEL RIGHT HAND DE QUERVAIN'S TENOSYNOVITIS-RIGHT TENNIS ELBOW-RIGHT ALLERGIES TAPE: RASH ORANGE: DRY MOUTH/DIFFICULTY SWALLOWING PINE: RASH/CONGESTION GRASS: SNEEZING, WATERY EYES SURGICAL HISTORY TONSILLECTOMY 1965 D/C (MISCARRIAGE) 12/1978 D/C ENDOMETRIAL ABLATION 08/1979 HYSTERECTOMY/OOPHORECTOMY 11/2009 IMPLANTABLE LOOP RECORDER 01/2015 THYROID BX 06/2016 RIGHT HAND CARPAL TUNNEL RELEASE 04/22/2018 REMOVAL OF LOOP RECORDER 06/2018 FAMILY HISTORY FATHER: DIAGNOSED WITH DIABETES, HYPERTENSION, UNSPECIFIED CEREBRAL ARTERY OCCLUSION WITH CEREBRAL INFARCTION, OTHER MALIGNANT NEOPLASM OF UNSPECIFIED SITE MOTHER: OTHER MALIGNANT NEOPLASM OF UNSPECIFIED SITE DAUGHTER(S): DIABETES DAUGHTER IS TYPE 1 DIABETIC. HOSPITALIZATION/MAJOR DIAGNOSTIC PROCEDURE SURGERIES CHILDBIRTH REVIEW OF SYSTEMS REVIEWED BY: PROVIDER: EDGARD CONCEPCION . CONSTITUTIONAL: ANY CHANGE IN YOUR MEDICAL CONDITION? NO . CHILLS NO . FEVER NO . INFECTION: DO YOU HAVE NEW INFECTIONS? NO . DO YOU HAVE HISTORY OF MRSA? NO . MUSCULOSKELETAL: ANY NEW PATTERNS OF PAIN OR NUMBNESS? NO . GASTROENTEROLOGY: ANY NEW CHANGE IN BOWEL CONTROL? NO . GENITOURINARY: ANY NEW CHANGE IN BLADDER CONTROL? NO . IS THERE A CHANCE YOU COULD BE ? NO . HEMATOLOGY/LYMPH: DO YOU TAKE ANY BLOOD THINNERS? (FOR EXAMPLE- COUMADIN, PLAVIX, AGGRENOX, PLATEL, PRADAXA, OR XARELTO) NO . WHEN WAS YOUR LAST DOSE? DATE: TIME: . NEUROLOGY: HAVE YOU FALLEN IN THE PAST 12 MONTHS? NO . ANY NEW EXTREMITY NUMBNESS OR WEAKNESS? NO . CARDIOLOGY: DO YOU HAVE A PACEMAKER OR DEFIBRILLATOR? NO . RESPIRATORY: HAVE YOU BEEN SICK IN THE PAST WEEK? NO . FEVER NO . FLU LIKE SYMPTOMS? NO . COUGH NO . INTEGUMENTARY: DO YOU HAVE ANY RASHES OR OPEN SORES? NO . ALLERGIC/IMMUNO: ARE YOU ALLERGIC TO IV DYE? NO . ANY NEW ALLERGIES? NO . PSYCHIATRIC: DO YOU HAVE THOUGHTS OF HURTING YOURSELF OR SOMEONE ELSE? NO . ARE YOU ABUSED, NEGLECTED, OR IN AN UNSAFE ENVIRONMENT? NO . ENDOCRINOLOGY: ARE YOU DIABETIC? NO . OTHER: DO YOU NEED ANY PRESCRIPTIONS? NO . IF YES, PLEASE LIST: ____ . ANY NEW PROBLEMS WITH YOUR MEDICATIONS? NO . WHEN DID YOU LAST EAT? ____ . WHEN DID YOU LAST DRINK? ____ . WHAT DID YOU LAST DRINK? ____ . NAME OF PERSON DRIVING YOU HOME? ____ . DO YOU HAVE ANY OTHER QUESTIONS OR CONCERNS NO . VITAL SIGNS WT 230.4 LBS, HT 66 IN, BMI 37.18 INDEX, BP 172/79 MM HG, HR 82 /MIN, RR 16 /MIN, TEMP 97.6 F, OXYGEN SAT % 96%, NA INITIALS AW 0947. EXAMINATION GENERAL EXAMINATION: LUNGS: LUNG SOUNDS ARE CLEAR. HEART: S1, S2 IN A REGULAR RATE AND RHYTHM. NO SIGNIFICANT MURMURS, RUBS OR GALLOPS NOTED. THORACIC SPINE SPECIFIC INTERCOSTAL TENDERNESS T6/7 LEFT. DIAGNOSTIC TESTS REVIEWED THORACIC MRI-08/21/18. 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 PROCEDURE CODES FA211 ESTABILISHED PATIENT [facility] F[facility] CHARGE DISPOSITION & COMMUNICATION FOLLOW UP POST (REASON: LEFT T6/7 INTERCOSTAL BLOCK NEEDS IV ACCESS HX VASOVAGAL) ELECTRONICALLY SIGNED BY CARLENE FERRELL ON 10/14/2019 AT 03:54 PM EST DISCLAIMER : THIS IS A VISIT SUMMARY EXTRACTED FROM THE [employer] CHART. IT IS NOT A COPY OF THE [employer] PROGRESS NOTE. ALCON
== END ==
LOC: M PAIN 09:45
PROVIDERS: ATTEND Nurse Practitioner Family
DX: G58.8 Other specified mononeuropathies (principal); G89.29 Other chronic pain; G47.33 Obstructive sleep apnea (adult) (pediatric); E78.5 Hyperlipidemia, unspecified; Z91.018 Allergy to other foods; Z91.09 Other allergy status, other than to drugs and biological substances; Z79.82 Long term (current) use of aspirin; Z79.899 Other long term (current) drug therapy

== ENCOUNTER → 2020-01-03 | Outpatient (CLI) | payer BC, MEDICARE ==
[~2020-01-03] MED LIST changes: +BUPIVACAINE HCL 0.25% 30 ML VIAL As Ordered ONE; +ISOVUE-M 300 61% 15ML VIAL (Q9967) As Ordered ONE; +LIDOCAINE 1% SDV INJ 30 ML VIAL As Ordered ONE; +TRIAMCINOLONE ACETONIDE SUSP 40 MG/ML VIAL (J3301) As Ordered ONE; +diazePAM 5 MG TAB As Ordered ONE; +oxyCODONE 5MG TAB As Ordered ONE
--- NOTE | 2020-01-03 12:13 | REP ---
PA and lateral chest for pneumothorax: Comparison is 06/15/2019. There are two PA views, one performed and an inspiration and expiration. There is no pneumothorax on the right on the left. There is no pleural fluid collection on the right on the left. Lung kessler otherwise clear. Cardiac size is normal. The noel, mediastinum, skeletal structures are unremarkable. Impression: Negative PA and lateral chest including PA views at end inspiration and expiration. There is no pneumothorax or pleural fluid collection. Electronically Signed by Saturnino Hernandez MD 01/03/2020 12:05 P
--- NOTE | 2020-01-03 12:30 | REP ---
Partial chest series: Five views. History: Left intercostal nerve block for pain. 51 seconds of fluoroscopy time reported. Findings: A sequence of five last image hold fluoroscopically obtained spot radiographs of the left chest document needle position and contrast injection associated with injection procedure. Electronically Signed by Johnson Perkins MD 01/03/2020 12:21 P
--- NOTE | 2020-01-06 07:23 | ECWPNPC ---
PATIENT NAME: IAM DHALIWAL : 1955 GENDER: FEMALE VISIT DATE: 01/03/2020 DISCHARGE DATE: 01/03/20 1225 VISIT LOCKED DATE TIME: PHYSICIAN: ELENO BONE MD RESOURCE: ELENO BONE MD REASON FOR APPOINTMENT 1. LEFT T6/7 INTERCOSTAL BLOCK NEEDS IV ACCESS HX VASOVAGAL HISTORY OF PRESENT ILLNESS HISTORY OF PRESENT ILLNESS: PAIN THE PATIENT DESCRIBES THE PAINDURING THE LAST MONTH SEVERITY - PAIN SCORE OF7/10 LOCATIONSMID BACK QUALITYACHING , BURNING, SHARP DURATIONCONTINUOUS FALL RISK SCREENING: SCREENING :NO FALLS REPORTED IN THE LAST YEAR CURRENT MEDICATIONS TAKING CRESTOR 5 MG TABLET 1 TABLET ORALLY ONCE A DAY, NOTES: 01/02/2020 183 TAKING ASPIR-81 81 MG TABLET DELAYED RELEASE 1 TABLET ORALLY EVERY OTHER DAY, NOTES: 01/02/2020 AM TAKING FISH OIL TRIPLE STRENGTH 1400 MG CAPSULE 2 CAPSULE ORALLY ONCE A DAY, NOTES: 01/02/20201829 TAKING COQ-10 200 MG CAPSULE 1 CAPSULE WITH A MEAL ORALLY ONCE A DAY, NOTES: 01/02/20201829 TAKING CALTRATE 600+D PLUS MINERALS 600-800 MG-UNIT TABLET 1 TABLET ORALLY TWICE A DAY, NOTES: 01/02/2020 183 TAKING ESTROVEN + ENERGY MAX STRENGTH TABLET 1 TAB ORALLY , NOTES: 01/03/2020 06 TAKING MULTIVITAMINS CAPSULE ORALLY ONCE DAILY, NOTES: 01/02/2020 183 TAKING MOVE FREE JOINT HEALTH ADVANCE - TABLET ORALLY DAILY, NOTES: 01/02/2020 183 TAKING MAY USE 1 CEYLON CINNAMON 2 CAP ORALLY ONCE DAILY, NOTES: 01/02/2020 1800 TAKING LIDOCAINE & ADHESIVE SHEET 5 % KIT DIRECTED EXTERNALLY DAILY, NOTES: PRN TAKING MAY USE CBD OIL 25MG BID, NOTES: 50 IN AM 01/02/20202199 TAKING CETIRIZINE HCL 10 MG TABLET 1 TABLET ORALLY ONCE A DAY, NOTES: 01/02/20202199 TAKING CYMBALTA 30 MG CAPSULE DELAYED RELEASE PARTICLES 1 CAPSULE ORALLY TWICE A DAY FOR PAIN, NOTES: 01/03/2020 0630 NOT-TAKING MAY USE ULTRA NICA 1 CAP ORALLY DAILY NOT-TAKING GABAPENTIN 300 MG CAPSULE 1 CAPSULE ORALLY DAILY AT BEDTIME NOT-TAKING CLARITIN 10 MG TABLET 1 TABLET ORALLY ONCE A DAY NOT-TAKING MAY USE DICLOFENAC GEL 1% TID NOT-TAKING IBUPROFEN 200 MG 1 TAB ORAL BEFORE BEDTIME PRN NOT-TAKING CULTURELLE CAPSULE ORALLY ONCE DAILY NOT-TAKING EMERGEN-C IMMUNE PACKET ORALLY ONCE DAILY NOT-TAKING PAZEO 0.7 % SOLUTION 1 DROP INTO AFFECTED EYE OPHTHALMIC ONCE A DAY NOT-TAKING MAY USE MYOCALM 2 CAPS ORALLY ONCE DAILY NOT-TAKING VALIUM 5 MG TABLET 1 TAB DIRECTED ORALLY 1 TAB 1HR PRE MRI AND 1 TAB AT TIME OF MRI MDD2 MEDICATION LIST REVIEWED AND RECONCILED WITH THE PATIENT PAST MEDICAL HISTORY BRI - CPAP IMPLANTABLE LOOP RECORDER- FOR EPISODES OF SYNCOPE( [id number]) HYPERLIPID CHRONIC BACK AND NECK PAIN HEADACHES DIZZINESS HAS BEEN KNOWN TO VASAL VAGAL SEVERLY WITH PROCEDURES INVOLVING NEEDLES CARPAL TUNNEL RIGHT HAND DE QUERVAIN'S TENOSYNOVITIS-RIGHT TENNIS ELBOW-RIGHT LEFT INTERCOSTAL NEURALGIA ALLERGIES TAPE: RASH - ALLERGY ORANGE: DRY MOUTH/DIFFICULTY SWALLOWING - ALLERGY PINE: RASH/CONGESTION - ALLERGY GRASS: SNEEZING, WATERY EYES SURGICAL HISTORY TONSILLECTOMY 1965 D/C (MISCARRIAGE) 12/1978 D/C ENDOMETRIAL ABLATION 08/1979 HYSTERECTOMY/OOPHORECTOMY 11/2009 IMPLANTABLE LOOP RECORDER 01/2015 THYROID BX 06/2016 RIGHT HAND CARPAL TUNNEL RELEASE 04/22/2018 REMOVAL OF LOOP RECORDER 06/2018 FAMILY HISTORY FATHER: , COLON CA, DIAGNOSED WITH DIABETES, HYPERTENSION, UNSPECIFIED CEREBRAL ARTERY OCCLUSION WITH CEREBRAL INFARCTION, OTHER MALIGNANT NEOPLASM OF UNSPECIFIED SITE MOTHER: , ENDOMETRIAL CA PARKINSONS ALZHEIMER'S DEMENTIA, , OTHER MALIGNANT NEOPLASM OF UNSPECIFIED SITE DAUGHTER(S): DIABETES DAUGHTER IS TYPE 1 DIABETIC. SOCIAL HISTORY GENERAL: TOBACCO USE ARE YOU A:FORMER SMOKER HOW LONG HAS IT BEEN SINCE YOU LAST SMOKED? QUIT 12/2015 EDUCATION LEVEL OF EDUCATION:[employer] DIET: REGULAR. LANGUAGE LANGUAGES SPOKEN:TURKISH DOMESTIC VIOLENCE DO YOU FEEL SAFE IN YOUR ENVIRONMENT?YES RECREATIONAL DRUG USE DRUG USE?NO EXERCISE: WALKS. LEARNING BARRIERS / SPECIAL NEEDS BARRIERS TO LEARNING?NO HEARING IMPAIRED?NO VISION IMPAIRED?YES READING GLASSES :CORRECTIVE LENSES COGNITIVELY IMPAIRED?NO READINESS TO LEARN?YES LEARNING PREFERENCES?YES :DEMONSTRATION/VERBAL INSTRUCTION LEARNING CAPABILITIES PRESENT?YES EMOTIONAL BARRIERS?NO SPECIAL DEVICES?YES :CANE OCCASSIONALLY HOSTED SERVICES ANALYST NEEDED?NO PAIN CLINIC PFS, CLERGY, PUBLIC HEALTH REFERRALS PFS REFERRAL NEEDED?NO CLERGY REFERRAL NEEDED?NO PUBLIC HEALTH REFERRAL NEEDED?NO HAS THE PATIENT BEEN EDUCATED REGARDING HIS/HER PLAN OF CARE?YES HAS THE PATIENT BEEN EDUCATED REGARDING PAIN, THE RISK FOR PAIN, THE IMPORTANCE OF EFFECTIVE PAIN MANAGEMENT, AND THE PAIN ASSESSMENT PROCESS?YES LATEX QUESTIONNAIRE LATEX ALLERGY : HAVE YOU EVER DEVELOPED ANY TYPE OF REACTION AFTER HANDLING LATEX PRODUCTS SUCH RUBBER GLOVES, CONDOMS, DIAPHRAGMS, BALLOONS, SOCKS, OR UNDERWEAR?NO LATEX ALLERGY : HAVE YOU EVER DEVELOPED ANY TYPE OF REACTION DURING OR AFTER DENTAL APPOINTMENT, VAGINAL/RECTAL EXAMINATION, SURGICAL PROCEDURE, OR ANY OTHER EXPOSURE?NO LATEX RISK : HAVE YOU EVER HAD ANY DIFFICULTY BREATHING OR HIVES AFTER EATING OR HANDLING ANY FRUITS, OR VEGETABLES; SUCH KIWI, BANANAS, STONE FRUITS, OR CHESTNUTSNO LATEX RISK : DO YOU HAVE A PREVIOUS PERSONAL HISTORY OF MORE THAN NINE SURGERIES, SPINA BIFIDA, OR REPEATED CATHERIZATIONS? NO LATEX RISK : ARE YOU FREQUENTLY EXPOSED TO LATEX PRODUCTS IN YOUR OCCUPATION?NO DATE ASKED : 12/22/2019 CAFFEINE CAFFEINE USE?YES HOW OFTEN AND HOW MUCH? 2 CUPS COFFEE/DAY ADVANCE DIRECTIVE ADVANCE DIRECTIVE DISCUSSED WITH PATIENT:YES 12/22/2019 PT DOES NOT HAVE ANY ADVANCED DIRECTIVES. SHE STATES SHE HAS INFORMATION ON HCP ALREADY. HELP OFFERED IN FILLING FORM OUT IF NEEDED. SHE DECLINES AT THIS TIME. AD RESTORATIONISM [id number] MOSQUE MARITAL STATUS: . 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 REVIEWED WITH PT 08/12/18 1113 BVREVIEWED WITH PT 02/23/10 1000 BVREVIEWED WITH PT 06/15/19 1135 BV12/22/2019 PRE-PROCEDURE CALL COMPLETED. AD. HOSPITALIZATION/MAJOR DIAGNOSTIC PROCEDURE SURGERIES CHILDBIRTH REVIEW OF SYSTEMS REVIEWED BY: PROVIDER: . CONSTITUTIONAL: ANY CHANGE IN YOUR MEDICAL CONDITION? NO . CHILLS NO . FEVER NO . INFECTION: DO YOU HAVE NEW INFECTIONS? NO . DO YOU HAVE HISTORY OF MRSA? NO . MUSCULOSKELETAL: ANY NEW PATTERNS OF PAIN OR NUMBNESS? NO . GASTROENTEROLOGY: ANY NEW CHANGE IN BOWEL CONTROL? NO . GENITOURINARY: ANY NEW CHANGE IN BLADDER CONTROL? NO . IS THERE A CHANCE YOU COULD BE ? NO . HEMATOLOGY/LYMPH: DO YOU TAKE ANY BLOOD THINNERS? (FOR EXAMPLE- COUMADIN, PLAVIX, AGGRENOX, PLATEL, PRADAXA, OR XARELTO) NO . WHEN WAS YOUR LAST DOSE? DATE: TIME: . NEUROLOGY: HAVE YOU FALLEN IN THE PAST 12 MONTHS? NO . ANY NEW EXTREMITY NUMBNESS OR WEAKNESS? NO . CARDIOLOGY: DO YOU HAVE A PACEMAKER OR DEFIBRILLATOR? NO . RESPIRATORY: HAVE YOU BEEN SICK IN THE PAST WEEK? NO . FEVER NO . FLU LIKE SYMPTOMS? NO . COUGH NO . INTEGUMENTARY: DO YOU HAVE ANY RASHES OR OPEN SORES? NO . ALLERGIC/IMMUNO: ARE YOU ALLERGIC TO IV DYE? NO . ANY NEW ALLERGIES? NO . PSYCHIATRIC: DO YOU HAVE THOUGHTS OF HURTING YOURSELF OR SOMEONE ELSE? NO . ARE YOU ABUSED, NEGLECTED, OR IN AN UNSAFE ENVIRONMENT? NO . ENDOCRINOLOGY: ARE YOU DIABETIC? NO . OTHER: DO YOU NEED ANY PRESCRIPTIONS? NO . IF YES, PLEASE LIST: ____ . ANY NEW PROBLEMS WITH YOUR MEDICATIONS? NO . WHEN DID YOU LAST EAT? 01/02/2020 2230 . WHEN DID YOU LAST DRINK? 01/03/2020 0700 . WHAT DID YOU LAST DRINK? WATER . NAME OF PERSON DRIVING YOU HOME? ASHLEIGH DHALIWAL- . DO YOU HAVE ANY OTHER QUESTIONS OR CONCERNS NO . VITAL SIGNS WT 232 LBS, HT 66 IN, BMI 37.44 INDEX, BP 147/74 MM HG, HR 88 /MIN, RR 18 /MIN, TEMP 97.6 F, OXYGEN SAT % 95%, SAFE IN ENV? (Y/N) YES, NA INITIALS AW 0900, REVIEWED BY: MENA. 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 CHEST WALL PAINPOST-PROCEDURE DIAGNOSIS: INTERCOSTAL NEURALGIA. CHEST WALL PAINPROCEDURE: LEFT T10, LEFT T11 INTERCOSTAL NERVE BLOCK UNDER FLUOROSCOPIC GUIDANCE.SURGEON: ELENO BONE MDANESTHESIA: LOCALCOMPLICATIONS: NONEPRE-PROCEDURE NOTE: THE PATIENT IS SUFFERING OF CHEST WALL PAIN. WE HAVE DISCUSSED ALTERNATIVES. I REVIEWED THE CHART. WE BOTH AGREED ON DOING AN INTERCOSTAL NERVE BLOCK OVER THE AFFECTED AREA. I WENT THROUGH THE RISK ALTERNATIVES AND BENEFITS ASSOCIATED WITH THIS PROCEDURE AND THE PATIENT EXPRESSED THAT WANT TO PROCEED. THE PATIENT IS AWARE THAT THE MAIN POTENTIAL COMPLICATION IS THE DEVELOPMENT OF A PNEUMOTHORAX, IN WHICH CASE A CHEST TUBE WILL BE NEEDED. THE PATIENT DENIES UNEXPLAINABLE WEIGHT LOSS FEVER CHILLS NEW CHANGES IN THE URINARY OR BOWEL CONTROL.PROCEDURE NOTE: THE CONSENT WAS REVIEWED WITH THE PATIENT. PATIENT WAS BROUGHT TO THE PROCEDURE ROOM AND PLACED IN THE PRONE POSITION. THORACOLUMBAR AREA WAS CLEANED WITH CHLORAPREP SOLUTION AND A DRAPED ASEPTICALLY. PROCEDURE WAS UNDERSTATED STANDARD CONDITIONS. UNDER FLUOROSCOPIC GUIDANCE TARGET POINT WAS SELECTED AT THE LEFT T10 AND LEFT T11 RIB. LIDOCAINE WAS USED LOCAL ANESTHETIC. NEITHER WAS ADVANCED UNDER FLUOROSCOPIC GUIDANCE UNTIL WE TOUCHED THE AFFECTED RIB. THEN THE NEEDLE WAS MOVED TO THE INFERIOR BORDER OF THE RIB. ISOVUE-M 30% THE QUARTER CC WAS INJECTED SHOWING ADEQUATE SPREAD OF THE DYE FOLLOWING THE INFERIOR BORDER OF THE RIB. THEN A SOLUTION OF 10 ML OF BUPIVACAINE 0.125% WITH KENALOG 10 MG WAS INJECTED AT EACH LEVEL. THERE WAS NO EVIDENCE OF VASCULAR UPTAKE OR LUNG PUNCTURE. PATIENT WAS SENT TO THE RECOVERY ROOM. PATIENT WAS DOING WELL THERE WAS NO COMPLICATIONS. FLUOROSCOPIC TIME WAS 51 SECONDS.POST-PROCEDURE NOTE: I DISCUSSED ALTERNATIVES WITH THE PATIENT. CHEST X-RAY AP AND LATERAL WERE DONE. THERE IS NO EVIDENCE OF PNEUMOTHORAX. PATIENT IS GOING TO BE SEEN IN A FOLLOW-UP. THERE WERE NO COMPLICATIONS DURING THE PROCEDURE. I, MARLO WHITT, DOCUMENTED THE ABOVE INFORMATION ACTING A SCRIBE FOR DR. BONE. I HAVE REVIEWED THE ABOVE DOCUMENT, WRITTEN BY MARLO WHITT SCRIBJoseph AND I VERIFY THAT IT IS ACCURATE. PROCEDURE CODES 80749 N BLOCK INJ INTERCOST CUSTOMER CARE VOICE CONSULTANT, MODIFIERS: LT [id number] RADXPS IN END [id number] PXD [id number] NEEDLE LOCALIZATION BY XRAY, MODIFIERS: 26 DISPOSITION & COMMUNICATION FOLLOW UP 3 WEEKS ELECTRONICALLY SIGNED BY ELENO BONE MD, MD ON 01/05/2020 AT 02:35 PM EDT DISCLAIMER : THIS IS A VISIT SUMMARY EXTRACTED FROM THE [employer] CHART. IT IS NOT A COPY OF THE [employer] PROGRESS NOTE. MTDD
== END ==
LOC: M PAIN 09:00
PROVIDERS: ATTEND Anesthesiology
DX: G58.8 Other specified mononeuropathies (principal)
CPT/HCPCS: 64421; 71046; J3301; Q9967

== ENCOUNTER → 2020-02-21 | Outpatient (CLI) | payer BC, MEDICARE ==
[~2020-02-21] MED LIST changes: -BUPIVACAINE HCL 0.25% 30 ML VIAL As Ordered ONE; -ISOVUE-M 300 61% 15ML VIAL (Q9967) As Ordered ONE; -LIDOCAINE 1% SDV INJ 30 ML VIAL As Ordered ONE; -TRIAMCINOLONE ACETONIDE SUSP 40 MG/ML VIAL (J3301) As Ordered ONE; -diazePAM 5 MG TAB As Ordered ONE; -oxyCODONE 5MG TAB As Ordered ONE
--- NOTE | 2020-02-23 02:52 | ECWPNPC ---
PATIENT NAME: IAM DHALIWAL : 1955 GENDER: FEMALE VISIT DATE: 02/21/2020 DISCHARGE DATE: 02/21/20 1001 VISIT LOCKED DATE TIME: PHYSICIAN: EDGARD STEWART RESOURCE: EDGARD STEWART REASON FOR APPOINTMENT 1. GENERAL PAIN- PROCEDURE ORDER HISTORY OF PRESENT ILLNESS HISTORY OF PRESENT ILLNESS: THIS IS A PREPROCEDURE VISIT. HAS BEEN HAVING AN INCREASE IN LEFT LOW BACK PAIN THAT RADIATES DOWN INTO LEFT BUTTOCK AREA OVER THE PAST 6 WEEKS. RATING PAIN INTENSITY A 5/10 VAS. HAS RESPONDED WELL TO SACROILIAC JOINT BLOCK IN THE PAST. TODAY WE DISCUSSED THE POTENTIAL RISKS ASSOCIATED WITH STEROIDS IN THE LIGHT OF COVID 19. SHE IS GOING TO DISCUSS WITH HER . THE USE OF LOCAL NUMBING AGENT ALONE OR PROCEEDING WITH STEROID INJECTION TO THE LEFT SACROILIAC JOINT. SHE WILL NOTIFY US WHEN THEY MAKE A DECISION. PAIN THE PATIENT DESCRIBES THE PAIN... FALL RISK SCREENING: SCREENING :NO FALLS REPORTED IN THE LAST YEAR CURRENT MEDICATIONS TAKING CRESTOR 5 MG TABLET 1 TABLET ORALLY ONCE A DAY TAKING ASPIR-81 81 MG TABLET DELAYED RELEASE 1 TABLET ORALLY EVERY OTHER DAY TAKING FISH OIL TRIPLE STRENGTH 1400 MG CAPSULE 2 CAPSULE ORALLY ONCE A DAY TAKING COQ-10 200 MG CAPSULE 1 CAPSULE WITH A MEAL ORALLY ONCE A DAY TAKING CALTRATE 600+D PLUS MINERALS 600-800 MG-UNIT TABLET 1 TABLET ORALLY TWICE A DAY TAKING ESTROVEN + ENERGY MAX STRENGTH TABLET 1 TAB ORALLY TAKING MULTIVITAMINS CAPSULE ORALLY ONCE DAILY TAKING MOVE FREE JOINT [facility] ADVANCE - TABLET ORALLY DAILY TAKING MAY USE 1 CEYLON CINNAMON 2 CAP ORALLY ONCE DAILY TAKING LIDOCAINE & ADHESIVE SHEET 5 % KIT DIRECTED EXTERNALLY DAILY TAKING MAY USE CBD OIL 25MG BID TAKING CETIRIZINE HCL 10 MG TABLET 1 TABLET ORALLY ONCE A DAY TAKING CYMBALTA 30 MG CAPSULE DELAYED RELEASE PARTICLES 1 CAPSULE ORALLY TWICE A DAY FOR PAIN NOT-TAKING MAY USE ULTRA NICA 1 CAP ORALLY DAILY NOT-TAKING GABAPENTIN 300 MG CAPSULE 1 CAPSULE ORALLY DAILY AT BEDTIME NOT-TAKING CLARITIN 10 MG TABLET 1 TABLET ORALLY ONCE A DAY NOT-TAKING MAY USE DICLOFENAC GEL 1% TID NOT-TAKING IBUPROFEN 200 MG 1 TAB ORAL BEFORE BEDTIME PRN NOT-TAKING CULTURELLE CAPSULE ORALLY ONCE DAILY NOT-TAKING EMERGEN-C IMMUNE PACKET ORALLY ONCE DAILY NOT-TAKING PAZEO 0.7 % SOLUTION 1 DROP INTO AFFECTED EYE OPHTHALMIC ONCE A DAY NOT-TAKING MAY USE MYOCALM 2 CAPS ORALLY ONCE DAILY NOT-TAKING VALIUM 5 MG TABLET 1 TAB DIRECTED ORALLY 1 TAB 1HR PRE MRI AND 1 TAB AT TIME OF MRI MDD2 MEDICATION LIST REVIEWED AND RECONCILED WITH THE PATIENT PAST MEDICAL HISTORY BRI - CPAP IMPLANTABLE LOOP RECORDER- FOR EPISODES OF SYNCOPE( [id number]) HYPERLIPID CHRONIC BACK AND NECK PAIN HEADACHES DIZZINESS HAS BEEN KNOWN TO VASAL VAGAL SEVERLY WITH PROCEDURES INVOLVING NEEDLES CARPAL TUNNEL RIGHT HAND DE QUERVAIN'S TENOSYNOVITIS-RIGHT TENNIS ELBOW-RIGHT LEFT INTERCOSTAL NEURALGIA ALLERGIES TAPE: RASH - ALLERGY ORANGE: DRY MOUTH/DIFFICULTY SWALLOWING - ALLERGY PINE: RASH/CONGESTION - ALLERGY GRASS: SNEEZING, WATERY EYES SURGICAL HISTORY TONSILLECTOMY 1965 D/C (MISCARRIAGE) 12/1978 D/C ENDOMETRIAL ABLATION 08/1979 HYSTERECTOMY/OOPHORECTOMY 11/2009 IMPLANTABLE LOOP RECORDER 01/2015 THYROID BX 06/2016 RIGHT HAND CARPAL TUNNEL RELEASE 04/22/2018 REMOVAL OF LOOP RECORDER 06/2018 FAMILY HISTORY FATHER: , COLON CA, DIAGNOSED WITH DIABETES, HYPERTENSION, UNSPECIFIED CEREBRAL ARTERY OCCLUSION WITH CEREBRAL INFARCTION, OTHER MALIGNANT NEOPLASM OF UNSPECIFIED SITE MOTHER: , ENDOMETRIAL CA PARKINSONS ALZHEIMER'S DEMENTIA,, OTHER MALIGNANT NEOPLASM OF UNSPECIFIED SITE DAUGHTER(S): DIABETES DAUGHTER IS TYPE 1 DIABETIC. SOCIAL HISTORY GENERAL: TOBACCO USE ARE YOU A:FORMER SMOKER HOW LONG HAS IT BEEN SINCE YOU LAST SMOKED? QUIT 12/2015 LATEX QUESTIONNAIRE LATEX ALLERGY : HAVE YOU EVER DEVELOPED ANY TYPE OF REACTION AFTER HANDLING LATEX PRODUCTS SUCH RUBBER GLOVES, CONDOMS, DIAPHRAGMS, BALLOONS, SOCKS, OR UNDERWEAR?NO LATEX ALLERGY : HAVE YOU EVER DEVELOPED ANY TYPE OF REACTION DURING OR AFTER DENTAL APPOINTMENT, VAGINAL/RECTAL EXAMINATION, SURGICAL PROCEDURE, OR ANY OTHER EXPOSURE?NO LATEX RISK : HAVE YOU EVER HAD ANY DIFFICULTY BREATHING OR HIVES AFTER EATING OR HANDLING ANY FRUITS, OR VEGETABLES; SUCH KIWI, BANANAS, STONE FRUITS, OR CHESTNUTSNO LATEX RISK : DO YOU HAVE A PREVIOUS PERSONAL HISTORY OF MORE THAN NINE SURGERIES, SPINA BIFIDA, OR REPEATED CATHERIZATIONS? NO LATEX RISK : ARE YOU FREQUENTLY EXPOSED TO LATEX PRODUCTS IN YOUR OCCUPATION?NO DATE ASKED : 12/22/2019 ALCOHOL SCREENING DID YOU HAVE A DRINK CONTAINING ALCOHOL IN THE PAST YEAR?NO POINTS0 INTERPRETATIONNEGATIVE RECREATIONAL DRUG USE DRUG USE?NO CAFFEINE CAFFEINE USE?YES HOW OFTEN AND HOW MUCH? 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 DIET: REGULAR. EXERCISE: WALKS. MARITAL STATUS: . NEW PATIENT PAIN DIARY TODAY'S VISITNOTES 02/21/2020 PATIENT DESCRIBES PAIN :ACHING, HAVE IT ALL THE TIME FROM 0-10, WHAT LEVEL IS YOUR PAIN TODAY?6 PAIN CLINIC PFS, CLERGY, PUBLIC HEALTH REFERRALS PFS REFERRAL NEEDED?NO CLERGY REFERRAL NEEDED?NO PUBLIC HEALTH REFERRAL NEEDED?NO HAS THE PATIENT BEEN EDUCATED REGARDING HIS/HER PLAN OF CARE?YES HAS THE PATIENT BEEN EDUCATED REGARDING PAIN, THE RISK FOR PAIN, THE IMPORTANCE OF EFFECTIVE PAIN MANAGEMENT, AND THE PAIN ASSESSMENT PROCESS?YES ADVANCE DIRECTIVE ADVANCE DIRECTIVE DISCUSSED WITH PATIENT:YES 02/21/2020 PT DOES NOT HAVE ANY ADVANCED DIRECTIVES. SHE STATES SHE HAS INFORMATION ON HCP ALREADY. HELP OFFERED IN FILLING FORM OUT IF NEEDED. SHE DECLINES AT THIS TIME. JS HOSPITALIZATION/MAJOR DIAGNOSTIC PROCEDURE SURGERIES CHILDBIRTH REVIEW OF SYSTEMS REVIEWED BY: PROVIDER: EDGARD CONCEPCION . CONSTITUTIONAL: ANY CHANGE IN YOUR MEDICAL CONDITION? NO . CHILLS NO . FEVER NO . INFECTION: DO YOU HAVE NEW INFECTIONS? NO . DO YOU HAVE HISTORY OF MRSA? NO . MUSCULOSKELETAL: ANY NEW PATTERNS OF PAIN OR NUMBNESS? NO . GASTROENTEROLOGY: ANY NEW CHANGE IN BOWEL CONTROL? NO . GENITOURINARY: ANY NEW CHANGE IN BLADDER CONTROL? NO . IS THERE A CHANCE YOU COULD BE ? NO . HEMATOLOGY/LYMPH: DO YOU TAKE ANY BLOOD THINNERS? (FOR EXAMPLE- COUMADIN, PLAVIX, AGGRENOX, PLATEL, PRADAXA, OR XARELTO) NO . WHEN WAS YOUR LAST DOSE? DATE: TIME: . NEUROLOGY: HAVE YOU FALLEN IN THE PAST 12 MONTHS? NO . ANY NEW EXTREMITY NUMBNESS OR WEAKNESS? NO . CARDIOLOGY: DO YOU HAVE A PACEMAKER OR DEFIBRILLATOR? NO . RESPIRATORY: HAVE YOU BEEN SICK IN THE PAST WEEK? NO . FEVER NO . FLU LIKE SYMPTOMS? NO . COUGH NO . INTEGUMENTARY: DO YOU HAVE ANY RASHES OR OPEN SORES? NO . ALLERGIC/IMMUNO: ARE YOU ALLERGIC TO IV DYE? NO . ANY NEW ALLERGIES? NO . PSYCHIATRIC: DO YOU HAVE THOUGHTS OF HURTING YOURSELF OR SOMEONE ELSE? NO . ARE YOU ABUSED, NEGLECTED, OR IN AN UNSAFE ENVIRONMENT? NO . ENDOCRINOLOGY: ARE YOU DIABETIC? NO . OTHER: DO YOU NEED ANY PRESCRIPTIONS? NO . IF YES, PLEASE LIST: ____ . ANY NEW PROBLEMS WITH YOUR MEDICATIONS? NO . WHEN DID YOU LAST EAT? ____ . WHEN DID YOU LAST DRINK? ____ . WHAT DID YOU LAST DRINK? ____ . NAME OF PERSON DRIVING YOU HOME? ____ . DO YOU HAVE ANY OTHER QUESTIONS OR CONCERNS NO . VITAL SIGNS WT 229 LBS, HT 66 IN, BMI 36.96 INDEX, BP 163/89 MM HG, HR 101 /MIN, RR 14 /MIN, TEMP 96.6 F, OXYGEN SAT % 97%, SAFE IN ENV? (Y/N) YES, REVIEWED BY: LIA. EXAMINATION GENERAL EXAMINATION: GENERAL ALERT,NO DISTRESS . PSYCH AFFECT NORMAL . LUNGS: LUNG SOUNDS ARE CLEAR . HEART: HEART RATE REGULAR . MUSCULOSKELETAL: MST 5/5 BILAT. LOWER EXTREMITIES . LUMBAR: TENDERNESS OVER LEFT SIJ .POSITIVE SONNY TEST LEFT LEG.. DIAGNOSTIC TESTS REVIEWED CT L/S [id number] . ASSESSMENTS SACROILIITIS, NOT ELSEWHERE CLASSIFIED - M46.1 (PRIMARY) TREATMENT SACROILIITIS, NOT ELSEWHERE CLASSIFIED NOTES: LEFT SIJ W OR WITHOUT STEROID-PT WILL CALL TO SCHEDULE. PREVENTIVE MEDICINE PAIN CLINIC TEACHING: PROCEDURE TEACHING REVIEWED INFORMATION ON SACROILIAC JOINT INJECTION PROCEDURE WITH PATIENT. ALSO REVIEWED PRE-PROCEDURE INSTRUCTIONS. PATIENT VERBALIZED AN UNDERSTANDING. LINDSAY RESENDEZ 02/21/2020 1:23:34 PM > . PROCEDURE CODES FA211 ESTABILISHED PATIENT [facility] FACILITY CHARGE DISPOSITION & COMMUNICATION FOLLOW UP POST (REASON: LEFT SIJ W OR WITHOUT STEROID-PT WILL CALL TO SCHEDULE) ELECTRONICALLY SIGNED BY CARLENE FERRELL ON 02/22/2020 AT 09:11 AM EDT DISCLAIMER : THIS IS A VISIT SUMMARY EXTRACTED FROM THE [employer] CHART. IT IS NOT A COPY OF THE [employer] PROGRESS NOTE. MARCIND
== END ==
LOC: M PAIN 09:00
PROVIDERS: ATTEND Nurse Practitioner Family
DX: M46.1 Sacroiliitis, not elsewhere classified (principal); Z79.82 Long term (current) use of aspirin; Z79.899 Other long term (current) drug therapy; Z91.048 Other nonmedicinal substance allergy status; Z91.018 Allergy to other foods; Z87.891 Personal history of nicotine dependence

== ENCOUNTER → 2020-03-13 | Outpatient (CLI) | payer BC ==
[2020-03-13 12:38] LABS: BASO % 0.1 % (0.0-1.0); HEMATOCRIT 40.6 % (36.0-47.0); HEMOGLOBIN 13.5 g/dl (12.0-15.5); LYMPH % 40.4 % (24.0-44.0); MEAN CORPUSCULAR HEMOGLOBIN 30.1 pg (27.0-33.0); MEAN CORPUSCULAR HGB CONC 33.3 g/dl (32.0-36.5); MEAN CORPUSCULAR VOLUME 90.6 fl (80.0-96.0); MONO # 0.6 10^3/uL (0.0-0.8); MONO % 8.2 % (0.0-5.0); NEUTROPHILS # 3.7 10^3/uL (1.5-8.5); PLATELET COUNT, AUTOMATED 222 10^3/uL (150-450); RED BLOOD COUNT 4.48 10^6/uL (4.00-5.40); WHITE BLOOD COUNT 7.3 10^3/uL (4.0-10.0)
[2020-03-13 13:10] LABS: ALBUMIN 4.1 GM/DL (3.2-5.2); ALT/SGPT 291 U/L (12-78); BILIRUBIN,TOTAL 0.6 MG/DL (0.2-1.0); BLOOD UREA NITROGEN 18 MG/DL (7-18); CALCIUM LEVEL 9.8 MG/DL (8.8-10.2); CARBON DIOXIDE LEVEL 28 MEQ/L (21-32); CHLORIDE LEVEL 105 MEQ/L (98-107); CHOLESTEROL LEVEL 174 MG/DL (<200); CHOLESTEROL RISK RATIO 3.551 (<5); CREATININE FOR GFR 0.82 MG/DL (0.55-1.30); GLOMERULAR FILTRATION RATE > 60.0 (>45); GLUCOSE, FASTING 100 MG/DL (70-100); HDL CHOLESTEROL 49 MG/DL (>40); LDL CHOLESTEROL 82 MG/DL (<100); NON-HDL-C 125 MG/DL; POTASSIUM SERUM 4.5 MEQ/L (3.5-5.1); SODIUM LEVEL 140 MEQ/L (136-145); TOTAL PROTEIN 7.1 GM/DL (6.4-8.2); TRIGLYCERIDES LEVEL 217 MG/DL (<150)
== END ==
LOC: M WUC 09:04
PROVIDERS: ATTEND Family Medicine
DX: Z00.00 Encounter for general adult medical examination without abnormal findings (principal)

== ENCOUNTER → 2020-03-19 | Outpatient (CLI) | payer BC | LOC: M LABSMTC 09:57 | PROVIDERS: ATTEND Anesthesiology | DX: Z11.59 Encounter for screening for other viral diseases (principal) ==

== ENCOUNTER → 2020-03-22 | Outpatient (CLI) | payer BC, MEDICARE ==
[~2020-03-22] MED LIST changes: +BUPIVACAINE HCL 0.25% 30ML VIAL As Ordered ONE; +ISOVUE-M 300 61% 15ML VIAL As Ordered ONE; +LIDOCAINE 1% SDV 30ML VIAL As Ordered ONE; +dexameTHASONE 10MG/1ML VIAL PRES.FREE (J1100 PER 1MG) As Ordered ONE; +diazePAM 5 MG TAB As Ordered ONE; +oxyCODONE 5MG TAB As Ordered ONE
--- NOTE | 2020-03-22 11:32 | REP ---
C-ARM VIEWS LEFT SACROILIAC JOINT: CLINICAL HISTORY: Pain. Two C-arm views of the left sacroiliac joint are performed during injection by Dr. Damon. A needle overlies the left sacroiliac joint. 21 seconds of fluoroscopy time is utilized. Electronically Signed by Saturnino Arreola MD 03/22/2020 12:21 P
--- NOTE | 2020-03-25 01:39 | ECWPNPC ---
PATIENT NAME: IAM DHALIWAL : 1955 GENDER: FEMALE VISIT DATE: 03/22/2020 DISCHARGE DATE: 03/22/20 1100 VISIT LOCKED DATE TIME: PHYSICIAN: ELENO BONE MD RESOURCE: ELENO BONE MD REASON FOR APPOINTMENT 1. LEFT SIJ HISTORY OF PRESENT ILLNESS GENERAL: -. FALL RISK SCREENING: SCREENING :NO FALLS REPORTED IN THE LAST YEAR PAIN SCREENING: PATIENT HAS A COMPLAINT OF ACUTE OR CHRONIC PAIN :YES 03/22/20 INTENSITY OF PAIN (SCALE OF 1 TO 10):6 WHAT DOES YOUR PAIN FEEL LIKE:ACHING, CONTINOUS, SHARP PAIN IS INREASED BY:ACTIVITIES PAIN IS DECREASED BY:OTHERS LAYING FLAT NURSING NOTE: - THIS PASTE UP COPY CAMERA OPERATOR ASCULTATED PATIENT'S HEART AND LUNG SOUNDS. HEART SOUNDS STRONG AND REGULAR. LUNGS CTA ALL [place]. [facility]. PAIN CENTER INTAKE QUESTIONS: DO YOU HAVE A HISTORY OF MRSA? :NO DO YOU TAKE A BLOOD THINNERS? :NO DO YOU HAVE ANY BLEEDING DISORDERS? :NO ANY NEW NUMBNESS OR WEAKNESS IN YOUR LEGS OR ARMS? :NO ANY PACEMAKER,DEFIBRILLATOR, OR DORSAL COLUMN STIMULATOR? :NO DO YOU HAVE ANY RASHES OR OPEN SORES? :YES RASH TO RIGHT ANKLE, CREAM ORDERED HAS NOT STARTED YET ARE YOU ALLERGIC TO IV DYE? :NO ARE YOU DIABETIC? :NO ANY NEW PROBLEMS WITH YOUR MEDICATIONS? :NO HAVE YOU RECEIVED A VACCINE IN THE PAST 30 DAYS? :NO DO YOU PLAN TO RECEIVE A VACCINE IN THE NEXT 21 DAYS? :NO ANY HISTORY OF SEIZURES? :NO ANY HISTORY OF CARDIAC ISSUES OR EVENTS? :NO DO YOU HAVE SLEEP APNEA? :YES DO YOU WEAR A CPAP? YES ANY RECENT HEAD INJURY? :NO DO YOU HAVE ANY NEW INFECTIONS? :NO WHEN DID YOU LAST EAT?___03/21/2020 2200___ WHEN DID YOU LAST DRINK?___03/22/2020 0700___ WHAT DID YOU LAST DRINK?___WATER___ NAME OF PERSON DRIVING YOU HOME__JIM- HUSBAND____ DO YOU HAVE ANY OTHER QUESTIONS OR CONCERNS? . CURRENT MEDICATIONS TAKING ASPIR-81 81 MG TABLET DELAYED RELEASE 1 TABLET ORALLY EVERY OTHER DAY, NOTES: 03/21/2020 0900 TAKING FISH OIL TRIPLE STRENGTH 1400 MG CAPSULE 2 CAPSULE ORALLY ONCE A DAY, NOTES: 03/21/2020 1800 TAKING COQ-10 200 MG CAPSULE 1 CAPSULE WITH A MEAL ORALLY ONCE A DAY, NOTES: 03/21/2020 1800 TAKING CALTRATE 600+D PLUS MINERALS 600-800 MG-UNIT TABLET 1 TABLET ORALLY TWICE A DAY, NOTES: 03/21/2020 1800 TAKING MULTIVITAMINS CAPSULE ORALLY ONCE DAILY, NOTES: 03/21/2020 1800 TAKING LIDOCAINE & ADHESIVE SHEET 5 % KIT DIRECTED EXTERNALLY DAILY, NOTES: PRN TAKING MAY USE CBD OIL 25MG BID, NOTES: 03/21/2020 1700 TAKING CETIRIZINE HCL 10 MG TABLET 1 TABLET ORALLY ONCE A DAY, NOTES: 03/21/2020 2100 TAKING CYMBALTA 30 MG CAPSULE DELAYED RELEASE PARTICLES 1 CAPSULE ORALLY TWICE A DAY FOR PAIN, NOTES: 03/22/2020 0630 NOT-TAKING CRESTOR 5 MG TABLET 1 TABLET ORALLY ONCE A DAY NOT-TAKING ESTROVEN + ENERGY MAX STRENGTH TABLET 1 TAB ORALLY NOT-TAKING MOVE FREE JOINT HEALTH ADVANCE - TABLET ORALLY DAILY NOT-TAKING MAY USE 1 CEYLON CINNAMON 2 CAP ORALLY ONCE DAILY NOT-TAKING MAY USE ULTRA NICA 1 CAP ORALLY DAILY NOT-TAKING GABAPENTIN 300 MG CAPSULE 1 CAPSULE ORALLY DAILY AT BEDTIME NOT-TAKING CLARITIN 10 MG TABLET 1 TABLET ORALLY ONCE A DAY NOT-TAKING MAY USE DICLOFENAC GEL 1% TID NOT-TAKING IBUPROFEN 200 MG 1 TAB ORAL BEFORE BEDTIME PRN NOT-TAKING CULTURELLE CAPSULE ORALLY ONCE DAILY NOT-TAKING EMERGEN-C IMMUNE PACKET ORALLY ONCE DAILY NOT-TAKING PAZEO 0.7 % SOLUTION 1 DROP INTO AFFECTED EYE OPHTHALMIC ONCE A DAY NOT-TAKING MAY USE MYOCALM 2 CAPS ORALLY ONCE DAILY NOT-TAKING VALIUM 5 MG TABLET 1 TAB DIRECTED ORALLY 1 TAB 1HR PRE MRI AND 1 TAB AT TIME OF MRI MDD2 MEDICATION LIST REVIEWED AND RECONCILED WITH THE PATIENT PAST MEDICAL HISTORY BRI - CPAP IMPLANTABLE LOOP RECORDER- FOR EPISODES OF SYNCOPE( [id number]) HYPERLIPID CHRONIC BACK AND NECK PAIN HEADACHES DIZZINESS HAS BEEN KNOWN TO VASAL VAGAL SEVERLY WITH PROCEDURES INVOLVING NEEDLES CARPAL TUNNEL RIGHT HAND DE QUERVAIN'S TENOSYNOVITIS-RIGHT TENNIS ELBOW-RIGHT LEFT INTERCOSTAL NEURALGIA ALLERGIES TAPE: RASH - ALLERGY ORANGE: DRY MOUTH/DIFFICULTY SWALLOWING - ALLERGY PINE: RASH/CONGESTION - ALLERGY GRASS: SNEEZING, WATERY EYES SURGICAL HISTORY TONSILLECTOMY 1965 D/C (MISCARRIAGE) 12/1978 D/C ENDOMETRIAL ABLATION 08/1979 HYSTERECTOMY/OOPHORECTOMY 11/2009 IMPLANTABLE LOOP RECORDER 01/2015 THYROID BX 06/2016 RIGHT HAND CARPAL TUNNEL RELEASE 04/22/2018 REMOVAL OF LOOP RECORDER 06/2018 FAMILY HISTORY FATHER: , COLON CA, DIAGNOSED WITH DIABETES, HYPERTENSION, UNSPECIFIED CEREBRAL ARTERY OCCLUSION WITH CEREBRAL INFARCTION, OTHER MALIGNANT NEOPLASM OF UNSPECIFIED SITE MOTHER: , ENDOMETRIAL CA PARKINSONS ALZHEIMER'S DEMENTIA,, OTHER MALIGNANT NEOPLASM OF UNSPECIFIED SITE DAUGHTER(S): DIABETES DAUGHTER IS TYPE 1 DIABETIC. SOCIAL HISTORY GENERAL: TOBACCO USE ARE YOU A:FORMER SMOKER HOW LONG HAS IT BEEN SINCE YOU LAST SMOKED? QUIT 12/2015 LATEX QUESTIONNAIRE LATEX ALLERGY : HAVE YOU EVER DEVELOPED ANY TYPE OF REACTION AFTER HANDLING LATEX PRODUCTS SUCH RUBBER GLOVES, CONDOMS, DIAPHRAGMS, BALLOONS, SOCKS, OR UNDERWEAR?NO LATEX ALLERGY : HAVE YOU EVER DEVELOPED ANY TYPE OF REACTION DURING OR AFTER DENTAL APPOINTMENT, VAGINAL/RECTAL EXAMINATION, SURGICAL PROCEDURE, OR ANY OTHER EXPOSURE?NO DATE ASKED : 12/22/2019 LATEX RISK : HAVE YOU EVER HAD ANY DIFFICULTY BREATHING OR HIVES AFTER EATING OR HANDLING ANY FRUITS, OR VEGETABLES; SUCH KIWI, BANANAS, STONE FRUITS, OR CHESTNUTSNO LATEX RISK : DO YOU HAVE A PREVIOUS PERSONAL HISTORY OF MORE THAN NINE SURGERIES, SPINA BIFIDA, OR REPEATED CATHERIZATIONS? NO LATEX RISK : ARE YOU FREQUENTLY EXPOSED TO LATEX PRODUCTS IN YOUR OCCUPATION?NO ALCOHOL SCREENING DID YOU HAVE A DRINK CONTAINING ALCOHOL IN THE PAST YEAR?NO POINTS0 INTERPRETATIONNEGATIVE RECREATIONAL DRUG USE DRUG USE?NO CAFFEINE CAFFEINE USE?YES HOW OFTEN AND HOW MUCH? 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 DIET: REGULAR. EXERCISE: WALKS. MARITAL STATUS: . PAIN CLINIC PFS, CLERGY, PUBLIC HEALTH REFERRALS PFS REFERRAL NEEDED?NO CLERGY REFERRAL NEEDED?NO PUBLIC HEALTH REFERRAL NEEDED?NO HAS THE PATIENT BEEN EDUCATED REGARDING HIS/HER PLAN OF CARE?YES HAS THE PATIENT BEEN EDUCATED REGARDING PAIN, THE RISK FOR PAIN, THE IMPORTANCE OF EFFECTIVE PAIN MANAGEMENT, AND THE PAIN ASSESSMENT PROCESS?YES ADVANCE DIRECTIVE ADVANCE DIRECTIVE DISCUSSED WITH PATIENT:YES PT DOES NOT HAVE ANY ADVANCED DIRECTIVES. SHE STATES SHE HAS INFORMATION ON HCP ALREADY. HELP OFFERED IN FILLING FORM OUT IF NEEDED. SHE DECLINES AT THIS TIME. HOSPITALIZATION/MAJOR DIAGNOSTIC PROCEDURE SURGERIES CHILDBIRTH VITAL SIGNS WT 230.6 LBS, HT 66 IN, BMI 37.22 INDEX, BP 168/77 MM HG, REPEAT BP 143/62 RT ARM, HR 90 /MIN, RR 16 /MIN, TEMP 96.1 F, OXYGEN SAT % 99%, NA INITIALS TL 0855, REVIEWED BY: MENA. EXAMINATION GENERAL EXAMINATION: THE PATIENT IS ALERT, ORIENTED TIMES THREE AND COOPERATIVE. HEART SHOWS REGULAR RHYTHM, NO MURMURS AND NO GALLOPS. LUNGS ARE CLEAR TO AUSCULTATION. 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 PROCEDURES PN SI PRE PROCEDURE DIAGNOSIS SACROILIITIS, SACROILIAC JOINT DYSFUNCTION POST PROCEDURE DIAGNOSIS SACROILIITIS, SACROILIAC JOINT DYSFUNCTION PROCEDURE LEFT SACROILIAC JOINT BLOCK SURGEON DR. ELENO BONE CAR REPAIRER PULLMAN NONE ANESTHESIA LOCAL PRE PROCEDURE NOTE THE PATIENT WITH HISTORY OF CHRONIC LOW BACK PAIN. I EVALUATED THE PATIENT AND REVIEWED THE CHART. I WENT OVER THE RISKS, ALTERNATIVES, AND BENEFITS ASSOCIATED WITH THIS PROCEDURE. I DISCUSSED THAT THE USE OF STEROIDS MAY CONTRIBUTE TO IMMUNOSUPPRESSION OF THE PATIENT'S BODY AGAINST INFECTIONS SUCH THE VILLAGOMEZ VIRUS, COVID-19. THE PATIENT IS AWARE OF THE POTENTIAL COMPLICATIONS ASSOCIATED WITH AN INFECTION OF THIS VIRUS INCLUDING . THE PATIENT WOULD LIKE TO PROCEED AND GAVE CONSENT TO PERFORM THE PROCEDURE. THE PATIENT DENIES UNEXPLAINABLE WEIGHT LOSS, FEVER, CHILLS, OR NEW CHANGES IN URINARY OR BOWEL CONTROL. THE PATIENT IS COVID-19 NEGATIVE DESCRIPTION OF PROCEDURE THE PATIENT WAS BROUGHT TO THE PROCEDURE ROOM AND PLACED IN THE PRONE POSITION. THE LUMBOSACRAL AREA WAS CLEANED WITH CHLORAPREP SOLUTION AND DRAPED ASEPTICALLY. THE PROCEDURE WAS DONE UNDER STERILE CONDITIONS. I CHECKED LATERALITY AND THE LEVEL WHERE THE PROCEDURE WAS GOING TO BE PERFORMED WITH THE PATIENT AND THE SUPPORTING STAFF AT THE MOMENT OF THE TIME OUT IN THE PROCEDURE ROOM. UNDER FLUOROSCOPIC GUIDANCE, TARGET POINT WAS SELECTED AT THE LOWER BORDER OF THE LEFT SACROILIAC JOINT. TARGET POINT WAS SELECTED AFTER MEDIAL ROTATION AND TILT OF THE MAGNIFIER OF THE C-ARM. LIDOCAINE WAS USED TO NUMB THE SKIN AND SUBCUTANEOUS TISSUE BELOW IT. A SPINAL NEEDLE, 22-GAUGE, WAS ADVANCED UNDER FLUOROSCOPIC GUIDANCE AND FOLLOWING PATIENT FEEDBACK UNTIL THE TARGET AREA WAS TOUCHED. THE POSITION OF THE NEEDLE WAS VERIFIED WITH AP AND LATERAL VIEWS. AFTER PROPER POSITION OF THE NEEDLE WAS ACHIEVED, ISOVUE M DYE 30%, 0.25 ML, WAS INJECTED SHOWING SPREAD OF THE DYE. THEN, A SOLUTION OF 10 MG OF DEXAMETHASONE WAS INJECTED IN THE LEFT JOINT WITH 3 ML OF BUPIVACAINE 0.125%. THERE WAS NO EVIDENCE OF BLOOD, PARESTHESIA OR CEREBROSPINAL FLUID DURING THE PROCEDURE. THE PATIENT WAS SENT TO THE RECOVERY ROOM. THE PATIENT WAS MOVING THE EXTREMITIES AND DOING WELL. THERE WAS NO COMPLICATION DURING THE PROCEDURE. FLUOROSCOPY TIME WAS 21 SECONDS POST PROCEDURE NOTE THE PROCEDURE DONE WAS DISCUSSED WITH THE PATIENT. THE PATIENT WILL BE SEEN IN A FOLLOW UP IN THE NEXT FEW WEEKS. I AM LOOKING FOR LONG LASTING PAIN RELIEF FOR THE PATIENT WITH THIS INTERVENTION. INSTRUCTIONS WERE GIVEN, QUESTIONS WERE ANSWERED, AND THE PATIENT EXPRESSED UNDERSTANDING AND AGREES WITH THE PLAN. THE PATIENT IS AWARE TO STAY HOME FOR THE NEXT WEEK, IF POSSIBLE, DUE TO COVID-19. I, ANNETTE MERCADO, DOCUMENTED THE ABOVE INFORMATION ACTING A SCRIBE FOR DR. BONE. I HAVE REVIEWED THE ABOVE DOCUMENT, WRITTEN BY ANNETTE MERCADO, PHOTOGRAPHIC PLATEMAKER, AND I VERIFY THAT IT IS ACCURATE PROCEDURE CODES 19442 INJECT SACROILIAC JOINT, MODIFIERS: LT DISPOSITION & COMMUNICATION FOLLOW UP F/UP WITH HOME CARE LIAISON (REASON: POST LEFT SIJ) ELECTRONICALLY SIGNED BY ELENO BONE MD, MD ON 03/24/2020 AT 11:06 AM EDT DISCLAIMER : THIS IS A VISIT SUMMARY EXTRACTED FROM THE [employer] CHART. IT IS NOT A COPY OF THE [employer] PROGRESS NOTE. ALCON
== END ==
LOC: M PAIN 09:00
PROVIDERS: ATTEND Anesthesiology
DX: M46.1 Sacroiliitis, not elsewhere classified (principal); M53.3 Sacrococcygeal disorders, not elsewhere classified
CPT/HCPCS: G0260; J1100; Q9967

== ENCOUNTER → 2020-04-06 | Outpatient (CLI) | payer BC, MEDICARE ==
[~2020-04-06] MED LIST changes: -BUPIVACAINE HCL 0.25% 30ML VIAL As Ordered ONE; -ISOVUE-M 300 61% 15ML VIAL As Ordered ONE; -LIDOCAINE 1% SDV 30ML VIAL As Ordered ONE; -dexameTHASONE 10MG/1ML VIAL PRES.FREE (J1100 PER 1MG) As Ordered ONE; -diazePAM 5 MG TAB As Ordered ONE; -oxyCODONE 5MG TAB As Ordered ONE
--- NOTE | 2020-04-07 01:33 | ECWPNPC ---
PATIENT NAME: IAM DHALIWAL : 1955 GENDER: FEMALE VISIT DATE: 04/06/2020 DISCHARGE DATE: 04/06/20 1057 VISIT LOCKED DATE TIME: PHYSICIAN: EDGARD STEWART RESOURCE: EDGARD STEWART REASON FOR APPOINTMENT 1. POST SIJ HISTORY OF PRESENT ILLNESS GENERAL: HERE FOR POST PROCEDURE FOLLOW-UP. HAD LEFT SACROILIAC JOINT BLOCK ON 03/22/2020. REPORTING MARKED REDUCTION IN PAIN THAT CONTINUES TODAY. CHIEF AREA OF PAIN IS LEFT LOWER COSTAL THORACIC REGION. THIS HAS RESPONDED WELL TO T10, T11 INTERCOSTAL NERVE BLOCK IN THE PAST. RATING PAIN IN THAT AREA 5/10 VAS. REVIEWED MRI AND DISCUSSED TREATMENT OPTIONS. -. FALL RISK SCREENING: SCREENING :NO FALLS REPORTED IN THE LAST YEAR PAIN SCREENING: PATIENT HAS A COMPLAINT OF ACUTE OR CHRONIC PAIN :YES 04/06/20 INTENSITY OF PAIN (SCALE OF 1 TO 10):5 WHAT DOES YOUR PAIN FEEL LIKE:ACHING, CONTINOUS, INTERMITTENT, SHARP PAIN IS INCREASED BY: STANDING PAIN IS DECREASED BY: REST NURSING NOTE: -. PAIN CENTER INTAKE QUESTIONS: DO YOU HAVE A HISTORY OF MRSA? :NO DO YOU TAKE A BLOOD THINNERS? :NO DO YOU HAVE ANY BLEEDING DISORDERS? :NO ANY NEW NUMBNESS OR WEAKNESS IN YOUR LEGS OR ARMS? :NO ANY PACEMAKER,DEFIBRILLATOR, OR DORSAL COLUMN STIMULATOR? :NO DO YOU HAVE ANY RASHES OR OPEN SORES? :NO ARE YOU ALLERGIC TO IV DYE? :NO ARE YOU DIABETIC? :NO ANY NEW PROBLEMS WITH YOUR MEDICATIONS? :NO HAVE YOU RECEIVED A VACCINE IN THE PAST 30 DAYS? :NO DO YOU PLAN TO RECEIVE A VACCINE IN THE NEXT 21 DAYS? :NO DO YOU NEED ANY PRESCRIPTION? :YES DULOXETINE DO YOU TAKE ANY IMMUNOSUPPRESSIVE MEDICATIONS? :NO IS THERE A CHANCE YOU COULD BE ? :NO ARE YOU BREAST FEEDING? :NO CURRENT MEDICATIONS TAKING ASPIR-81 81 MG TABLET DELAYED RELEASE 1 TABLET ORALLY EVERY OTHER DAY TAKING FISH OIL TRIPLE STRENGTH 1400 MG CAPSULE 2 CAPSULE ORALLY ONCE A DAY TAKING COQ-10 200 MG CAPSULE 1 CAPSULE WITH A MEAL ORALLY ONCE A DAY TAKING CALTRATE 600+D PLUS MINERALS 600-800 MG-UNIT TABLET 1 TABLET ORALLY TWICE A DAY TAKING MULTIVITAMINS CAPSULE ORALLY ONCE DAILY TAKING LIDOCAINE & ADHESIVE SHEET 5 % KIT DIRECTED EXTERNALLY DAILY TAKING MAY USE CBD OIL 25MG BID TAKING CETIRIZINE HCL 10 MG TABLET 1 TABLET ORALLY ONCE A DAY TAKING CYMBALTA 30 MG CAPSULE DELAYED RELEASE PARTICLES 1 CAPSULE ORALLY TWICE A DAY FOR PAIN NOT-TAKING CRESTOR 5 MG TABLET 1 TABLET ORALLY ONCE A DAY NOT-TAKING ESTROVEN + ENERGY MAX STRENGTH TABLET 1 TAB ORALLY NOT-TAKING MOVE FREE JOINT HEALTH ADVANCE - TABLET ORALLY DAILY NOT-TAKING MAY USE 1 CEYLON CINNAMON 2 CAP ORALLY ONCE DAILY NOT-TAKING MAY USE ULTRA NICA 1 CAP ORALLY DAILY NOT-TAKING GABAPENTIN 300 MG CAPSULE 1 CAPSULE ORALLY DAILY AT BEDTIME NOT-TAKING CLARITIN 10 MG TABLET 1 TABLET ORALLY ONCE A DAY NOT-TAKING MAY USE DICLOFENAC GEL 1% TID NOT-TAKING IBUPROFEN 200 MG 1 TAB ORAL BEFORE BEDTIME PRN NOT-TAKING CULTURELLE CAPSULE ORALLY ONCE DAILY NOT-TAKING EMERGEN-C IMMUNE PACKET ORALLY ONCE DAILY NOT-TAKING PAZEO 0.7 % SOLUTION 1 DROP INTO AFFECTED EYE OPHTHALMIC ONCE A DAY NOT-TAKING MAY USE MYOCALM 2 CAPS ORALLY ONCE DAILY NOT-TAKING VALIUM 5 MG TABLET 1 TAB DIRECTED ORALLY 1 TAB 1HR PRE MRI AND 1 TAB AT TIME OF MRI MDD2 MEDICATION LIST REVIEWED AND RECONCILED WITH THE PATIENT PAST MEDICAL HISTORY BRI - CPAP IMPLANTABLE LOOP RECORDER- FOR EPISODES OF SYNCOPE( [id number]) HYPERLIPID CHRONIC BACK AND NECK PAIN HEADACHES DIZZINESS HAS BEEN KNOWN TO VASAL VAGAL SEVERLY WITH PROCEDURES INVOLVING NEEDLES CARPAL TUNNEL RIGHT HAND DE QUERVAIN'S TENOSYNOVITIS-RIGHT TENNIS ELBOW-RIGHT LEFT INTERCOSTAL NEURALGIA ALLERGIES TAPE: RASH - ALLERGY ORANGE: DRY MOUTH/DIFFICULTY SWALLOWING - ALLERGY PINE: RASH/CONGESTION - ALLERGY GRASS: SNEEZING, WATERY EYES SURGICAL HISTORY TONSILLECTOMY 1965 D/C (MISCARRIAGE) 12/1978 D/C ENDOMETRIAL ABLATION 08/1979 HYSTERECTOMY/OOPHORECTOMY 11/2009 IMPLANTABLE LOOP RECORDER 01/2015 THYROID BX 06/2016 RIGHT HAND CARPAL TUNNEL RELEASE 04/22/2018 REMOVAL OF LOOP RECORDER 06/2018 FAMILY HISTORY FATHER: , COLON CA, DIAGNOSED WITH HYPERTENSION, UNSPECIFIED CEREBRAL ARTERY OCCLUSION WITH CEREBRAL INFARCTION, OTHER MALIGNANT NEOPLASM OF UNSPECIFIED SITE, DIABETES MOTHER: , ENDOMETRIAL CA PARKINSONS ALZHEIMER'S DEMENTIA,, OTHER MALIGNANT NEOPLASM OF UNSPECIFIED SITE DAUGHTER(S): DIABETES DAUGHTER IS TYPE 1 DIABETIC. SOCIAL HISTORY GENERAL: TOBACCO USE ARE YOU A:FORMER SMOKER HOW LONG HAS IT BEEN SINCE YOU LAST SMOKED? QUIT 12/2015 LATEX QUESTIONNAIRE LATEX ALLERGY : HAVE YOU EVER DEVELOPED ANY TYPE OF REACTION AFTER HANDLING LATEX PRODUCTS SUCH RUBBER GLOVES, CONDOMS, DIAPHRAGMS, BALLOONS, SOCKS, OR UNDERWEAR?NO LATEX ALLERGY : HAVE YOU EVER DEVELOPED ANY TYPE OF REACTION DURING OR AFTER DENTAL APPOINTMENT, VAGINAL/RECTAL EXAMINATION, SURGICAL PROCEDURE, OR ANY OTHER EXPOSURE?NO DATE ASKED : 12/22/2019 LATEX RISK : HAVE YOU EVER HAD ANY DIFFICULTY BREATHING OR HIVES AFTER EATING OR HANDLING ANY FRUITS, OR VEGETABLES; SUCH KIWI, BANANAS, STONE FRUITS, OR CHESTNUTSNO LATEX RISK : DO YOU HAVE A PREVIOUS PERSONAL HISTORY OF MORE THAN NINE SURGERIES, SPINA BIFIDA, OR REPEATED CATHERIZATIONS? NO LATEX RISK : ARE YOU FREQUENTLY EXPOSED TO LATEX PRODUCTS IN YOUR OCCUPATION?NO ALCOHOL SCREENING DID YOU HAVE A DRINK CONTAINING ALCOHOL IN THE PAST YEAR?NO POINTS0 INTERPRETATIONNEGATIVE RECREATIONAL DRUG USE DRUG USE?NO CAFFEINE CAFFEINE USE?YES HOW OFTEN AND HOW MUCH? 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 DIET: REGULAR. EXERCISE: WALKS. MARITAL STATUS: . PAIN CLINIC PFS, CLERGY, PUBLIC HEALTH REFERRALS PFS REFERRAL NEEDED?NO CLERGY REFERRAL NEEDED?NO PUBLIC HEALTH REFERRAL NEEDED?NO HAS THE PATIENT BEEN EDUCATED REGARDING HIS/HER PLAN OF CARE?YES HAS THE PATIENT BEEN EDUCATED REGARDING PAIN, THE RISK FOR PAIN, THE IMPORTANCE OF EFFECTIVE PAIN MANAGEMENT, AND THE PAIN ASSESSMENT PROCESS?YES ADVANCE DIRECTIVE ADVANCE DIRECTIVE DISCUSSED WITH PATIENT:YES PT DOES NOT HAVE ANY ADVANCED DIRECTIVES. SHE STATES SHE HAS INFORMATION ON HCP ALREADY. HELP OFFERED IN FILLING FORM OUT IF NEEDED. SHE DECLINES AT THIS TIME. HOSPITALIZATION/MAJOR DIAGNOSTIC PROCEDURE SURGERIES CHILDBIRTH REVIEW OF SYSTEMS CONSTITUTIONAL: ANY RECENT FEVER OR ILLNESS NO . CHILLS NO . GASTROENTEROLOGY: BOWEL INCONTINENCE NO . ANY NEW CHANGE IN BOWEL CONTROL? NO . ABDOMINAL PAIN NO . CONSTIPATION NO . GENITOURINARY: ANY NEW CHANGE IN BLADDER CONTROL? NO . IS THERE A CHANCE YOU COULD BE ? NO . URINARY INCONTINENCE NO . CARDIOLOGY: CHEST PRESSURE NO . CHEST PAIN NO . RESPIRATORY: COUGH NO . SHORTNESS OF BREATH NO . VITAL SIGNS WT 229.0 LBS, HT 66 IN, BMI 36.96 INDEX, BP 156/69 MM HG, HR 96 /MIN, RR 18 /MIN, TEMP 96.1 F, OXYGEN SAT % 99%, NA INITIALS TL 1031. EXAMINATION GENERAL EXAMINATION: LUNGS: LUNG SOUNDS ARE CLEAR. HEART: S1, S2 IN A REGULAR RATE AND RHYTHM. NO SIGNIFICANT MURMURS, RUBS OR GALLOPS NOTED. THORACIC SPINE:SPECIFIC INTERCOSTAL TENDERNESS T 9-10, T10-11 LEFT. DIAGNOSTIC TESTS REVIEWED THORACIC MRI-08/21/18. 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 PROCEDURE CODES FA211 ESTABILISHED PATIENT [facility] FACILITY CHARGE DISPOSITION & COMMUNICATION FOLLOW UP POST (REASON: LEFT T10-11 INTERCOSTAL NERVE BLOCK W IV ACCESS HX VASOVAGAL) ELECTRONICALLY SIGNED BY CARLENE FERRELL ON 04/06/2020 AT 11:19 AM EDT DISCLAIMER : THIS IS A VISIT SUMMARY EXTRACTED FROM THE [employer] CHART. IT IS NOT A COPY OF THE [employer] PROGRESS NOTE. ALCON
== END ==
LOC: M PAIN 10:30
PROVIDERS: ATTEND Nurse Practitioner Family
DX: G58.8 Other specified mononeuropathies (principal); M46.1 Sacroiliitis, not elsewhere classified

== ENCOUNTER → 2020-04-10 | Outpatient (CLI) | payer BC ==
[2020-04-10 12:14] LABS: BILIRUBIN,DIRECT 0.1 MG/DL (0.0-0.2); BILIRUBIN,TOTAL 0.5 MG/DL (0.2-1.0)
== END ==
LOC: M WUC 09:04
PROVIDERS: ATTEND Family Medicine
DX: R94.5 Abnormal results of liver function studies (principal)

== ENCOUNTER → 2020-04-21 | Outpatient (CLI) | payer BC, MEDICARE | LOC: M LABSMTC 10:17 | PROVIDERS: ATTEND Anesthesiology | DX: Z11.59 Encounter for screening for other viral diseases (principal); Z03.818 Encounter for observation for suspected exposure to other biological agents ruled out | CPT/HCPCS: C9803; U0003 ==

== ENCOUNTER → 2020-04-24 | Outpatient (CLI) | payer BC, MEDICARE ==
[~2020-04-24] MED LIST changes: +BUPIVACAINE HCL 0.25% 30ML VIAL As Ordered ONE; +ISOVUE-M 300 61% 15ML VIAL As Ordered ONE; +LIDOCAINE 1% SDV 30ML VIAL As Ordered ONE; +TRIAMCINOLONE ACETONIDE SUSP 40 MG/ML VIAL (J3301) As Ordered ONE; +diazePAM 5 MG TAB As Ordered ONE; +oxyCODONE 5MG TAB As Ordered ONE
--- NOTE | 2020-04-24 11:00 | REP ---
Chest x-ray: Three views including inspiration expiration PA images. History: Rule out pneumothorax. Comparison chest x-ray January 03 2020. Findings: Inspiration and expiration PA chest x-rays are obtained along with a lateral view. There is no evidence of pneumothorax or hydrothorax. Cardiomediastinal silhouette is unremarkable and unchanged. Lung kessler are clear. Impression: No active disease. No pneumothorax seen. Electronically Signed by Johnson Perkins MD 04/24/2020 10:52 A
--- NOTE | 2020-04-24 12:41 | REP ---
PARTIAL CHEST SERIES: 12 VIEWS. HISTORY: Procedural imaging left intercostal nerve block. 22 seconds of fluoroscopy time is reported. FINDINGS: A sequence of 12 last image hold fluoroscopically obtained spot radiographs of the left posterior chest document needle position and contrast injection associated with injection procedure. Electronically Signed by Johnson Perkins MD 04/24/2020 12:46 P
--- NOTE | 2020-04-25 02:04 | ECWPNPC ---
PATIENT NAME: IAM DHALIWAL : 1955 GENDER: FEMALE VISIT DATE: 04/24/2020 DISCHARGE DATE: 04/24/20 1121 VISIT LOCKED DATE TIME: PHYSICIAN: ELENO BONE MD RESOURCE: ELENO BONE MD REASON FOR APPOINTMENT 1. , INTERCOSTAL NERVE BLOCK W/ IV ACCESS HX VASOVAGAL HISTORY OF PRESENT ILLNESS GENERAL: -. FALL RISK SCREENING: SCREENING :NO FALLS REPORTED IN THE LAST YEAR PAIN SCREENING: PATIENT HAS A COMPLAINT OF ACUTE OR CHRONIC PAIN :YES LOCATION OF PAIN:MID BACK LEFT SIDE INTENSITY OF PAIN (SCALE OF 1 TO 10):7 REPORTED BEST LEVEL 2-3, WITH THE WORST BEING ABOUT A 7. WHAT DOES YOUR PAIN FEEL LIKE:BURNING, OTHER DESCRIBED A "GRIPPING" PAIN DURATION:STEADY, AWAKENS FROM SLEEP NURSING NOTE: -. PAIN CENTER INTAKE QUESTIONS: DO YOU HAVE A HISTORY OF MRSA? :NO DO YOU TAKE A BLOOD THINNERS? :NO DO YOU HAVE ANY BLEEDING DISORDERS? :NO ANY NEW NUMBNESS OR WEAKNESS IN YOUR LEGS OR ARMS? :NO ANY PACEMAKER,DEFIBRILLATOR, OR DORSAL COLUMN STIMULATOR? :NO DO YOU HAVE ANY RASHES OR OPEN SORES? :NO ARE YOU ALLERGIC TO IV DYE? :NO ARE YOU DIABETIC? :NO ANY NEW PROBLEMS WITH YOUR MEDICATIONS? :YES PT REPORTS THAT SOME OF HER MEDICATIONS HAVE BEEN CHANGED BY HER PRIMARY DUE TO ELEVATED LIVER ENZYMES. HAVE YOU RECEIVED A VACCINE IN THE PAST 30 DAYS? :NO DO YOU PLAN TO RECEIVE A VACCINE IN THE NEXT 21 DAYS? :NO DO YOU TAKE ANY IMMUNOSUPPRESSIVE MEDICATIONS? :NO ANY HISTORY OF SEIZURES? :NO ANY HISTORY OF CARDIAC ISSUES OR EVENTS? :NO DO YOU HAVE SLEEP APNEA? :YES DO YOU WEAR A CPAP?YES ANY RECENT HEAD INJURY? :NO DO YOU HAVE ANY NEW INFECTIONS? :NO IS THERE A CHANCE YOU COULD BE ? :NO ARE YOU BREAST FEEDING? :NO WHEN DID YOU LAST EAT? : -04/23 2130 WHEN DID YOU LAST DRINK? : -04/24 700 WHAT DID YOU LAST DRINK? : -WATER NAME OF PERSON DRIVING YOU HOME? : - ASHLEIGH DO YOU HAVE ANY OTHER QUESTIONS OR CONCERNS? : - CURRENT MEDICATIONS TAKING ASPIR-81 81 MG TABLET DELAYED RELEASE 1 TABLET ORALLY EVERY OTHER DAY, NOTES: 04/23 700 TAKING FISH OIL TRIPLE STRENGTH 1400 MG CAPSULE 2 CAPSULE ORALLY ONCE A DAY, NOTES: 04/23 1830 TAKING COQ-10 200 MG CAPSULE 1 CAPSULE WITH A MEAL ORALLY ONCE A DAY, NOTES: 04/23 1830 TAKING CALTRATE 600+D PLUS MINERALS 600-800 MG-UNIT TABLET 1 TABLET ORALLY TWICE A DAY, NOTES: 04/23 1830 TAKING MULTIVITAMINS CAPSULE ORALLY ONCE DAILY, NOTES: 04/23 1830 TAKING LIDOCAINE & ADHESIVE SHEET 5 % KIT DIRECTED EXTERNALLY DAILY, NOTES: 04/20 TAKING MAY USE CBD OIL 25MG BID, NOTES: 04/23 1100 TAKING CETIRIZINE HCL 10 MG TABLET 1 TABLET ORALLY ONCE A DAY, NOTES: 04/23 2100 TAKING CYMBALTA 30 MG CAPSULE DELAYED RELEASE PARTICLES 1 CAPSULE ORALLY TWICE A DAY FOR PAIN, NOTES: 04/24 630 NOT-TAKING CRESTOR 5 MG TABLET 1 TABLET ORALLY ONCE A DAY NOT-TAKING ESTROVEN + ENERGY MAX STRENGTH TABLET 1 TAB ORALLY NOT-TAKING MOVE FREE JOINT HEALTH ADVANCE - TABLET ORALLY DAILY NOT-TAKING MAY USE 1 CEYLON CINNAMON 2 CAP ORALLY ONCE DAILY NOT-TAKING MAY USE ULTRA NICA 1 CAP ORALLY DAILY NOT-TAKING GABAPENTIN 300 MG CAPSULE 1 CAPSULE ORALLY DAILY AT BEDTIME NOT-TAKING CLARITIN 10 MG TABLET 1 TABLET ORALLY ONCE A DAY NOT-TAKING MAY USE DICLOFENAC GEL 1% TID NOT-TAKING IBUPROFEN 200 MG 1 TAB ORAL BEFORE BEDTIME PRN NOT-TAKING CULTURELLE CAPSULE ORALLY ONCE DAILY NOT-TAKING EMERGEN-C IMMUNE PACKET ORALLY ONCE DAILY NOT-TAKING PAZEO 0.7 % SOLUTION 1 DROP INTO AFFECTED EYE OPHTHALMIC ONCE A DAY NOT-TAKING MAY USE MYOCALM 2 CAPS ORALLY ONCE DAILY NOT-TAKING VALIUM 5 MG TABLET 1 TAB DIRECTED ORALLY 1 TAB 1HR PRE MRI AND 1 TAB AT TIME OF MRI MDD2 MEDICATION LIST REVIEWED AND RECONCILED WITH THE PATIENT PAST MEDICAL HISTORY BRI - CPAP IMPLANTABLE LOOP RECORDER- FOR EPISODES OF SYNCOPE( [id number]) HYPERLIPID CHRONIC BACK AND NECK PAIN HEADACHES DIZZINESS HAS BEEN KNOWN TO VASAL VAGAL SEVERLY WITH PROCEDURES INVOLVING NEEDLES CARPAL TUNNEL RIGHT HAND DE QUERVAIN'S TENOSYNOVITIS-RIGHT TENNIS ELBOW-RIGHT LEFT INTERCOSTAL NEURALGIA ALLERGIES TAPE: RASH - ALLERGY ORANGE: DRY MOUTH/DIFFICULTY SWALLOWING - ALLERGY PINE: RASH/CONGESTION - ALLERGY GRASS: SNEEZING, WATERY EYES SURGICAL HISTORY TONSILLECTOMY 1965 D/C (MISCARRIAGE) 12/1978 D/C ENDOMETRIAL ABLATION 08/1979 HYSTERECTOMY/OOPHORECTOMY 11/2009 IMPLANTABLE LOOP RECORDER 01/2015 THYROID BX 06/2016 RIGHT HAND CARPAL TUNNEL RELEASE 04/22/2018 REMOVAL OF LOOP RECORDER 06/2018 FAMILY HISTORY FATHER: , COLON CA, DIAGNOSED WITH DIABETES, HYPERTENSION, UNSPECIFIED CEREBRAL ARTERY OCCLUSION WITH CEREBRAL INFARCTION, OTHER MALIGNANT NEOPLASM OF UNSPECIFIED SITE MOTHER: , ENDOMETRIAL CA PARKINSONS ALZHEIMER'S DEMENTIA,, OTHER MALIGNANT NEOPLASM OF UNSPECIFIED SITE DAUGHTER(S): DIABETES DAUGHTER IS TYPE 1 DIABETIC. SOCIAL HISTORY GENERAL: TOBACCO USE ARE YOU A:FORMER SMOKER HOW LONG HAS IT BEEN SINCE YOU LAST SMOKED? QUIT 12/2015 LATEX QUESTIONNAIRE LATEX ALLERGY : HAVE YOU EVER DEVELOPED ANY TYPE OF REACTION AFTER HANDLING LATEX PRODUCTS SUCH RUBBER GLOVES, CONDOMS, DIAPHRAGMS, BALLOONS, SOCKS, OR UNDERWEAR?NO LATEX ALLERGY : HAVE YOU EVER DEVELOPED ANY TYPE OF REACTION DURING OR AFTER DENTAL APPOINTMENT, VAGINAL/RECTAL EXAMINATION, SURGICAL PROCEDURE, OR ANY OTHER EXPOSURE?NO DATE ASKED : 12/22/2019 LATEX RISK : HAVE YOU EVER HAD ANY DIFFICULTY BREATHING OR HIVES AFTER EATING OR HANDLING ANY FRUITS, OR VEGETABLES; SUCH KIWI, BANANAS, STONE FRUITS, OR CHESTNUTSNO LATEX RISK : DO YOU HAVE A PREVIOUS PERSONAL HISTORY OF MORE THAN NINE SURGERIES, SPINA BIFIDA, OR REPEATED CATHERIZATIONS? NO LATEX RISK : ARE YOU FREQUENTLY EXPOSED TO LATEX PRODUCTS IN YOUR OCCUPATION?NO ALCOHOL SCREENING DID YOU HAVE A DRINK CONTAINING ALCOHOL IN THE PAST YEAR?NO POINTS0 INTERPRETATIONNEGATIVE RECREATIONAL DRUG USE DRUG USE?NO CAFFEINE CAFFEINE USE?YES HOW OFTEN AND HOW MUCH? 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 DIET: REGULAR. EXERCISE: WALKS. MARITAL STATUS: . PAIN CLINIC PFS, CLERGY, PUBLIC HEALTH REFERRALS PFS REFERRAL NEEDED?NO CLERGY REFERRAL NEEDED?NO PUBLIC HEALTH REFERRAL NEEDED?NO HAS THE PATIENT BEEN EDUCATED REGARDING HIS/HER PLAN OF CARE?YES HAS THE PATIENT BEEN EDUCATED REGARDING PAIN, THE RISK FOR PAIN, THE IMPORTANCE OF EFFECTIVE PAIN MANAGEMENT, AND THE PAIN ASSESSMENT PROCESS?YES ADVANCE DIRECTIVE ADVANCE DIRECTIVE DISCUSSED WITH PATIENT:YES PT DOES NOT HAVE ANY ADVANCED DIRECTIVES. SHE STATES SHE HAS INFORMATION ON HCP ALREADY. HELP OFFERED IN FILLING FORM OUT IF NEEDED. SHE DECLINES AT THIS TIME. HOSPITALIZATION/MAJOR DIAGNOSTIC PROCEDURE SURGERIES CHILDBIRTH VITAL SIGNS WT 231 LBS, HT 66 IN, BMI 37.28 INDEX, BP 160/84 MM HG, HR 90 /MIN, RR 18 /MIN, TEMP 96.9 F, OXYGEN SAT % 98%, SAFE IN ENV? (Y/N) YES, NA INITIALS SC 08:55, REVIEWED BY: LESLIE. EXAMINATION GENERAL EXAMINATION: THE PATIENT IS ALERT, ORIENTED TIMES THREE AND COOPERATIVE. HEART SHOWS REGULAR RHYTHM, NO MURMURS AND NO GALLOPS. LUNGS ARE CLEAR TO AUSCULTATION. 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) TREATMENT INTERCOSTAL NEURALGIA [facility] CHEST, 2 VIEW (PA\\LAT)[id number],ANNETTE 04/24/2020 10:12:27 AM - ON INSPIRATION AND EXPIRATION [facility] FLUORO GUIDANCE (PAIN)[id number] IV WIDE OPENSWADE SHELTON 04/24/2020 9:27:29 AM > LACTATED RINGERS DILEONATONYANNETTE 04/24/2020 10:41:25 AM > 550 ML MEDICATION: VALIUM TAB 10MG ORALLY (DIAZEPAM)PAMELA KING 04/24/2020 9:21:58 AM > VERIFIED WADE PETTY 04/24/2020 9:23:31 AM > LOT [id number], EXP DATE 10/15, GIVEN BY LESLIE MEDICATION: OXYCODONE HCL TAB 10MG ORALLYPAMELA KING 04/24/2020 9:22:26 AM > VERIFIED WADE PETTY 04/24/2020 9:24:32 AM > LOT #[id number], EXP 11/2021 GIVEN BY LESLIE PROCEDURES PAIN NURSING RECORD PRE-PROCEDURE IV SITE RIGHT HAND, IV STARTED # 20, IV STARTED BY: Nikolas KING RN, IV ATTEMPTS 1 PROCEDURE IN ROOM 0940, PHYSICIAN IN ROOM 0956, START 1001, STEROID KENALOG, O2 RA, ECG NORMAL SINUS, PATIENT SHIELDED YES, SAFETY STRAP YES, PREP CHLOROPREP, IV INFUSED LACTATED RINGERS, DRESSING TEGADERM LOC: 1. ALERT, ORIENTED RESP: 1. REGULAR, NO DYSPNEA COLOR: 1. PINK SKIN: 1. WARM, DRY POSITION: 1. PRONE VITALS: WADE PETTY 04/24/2020 9:51:02 AM > 140/66 80-18 98% , WADE PETTY 04/24/2020 10:06:27 AM > 147/66 71-18 96% , WADE PETTY 04/24/2020 10:15:19 AM > 129/58 72-18 95% PT TO XRAY VIA WHEELCHAIR FOR 2 VIEW CXR ORDERED WADE PETTY 04/24/2020 10:39:51 AM > PT RETURNED FROM XRAY VIA WHEELCHAIR. 68-18 96% 126/73 RESPIRATIONS REGULAR AND UNLABORED, LUNGS CLEAR BILATERALLY. WADE PETTY 04/24/2020 10:58:06 AM > WADE PETTY 04/24/2020 11:17:32 AM > REPORT FROM XRAY SHOWS NO ACTIVE DISEASE, NO PNEUMOTHORAX SEEN. DR. BONE NOTIFIED, OK TO DISCHARGE. DISCHARGE: POST PAIN 0, DRESSING SITE DRY AND INTACT, IV DISCONTINUED, SITE CLEAR, CATHETER INTACT, GAIT STEADY AMBULATED TO BATHROOM, GAIT STEADY, ABLE TO VOID PER PT, TEACHING COMPLETED, PATIENT ACKNOWLEDGES UNDERSTANDING YES, PATIENT DISCHARGED AT 1119 PRE-PROCEDURE DIAGNOSIS: INTERCOSTAL NEURALGIA. CHEST WALL PAIN POST-PROCEDURE DIAGNOSIS: INTERCOSTAL NEURALGIA. CHEST WALL PAIN PROCEDURE: LEFT T10 AND LEFT T11 INTERCOSTAL NERVE BLOCK UNDER FLUOROSCOPIC GUIDANCE. SURGEON: ELENO BONE MD ANESTHESIA: LOCAL COMPLICATIONS: NONE PRE-PROCEDURE NOTE: THE PATIENT IS SUFFERING OF CHEST WALL PAIN. I REVIEWED THE CHART. I DISCUSSED THE RISKS, BENEFITS AND ALTERNATIVES ASSOCIATED WITH THIS PROCEDURE AND THE PATIENT EXPRESSED WILLINGNESS TO PROCEED. THE PATIENT IS AWARE THAT THE MAIN POTENTIAL COMPLICATION IS THE DEVELOPMENT OF A PNEUMOTHORAX, IN WHICH CASE A CHEST TUBE WILL BE NEEDED. I DISCUSSED THAT THE USE OF STEROIDS MAY CONTRIBUTE TO IMMUNOSUPPRESSION OF THE PATIENT'S BODY AGAINST INFECTIONS SUCH COVID-19. THE PATIENT IS AWARE OF THE POTENTIAL COMPLICATIONS ASSOCIATED WITH THIS VIRUS, INCLUDING, BUT NOT LIMITED TO, . I DISCUSSED THE USE OF DEXAMETHASONE INSTEAD OF KENALOG; HOWEVER, THE PATIENT WOULD LIKE TO MOVE FORWARD WITH KENALOG. THE PATIENT DENIES UNEXPLAINABLE WEIGHT LOSS FEVER CHILLS NEW CHANGES IN THE URINARY OR BOWEL CONTROL. THE PATIENT IS COVID-19 NEGATIVE. DESCRIPTION OF PROCEDURE: AFTER CONSENT WAS TAKEN, THE PATIENT WAS BROUGHT TO THE PROCEDURE ROOM AND PLACED IN THE PRONE POSITION. THORACOLUMBAR AREA WAS CLEANED WITH CHLORAPREP SOLUTION AND DRAPED ASEPTICALLY. A TIMEOUT WAS PERFORMED WHERE LATERALITY AND THE SITE OF THE PROCEDURE WERE CHECKED AND CONFIRMED WITH EVERYONE IN THE ROOM. UNDER FLUOROSCOPIC GUIDANCE, TARGET POINT WAS SELECTED AT THE LEFT T10 AND LEFT T11 RIB. LIDOCAINE WAS USED LOCAL ANESTHETIC. SPINAL NEEDLE, 22 GAUGE 3.5 INCHES, WAS ADVANCED UNDER FLUOROSCOPIC GUIDANCE UNTIL I TOUCHED THE AFFECTED RIB. THEN THE NEEDLE WAS MOVED TO THE INFERIOR BORDER OF THE RIB. ISOVUE-M DYE 30%, 9 ML WAS INJECTED SHOWING ADEQUATE SPREAD OF THE DYE FOLLOWING THE INFERIOR BORDER OF THE RIB. THEN A SOLUTION OF 30 ML OF BUPIVACAINE 0.125% WITH KENALOG 20 MG WAS INJECTED AT EACH LEVEL. THERE WAS NO EVIDENCE OF VASCULAR UPTAKE OR LUNG PUNCTURE. PATIENT WAS SENT TO THE RECOVERY ROOM. THE PATIENT TOLERATED THE PROCEDURE WELL. THERE WERE NO COMPLICATIONS. ESTIMATED BLOOD LOSS WAS 5 ML. FLUOROSCOPIC TIME WAS 22 SECONDS. POST-PROCEDURE NOTE: I DISCUSSED THE PROCEDURE WITH THE PATIENT. CHEST X-RAY, PA AND LATERAL, ON INSPIRATION AND EXPIRATION, WAS PERFORMED TO RULE OUT PNEUMOTHORAX. THE PATIENT IS GOING TO BE SEEN IN A FOLLOWUP. I, ANNETTE MERCADO, DOCUMENTED THE ABOVE INFORMATION ACTING A SCRIBE FOR DR. BONE. I HAVE REVIEWED THE ABOVE DOCUMENT, WRITTEN BY ANNETTE MERCADO, PRESENTATION TEAM MEMBER, AND I VERIFY THAT IT IS ACCURATE. 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 IT IS NOT A COPY OF THE [employer] PROGRESS NOTE. MTDD
== END ==
LOC: M PAIN 09:00
PROVIDERS: ATTEND Anesthesiology
DX: G58.8 Other specified mononeuropathies (principal); Z79.82 Long term (current) use of aspirin; Z79.899 Other long term (current) drug therapy; Z91.018 Allergy to other foods; Z91.048 Other nonmedicinal substance allergy status; Z87.891 Personal history of nicotine dependence
CPT/HCPCS: 64421; 71046; 77003; J3301; Q9967

== ENCOUNTER → 2020-05-11 | Outpatient (CLI) | payer BC ==
[~2020-05-11] MED LIST changes: -BUPIVACAINE HCL 0.25% 30ML VIAL As Ordered ONE; -ISOVUE-M 300 61% 15ML VIAL As Ordered ONE; -LIDOCAINE 1% SDV 30ML VIAL As Ordered ONE; -TRIAMCINOLONE ACETONIDE SUSP 40 MG/ML VIAL (J3301) As Ordered ONE; -diazePAM 5 MG TAB As Ordered ONE; -oxyCODONE 5MG TAB As Ordered ONE
--- NOTE | 2020-05-11 08:49 | REP ---
REASON FOR EXAM: Abnormal LFTs. Multiple ultrasonographic images of the liver show diffuse increased echoes throughout the hepatic parenchyma without evidence of a mass or ductal dilatation. The common bile duct measures 6 mm in its greatest transverse dimension. Multiple ultrasonographic images of the gallbladder show no gallbladder abnormalities. There are no choleliths. There is no gallbladder wall thickening. There is no pericholecystic edema. The images portion of the pancreas is within normal limits. The spleen measures 11.6 x 7.2 x 4.4 cm and is within normal limits. Right kidney measures 10.5 x 5.2 x 4.7 cm and the left kidney measures 11.9 x 5 x 5.2 cm. No renal abnormalities are noted. There is no evidence of an aortic abnormality. There is no free fluid. The technologist has made note in the technical worksheet that the examination is limited due to the patient's body habitus. IMPRESSION: Diffuse fatty infiltration of the liver. Electronically Signed by Ulices Monet DO 05/11/2020 11:18 A
== END ==
LOC: M RAD 07:02
PROVIDERS: ATTEND Family Medicine
DX: R94.5 Abnormal results of liver function studies (principal); K76.0 Fatty (change of) liver, not elsewhere classified

== ENCOUNTER → 2020-06-05 | Outpatient (POV) | payer BC, MEDICARE ==
[~2020-06-05] MED LIST changes: +BUPIVACAINE HCL 0.25% 30ML VIAL As Ordered ONE; +BUPIVACAINE HCL 0.25% 30ML VIAL ONE; +ISOVUE-M 300 61% 15ML VIAL As Ordered ONE; +ISOVUE-M 300 61% 15ML VIAL ONE; +LIDOCAINE 1% SDV 30ML VIAL As Ordered ONE; +LIDOCAINE 1% SDV 30ML VIAL ONE; +TRIAMCINOLONE ACETONIDE SUSP 40 MG/ML VIAL (J3301) As Ordered ONE; +TRIAMCINOLONE ACETONIDE SUSP 40 MG/ML VIAL (J3301) ONE; +diazePAM 5 MG TAB As Ordered ONE; +diazePAM 5 MG TAB ONE; +oxyCODONE 5MG TAB As Ordered ONE; +oxyCODONE 5MG TAB ONE
--- NOTE | 2020-07-19 10:11 | REP ---
CHEST X-RAY: 2-VIEWS HISTORY: Rule out pneumothorax. COMPARISON: 04/24/20 FINDINGS: Two views of the chest are performed. There is no acute infiltrate. The heart and mediastinum are within normal limits. There are mild degenerative changes of the spine. No pneumothorax is seen. IMPRESSION: No evidence of pneumothorax or acute pulmonary disease. MTDD
--- NOTE | 2020-07-19 10:12 | REP ---
THORACOLUMBAR SPINE: 2-VIEWS HISTORY: Injection procedure for pain. 16 seconds of fluoroscopy time is reported. FINDINGS: A sequence of two last image hold fluoroscopically obtained spot radiographs of the lower thoracic spine document various needle positions and contrast injections associated with injection procedure. [facility]
== END ==
LOC: M PAIN 11:00
PROVIDERS: ATTEND Anesthesiology
DX: M47.814 Spondylosis without myelopathy or radiculopathy, thoracic region (principal)

== ENCOUNTER → 2020-06-20 | Outpatient (CLI) | payer BC, MEDICARE ==
[~2020-06-20] MED LIST changes: -BUPIVACAINE HCL 0.25% 30ML VIAL As Ordered ONE; -BUPIVACAINE HCL 0.25% 30ML VIAL ONE; -ISOVUE-M 300 61% 15ML VIAL As Ordered ONE; -ISOVUE-M 300 61% 15ML VIAL ONE; -LIDOCAINE 1% SDV 30ML VIAL As Ordered ONE; -LIDOCAINE 1% SDV 30ML VIAL ONE; -TRIAMCINOLONE ACETONIDE SUSP 40 MG/ML VIAL (J3301) As Ordered ONE; -TRIAMCINOLONE ACETONIDE SUSP 40 MG/ML VIAL (J3301) ONE; -diazePAM 5 MG TAB As Ordered ONE; -diazePAM 5 MG TAB ONE; -oxyCODONE 5MG TAB As Ordered ONE; -oxyCODONE 5MG TAB ONE
== END ==
LOC: M PAIN 09:55
PROVIDERS: ATTEND Nurse Practitioner Family
DX: M46.1 Sacroiliitis, not elsewhere classified (principal); M79.18 Myalgia, other site; M47.814 Spondylosis without myelopathy or radiculopathy, thoracic region

== ENCOUNTER → 2020-07-01 | Outpatient (CLI) | payer BC, MEDICARE | LOC: M LABSMTC 09:25 | PROVIDERS: ATTEND Anesthesiology | DX: Z20.828 Contact with and (suspected) exposure to other viral communicable diseases (principal) | CPT/HCPCS: C9803; U0003 ==

== ENCOUNTER → 2020-07-06 | Outpatient (CLI) | payer BC, MEDICARE ==
[~2020-07-06] MED LIST changes: +BUPIVACAINE HCL 0.25% 30ML VIAL As Ordered ONE; +ISOVUE-M 300 61% 15ML VIAL As Ordered ONE; +LIDOCAINE 1% SDV 30ML VIAL As Ordered ONE; +TRIAMCINOLONE ACETONIDE SUSP 40 MG/ML VIAL (J3301) As Ordered ONE; +diazePAM 5 MG TAB As Ordered ONE; +oxyCODONE 5MG TAB As Ordered ONE
--- NOTE | 2020-07-27 07:54 | REP ---
C-ARM VIEWS OF SACROILIAC JOINTS: 07/06/20 CLINICAL HISTORY: Pain. Multiple C-arm views of bilateral sacroiliac joints performed during injection by Dr. Damon. A needle overlies each sacroiliac joint and a small amount of contrast is injected. 25 seconds fluoroscopy time utilized. [facility]
== END ==
LOC: M PAIN 08:56
PROVIDERS: ATTEND Anesthesiology
DX: M46.1 Sacroiliitis, not elsewhere classified (principal)
CPT/HCPCS: 77002; G0260; G0463; J3301; Q9967

== ENCOUNTER → 2020-07-18 | Outpatient (CLI) | payer BC ==
[~2020-07-18] MED LIST changes: -BUPIVACAINE HCL 0.25% 30ML VIAL As Ordered ONE; -ISOVUE-M 300 61% 15ML VIAL As Ordered ONE; -LIDOCAINE 1% SDV 30ML VIAL As Ordered ONE; -TRIAMCINOLONE ACETONIDE SUSP 40 MG/ML VIAL (J3301) As Ordered ONE; -diazePAM 5 MG TAB As Ordered ONE; -oxyCODONE 5MG TAB As Ordered ONE
== END ==
LOC: M PAIN 09:52
PROVIDERS: ATTEND Nurse Practitioner Family
DX: M51.16 Intervertebral disc disorders with radiculopathy, lumbar region (principal)

== ENCOUNTER → 2020-07-27 | Outpatient (CLI) | payer BC | LOC: M LABSMTC 09:54 | PROVIDERS: ATTEND Anesthesiology | DX: Z20.828 Contact with and (suspected) exposure to other viral communicable diseases (principal) | CPT/HCPCS: C9803; U0003 ==

== ENCOUNTER → 2020-08-01 | Outpatient (CLI) | payer BC ==
[~2020-08-01] MED LIST changes: +ISOVUE-M 300 61% 15ML VIAL As Ordered ONE; +LIDOCAINE 1% SDV 30ML VIAL As Ordered ONE; +diazePAM 5 MG TAB As Ordered ONE; +methylPREDNISolone SUSP 40MG/ML 1ML VIAL (DEPO MEDROL) As Ordered ONE; +oxyCODONE 5MG TAB As Ordered ONE
--- NOTE | 2020-08-02 14:59 | ECWPNPC ---
PATIENT NAME: IAM DHALIWAL : 1955 GENDER: FEMALE VISIT DATE: 08/01/2020 DISCHARGE DATE: 08/01/20 1006 VISIT LOCKED DATE TIME: PHYSICIAN: ELENO BONE MD RESOURCE: ELENO BONE MD REASON FOR APPOINTMENT 1. LESI L5-S1 R HISTORY OF PRESENT ILLNESS PAIN CENTER INTAKE QUESTIONS: DO YOU HAVE A HISTORY OF MRSA? :NO DO YOU TAKE A BLOOD THINNERS? :NO DO YOU HAVE ANY BLEEDING DISORDERS? :NO ANY NEW NUMBNESS OR WEAKNESS IN YOUR LEGS OR ARMS? :YES MORE NUMBNESS IN RIGHT LEG PREVIOUSLY EXPERIENCING THIS SENSATION IN LEFT LEG. ANY PACEMAKER,DEFIBRILLATOR, OR DORSAL COLUMN STIMULATOR? :NO DO YOU HAVE ANY RASHES OR OPEN SORES? :NO ARE YOU ALLERGIC TO IV DYE? :NO ARE YOU DIABETIC? :NO ANY NEW PROBLEMS WITH YOUR MEDICATIONS? :NO HAVE YOU RECEIVED A VACCINE IN THE PAST 30 DAYS? :NO DO YOU PLAN TO RECEIVE A VACCINE IN THE NEXT 21 DAYS? :NO DO YOU TAKE ANY IMMUNOSUPPRESSIVE MEDICATIONS? :NO ANY HISTORY OF SEIZURES? :NO ANY HISTORY OF CARDIAC ISSUES OR EVENTS? :NO DO YOU HAVE SLEEP APNEA? :YES DO YOU WEAR A CPAP?YES ANY RECENT HEAD INJURY? :NO DO YOU HAVE ANY NEW INFECTIONS? :NO IS THERE A CHANCE YOU COULD BE ? :NO ARE YOU BREAST FEEDING? :NO WHEN DID YOU LAST EAT? : -07/31 9PM WHEN DID YOU LAST DRINK? : -08/01 6AM WHAT DID YOU LAST DRINK? : -WATER NAME OF PERSON DRIVING YOU HOME? : ASHLEIGH DHALIWAL () [phone] DO YOU HAVE ANY OTHER QUESTIONS OR CONCERNS? : - GENERAL: -. FALL RISK SCREENING: SCREENING :NO FALLS REPORTED IN THE LAST YEAR PAIN SCREENING: PATIENT HAS A COMPLAINT OF ACUTE OR CHRONIC PAIN :YES LOCATION OF PAIN:LOW BACK INTENSITY OF PAIN (SCALE OF 1 TO 10):6 WHAT DOES YOUR PAIN FEEL LIKE:BURNING, SHARP, CONTINOUS DURATION:CONSTANT, CONTINOUS, AWAKENS FROM SLEEP PLAN/GOALS/TREATMENT/INTERVENTION/FOLLOW UP:SEE PLAN NURSING NOTE: -. CURRENT MEDICATIONS TAKING ASPIR-81 81 MG TABLET DELAYED RELEASE 1 TABLET ORALLY EVERY OTHER DAY, NOTES: 07/31 8AM TAKING FISH OIL TRIPLE STRENGTH 1400 MG CAPSULE 2 CAPSULE ORALLY ONCE A DAY, NOTES: 07/31 6P TAKING COQ-10 200 MG CAPSULE 1 CAPSULE WITH A MEAL ORALLY ONCE A DAY, NOTES: 07/31 6P TAKING CALTRATE 600+D PLUS MINERALS 600-800 MG-UNIT TABLET 1 TABLET ORALLY TWICE A DAY, NOTES: 07/31 6P TAKING MULTIVITAMINS CAPSULE ORALLY ONCE DAILY, NOTES: 07/31 6P TAKING LIDOCAINE & ADHESIVE SHEET 5 % KIT DIRECTED EXTERNALLY DAILY, NOTES: 2 DAYS TAKING MAY USE CBD OIL 25MG BID, NOTES: 105 11A TAKING CETIRIZINE HCL 10 MG TABLET 1 TABLET ORALLY ONCE A DAY, NOTES: 07/31 9P TAKING CYMBALTA 30 MG CAPSULE DELAYED RELEASE PARTICLES 1 CAPSULE ORALLY TWICE A DAY FOR PAIN, NOTES: 08/01 6AM TAKING LOSARTAN POTASSIUM 25 MG TABLET 1 TABLET ORALLY ONCE A DAY, NOTES: 07/30 11P NOT-TAKING CRESTOR 5 MG TABLET 1 TABLET ORALLY ONCE A DAY NOT-TAKING ESTROVEN + ENERGY MAX STRENGTH TABLET 1 TAB ORALLY NOT-TAKING MOVE FREE JOINT HEALTH ADVANCE - TABLET ORALLY DAILY NOT-TAKING MAY USE 1 CEYLON CINNAMON 2 CAP ORALLY ONCE DAILY NOT-TAKING MAY USE ULTRA NICA 1 CAP ORALLY DAILY NOT-TAKING GABAPENTIN 300 MG CAPSULE 1 CAPSULE ORALLY DAILY AT BEDTIME NOT-TAKING CLARITIN 10 MG TABLET 1 TABLET ORALLY ONCE A DAY NOT-TAKING MAY USE DICLOFENAC GEL 1% TID NOT-TAKING IBUPROFEN 200 MG 1 TAB ORAL BEFORE BEDTIME PRN NOT-TAKING CULTURELLE CAPSULE ORALLY ONCE DAILY NOT-TAKING EMERGEN-C IMMUNE PACKET ORALLY ONCE DAILY NOT-TAKING PAZEO 0.7 % SOLUTION 1 DROP INTO AFFECTED EYE OPHTHALMIC ONCE A DAY NOT-TAKING MAY USE MYOCALM 2 CAPS ORALLY ONCE DAILY NOT-TAKING VALIUM 5 MG TABLET 1 TAB DIRECTED ORALLY 1 TAB 1HR PRE MRI AND 1 TAB AT TIME OF MRI MDD2 MEDICATION LIST REVIEWED AND RECONCILED WITH THE PATIENT PAST MEDICAL HISTORY BRI - CPAP IMPLANTABLE LOOP RECORDER- FOR EPISODES OF SYNCOPE( [id number]) HYPERLIPID CHRONIC BACK AND NECK PAIN HEADACHES DIZZINESS HAS BEEN KNOWN TO VASAL VAGAL SEVERLY WITH PROCEDURES INVOLVING NEEDLES CARPAL TUNNEL RIGHT HAND DE QUERVAIN'S TENOSYNOVITIS-RIGHT TENNIS ELBOW-RIGHT LEFT INTERCOSTAL NEURALGIA FATTY LIVER BORDERLINE HYPERTENSION ALLERGIES TAPE: RASH - ALLERGY ORANGE: DRY MOUTH/DIFFICULTY SWALLOWING - ALLERGY PINE: RASH/CONGESTION - ALLERGY GRASS: SNEEZING, WATERY EYES SURGICAL HISTORY TONSILLECTOMY 1964 D/C (MISCARRIAGE) 12/1978 D/C ENDOMETRIAL ABLATION 08/1979 HYSTERECTOMY/OOPHORECTOMY 11/2009 IMPLANTABLE LOOP RECORDER 01/2015 THYROID BX 06/2016 RIGHT HAND CARPAL TUNNEL RELEASE 04/22/2018 REMOVAL OF LOOP RECORDER 06/2018 FAMILY HISTORY FATHER: , COLON CA, DIAGNOSED WITH HYPERTENSION, DIABETES, UNSPECIFIED CEREBRAL ARTERY OCCLUSION WITH CEREBRAL INFARCTION, OTHER MALIGNANT NEOPLASM OF UNSPECIFIED SITE MOTHER: , ENDOMETRIAL CA PARKINSONS ALZHEIMER'S DEMENTIA,, OTHER MALIGNANT NEOPLASM OF UNSPECIFIED SITE DAUGHTER(S): DIABETES DAUGHTER IS TYPE 1 DIABETIC. SOCIAL HISTORY GENERAL: TOBACCO USE ARE YOU A:FORMER SMOKER HOW LONG HAS IT BEEN SINCE YOU LAST SMOKED? QUIT 12/2015 LATEX QUESTIONNAIRE LATEX ALLERGY : HAVE YOU EVER DEVELOPED ANY TYPE OF REACTION AFTER HANDLING LATEX PRODUCTS SUCH RUBBER GLOVES, CONDOMS, DIAPHRAGMS, BALLOONS, SOCKS, OR UNDERWEAR?NO LATEX ALLERGY : HAVE YOU EVER DEVELOPED ANY TYPE OF REACTION DURING OR AFTER DENTAL APPOINTMENT, VAGINAL/RECTAL EXAMINATION, SURGICAL PROCEDURE, OR ANY OTHER EXPOSURE?NO LATEX RISK : HAVE YOU EVER HAD ANY DIFFICULTY BREATHING OR HIVES AFTER EATING OR HANDLING ANY FRUITS, OR VEGETABLES; SUCH KIWI, BANANAS, STONE FRUITS, OR CHESTNUTSNO LATEX RISK : DO YOU HAVE A PREVIOUS PERSONAL HISTORY OF MORE THAN NINE SURGERIES, SPINA BIFIDA, OR REPEATED CATHERIZATIONS? NO LATEX RISK : ARE YOU FREQUENTLY EXPOSED TO LATEX PRODUCTS IN YOUR OCCUPATION?NO DATE ASKED : 05/15/2020 ALCOHOL SCREENING DID YOU HAVE A DRINK CONTAINING ALCOHOL IN THE PAST YEAR?NO POINTS0 INTERPRETATIONNEGATIVE RECREATIONAL DRUG USE DRUG USE?NO CAFFEINE CAFFEINE USE?YES HOW OFTEN AND HOW MUCH? 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 DIET: REGULAR. EXERCISE: WALKS. MARITAL STATUS: . PAIN CLINIC PFS, CLERGY, PUBLIC HEALTH REFERRALS PFS REFERRAL NEEDED?NO CLERGY REFERRAL NEEDED?NO PUBLIC HEALTH REFERRAL NEEDED?NO HAS THE PATIENT BEEN EDUCATED REGARDING HIS/HER PLAN OF CARE?YES HAS THE PATIENT BEEN EDUCATED REGARDING PAIN, THE RISK FOR PAIN, THE IMPORTANCE OF EFFECTIVE PAIN MANAGEMENT, AND THE PAIN ASSESSMENT PROCESS?YES ADVANCE DIRECTIVE ADVANCE DIRECTIVE DISCUSSED WITH PATIENT:YES PT DOES NOT HAVE ANY ADVANCED DIRECTIVES. SHE STATES SHE HAS INFORMATION ON HCP ALREADY. HELP OFFERED IN FILLING FORM OUT IF NEEDED. SHE DECLINES AT THIS TIME. HOSPITALIZATION/MAJOR DIAGNOSTIC PROCEDURE SURGERIES CHILDBIRTH VITAL SIGNS WT 231.8 LBS, HT 66 IN, BMI 37.41 INDEX, BP 180/93 MM HG, HR 78 /MIN, RR 18 /MIN, TEMP 96.5 F, OXYGEN SAT % 98%, SAFE IN ENV? (Y/N) Y, NA INITIALS SC 08:38, REVIEWED BY: CINDY. EXAMINATION GENERAL EXAMINATION: THE PATIENT IS ALERT, ORIENTED TIMES THREE AND COOPERATIVE. HEART SHOWS REGULAR RHYTHM, NO MURMURS AND NO GALLOPS. LUNGS ARE CLEAR TO AUSCULTATION. ASSESSMENTS INTERVERTEBRAL DISC DISORDER WITH RADICULOPATHY OF LUMBOSACRAL REGION - M51.17 (PRIMARY) TREATMENT INTERVERTEBRAL DISC DISORDER WITH RADICULOPATHY OF LUMBOSACRAL REGION [facility] FLUORO GUIDE SPINE INJECTION (PAIN)[id number] PROCEDURES PAIN NURSING RECORD PRE-PROCEDURE IV SITE LEFT HAND , IV STARTED # 22 , IV STARTED BY: Sunil SOLANO RN, IV ATTEMPTS 3 1ST 2 ATTEMPTS BY Juan KING RN, UNSUCCESSFUL, 3RD ATTEMPT BY ROSELIA CARRENO, PT TOLERATED WELL. DS, PRE-PROCEDURE ORAL MEDICATIONS VALIUM 10MG PO, OXYCODONE 10MG PO ADMINISTERED BY RIVERA CARRENO AT 08/01/2020 0909. DS PROCEDURE IN ROOM 0915 PT AMBULATED TO PROCEDURE ROOM AND POSITIONED SELF ON TABLE WITH MIN 1 ASSIST, GAIT STEADY, PT TOLERATED AMBULATION AND POSITIONING WITHOUT DIFFICULTY, PHYSICIAN IN ROOM 0932, START 0937, FINISH 0942, PHYSICIAN OUT OF ROOM 0945, OUT OF ROOM 0953, STEROID DEPOMEDROL 80 MG, O2 RA, ECG NORMAL SINUS, PATIENT SHIELDED YES, SAFETY STRAP YES, PREP BETADINE, IV INFUSED LACTATED RINGERS, DRESSING OTHER GAUZE AND PAPER TAPE LOC: ERMELINDA SOLANO RN 08/01/2020 9:31:29 AM > , 1. ALERT, ORIENTED RESP: ERMELINDA SOLANO RN 08/01/2020 9:31:34 AM > , 1. REGULAR, NO DYSPNEA COLOR: ERMELINDA SOLANO RN 08/01/2020 9:31:40 AM > , 1. PINK SKIN: ERMELINDA SOLANO RN 08/01/2020 9:31:45 AM > , 1. WARM, DRY POSITION: ERMELINDA SOLANO RN 08/01/2020 9:31:49 AM > , 1. PRONE VITALS: ERMELINDA SOLANO RN 08/01/2020 9:25:53 AM > 163/75, 72, 18, 97% , ERMELINDA SOLANO RN 08/01/2020 9:40:32 AM > 159/72, 71, 18, 95% , ERMELINDA SOLANO RN 08/01/2020 9:58:27 AM > 179/84, 79, 18, 95% DISCHARGE: POST PAIN 11/05, DRESSING SITE DRY AND INTACT, IV DISCONTINUED, SITE CLEAR, CATHETER INTACT, GAIT STEADY, TEACHING COMPLETED, PATIENT ACKNOWLEDGES UNDERSTANDING YES, PATIENT DISCHARGED AT 1005 PRE PROCEDURE DIAGNOSIS LUMBOSACRAL DISC DISORDER WITH RADICULOPATHY POST PROCEDURE DIAGNOSIS LUMBOSACRAL DISC DISORDER WITH RADICULOPATHY PROCEDURE LUMBAR EPIDURAL STEROID INJECTION UNDER FLUOROSCOPIC GUIDANCE SURGEON DR. ELENO BONE CANCER SPEC NONE ANESTHESIA LOCAL PRE PROCEDURE NOTE THE PATIENT HAS A HISTORY OF CHRONIC LOW BACK PAIN. I EVALUATED THE PATIENT AND REVIEWED THE CHART. I WENT OVER THE RISKS, ALTERNATIVES, AND BENEFITS ASSOCIATED WITH THIS PROCEDURE. I DISCUSSED THAT THE USE OF STEROIDS MAY CONTRIBUTE TO IMMUNOSUPPRESSION OF THE PATIENT'S BODY AGAINST INFECTIONS SUCH COVID-19. THE PATIENT IS AWARE OF THE POTENTIAL COMPLICATIONS ASSOCIATED WITH THIS VIRUS, INCLUDING, BUT NOT LIMITED TO, . THE PATIENT WOULD LIKE TO PROCEED AND GIVE CONSENT TO PERFORMED THE PROCEDURE. THE PATIENT DENIES UNEXPLAINABLE WEIGHT LOSS, FEVER, CHILLS, OR NEW CHANGES IN URINARY OR BOWEL CONTROL. THE PATIENT IS COVID-19 NEGATIVE DESCRIPTION OF PROCEDURE THE PATIENT WAS BROUGHT TO THE PROCEDURE ROOM AND PLACED IN THE PRONE POSITION. THE LUMBOSACRAL AREA WAS CLEANED WITH BETADINE SOLUTION AND DRAPED ASEPTICALLY. THE PROCEDURE WAS DONE UNDER STERILE CONDITIONS. A TIMEOUT WAS PERFORMED WHERE LATERALITY AND THE SITE OF THE PROCEDURE WERE CHECKED AND CONFIRMED WITH EVERYONE IN THE ROOM. UNDER FLUOROSCOPIC GUIDANCE, THE TARGET POINT WAS SELECTED AT THE INTERLAMINAR LEVEL OF L5-S1. I CONFIRMED AGAIN WITH EVERYONE IN THE ROOM THE LATERALITY OF THE TARGET AT 0938. LIDOCAINE WAS USED TO NUMB THE SKIN AND THE SUBCUTANEOUS TISSUE BELOW IT. EPIDURAL TUOHY NEEDLE, 17-GAUGE, WAS ADVANCED UNDER FLUOROSCOPIC GUIDANCE AND FOLLOWING PATIENT FEEDBACK UNTIL THE EPIDURAL SPACE WAS REACHED 6 CM DEEP INTO THE SKIN BY THE LOSS OF RESISTANCE TECHNIQUE. ISOVUE-M DYE 30%, 0.25 ML, WAS INJECTED SHOWING ADEQUATE SPREAD OF THE DYE. THEN, A SOLUTION OF 3 ML OF NORMAL SALINE WITH DEPO-MEDROL 80 MG WAS INJECTED SLOWLY FOLLOWING PATIENT FEEDBACK. THE PATIENT HAS AN ALLERGY TO TEGADERM SO I USED GAUZE AND TAPE TO DRESS THE SITE. THE MEDICATIONS WERE VERIFIED WITH THE NURSE. THERE WAS NO EVIDENCE OF BLOOD, PARESTHESIA OR CEREBROSPINAL FLUID DURING THE PROCEDURE. THE PATIENT WAS SENT TO THE RECOVERY ROOM. THE PATIENT WAS MOVING THE EXTREMITIES AND DOING WELL. THERE WERE NO COMPLICATIONS DURING THE PROCEDURE. ESTIMATED BLOOD LOSS WAS LESS THAN 5 ML. FLUOROSCOPY TIME WAS 10 SECONDS POST PROCEDURE NOTE THE PATIENT WILL BE SEEN IN A FOLLOW UP IN THE NEXT FEW WEEKS. I AM LOOKING FOR LONG LASTING RELIEF FOR THE PATIENT WITH THIS INTERVENTION. INSTRUCTIONS WERE GIVEN, QUESTIONS WERE ANSWERED, AND THE PATIENT EXPRESSED UNDERSTANDING AND AGREES WITH THE PLAN. I, ANNETTE MERCADO, DOCUMENTED THE ABOVE INFORMATION ACTING A SCRIBE FOR DR. BONE. I HAVE REVIEWED THE ABOVE DOCUMENT, WRITTEN BY ANNETTE MERCADO, STATEMENT SERVICES REPRESENTATIVE, AND I VERIFY THAT IT IS ACCURATE PREVENTIVE MEDICINE PAIN CLINIC TEACHING: THE PATIENT HAS BEEN EDUCATED REGARDING PAIN, THE RISK FOR PAIN, THE IMPORTANCE OF EFFECTIVE PAIN MANAGEMENT, AND THE PAIN ASSESSMENT PROCESS. : REVIEWED WRITTEN AND VERBAL POST PROCEDURE INSTRUCTIONS WITH PATIENT, PT ACKNOWLEDGED UNDERSTANDING, DS PROCEDURE CODES 52212 LUMBAR/SACRAL W/ IMAGING DISPOSITION & COMMUNICATION FOLLOW UP FOLLOW UP WITH BLENDING TANK TENDER (REASON: POST LUMBAR EPIDURAL L5-S1) ELECTRONICALLY SIGNED BY ELENO BONE MD, MD ON 08/02/2020 AT 02:56 PM EDT DISCLAIMER : THIS IS A VISIT SUMMARY EXTRACTED FROM THE [employer] CHART. IT IS NOT A COPY OF THE [employer] PROGRESS NOTE. ALCON
--- NOTE | 2020-08-02 15:01 | ECWPNPC ---
PATIENT NAME: IAM DHALIWAL : 1955 GENDER: FEMALE VISIT DATE: 08/01/2020 DISCHARGE DATE: 08/01/20 1006 VISIT LOCKED DATE TIME: PHYSICIAN: ELENO BONE MD RESOURCE: ELENO BONE MD REASON FOR APPOINTMENT 1. LESI L5-S1 R HISTORY OF PRESENT ILLNESS PAIN CENTER INTAKE QUESTIONS: DO YOU HAVE A HISTORY OF MRSA? :NO DO YOU TAKE A BLOOD THINNERS? :NO DO YOU HAVE ANY BLEEDING DISORDERS? :NO ANY NEW NUMBNESS OR WEAKNESS IN YOUR LEGS OR ARMS? :YES MORE NUMBNESS IN RIGHT LEG PREVIOUSLY EXPERIENCING THIS SENSATION IN LEFT LEG. ANY PACEMAKER,DEFIBRILLATOR, OR DORSAL COLUMN STIMULATOR? :NO DO YOU HAVE ANY RASHES OR OPEN SORES? :NO ARE YOU ALLERGIC TO IV DYE? :NO ARE YOU DIABETIC? :NO ANY NEW PROBLEMS WITH YOUR MEDICATIONS? :NO HAVE YOU RECEIVED A VACCINE IN THE PAST 30 DAYS? :NO DO YOU PLAN TO RECEIVE A VACCINE IN THE NEXT 21 DAYS? :NO DO YOU TAKE ANY IMMUNOSUPPRESSIVE MEDICATIONS? :NO ANY HISTORY OF SEIZURES? :NO ANY HISTORY OF CARDIAC ISSUES OR EVENTS? :NO DO YOU HAVE SLEEP APNEA? :YES DO YOU WEAR A CPAP?YES ANY RECENT HEAD INJURY? :NO DO YOU HAVE ANY NEW INFECTIONS? :NO IS THERE A CHANCE YOU COULD BE ? :NO ARE YOU BREAST FEEDING? :NO WHEN DID YOU LAST EAT? : -07/31 9PM WHEN DID YOU LAST DRINK? : -08/01 6AM WHAT DID YOU LAST DRINK? : -WATER NAME OF PERSON DRIVING YOU HOME? : ASHLEIGH DHALIWAL () [phone] DO YOU HAVE ANY OTHER QUESTIONS OR CONCERNS? : - GENERAL: -. FALL RISK SCREENING: SCREENING :NO FALLS REPORTED IN THE LAST YEAR PAIN SCREENING: PATIENT HAS A COMPLAINT OF ACUTE OR CHRONIC PAIN :YES LOCATION OF PAIN:LOW BACK INTENSITY OF PAIN (SCALE OF 1 TO 10):6 WHAT DOES YOUR PAIN FEEL LIKE:BURNING, SHARP, CONTINOUS DURATION:CONSTANT, CONTINOUS, AWAKENS FROM SLEEP PLAN/GOALS/TREATMENT/INTERVENTION/FOLLOW UP:SEE PLAN NURSING NOTE: -. CURRENT MEDICATIONS TAKING ASPIR-81 81 MG TABLET DELAYED RELEASE 1 TABLET ORALLY EVERY OTHER DAY, NOTES: 07/31 8AM TAKING FISH OIL TRIPLE STRENGTH 1400 MG CAPSULE 2 CAPSULE ORALLY ONCE A DAY, NOTES: 07/31 6P TAKING COQ-10 200 MG CAPSULE 1 CAPSULE WITH A MEAL ORALLY ONCE A DAY, NOTES: 07/31 6P TAKING CALTRATE 600+D PLUS MINERALS 600-800 MG-UNIT TABLET 1 TABLET ORALLY TWICE A DAY, NOTES: 07/31 6P TAKING MULTIVITAMINS CAPSULE ORALLY ONCE DAILY, NOTES: 07/31 6P TAKING LIDOCAINE & ADHESIVE SHEET 5 % KIT DIRECTED EXTERNALLY DAILY, NOTES: 2 DAYS TAKING MAY USE CBD OIL 25MG BID, NOTES: 105 11A TAKING CETIRIZINE HCL 10 MG TABLET 1 TABLET ORALLY ONCE A DAY, NOTES: 07/31 9P TAKING CYMBALTA 30 MG CAPSULE DELAYED RELEASE PARTICLES 1 CAPSULE ORALLY TWICE A DAY FOR PAIN, NOTES: 08/01 6AM TAKING LOSARTAN POTASSIUM 25 MG TABLET 1 TABLET ORALLY ONCE A DAY, NOTES: 07/30 11P NOT-TAKING CRESTOR 5 MG TABLET 1 TABLET ORALLY ONCE A DAY NOT-TAKING ESTROVEN + ENERGY MAX STRENGTH TABLET 1 TAB ORALLY NOT-TAKING MOVE FREE JOINT HEALTH ADVANCE - TABLET ORALLY DAILY NOT-TAKING MAY USE 1 CEYLON CINNAMON 2 CAP ORALLY ONCE DAILY NOT-TAKING MAY USE ULTRA NICA 1 CAP ORALLY DAILY NOT-TAKING GABAPENTIN 300 MG CAPSULE 1 CAPSULE ORALLY DAILY AT BEDTIME NOT-TAKING CLARITIN 10 MG TABLET 1 TABLET ORALLY ONCE A DAY NOT-TAKING MAY USE DICLOFENAC GEL 1% TID NOT-TAKING IBUPROFEN 200 MG 1 TAB ORAL BEFORE BEDTIME PRN NOT-TAKING CULTURELLE CAPSULE ORALLY ONCE DAILY NOT-TAKING EMERGEN-C IMMUNE PACKET ORALLY ONCE DAILY NOT-TAKING PAZEO 0.7 % SOLUTION 1 DROP INTO AFFECTED EYE OPHTHALMIC ONCE A DAY NOT-TAKING MAY USE MYOCALM 2 CAPS ORALLY ONCE DAILY NOT-TAKING VALIUM 5 MG TABLET 1 TAB DIRECTED ORALLY 1 TAB 1HR PRE MRI AND 1 TAB AT TIME OF MRI MDD2 MEDICATION LIST REVIEWED AND RECONCILED WITH THE PATIENT PAST MEDICAL HISTORY BRI - CPAP IMPLANTABLE LOOP RECORDER- FOR EPISODES OF SYNCOPE( [id number]) HYPERLIPID CHRONIC BACK AND NECK PAIN HEADACHES DIZZINESS HAS BEEN KNOWN TO VASAL VAGAL SEVERLY WITH PROCEDURES INVOLVING NEEDLES CARPAL TUNNEL RIGHT HAND DE QUERVAIN'S TENOSYNOVITIS-RIGHT TENNIS ELBOW-RIGHT LEFT INTERCOSTAL NEURALGIA FATTY LIVER BORDERLINE HYPERTENSION ALLERGIES TAPE: RASH - ALLERGY ORANGE: DRY MOUTH/DIFFICULTY SWALLOWING - ALLERGY PINE: RASH/CONGESTION - ALLERGY GRASS: SNEEZING, WATERY EYES SURGICAL HISTORY TONSILLECTOMY 1964 D/C (MISCARRIAGE) 12/1978 D/C ENDOMETRIAL ABLATION 08/1979 HYSTERECTOMY/OOPHORECTOMY 11/2009 IMPLANTABLE LOOP RECORDER 01/2015 THYROID BX 06/2016 RIGHT HAND CARPAL TUNNEL RELEASE 04/22/2018 REMOVAL OF LOOP RECORDER 06/2018 FAMILY HISTORY FATHER: , COLON CA, DIAGNOSED WITH HYPERTENSION, DIABETES, UNSPECIFIED CEREBRAL ARTERY OCCLUSION WITH CEREBRAL INFARCTION, OTHER MALIGNANT NEOPLASM OF UNSPECIFIED SITE MOTHER: , ENDOMETRIAL CA PARKINSONS ALZHEIMER'S DEMENTIA,, OTHER MALIGNANT NEOPLASM OF UNSPECIFIED SITE DAUGHTER(S): DIABETES DAUGHTER IS TYPE 1 DIABETIC. SOCIAL HISTORY GENERAL: TOBACCO USE ARE YOU A:FORMER SMOKER HOW LONG HAS IT BEEN SINCE YOU LAST SMOKED? QUIT 12/2015 LATEX QUESTIONNAIRE LATEX ALLERGY : HAVE YOU EVER DEVELOPED ANY TYPE OF REACTION AFTER HANDLING LATEX PRODUCTS SUCH RUBBER GLOVES, CONDOMS, DIAPHRAGMS, BALLOONS, SOCKS, OR UNDERWEAR?NO LATEX ALLERGY : HAVE YOU EVER DEVELOPED ANY TYPE OF REACTION DURING OR AFTER DENTAL APPOINTMENT, VAGINAL/RECTAL EXAMINATION, SURGICAL PROCEDURE, OR ANY OTHER EXPOSURE?NO LATEX RISK : HAVE YOU EVER HAD ANY DIFFICULTY BREATHING OR HIVES AFTER EATING OR HANDLING ANY FRUITS, OR VEGETABLES; SUCH KIWI, BANANAS, STONE FRUITS, OR CHESTNUTSNO LATEX RISK : DO YOU HAVE A PREVIOUS PERSONAL HISTORY OF MORE THAN NINE SURGERIES, SPINA BIFIDA, OR REPEATED CATHERIZATIONS? NO LATEX RISK : ARE YOU FREQUENTLY EXPOSED TO LATEX PRODUCTS IN YOUR OCCUPATION?NO DATE ASKED : 05/15/2020 ALCOHOL SCREENING DID YOU HAVE A DRINK CONTAINING ALCOHOL IN THE PAST YEAR?NO POINTS0 INTERPRETATIONNEGATIVE RECREATIONAL DRUG USE DRUG USE?NO CAFFEINE CAFFEINE USE?YES HOW OFTEN AND HOW MUCH? 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 DIET: REGULAR. EXERCISE: WALKS. MARITAL STATUS: . PAIN CLINIC PFS, CLERGY, PUBLIC HEALTH REFERRALS PFS REFERRAL NEEDED?NO CLERGY REFERRAL NEEDED?NO PUBLIC HEALTH REFERRAL NEEDED?NO HAS THE PATIENT BEEN EDUCATED REGARDING HIS/HER PLAN OF CARE?YES HAS THE PATIENT BEEN EDUCATED REGARDING PAIN, THE RISK FOR PAIN, THE IMPORTANCE OF EFFECTIVE PAIN MANAGEMENT, AND THE PAIN ASSESSMENT PROCESS?YES ADVANCE DIRECTIVE ADVANCE DIRECTIVE DISCUSSED WITH PATIENT:YES PT DOES NOT HAVE ANY ADVANCED DIRECTIVES. SHE STATES SHE HAS INFORMATION ON HCP ALREADY. HELP OFFERED IN FILLING FORM OUT IF NEEDED. SHE DECLINES AT THIS TIME. HOSPITALIZATION/MAJOR DIAGNOSTIC PROCEDURE SURGERIES CHILDBIRTH VITAL SIGNS WT 231.8 LBS, HT 66 IN, BMI 37.41 INDEX, BP 180/93 MM HG, HR 78 /MIN, RR 18 /MIN, TEMP 96.5 F, OXYGEN SAT % 98%, SAFE IN ENV? (Y/N) Y, NA INITIALS SC 08:38, REVIEWED BY: CINDY. EXAMINATION GENERAL EXAMINATION: THE PATIENT IS ALERT, ORIENTED TIMES THREE AND COOPERATIVE. HEART SHOWS REGULAR RHYTHM, NO MURMURS AND NO GALLOPS. LUNGS ARE CLEAR TO AUSCULTATION. ASSESSMENTS INTERVERTEBRAL DISC DISORDER WITH RADICULOPATHY OF LUMBOSACRAL REGION - M51.17 (PRIMARY) TREATMENT INTERVERTEBRAL DISC DISORDER WITH RADICULOPATHY OF LUMBOSACRAL REGION [facility] FLUORO GUIDE SPINE INJECTION (PAIN)[id number] PROCEDURES PAIN NURSING RECORD PRE-PROCEDURE IV SITE LEFT HAND , IV STARTED # 22 , IV STARTED BY: Sunil SOLANO RN, IV ATTEMPTS 3 1ST 2 ATTEMPTS BY Juan KING RN, UNSUCCESSFUL, 3RD ATTEMPT BY ROSELIA CARRENO, PT TOLERATED WELL. DS, PRE-PROCEDURE ORAL MEDICATIONS VALIUM 10MG PO, OXYCODONE 10MG PO ADMINISTERED BY RIVERA CARRENO AT 08/01/2020 0909. DS PROCEDURE IN ROOM 0915 PT AMBULATED TO PROCEDURE ROOM AND POSITIONED SELF ON TABLE WITH MIN 1 ASSIST, GAIT STEADY, PT TOLERATED AMBULATION AND POSITIONING WITHOUT DIFFICULTY, PHYSICIAN IN ROOM 0932, START 0937, FINISH 0942, PHYSICIAN OUT OF ROOM 0945, OUT OF ROOM 0953, STEROID DEPOMEDROL 80 MG, O2 RA, ECG NORMAL SINUS, PATIENT SHIELDED YES, SAFETY STRAP YES, PREP BETADINE, IV INFUSED LACTATED RINGERS, DRESSING OTHER GAUZE AND PAPER TAPE LOC: ERMELINDA SOLANO RN 08/01/2020 9:31:29 AM > , 1. ALERT, ORIENTED RESP: ERMELINDA SOLANO RN 08/01/2020 9:31:34 AM > , 1. REGULAR, NO DYSPNEA COLOR: ERMELINDA SOLANO RN 08/01/2020 9:31:40 AM > , 1. PINK SKIN: ERMELINDA OSLANO RN 08/01/2020 9:31:45 AM > , 1. WARM, DRY POSITION: ERMELINDA SOLANO RN 08/01/2020 9:31:49 AM > , 1. PRONE VITALS: ERMELINDA SOLANO RN 08/01/2020 9:25:53 AM > 163/75, 72, 18, 97% , ERMELINDA SOLANO RN 08/01/2020 9:40:32 AM > 159/72, 71, 18, 95% , ERMELINDA SOLANO RN 08/01/2020 9:58:27 AM > 179/84, 79, 18, 95% DISCHARGE: POST PAIN 11/05, DRESSING SITE DRY AND INTACT, IV DISCONTINUED, SITE CLEAR, CATHETER INTACT, GAIT STEADY, TEACHING COMPLETED, PATIENT ACKNOWLEDGES UNDERSTANDING YES, PATIENT DISCHARGED AT 1005 PRE PROCEDURE DIAGNOSIS LUMBOSACRAL DISC DISORDER WITH RADICULOPATHY POST PROCEDURE DIAGNOSIS LUMBOSACRAL DISC DISORDER WITH RADICULOPATHY PROCEDURE LUMBAR EPIDURAL STEROID INJECTION UNDER FLUOROSCOPIC GUIDANCE SURGEON DR. ELENO BONE SHOW CARD WRITER NONE ANESTHESIA LOCAL PRE PROCEDURE NOTE THE PATIENT HAS A HISTORY OF CHRONIC LOW BACK PAIN. I EVALUATED THE PATIENT AND REVIEWED THE CHART. I WENT OVER THE RISKS, ALTERNATIVES, AND BENEFITS ASSOCIATED WITH THIS PROCEDURE. I DISCUSSED THAT THE USE OF STEROIDS MAY CONTRIBUTE TO IMMUNOSUPPRESSION OF THE PATIENT'S BODY AGAINST INFECTIONS SUCH COVID-19. THE PATIENT IS AWARE OF THE POTENTIAL COMPLICATIONS ASSOCIATED WITH THIS VIRUS, INCLUDING, BUT NOT LIMITED TO, . THE PATIENT WOULD LIKE TO PROCEED AND GIVE CONSENT TO PERFORMED THE PROCEDURE. THE PATIENT DENIES UNEXPLAINABLE WEIGHT LOSS, FEVER, CHILLS, OR NEW CHANGES IN URINARY OR BOWEL CONTROL. THE PATIENT IS COVID-19 NEGATIVE DESCRIPTION OF PROCEDURE THE PATIENT WAS BROUGHT TO THE PROCEDURE ROOM AND PLACED IN THE PRONE POSITION. THE LUMBOSACRAL AREA WAS CLEANED WITH BETADINE SOLUTION AND DRAPED ASEPTICALLY. THE PROCEDURE WAS DONE UNDER STERILE CONDITIONS. A TIMEOUT WAS PERFORMED WHERE LATERALITY AND THE SITE OF THE PROCEDURE WERE CHECKED AND CONFIRMED WITH EVERYONE IN THE ROOM. UNDER FLUOROSCOPIC GUIDANCE, THE TARGET POINT WAS SELECTED AT THE INTERLAMINAR LEVEL OF L5-S1. I CONFIRMED AGAIN WITH EVERYONE IN THE ROOM THE LATERALITY OF THE TARGET AT 0938. LIDOCAINE WAS USED TO NUMB THE SKIN AND THE SUBCUTANEOUS TISSUE BELOW IT. EPIDURAL TUOHY NEEDLE, 17-GAUGE, WAS ADVANCED UNDER FLUOROSCOPIC GUIDANCE AND FOLLOWING PATIENT FEEDBACK UNTIL THE EPIDURAL SPACE WAS REACHED 6 CM DEEP INTO THE SKIN BY THE LOSS OF RESISTANCE TECHNIQUE. ISOVUE-M DYE 30%, 0.25 ML, WAS INJECTED SHOWING ADEQUATE SPREAD OF THE DYE. THEN, A SOLUTION OF 3 ML OF NORMAL SALINE WITH DEPO-MEDROL 80 MG WAS INJECTED SLOWLY FOLLOWING PATIENT FEEDBACK. THE PATIENT HAS AN ALLERGY TO TEGADERM SO I USED GAUZE AND TAPE TO DRESS THE SITE. THE MEDICATIONS WERE VERIFIED WITH THE NURSE. THERE WAS NO EVIDENCE OF BLOOD, PARESTHESIA OR CEREBROSPINAL FLUID DURING THE PROCEDURE. THE PATIENT WAS SENT TO THE RECOVERY ROOM. THE PATIENT WAS MOVING THE EXTREMITIES AND DOING WELL. THERE WERE NO COMPLICATIONS DURING THE PROCEDURE. ESTIMATED BLOOD LOSS WAS LESS THAN 5 ML. FLUOROSCOPY TIME WAS 10 SECONDS POST PROCEDURE NOTE THE PATIENT WILL BE SEEN IN A FOLLOW UP IN THE NEXT FEW WEEKS. I AM LOOKING FOR LONG LASTING RELIEF FOR THE PATIENT WITH THIS INTERVENTION. INSTRUCTIONS WERE GIVEN, QUESTIONS WERE ANSWERED, AND THE PATIENT EXPRESSED UNDERSTANDING AND AGREES WITH THE PLAN. I, ANNETTE MERCADO, DOCUMENTED THE ABOVE INFORMATION ACTING A SCRIBE FOR DR. BONE. I HAVE REVIEWED THE ABOVE DOCUMENT, WRITTEN BY ANNETTE MERCADO, LANDSCAPE MAINTENANCE INTERNSHIP, AND I VERIFY THAT IT IS ACCURATE PREVENTIVE MEDICINE PAIN CLINIC TEACHING: THE PATIENT HAS BEEN EDUCATED REGARDING PAIN, THE RISK FOR PAIN, THE IMPORTANCE OF EFFECTIVE PAIN MANAGEMENT, AND THE PAIN ASSESSMENT PROCESS. : REVIEWED WRITTEN AND VERBAL POST PROCEDURE INSTRUCTIONS WITH PATIENT, PT ACKNOWLEDGED UNDERSTANDING, DS PROCEDURE CODES 17615 LUMBAR/SACRAL W/ IMAGING DISPOSITION & COMMUNICATION FOLLOW UP FOLLOW UP WITH ASSOCIATE PROFESSOR OF BIOSTATISTICS (REASON: POST LUMBAR EPIDURAL L5-S1) ELECTRONICALLY SIGNED BY ELENO BONE MD, MD ON 08/02/2020 AT 02:56 PM EDT DISCLAIMER : THIS IS A VISIT SUMMARY EXTRACTED FROM THE [employer] CHART. IT IS NOT A COPY OF THE [employer] PROGRESS NOTE. ALCON
--- NOTE | 2020-08-07 15:22 | REP ---
C-ARM VIEWS LOWER LUMBAR SPINE CLINICAL HISTORY: Pain. TECHNIQUE: Two C-arm views of the lower lumbar spine performed during lumbar epidural injection by Dr. Damon. FINDINGS: A needle is seen at the lumbosacral junction. FLUOROSCOPY TIME: 10 seconds utilized. MTDD
== END ==
LOC: M PAIN 08:30
PROVIDERS: ATTEND Anesthesiology
DX: M51.17 Intervertebral disc disorders with radiculopathy, lumbosacral region (principal); G47.33 Obstructive sleep apnea (adult) (pediatric); E78.5 Hyperlipidemia, unspecified; Z87.891 Personal history of nicotine dependence; Z91.018 Allergy to other foods; Z91.09 Other allergy status, other than to drugs and biological substances; Z79.82 Long term (current) use of aspirin; Z79.899 Other long term (current) drug therapy
CPT/HCPCS: 62323; J1030; Q9967

== ENCOUNTER → 2020-08-15 | Outpatient (CLI) | payer BC ==
[~2020-08-15] MED LIST changes: -ISOVUE-M 300 61% 15ML VIAL As Ordered ONE; -LIDOCAINE 1% SDV 30ML VIAL As Ordered ONE; -diazePAM 5 MG TAB As Ordered ONE; -methylPREDNISolone SUSP 40MG/ML 1ML VIAL (DEPO MEDROL) As Ordered ONE; -oxyCODONE 5MG TAB As Ordered ONE
--- NOTE | 2020-08-16 10:52 | ECWPNPC ---
PATIENT NAME: IAM DHALIWAL : 1955 GENDER: FEMALE VISIT DATE: 08/15/2020 DISCHARGE DATE: 08/15/20 1115 VISIT LOCKED DATE TIME: PHYSICIAN: EDGARD STEWART RESOURCE: EDGARD STEWART REASON FOR APPOINTMENT 1. POST LESI L4-L5,L5-S1 R HISTORY OF PRESENT ILLNESS GENERAL: HERE FOR POST PROCEDURE FOLLOW-UP. HAD LESI/RIGHT L4-5 ON 08/01/2020. REPORTING MARKED REDUCTION IN RIGHT LOW BACK PAIN AND LEG PAIN SINCE PROCEDURE. UNFORTUNATELY SHE FELL FOR 5 DAYS POSTPROCEDURE. PAIN IS SLIGHTLY AGGRAVATED IN THAT AREA. CHIEF AREA OF PAIN IS LEFT THORACIC REGION. PAIN IS AGGRAVATED WITH RANGE OF JOINT MOTION OF THE SPINE. HAS BENEFITED FROM INTERCOSTAL BLOCKS IN THE PAST.-. FALL RISK SCREENING: SCREENING :ONE FALL WITHOUT INJURY IN THE PAST YEAR PAIN SCREENING: PATIENT HAS A COMPLAINT OF ACUTE OR CHRONIC PAIN :YES LOCATION OF PAIN:UPPER BACK, LOW BACK INTENSITY OF PAIN (SCALE OF 1 TO 10):3 WHAT DOES YOUR PAIN FEEL LIKE:ACHING DURATION:CONTINOUS, CONSTANT PAIN IS INCREASED BY:ACTIVITIES PAIN IS DECREASED BY:SITTING TREATMENT/MEDICATIONS USED TO MANAGE PAIN:NSAIDS LEVEL OF RELIEF FROM PAIN TREATMENTS IN THE PAST:50% PAIN HAS INTERFERED WITH THE FOLLOWING:BATHING/DRESSING, SLEEP NURSING NOTE: -. PAIN CENTER INTAKE QUESTIONS: DO YOU HAVE A HISTORY OF MRSA? :NO DO YOU TAKE A BLOOD THINNERS? :NO DO YOU HAVE ANY BLEEDING DISORDERS? :NO ANY NEW NUMBNESS OR WEAKNESS IN YOUR LEGS OR ARMS? :NO ANY PACEMAKER,DEFIBRILLATOR, OR DORSAL COLUMN STIMULATOR? :NO DO YOU HAVE ANY RASHES OR OPEN SORES? :NO ARE YOU ALLERGIC TO IV DYE? :NO ARE YOU DIABETIC? :NO ANY NEW PROBLEMS WITH YOUR MEDICATIONS? :NO HAVE YOU RECEIVED A VACCINE IN THE PAST 30 DAYS? :NO DO YOU PLAN TO RECEIVE A VACCINE IN THE NEXT 21 DAYS? :YES IF SO WHAT VACCINE AND WHEN? MAYBE FLU VACCINE DO YOU NEED ANY PRESCRIPTION? :YES DULOXETINE X 90 DAYS DO YOU TAKE ANY IMMUNOSUPPRESSIVE MEDICATIONS? :NO IS THERE A CHANCE YOU COULD BE ? :NO ARE YOU BREAST FEEDING? :NO CURRENT MEDICATIONS TAKING ASPIR-81 81 MG TABLET DELAYED RELEASE 1 TABLET ORALLY EVERY OTHER DAY TAKING FISH OIL TRIPLE STRENGTH 1400 MG CAPSULE 2 CAPSULE ORALLY ONCE A DAY TAKING COQ-10 200 MG CAPSULE 1 CAPSULE WITH A MEAL ORALLY ONCE A DAY TAKING CALTRATE 600+D PLUS MINERALS 600-800 MG-UNIT TABLET 1 TABLET ORALLY TWICE A DAY TAKING MULTIVITAMINS CAPSULE ORALLY ONCE DAILY TAKING LIDOCAINE & ADHESIVE SHEET 5 % KIT DIRECTED EXTERNALLY DAILY TAKING MAY USE CBD OIL 25MG BID TAKING CETIRIZINE HCL 10 MG TABLET 1 TABLET ORALLY ONCE A DAY TAKING CYMBALTA 30 MG CAPSULE DELAYED RELEASE PARTICLES 1 CAPSULE ORALLY TWICE A DAY FOR PAIN TAKING LOSARTAN POTASSIUM 25 MG TABLET 1 TABLET ORALLY ONCE A DAY NOT-TAKING CRESTOR 5 MG TABLET 1 TABLET ORALLY ONCE A DAY NOT-TAKING ESTROVEN + ENERGY MAX STRENGTH TABLET 1 TAB ORALLY NOT-TAKING MOVE FREE JOINT HEALTH ADVANCE - TABLET ORALLY DAILY NOT-TAKING MAY USE 1 CEYLON CINNAMON 2 CAP ORALLY ONCE DAILY NOT-TAKING MAY USE ULTRA NICA 1 CAP ORALLY DAILY NOT-TAKING GABAPENTIN 300 MG CAPSULE 1 CAPSULE ORALLY DAILY AT BEDTIME NOT-TAKING CLARITIN 10 MG TABLET 1 TABLET ORALLY ONCE A DAY NOT-TAKING MAY USE DICLOFENAC GEL 1% TID NOT-TAKING IBUPROFEN 200 MG 1 TAB ORAL BEFORE BEDTIME PRN NOT-TAKING CULTURELLE CAPSULE ORALLY ONCE DAILY NOT-TAKING EMERGEN-C IMMUNE PACKET ORALLY ONCE DAILY NOT-TAKING PAZEO 0.7 % SOLUTION 1 DROP INTO AFFECTED EYE OPHTHALMIC ONCE A DAY NOT-TAKING MAY USE MYOCALM 2 CAPS ORALLY ONCE DAILY NOT-TAKING VALIUM 5 MG TABLET 1 TAB DIRECTED ORALLY 1 TAB 1HR PRE MRI AND 1 TAB AT TIME OF MRI MDD2 MEDICATION LIST REVIEWED AND RECONCILED WITH THE PATIENT PAST MEDICAL HISTORY BRI - CPAP IMPLANTABLE LOOP RECORDER- FOR EPISODES OF SYNCOPE( [id number]) HYPERLIPID CHRONIC BACK AND NECK PAIN HEADACHES DIZZINESS HAS BEEN KNOWN TO VASAL VAGAL SEVERLY WITH PROCEDURES INVOLVING NEEDLES CARPAL TUNNEL RIGHT HAND DE QUERVAIN'S TENOSYNOVITIS-RIGHT TENNIS ELBOW-RIGHT LEFT INTERCOSTAL NEURALGIA FATTY LIVER BORDERLINE HYPERTENSION ALLERGIES TAPE: RASH - ALLERGY ORANGE: DRY MOUTH/DIFFICULTY SWALLOWING - ALLERGY PINE: RASH/CONGESTION - ALLERGY GRASS: SNEEZING, WATERY EYES SURGICAL HISTORY TONSILLECTOMY 1965 D/C (MISCARRIAGE) 12/1978 D/C ENDOMETRIAL ABLATION 08/1979 HYSTERECTOMY/OOPHORECTOMY 11/2009 IMPLANTABLE LOOP RECORDER 01/2015 THYROID BX 06/2016 RIGHT HAND CARPAL TUNNEL RELEASE 04/22/2018 REMOVAL OF LOOP RECORDER 06/2018 FAMILY HISTORY FATHER: , COLON CA, DIAGNOSED WITH HYPERTENSION, DIABETES, UNSPECIFIED CEREBRAL ARTERY OCCLUSION WITH CEREBRAL INFARCTION, OTHER MALIGNANT NEOPLASM OF UNSPECIFIED SITE MOTHER: , ENDOMETRIAL CA PARKINSONS ALZHEIMER'S DEMENTIA,, OTHER MALIGNANT NEOPLASM OF UNSPECIFIED SITE DAUGHTER(S): DIABETES DAUGHTER IS TYPE 1 DIABETIC. SOCIAL HISTORY GENERAL: TOBACCO USE ARE YOU A:FORMER SMOKER HOW LONG HAS IT BEEN SINCE YOU LAST SMOKED? QUIT 12/2015 LATEX QUESTIONNAIRE LATEX ALLERGY : HAVE YOU EVER DEVELOPED ANY TYPE OF REACTION AFTER HANDLING LATEX PRODUCTS SUCH RUBBER GLOVES, CONDOMS, DIAPHRAGMS, BALLOONS, SOCKS, OR UNDERWEAR?NO LATEX ALLERGY : HAVE YOU EVER DEVELOPED ANY TYPE OF REACTION DURING OR AFTER DENTAL APPOINTMENT, VAGINAL/RECTAL EXAMINATION, SURGICAL PROCEDURE, OR ANY OTHER EXPOSURE?NO LATEX RISK : HAVE YOU EVER HAD ANY DIFFICULTY BREATHING OR HIVES AFTER EATING OR HANDLING ANY FRUITS, OR VEGETABLES; SUCH KIWI, BANANAS, STONE FRUITS, OR CHESTNUTSNO LATEX RISK : DO YOU HAVE A PREVIOUS PERSONAL HISTORY OF MORE THAN NINE SURGERIES, SPINA BIFIDA, OR REPEATED CATHERIZATIONS? NO LATEX RISK : ARE YOU FREQUENTLY EXPOSED TO LATEX PRODUCTS IN YOUR OCCUPATION?NO DATE ASKED : 05/15/2020 ALCOHOL SCREENING DID YOU HAVE A DRINK CONTAINING ALCOHOL IN THE PAST YEAR?NO POINTS0 INTERPRETATIONNEGATIVE RECREATIONAL DRUG USE DRUG USE?NO CAFFEINE CAFFEINE USE?YES HOW OFTEN AND HOW MUCH? 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 EXERCISE: WALKS. MARITAL STATUS: . PAIN CLINIC PFS, CLERGY, PUBLIC HEALTH REFERRALS PFS REFERRAL NEEDED?NO CLERGY REFERRAL NEEDED?NO PUBLIC HEALTH REFERRAL NEEDED?NO HAS THE PATIENT BEEN EDUCATED REGARDING HIS/HER PLAN OF CARE?YES HAS THE PATIENT BEEN EDUCATED REGARDING PAIN, THE RISK FOR PAIN, THE IMPORTANCE OF EFFECTIVE PAIN MANAGEMENT, AND THE PAIN ASSESSMENT PROCESS?YES ADVANCE DIRECTIVE ADVANCE DIRECTIVE DISCUSSED WITH PATIENT:YES PT DOES NOT HAVE ANY ADVANCED DIRECTIVES. SHE STATES SHE HAS INFORMATION ON HCP ALREADY. HELP OFFERED IN FILLING FORM OUT IF NEEDED. SHE DECLINES AT THIS TIME. HOSPITALIZATION/MAJOR DIAGNOSTIC PROCEDURE SURGERIES CHILDBIRTH REVIEW OF SYSTEMS CONSTITUTIONAL: ANY RECENT FEVER NO . CHILLS NO . WEIGHT CHANGE OF UNKNOWN REASONS NO . GASTROENTEROLOGY: NEW UNEXPLAINABLE CHANGES IN BOWEL CONTROL NO . CONSTIPATION NO . GENITOURINARY: ANY NEW CHANGE IN BLADDER CONTROL? NO . NEUROLOGY: NEW ONSET DIZZINESS OR NEUROLOGICAL CHANGES NOT MENTIONED NO . NEW NUMBNESS OR PAIN PATTERNS NOT MENTIONED AND PERTINENT TO TODAY'S VISIT NO . CARDIOLOGY: NEW CHEST PRESSURE NO . NEW CHEST PAIN NO . RESPIRATORY: UNEXPLAINABLE COUGH NO . NEW SHORTNESS OF BREATH NO . VITAL SIGNS WT 229.0 LBS, HT 66 IN, BMI 36.96 INDEX, BP 144/70 MM HG, HR 85 /MIN, RR 18 /MIN, TEMP 96.9 F, OXYGEN SAT % 98%, NA INITIALS AW 1012. EXAMINATION GENERAL EXAMINATION: LUNGS: LUNG SOUNDS ARE CLEAR. HEART: S1, S2 IN A REGULAR RATE AND RHYTHM. NO SIGNIFICANT MURMURS, RUBS OR GALLOPS NOTED. THORACIC SPINE:SPECIFICPOINT TENDERNESS OVER LEFT FACETS: T8-9, T 9-10, T10-11 . PAIN IS AGGRAVATED IN THIS AREA WITH EXTENSION OF SPINE. DIAGNOSTIC TESTS REVIEWED THORACIC MRI-08/21/18. 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 PROCEDURE CODES FA211 ESTABILISHED PATIENT [facility] FAC[facility] CHARGE DISPOSITION & COMMUNICATION FOLLOW UP POST PROC (REASON: LEFT T10/11-T9/10-T8/9 INTERCOSTAL NERVE BLOCK) ELECTRONICALLY SIGNED BY CARLENE FERRELL ON 08/16/2020 AT 09:12 AM EDT DISCLAIMER : THIS IS A VISIT SUMMARY EXTRACTED FROM THE [employer] CHART. IT IS NOT A COPY OF THE [employer] PROGRESS NOTE. MTDD
== END ==
LOC: M PAIN 10:00
PROVIDERS: ATTEND Nurse Practitioner Family
DX: M79.2 Neuralgia and neuritis, unspecified (principal); G89.29 Other chronic pain; G47.33 Obstructive sleep apnea (adult) (pediatric); Z87.891 Personal history of nicotine dependence; Z91.018 Allergy to other foods; Z91.09 Other allergy status, other than to drugs and biological substances; Z79.82 Long term (current) use of aspirin; Z79.899 Other long term (current) drug therapy

== ENCOUNTER → 2020-09-01 | Outpatient (CLI) | payer BC | LOC: M LABSMTC 10:08 | PROVIDERS: ATTEND Anesthesiology | DX: Z20.828 Contact with and (suspected) exposure to other viral communicable diseases (principal) ==

== ENCOUNTER → 2020-09-06 | Outpatient (CLI) | payer BC ==
[~2020-09-06] MED LIST changes: +BUPIVACAINE HCL 0.25% 30ML VIAL As Ordered ONE; +ISOVUE-M 300 61% 15ML VIAL As Ordered ONE; +LIDOCAINE 1% SDV 30ML VIAL As Ordered ONE; +TRIAMCINOLONE ACETONIDE SUSP 40 MG/ML VIAL (J3301) As Ordered ONE; +diazePAM 5 MG TAB As Ordered ONE; +oxyCODONE 5MG TAB As Ordered ONE
--- NOTE | 2020-09-06 12:47 | REP ---
INDICATION: POST PROCEDURE R/O PNEUMO. COMPARISON: 06/05/2020, 04/24/2020 TECHNIQUE: Inspiratory and expiratory views with a lateral FINDINGS: CP angles are sharply defined. There is no effusion or acute infiltrate. I see no pneumothorax or pneumomediastinum. Heart, mediastinal and hilar contours are unchanged and intact. Aorta and airway are unremarkable. Bones with minor degenerative change. IMPRESSION: 1. No effusion, infiltrate, pneumothorax or other acute parenchymal lung finding. 2. Heart, mediastinal and hilar contours all normal. Airway and bones intact <Electronically signed by Stevo Tran > 09/06/20 [id number]
--- NOTE | 2020-09-06 14:16 | REP ---
INDICATION: LEFT THORACIC INTERCOSTAL NERVE BLOCK. COMPARISON: None. TECHNIQUE: Six views 1 minutes 51 seconds of fluoroscopy time is reported. FINDINGS: A sequence of 6 last image hold fluoroscopically obtained spot radiographs of the left thoracoabdominal junction and ribcage document various needle positions and contrast injections associated with injection procedure. IMPRESSION: Procedural imaging. <Electronically signed by Aníbal Perkins > 09/06/20 [id number]
--- NOTE | 2020-09-12 02:59 | ECWPNPC ---
PATIENT NAME: IAM DHALIWAL : 1955 GENDER: FEMALE VISIT DATE: 09/06/2020 DISCHARGE DATE: 09/06/20 1309 VISIT LOCKED DATE TIME: PHYSICIAN: ELENO BONE MD RESOURCE: ELENO BONE MD REASON FOR APPOINTMENT 1. LEFT T10, T11 INTERCOSTAL NERVE BLOCK HISTORY OF PRESENT ILLNESS GENERAL: -. FALL RISK SCREENING: SCREENING :ONE FALL WITH INJURY IN THE PAST YEAR 3 WEEKS AGO SHE FELL WHILE PLAIYING WITH HER DOG-INCREASE IN BACK PAIN AND SORE LEFT HAND AND KNEE PAIN SCREENING: PATIENT HAS A COMPLAINT OF ACUTE OR CHRONIC PAIN :YES LOCATION OF PAIN:MID BACK LEFT SIDE INTENSITY OF PAIN (SCALE OF 1 TO 10):6 AVERAGE 5-6 WHAT DOES YOUR PAIN FEEL LIKE:BURNING, INTERMITTENT, SHARP DURATION:MAINLY DURING THE DAY, INTERMITTENT PAIN IS INCREASED BY:PROLONGED STANDING PAIN IS DECREASED BY:OTHERS HEAT WILL SOMETIMES DECREASE IT DOES LIDOCAINE PATCH NURSING NOTE: USE PAPER TAPE. PAIN CENTER INTAKE QUESTIONS: DO YOU HAVE A HISTORY OF MRSA? :NO DO YOU TAKE A BLOOD THINNERS? :NO DO YOU HAVE ANY BLEEDING DISORDERS? :NO ANY NEW NUMBNESS OR WEAKNESS IN YOUR LEGS OR ARMS? :NO ANY PACEMAKER,DEFIBRILLATOR, OR DORSAL COLUMN STIMULATOR? :NO DO YOU HAVE ANY RASHES OR OPEN SORES? :NO ARE YOU ALLERGIC TO IV DYE? :NO ARE YOU DIABETIC? :NO ANY NEW PROBLEMS WITH YOUR MEDICATIONS? :NO HAVE YOU RECEIVED A VACCINE IN THE PAST 30 DAYS? :NO DO YOU PLAN TO RECEIVE A VACCINE IN THE NEXT 21 DAYS? :NO DO YOU TAKE ANY IMMUNOSUPPRESSIVE MEDICATIONS? :NO ANY HISTORY OF SEIZURES? :NO ANY HISTORY OF CARDIAC ISSUES OR EVENTS? :NO DO YOU HAVE SLEEP APNEA? :YES DO YOU WEAR A CPAP?YES ANY RECENT HEAD INJURY? :NO DO YOU HAVE ANY NEW INFECTIONS? :NO IS THERE A CHANCE YOU COULD BE ? :NO ARE YOU BREAST FEEDING? :NO WHEN DID YOU LAST EAT? : 09/06/20202129 WHEN DID YOU LAST DRINK? : 09/06/2020 0800 WHAT DID YOU LAST DRINK? : WATER NAME OF PERSON DRIVING YOU HOME? : ASHLEIGH DHALIWAL DO YOU HAVE ANY OTHER QUESTIONS OR CONCERNS? : NONE CURRENT MEDICATIONS TAKING ASPIR-81 81 MG TABLET DELAYED RELEASE 1 TABLET ORALLY DAILY, NOTES: 09/05/2020 0900 TAKING FISH OIL TRIPLE STRENGTH 1400 MG CAPSULE 2 CAPSULE ORALLY ONCE A DAY, NOTES: 09/05/20201800 TAKING COQ-10 200 MG CAPSULE 1 CAPSULE WITH A MEAL ORALLY ONCE A DAY, NOTES: 09/05/2020 1800 TAKING CALTRATE 600+D PLUS MINERALS 600-800 MG-UNIT TABLET 1 TABLET ORALLY TWICE A DAY, NOTES: 09/05/2020 1800 TAKING MULTIVITAMINS CAPSULE ORALLY ONCE DAILY, NOTES: 09/05/2020 1800 TAKING LIDOCAINE & ADHESIVE SHEET 5 % KIT DIRECTED EXTERNALLY DAILY, NOTES: 2-3 DAYS AGO TAKING MAY USE CBD OIL 25MG BID, NOTES: 09/05/2020 1100 TAKING CETIRIZINE HCL 10 MG TABLET 1 TABLET ORALLY ONCE A DAY, NOTES: 09/05/20202099 TAKING LOSARTAN POTASSIUM 25 MG TABLET 1 TABLET ORALLY ONCE A DAY, NOTES: 09/05/20202199 TAKING CYMBALTA 30 MG CAPSULE DELAYED RELEASE PARTICLES 1 CAPSULE ORALLY TWICE A DAY FOR PAIN, NOTES: 09/05/20202099 NOT-TAKING CRESTOR 5 MG TABLET 1 TABLET ORALLY ONCE A DAY NOT-TAKING ESTROVEN + ENERGY MAX STRENGTH TABLET 1 TAB ORALLY NOT-TAKING MOVE FREE JOINT HEALTH ADVANCE - TABLET ORALLY DAILY NOT-TAKING MAY USE 1 CEYLON CINNAMON 2 CAP ORALLY ONCE DAILY NOT-TAKING MAY USE ULTRA NICA 1 CAP ORALLY DAILY NOT-TAKING GABAPENTIN 300 MG CAPSULE 1 CAPSULE ORALLY DAILY AT BEDTIME NOT-TAKING CLARITIN 10 MG TABLET 1 TABLET ORALLY ONCE A DAY NOT-TAKING MAY USE DICLOFENAC GEL 1% TID NOT-TAKING IBUPROFEN 200 MG 1 TAB ORAL BEFORE BEDTIME PRN NOT-TAKING CULTURELLE CAPSULE ORALLY ONCE DAILY NOT-TAKING EMERGEN-C IMMUNE PACKET ORALLY ONCE DAILY NOT-TAKING PAZEO 0.7 % SOLUTION 1 DROP INTO AFFECTED EYE OPHTHALMIC ONCE A DAY NOT-TAKING MAY USE MYOCALM 2 CAPS ORALLY ONCE DAILY NOT-TAKING VALIUM 5 MG TABLET 1 TAB DIRECTED ORALLY 1 TAB 1HR PRE MRI AND 1 TAB AT TIME OF MRI MDD2 MEDICATION LIST REVIEWED AND RECONCILED WITH THE PATIENT PAST MEDICAL HISTORY BRI - CPAP IMPLANTABLE LOOP RECORDER- FOR EPISODES OF SYNCOPE( [id number]) HYPERLIPID CHRONIC BACK AND NECK PAIN HEADACHES DIZZINESS HAS BEEN KNOWN TO VASAL VAGAL SEVERLY WITH PROCEDURES INVOLVING NEEDLES CARPAL TUNNEL RIGHT HAND DE QUERVAIN'S TENOSYNOVITIS-RIGHT TENNIS ELBOW-RIGHT LEFT INTERCOSTAL NEURALGIA FATTY LIVER BORDERLINE HYPERTENSION ALLERGIES TAPE: RASH - ALLERGY ORANGE: DRY MOUTH/DIFFICULTY SWALLOWING - ALLERGY PINE: RASH/CONGESTION - ALLERGY GRASS: SNEEZING, WATERY EYES - ALLERGY TEGADERM : REDNESS, SWELLING AT SIGHT - SIDE EFFECTS SURGICAL HISTORY TONSILLECTOMY 1965 D/C (MISCARRIAGE) 12/1978 D/C ENDOMETRIAL ABLATION 08/1979 HYSTERECTOMY/OOPHORECTOMY 11/2009 IMPLANTABLE LOOP RECORDER 01/2015 THYROID BX 06/2016 RIGHT HAND CARPAL TUNNEL RELEASE 04/22/2018 REMOVAL OF LOOP RECORDER 06/2018 FAMILY HISTORY FATHER: , COLON CA, DIAGNOSED WITH HYPERTENSION, DIABETES, UNSPECIFIED CEREBRAL ARTERY OCCLUSION WITH CEREBRAL INFARCTION, OTHER MALIGNANT NEOPLASM OF UNSPECIFIED SITE MOTHER: , ENDOMETRIAL CA PARKINSONS ALZHEIMER'S DEMENTIA,, OTHER MALIGNANT NEOPLASM OF UNSPECIFIED SITE DAUGHTER(S): DIABETES DAUGHTER IS TYPE 1 DIABETIC. SOCIAL HISTORY GENERAL: TOBACCO USE ARE YOU A:FORMER SMOKER HOW LONG HAS IT BEEN SINCE YOU LAST SMOKED? QUIT 12/2015 LATEX QUESTIONNAIRE LATEX ALLERGY : HAVE YOU EVER DEVELOPED ANY TYPE OF REACTION AFTER HANDLING LATEX PRODUCTS SUCH RUBBER GLOVES, CONDOMS, DIAPHRAGMS, BALLOONS, SOCKS, OR UNDERWEAR?NO DOES HAVE ALLERGY TO TAPE LATEX ALLERGY : HAVE YOU EVER DEVELOPED ANY TYPE OF REACTION DURING OR AFTER DENTAL APPOINTMENT, VAGINAL/RECTAL EXAMINATION, SURGICAL PROCEDURE, OR ANY OTHER EXPOSURE?NO LATEX RISK : HAVE YOU EVER HAD ANY DIFFICULTY BREATHING OR HIVES AFTER EATING OR HANDLING ANY FRUITS, OR VEGETABLES; SUCH KIWI, BANANAS, STONE FRUITS, OR CHESTNUTSNO LATEX RISK : DO YOU HAVE A PREVIOUS PERSONAL HISTORY OF MORE THAN NINE SURGERIES, SPINA BIFIDA, OR REPEATED CATHERIZATIONS? NO LATEX RISK : ARE YOU FREQUENTLY EXPOSED TO LATEX PRODUCTS IN YOUR OCCUPATION?NO DATE ASKED : 09/05/2020 ALCOHOL SCREENING DID YOU HAVE A DRINK CONTAINING ALCOHOL IN THE PAST YEAR?NO POINTS0 INTERPRETATIONNEGATIVE RECREATIONAL DRUG USE DRUG USE?NO CAFFEINE CAFFEINE USE?YES HOW OFTEN AND HOW MUCH? 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 DIET: REGULAR. EXERCISE: WALKS. MARITAL STATUS: . PAIN CLINIC PFS, CLERGY, PUBLIC HEALTH REFERRALS PFS REFERRAL NEEDED?NO CLERGY REFERRAL NEEDED?NO PUBLIC HEALTH REFERRAL NEEDED?NO HAS THE PATIENT BEEN EDUCATED REGARDING HIS/HER PLAN OF CARE?YES HAS THE PATIENT BEEN EDUCATED REGARDING PAIN, THE RISK FOR PAIN, THE IMPORTANCE OF EFFECTIVE PAIN MANAGEMENT, AND THE PAIN ASSESSMENT PROCESS?YES ADVANCE DIRECTIVE ADVANCE DIRECTIVE DISCUSSED WITH PATIENT:YES 09/05/2020 PT DOES NOT HAVE ANY ADVANCED DIRECTIVES. SHE STATES SHE HAS INFORMATION ON HCP ALREADY. HELP OFFERED IN FILLING FORM OUT IF NEEDED. SHE DECLINES AT THIS TIME. HOSPITALIZATION/MAJOR DIAGNOSTIC PROCEDURE SURGERIES CHILDBIRTH VITAL SIGNS WT 231.8 LBS, HT 66 IN, BMI 37.41 INDEX, BP 165/83 MM HG, HR 89 /MIN, RR 18 /MIN, TEMP 96.7 F, OXYGEN SAT % 98%, SAFE IN ENV? (Y/N) YES, REVIEWED BY: NLJREVIEWED 09/06/2020 1000 N EV ARZATE. EXAMINATION GENERAL EXAMINATION: THE PATIENT IS ALERT, ORIENTED TIMES THREE AND COOPERATIVE. HEART SHOWS REGULAR RHYTHM, NO MURMURS AND NO GALLOPS. LUNGS ARE CLEAR TO AUSCULTATION. ASSESSMENTS SPONDYLOSIS WITHOUT MYELOPATHY OR RADICULOPATHY, THORACIC REGION - M47.814 (PRIMARY) TREATMENT SPONDYLOSIS WITHOUT MYELOPATHY OR RADICULOPATHY, THORACIC REGION CHEST X-RAY PA AND [id number],KRISTAL 09/06/2020 11:54:02 AM - ON INSPIRATION AND EXPIRATION [facility] FLUORO GUIDANCE (PAIN)[id number] MEDICATION: VALIUM TAB 10MG ORALLY (DIAZEPAM)ERMELINDA SOLANO RN 09/06/2020 10:23:53 AM > LOT# [id number], EXP DATE 01/2021, VERIFIED FERDINAND HUA 09/06/2020 10:26:31 AM > ADMINISTERED MEDICATION: OXYCODONE HCL TAB 10MG ORALLYERMELINDA SOLANO RN 09/06/2020 10:24:29 AM > LOT# [id number], EXP DATE 11/2021, VERIFIED FERDINAND HUA 09/06/2020 10:27:10 AM > ADMINISTERED IV LACTATED RINGER'S AT FERDINAND ALMANZAR 09/06/2020 10:34:46 AM > #20 SL INITIATED BY THIS DIRECTOR QUALITY ASSURANCE X 1 ATTEMPT IN RIGHT HAND, SITE ASYMPTOMATIC, PATIENT TOLERATED WELL. SL SECURED WITH PAPER TAPE. RL INFUSING AT KVO PER DOCTOR'S ORDER. OTHERS NOTES: 09/05/2020 1433 PRE-PROCEDURE CALL COMPLETED Nikolas KING RN. PROCEDURES PAIN NURSING RECORD PRE-PROCEDURE IV SITE RIGHT HAND, IV STARTED # 20, IV STARTED BY: Nataly DUVALL RN, IV ATTEMPTS 1, PRE-PROCEDURE ORAL MEDICATIONS VALIUM 10 MG AND OXYCODONE 10 MG PO ADMINISTERED AT 1026 PO BY Lewis ARZATE RN PROCEDURE IN ROOM 1055, PHYSICIAN IN ROOM 1106, START 1113, FINISH 1145, PHYSICIAN OUT OF ROOM 1148, OUT OF ROOM 1158, STEROID KENALOG 40 MG, O2 RA, ECG NORMAL SINUS, PATIENT SHIELDED YES, SAFETY STRAP YES, PREP CHLOROPREP BY Mya SOLANO RN, IV INFUSED LACTATED RINGERS 450CC TOTAL INFUSED, DRESSING OTHER DRY STERILE 4X4 APLLIED WITH PAPER TAPE BY DR BONE LOC: FERDINAND HUA 09/06/2020 1100- , 1. ALERT, ORIENTED RESP: FERDINAND HUA 09/06/2020 1100 , 1. REGULAR, NO DYSPNEA COLOR: JAVIDFERDINAND MINOR 09/06/2020 1100 , 1. PINK SKIN: JAVIDFERDINAND MINOR 09/06/2020 1100 , 1. WARM, DRY POSITION: JAVIDFERDINAND MINOR 09/06/2020 1100 , 1. PRONE VITALS: JAVIDFERDINAND MINOR 09/06/2020 1100 138/71-73-18-95% RA , FERDINAND HUA 09/06/2020 11:15:01 AM > 111/63-68-18-93% RA FERDINAND HUA 09/06/2020 1130 124/65-71-18-92% RA , FERDINAND HUA 09/06/2020 11:45:25 AM > [id number]% FERDINAND HUA 09/06/2020 1258 144/70-76-18-97% NOTES PATIENT TRANSPORTED TO [facility] VIA WHELLCHAIR WITH Grace MALLORY RN , FERDINAND HUA 09/06/2020 12:00:18 PM > 09/06/2020 1225 PATIENT RETURNED FROM [facility] VIA WHEELCHAIR WITH Grace MALLORY RN REPORT OF XRAY RESULTS REPORTED TO DR BONE- PATIENT OKAY FOR DISCHARGE 09/06/2020 1255 DISCHARGE: POST PAIN 0 LEFT UPPER BACK, DRESSING SITE DRY AND INTACT, IV DISCONTINUED, SITE CLEAR, CATHETER INTACT SL DISCONTINUED RIGHT HAND SITE ASYMPTOMATIC, CATHETER INTACT. DRY STERILE 2X2 APPLIED WITH PAPER TAPE, GAIT STEADY, TEACHING COMPLETED, PATIENT ACKNOWLEDGES UNDERSTANDING YES PATIENT VERBALIZES UNDERSTANDING OF DISCHARGE INSTRUCTIONS REVIEWED, PATIENT DISCHARGED AT 1308 PRE PROCEDURE DIAGNOSIS 1. INTERCOSTAL NEURALGIA. 2. CHEST WALL PAIN POST PROCEDURE DIAGNOSIS 1. INTERCOSTAL NEURALGIA. 2. CHEST WALL PAIN PROCEDURE LEFT T10 AND LEFT T11 INTERCOSTAL NERVE BLOCK UNDER FLUOROSCOPIC GUIDANCE SURGEON DR. ELENO BONE HEAVY FORGER HELPER NONE ANESTHESIA LOCAL PRE PROCEDURE NOTE THE PATIENT IS SUFFERING OF CHEST WALL PAIN. I REVIEWED THE CHART. I DISCUSSED THE RISKS, BENEFITS AND ALTERNATIVES ASSOCIATED WITH THIS PROCEDURE AND THE PATIENT EXPRESSED WILLINGNESS TO PROCEED. THE PATIENT IS AWARE THAT THE MAIN POTENTIAL COMPLICATION IS THE DEVELOPMENT OF A PNEUMOTHORAX, IN WHICH CASE A CHEST TUBE WILL BE NEEDED. I DISCUSSED THAT THE USE OF STEROIDS MAY CONTRIBUTE TO IMMUNOSUPPRESSION OF THE PATIENT'S BODY AGAINST INFECTIONS SUCH COVID-19. THE PATIENT IS AWARE OF THE POTENTIAL COMPLICATIONS ASSOCIATED WITH THIS VIRUS, INCLUDING, BUT NOT LIMITED TO, . THE PATIENT DENIES UNEXPLAINABLE WEIGHT LOSS FEVER CHILLS NEW CHANGES IN THE URINARY OR BOWEL CONTROL. THE PATIENT IS COVID-19 NEGATIVE DESCRIPTION OF PROCEDURE AFTER CONSENT WAS TAKEN, THE PATIENT WAS BROUGHT TO THE PROCEDURE ROOM AND PLACED IN THE PRONE POSITION. THORACOLUMBAR AREA WAS CLEANED WITH CHLORAPREP SOLUTION AND DRAPED ASEPTICALLY. A TIMEOUT WAS PERFORMED WHERE LATERALITY AND THE SITE OF THE PROCEDURE WERE CHECKED AND CONFIRMED WITH EVERYONE IN THE ROOM. UNDER FLUOROSCOPIC GUIDANCE, TARGET POINT WAS SELECTED AT THE LEFT T10 AND T11 RIB. I CONFIRMED AGAIN WITH EVERYONE IN THE ROOM THE LATERALITY OF THE TARGET AT 1113. LIDOCAINE WAS USED LOCAL ANESTHETIC. SPINAL NEEDLE, 22-GAUGE 3.5 INCHES, WAS ADVANCED UNDER FLUOROSCOPIC GUIDANCE UNTIL I TOUCHED THE AFFECTED RIB. THEN THE NEEDLE WAS MOVED TO THE INFERIOR BORDER OF THE RIB. ISOVUE-M DYE 30%, 16 ML WAS INJECTED SHOWING ADEQUATE SPREAD OF THE DYE FOLLOWING THE INFERIOR BORDER OF THE RIB. THEN A SOLUTION OF 30 ML OF BUPIVACAINE 0.125% WITH KENALOG 20 MG WAS INJECTED AT EACH LEVEL. THERE WAS NO EVIDENCE OF VASCULAR UPTAKE OR LUNG PUNCTURE. PATIENT WAS SENT TO THE RECOVERY ROOM. THE PATIENT TOLERATED THE PROCEDURE WELL. THERE WERE NO COMPLICATIONS. ESTIMATED BLOOD LOSS WAS 5 ML. FLUOROSCOPIC TIME WAS 1 MINUTE 51 SECONDS POST PROCEDURE NOTE I DISCUSSED THE PROCEDURE WITH THE PATIENT. CHEST X-RAY, PA AND LATERAL ON INSPIRATION AND EXPIRATION, WAS PERFORMED TO RULE OUT PNEUMOTHORAX. THE PATIENT IS GOING TO BE SEEN IN A FOLLOWUP. I, ANNETTE MERCADO, DOCUMENTED THE ABOVE INFORMATION ACTING A SCRIBE FOR DR. BONE. I HAVE REVIEWED THE ABOVE DOCUMENT, WRITTEN BY ANNETTE MERCADO, ASSISTANT STORE LEADER, AND I VERIFY THAT IT IS ACCURATE PROCEDURE CODES 07569 N BLOCK INJ INTERCOST DIRECTOR OF FIELD SALES, MODIFIERS: [place] [id number] NEEDLE LOCALIZATION BY XRAY, MODIFIERS: 26 DISPOSITION & COMMUNICATION FOLLOW UP FOLLOW UP WITH EXTRUSION BENDER (REASON: POST INTERCOSTAL LEFT T8-T9, T9-T10, T10-T11) ELECTRONICALLY SIGNED BY ELENO BONE MD, ON 09/11/2020 AT 02:09 PM EST DISCLAIMER : THIS IS A VISIT SUMMARY EXTRACTED FROM THE [employer] CHART. IT IS NOT A COPY OF THE [employer] PROGRESS NOTE. MTDD
== END ==
LOC: M PAIN 10:00
PROVIDERS: ATTEND Anesthesiology
DX: M47.814 Spondylosis without myelopathy or radiculopathy, thoracic region (principal); G47.30 Sleep apnea, unspecified; Z87.891 Personal history of nicotine dependence; Z91.018 Allergy to other foods; Z91.09 Other allergy status, other than to drugs and biological substances; Z79.82 Long term (current) use of aspirin; Z79.899 Other long term (current) drug therapy
CPT/HCPCS: 64421; 71046; 76000; Q9967

== ENCOUNTER → 2020-09-20 | Outpatient (CLI) | payer BC ==
[~2020-09-20] MED LIST changes: -BUPIVACAINE HCL 0.25% 30ML VIAL As Ordered ONE; -ISOVUE-M 300 61% 15ML VIAL As Ordered ONE; -LIDOCAINE 1% SDV 30ML VIAL As Ordered ONE; -TRIAMCINOLONE ACETONIDE SUSP 40 MG/ML VIAL (J3301) As Ordered ONE; -diazePAM 5 MG TAB As Ordered ONE; -oxyCODONE 5MG TAB As Ordered ONE
--- NOTE | 2020-09-26 10:35 | ECWPNPC ---
PATIENT NAME: IAM DHALIWAL : 1955 GENDER: FEMALE VISIT DATE: 09/20/2020 DISCHARGE DATE: 09/20/20 1122 VISIT LOCKED DATE TIME: PHYSICIAN: EDGARD STEWART RESOURCE: EDGARD STEWART REASON FOR APPOINTMENT 1. POST LEFT T10/11-T9/10-T8/9 INTERCOSTAL NERVE BLOCK HISTORY OF PRESENT ILLNESS GENERAL: HERE FOR POST PROCEDURE FOLLOW-UP. HAD LEFT T10-T11 INTERCOSTAL NERVE BLOCK ON 09/06/2020. REPORTING MARKED REDUCTION IN PAIN POST PROCEDURE AT GREATER THAN 80%. CONTINUES TO BENEFIT TODAY FROM THAT BLOCK WITH IMPROVED ACTIVITY TOLERANCE. CHIEF AREA OF PAIN IS IN HER CERVICAL SPINE. HISTORY OF CHRONIC NECK PAIN. PATIENT FEELS THOUGH NECK PAIN HAS INCREASED OVER THE PAST 6 MONTHS. DESCRIBES PAIN A CONSTANT ACHING AND BURNING. DENIES RADICULAR SYMPTOMS. MRI IMAGING FROM 2017 IS REVIEWED. WE WOULD NEED UPDATED MRI IMAGING TO CONSIDER INTERVENTIONAL THERAPY PLAN. -. FALL RISK SCREENING: SCREENING :ONE FALL WITHOUT INJURY IN THE PAST YEAR PAIN SCREENING: PATIENT HAS A COMPLAINT OF ACUTE OR CHRONIC PAIN :YES LOCATION OF PAIN:UPPER BACK INTENSITY OF PAIN (SCALE OF 1 TO 10):2 WHAT DOES YOUR PAIN FEEL LIKE:ACHING DURATION:INTERMITTENT PAIN IS INCREASED BY:ACTIVITIES PAIN IS DECREASED BY:USE OF PAIN MEDICATIONS, OTHERS CBD OIL, HEATING PAD TREATMENT/MEDICATIONS USED TO MANAGE PAIN:OTC PAIN RELIEVERS INJECTIONS LEVEL OF RELIEF FROM PAIN TREATMENTS IN THE PAST:75% PAIN HAS INTERFERED WITH THE FOLLOWING: NO NURSING NOTE: -. PAIN CENTER INTAKE QUESTIONS: DO YOU HAVE A HISTORY OF MRSA? :NO DO YOU TAKE A BLOOD THINNERS? :NO DO YOU HAVE ANY BLEEDING DISORDERS? :NO ANY NEW NUMBNESS OR WEAKNESS IN YOUR LEGS OR ARMS? :NO ANY PACEMAKER,DEFIBRILLATOR, OR DORSAL COLUMN STIMULATOR? :NO DO YOU HAVE ANY RASHES OR OPEN SORES? :NO ARE YOU ALLERGIC TO IV DYE? :NO ARE YOU DIABETIC? :NO ANY NEW PROBLEMS WITH YOUR MEDICATIONS? :NO HAVE YOU RECEIVED A VACCINE IN THE PAST 30 DAYS? :NO DO YOU PLAN TO RECEIVE A VACCINE IN THE NEXT 21 DAYS? :YES IF SO WHAT VACCINE AND WHEN? FLU VACCINE DO YOU NEED ANY PRESCRIPTION? :NO DO YOU TAKE ANY IMMUNOSUPPRESSIVE MEDICATIONS? :NO IS THERE A CHANCE YOU COULD BE ? :NO ARE YOU BREAST FEEDING? :NO CURRENT MEDICATIONS TAKING ASPIR-81 81 MG TABLET DELAYED RELEASE 1 TABLET ORALLY DAILY TAKING FISH OIL TRIPLE STRENGTH 1400 MG CAPSULE 2 CAPSULE ORALLY ONCE A DAY TAKING COQ-10 200 MG CAPSULE 1 CAPSULE WITH A MEAL ORALLY ONCE A DAY TAKING CALTRATE 600+D PLUS MINERALS 600-800 MG-UNIT TABLET 1 TABLET ORALLY TWICE A DAY TAKING MULTIVITAMINS CAPSULE ORALLY ONCE DAILY TAKING LIDOCAINE & ADHESIVE SHEET 5 % KIT DIRECTED EXTERNALLY DAILY TAKING MAY USE CBD OIL 25MG BID TAKING CETIRIZINE HCL 10 MG TABLET 1 TABLET ORALLY ONCE A DAY TAKING LOSARTAN POTASSIUM 25 MG TABLET 1 TABLET ORALLY ONCE A DAY TAKING CYMBALTA 30 MG CAPSULE DELAYED RELEASE PARTICLES 1 CAPSULE ORALLY TWICE A DAY FOR PAIN NOT-TAKING CRESTOR 5 MG TABLET 1 TABLET ORALLY ONCE A DAY NOT-TAKING ESTROVEN + ENERGY MAX STRENGTH TABLET 1 TAB ORALLY NOT-TAKING MOVE FREE JOINT HEALTH ADVANCE - TABLET ORALLY DAILY NOT-TAKING MAY USE 1 CEYLON CINNAMON 2 CAP ORALLY ONCE DAILY NOT-TAKING MAY USE ULTRA NICA 1 CAP ORALLY DAILY NOT-TAKING GABAPENTIN 300 MG CAPSULE 1 CAPSULE ORALLY DAILY AT BEDTIME NOT-TAKING CLARITIN 10 MG TABLET 1 TABLET ORALLY ONCE A DAY NOT-TAKING MAY USE DICLOFENAC GEL 1% TID NOT-TAKING IBUPROFEN 200 MG 1 TAB ORAL BEFORE BEDTIME PRN NOT-TAKING CULTURELLE CAPSULE ORALLY ONCE DAILY NOT-TAKING EMERGEN-C IMMUNE PACKET ORALLY ONCE DAILY NOT-TAKING PAZEO 0.7 % SOLUTION 1 DROP INTO AFFECTED EYE OPHTHALMIC ONCE A DAY NOT-TAKING MAY USE MYOCALM 2 CAPS ORALLY ONCE DAILY NOT-TAKING VALIUM 5 MG TABLET 1 TAB DIRECTED ORALLY 1 TAB 1HR PRE MRI AND 1 TAB AT TIME OF MRI MDD2 MEDICATION LIST REVIEWED AND RECONCILED WITH THE PATIENT PAST MEDICAL HISTORY BRI - CPAP IMPLANTABLE LOOP RECORDER- FOR EPISODES OF SYNCOPE( [id number]) HYPERLIPID CHRONIC BACK AND NECK PAIN HEADACHES DIZZINESS HAS BEEN KNOWN TO VASAL VAGAL SEVERLY WITH PROCEDURES INVOLVING NEEDLES CARPAL TUNNEL RIGHT HAND DE QUERVAIN'S TENOSYNOVITIS-RIGHT TENNIS ELBOW-RIGHT LEFT INTERCOSTAL NEURALGIA FATTY LIVER BORDERLINE HYPERTENSION ALLERGIES TAPE: RASH - ALLERGY ORANGE: DRY MOUTH/DIFFICULTY SWALLOWING - ALLERGY PINE: RASH/CONGESTION - ALLERGY GRASS: SNEEZING, WATERY EYES - ALLERGY TEGADERM : REDNESS, SWELLING AT SIGHT - SIDE EFFECTS SURGICAL HISTORY TONSILLECTOMY 1965 D/C (MISCARRIAGE) 12/1978 D/C ENDOMETRIAL ABLATION 08/1979 HYSTERECTOMY/OOPHORECTOMY 11/2009 IMPLANTABLE LOOP RECORDER 01/2015 THYROID BX 06/2016 RIGHT HAND CARPAL TUNNEL RELEASE 04/22/2018 REMOVAL OF LOOP RECORDER 06/2018 FAMILY HISTORY FATHER: , COLON CA, DIAGNOSED WITH HYPERTENSION, DIABETES, UNSPECIFIED CEREBRAL ARTERY OCCLUSION WITH CEREBRAL INFARCTION, OTHER MALIGNANT NEOPLASM OF UNSPECIFIED SITE MOTHER: , ENDOMETRIAL CA PARKINSONS ALZHEIMER'S DEMENTIA,, OTHER MALIGNANT NEOPLASM OF UNSPECIFIED SITE DAUGHTER(S): DIABETES DAUGHTER IS TYPE 1 DIABETIC. SOCIAL HISTORY GENERAL: TOBACCO USE ARE YOU A:FORMER SMOKER HOW LONG HAS IT BEEN SINCE YOU LAST SMOKED? QUIT 12/2015 LATEX QUESTIONNAIRE LATEX ALLERGY : HAVE YOU EVER DEVELOPED ANY TYPE OF REACTION AFTER HANDLING LATEX PRODUCTS SUCH RUBBER GLOVES, CONDOMS, DIAPHRAGMS, BALLOONS, SOCKS, OR UNDERWEAR?NO DOES HAVE ALLERGY TO TAPE LATEX ALLERGY : HAVE YOU EVER DEVELOPED ANY TYPE OF REACTION DURING OR AFTER DENTAL APPOINTMENT, VAGINAL/RECTAL EXAMINATION, SURGICAL PROCEDURE, OR ANY OTHER EXPOSURE?NO DATE ASKED : 09/05/2020 LATEX RISK : HAVE YOU EVER HAD ANY DIFFICULTY BREATHING OR HIVES AFTER EATING OR HANDLING ANY FRUITS, OR VEGETABLES; SUCH KIWI, BANANAS, STONE FRUITS, OR CHESTNUTSNO LATEX RISK : DO YOU HAVE A PREVIOUS PERSONAL HISTORY OF MORE THAN NINE SURGERIES, SPINA BIFIDA, OR REPEATED CATHERIZATIONS? NO LATEX RISK : ARE YOU FREQUENTLY EXPOSED TO LATEX PRODUCTS IN YOUR OCCUPATION?NO ALCOHOL SCREENING DID YOU HAVE A DRINK CONTAINING ALCOHOL IN THE PAST YEAR?NO POINTS0 INTERPRETATIONNEGATIVE RECREATIONAL DRUG USE DRUG USE?NO CAFFEINE CAFFEINE USE?YES HOW OFTEN AND HOW MUCH? 2 CUPS COFFEE/DAY CATHOLIC [id number] BUDDHISM LANGUAGE LANGUAGES SPOKEN:BENGALI EDUCATION LEVEL OF EDUCATION:COLLEGE ASSOC[employer]ATES LEARNING BARRIERS / SPECIAL NEEDS BARRIERS TO LEARNING?NO HEARING IMPAIRED?NO VISION IMPAIRED?YES READING GLASSES COGNITIVELY IMPAIRED?NO :CORRECTIVE LENSES READINESS TO LEARN?YES LEARNING PREFERENCES?YES :DEMONSTRATION/VERBAL INSTRUCTION LEARNING CAPABILITIES PRESENT?YES EMOTIONAL BARRIERS?NO SPECIAL DEVICES?YES :CANE OCCASSIONALLY PRICE LISTER NEEDED?NO DOMESTIC VIOLENCE DO YOU FEEL SAFE IN YOUR ENVIRONMENT?YES OCCUPATION: [employer]. DIET: REGULAR. EXERCISE: WALKS. MARITAL STATUS: . PAIN CLINIC PFS, CLERGY, PUBLIC HEALTH REFERRALS PFS REFERRAL NEEDED?NO CLERGY REFERRAL NEEDED?NO PUBLIC HEALTH REFERRAL NEEDED?NO HAS THE PATIENT BEEN EDUCATED REGARDING HIS/HER PLAN OF CARE?YES HAS THE PATIENT BEEN EDUCATED REGARDING PAIN, THE RISK FOR PAIN, THE IMPORTANCE OF EFFECTIVE PAIN MANAGEMENT, AND THE PAIN ASSESSMENT PROCESS?YES ADVANCE DIRECTIVE ADVANCE DIRECTIVE DISCUSSED WITH PATIENT:YES PT DOES NOT HAVE ANY ADVANCED DIRECTIVES. SHE STATES SHE HAS INFORMATION ON HCP ALREADY. HELP OFFERED IN FILLING FORM OUT IF NEEDED. SHE DECLINES AT THIS TIME. HOSPITALIZATION/MAJOR DIAGNOSTIC PROCEDURE SURGERIES CHILDBIRTH REVIEW OF SYSTEMS CONSTITUTIONAL: ANY RECENT FEVER NO . CHILLS NO . WEIGHT CHANGE OF UNKNOWN REASONS NO . GASTROENTEROLOGY: NEW UNEXPLAINABLE CHANGES IN BOWEL CONTROL NO . CONSTIPATION NO . GENITOURINARY: ANY NEW CHANGE IN BLADDER CONTROL? NO . NEUROLOGY: NEW ONSET DIZZINESS OR NEUROLOGICAL CHANGES NOT MENTIONED NO . NEW NUMBNESS OR PAIN PATTERNS NOT MENTIONED AND PERTINENT TO TODAY'S VISIT NO . CARDIOLOGY: NEW CHEST PRESSURE NO . NEW CHEST PAIN NO . RESPIRATORY: UNEXPLAINABLE COUGH NO . NEW SHORTNESS OF BREATH NO . VITAL SIGNS WT 231.8 LBS, HT 66 IN, BMI 37.41 INDEX, BP 177/81 MM HG, HR 116 /MIN, RR 18 /MIN, TEMP 96.0 F, OXYGEN SAT % 94%, SAFE IN ENV? (Y/N) Y, NA INITIALS AW 1044, REVIEWED BY: EM. EXAMINATION GENERAL EXAMINATION: LUNGS: LUNG SOUNDS ARE CLEAR . HEART: HEART RATE REGULAR . MUSCULOSKELETAL:*, MUSCLE STRENGTH TESTING 5/5 BILATERAL UPPER EXTREMITIES. . CERVICAL:+ FOR PAIN WITH PALPATION OF CERVICAL SPINE. + FOR PAIN WITH PALPATION OF CERVICAL PARASPINALS.SPECIFIC POINT TENDERNESS NOTED OV C4/5-/C5/6 CERVICAL FACETS WITH EXTENSION AND FACET LOADING.. DIAGNOSTIC TESTS REVIEWED CERVICAL MRI -2017. ASSESSMENTS OTHER CHRONIC PAIN - G89.29 (PRIMARY) CERVICAL RADICULOPATHY - M54.12 TREATMENT OTHER CHRONIC PAIN MRI: C [id number] PAIN PROCEDURE LOGDATE OF [id number]/11/20PROCEDURE:LEFT INTERCOSTAL NERVE BLOCK T10, [id number] OF PRE SEDATEVALIUM 10MG, OXYCODONE 10MGRESULT:MARKED REDUCTION IN PAIN IN NECK AND IMPROVED TOLERANCE CONTINUES TODAY NOTES: CONTINUE HOME EXERCISE AND STRETCHING. MRI OF THE CERVICAL SPINE IS ORDERED TO REVIEW DUE TO INCREASE IN CERVICAL PAIN OVER THE PAST 6 MONTHS. WE WILL NEED MRI OF THE CERVICAL SPINE TO ESTABLISH TREATMENT PLAN FOR INTERVENTIONAL THERAPY. FOLLOW-UP TO REVIEW MRI WILL BE SCHEDULED. PROCEDURE CODES [id number] ESTABILISHED PATIENT [facility] FACILITY CHARGE DISPOSITION & COMMUNICATION FOLLOW UP 6 WEEKS (REASON: REVIEW CERVICAL MRI AND CONSIDER INJECTION THERAPY) ELECTRONICALLY SIGNED BY CARLENE FERRELL ON 09/25/2020 AT 09:39 AM EST DISCLAIMER : THIS IS A VISIT SUMMARY EXTRACTED FROM THE [employer] CHART. IT IS NOT A COPY OF THE [employer] PROGRESS NOTE. ALCON
== END ==
LOC: M PAIN 10:45
PROVIDERS: ATTEND Nurse Practitioner Family
DX: M54.12 Radiculopathy, cervical region (principal); G89.29 Other chronic pain; G47.33 Obstructive sleep apnea (adult) (pediatric); Z87.891 Personal history of nicotine dependence; Z91.018 Allergy to other foods; Z91.09 Other allergy status, other than to drugs and biological substances; Z79.82 Long term (current) use of aspirin; Z79.899 Other long term (current) drug therapy

== ENCOUNTER → 2020-10-24 | Outpatient (CLI) | payer BC ==
--- NOTE | 2020-10-24 10:50 | REPVR ---
PROCEDURE INFORMATION: Exam: MR Cervical Spine Without Contrast Exam date and time: 10/24/2020 10:29 AM Age: 65 years old Clinical indication: Neck pain; Additional info: Cervical radiculopathy TECHNIQUE: Imaging protocol: Multiplanar magnetic resonance images of the cervical spine without contrast. COMPARISON: 1. MRI-Spine,Cervical without con 10/13/2017 9:[address] Spine,cervical w/o contrast 04/18/2017 9:02:12 AM FINDINGS: Vertebrae: Loss and slight reversal of cervical lordosis is stable and may be positional or associated with muscular spasm. Stable grade 1 anterolisthesis at C3-C4 and retrolisthesis at C6-C7. Craniocervical junction appears unremarkable. Normal position of cerebellar tonsils without evidence of Chiari I malformation. Vertebral body marrow signal is shows no suspicious findings and stable. Spinal cord: Cervical spinal cord signal is normal without intrinsic cord lesions. C2-C3: There mild central disc bulge. There is no significant cord compression. There is no neural foraminal or spinal stenosis. No interval change. C3-C4: There is posterior osteophyte disc complex. There is no significant cord compression or spinal stenosis. There is no significant neural foraminal narrowing. C4-C5: There is posterior osteophyte disc complex. There is no significant cord compression or spinal stenosis. There is no significant neural foraminal narrowing. C5-C6: There is posterior osteophyte disc complex. There is no significant cord compression or spinal stenosis. There are asymmetric uncinate and facet osteophytes with no significant right and mild unchanged left neural foraminal narrowing. C6-C7: There is posterior osteophyte disc complex. There is no significant cord compression or spinal stenosis. There are uncinate and facet osteophytes with unchanged mild right and [id number] left neural foraminal narrowing. C7-T1: There is no significant disc bulge. There is no significant cord compression. There is no neural foraminal or spinal stenosis. Thyroid: Partially visualized T2 and FLAIR hyperintense rounded left thyroid lobe lesion measures approximately 3.4 cm on STIR sagittal images. This was partially visualized on sagittal prior imaging and cannot be accurately compared to prior MRI. This appear to measure maximum of 1.[address] and therefore is enlarged. IMPRESSION: 1. Stable cervical spine with stable degenerative changes. No cord compression. 2. Thyroid nodule/list appears increased from 2017. Recommend follow-up thyroid ultrasound. COMMENTS: Consistent with the [employer]'s Incidental Findings Committee white paper (J Am Rhea Radiol 2015): In patients aged 35 years and older with an incidental thyroid nodule equal to or greater than 1.[address], MRI or extrathyroidal US, further evaluation with dedicated thyroid US is recommended for patients with normal life expectancy and without comorbidities. For smaller nodules without suspicious features, no further evaluation or follow up is recommended. Electronically signed by: Esperanza Kinsey On 10/24/2020 10:50:58 AM
== END ==
LOC: M RAD 09:02
PROVIDERS: ATTEND Nurse Practitioner Family
DX: M54.12 Radiculopathy, cervical region (principal)

== ENCOUNTER → 2020-10-31 | Outpatient (CLI) | payer BC ==
--- NOTE | 2020-11-02 02:21 | ECWPNPC ---
PATIENT NAME: IAM DHALIWAL : 1955 GENDER: FEMALE VISIT DATE: 10/31/2020 DISCHARGE DATE: 10/31/20 1115 VISIT LOCKED DATE TIME: PHYSICIAN: EDGARD STEWART RESOURCE: EDGARD STEWART REASON FOR APPOINTMENT 1. MRI REVIEW HISTORY OF PRESENT ILLNESS GENERAL: HERE FOR FOLLOW-UP OF PERSISTENT NECK AND LOW BACK PAIN. MRI OF THE CERVICAL SPINE I HAD ORDERED AT LAST VISIT IS REVIEWED. SHOWING STABLE DEGENERATIVE CHANGES. COMPLAINING OF LOW BACK PAIN RIGHT GREATER THAN LEFT. COMPLAINING OF RIGHT KNEE PAIN. COMPLAINING OF NECK STIFFNESS. REVIEWED MRI OF THE LUMBOSACRAL SPINE. ON PHYSICAL EXAM SHE IS QUITE TENDER OVER THE SACROILIAC NERVES BILATERALLY RIGHT GREATER THAN LEFT. HAS RESPONDED WELL TO SACROILIAC JOINT BLOCK IN THE PAST. DISCUSSED TREATMENT PLAN. -. FALL RISK SCREENING: SCREENING :ONE FALL WITHOUT INJURY IN THE PAST YEAR PAIN SCREENING: PATIENT HAS A COMPLAINT OF ACUTE OR CHRONIC PAIN :YES LOCATION OF PAIN:NECK INTENSITY OF PAIN (SCALE OF 1 TO 10):6 WHAT DOES YOUR PAIN FEEL LIKE:ACHING, BURNING DURATION:CONTINOUS, CONSTANT, ALL DAY PAIN IS INCREASED BY:OTHERS "ANYTHING" PAIN IS DECREASED BY:USE OF PAIN MEDICATIONS, OTHERS HEAT/CBD OIL NURSING NOTE: -. PAIN CENTER INTAKE QUESTIONS: DO YOU HAVE A HISTORY OF MRSA? :NO DO YOU TAKE A BLOOD THINNERS? :NO DO YOU HAVE ANY BLEEDING DISORDERS? :NO ANY NEW NUMBNESS OR WEAKNESS IN YOUR LEGS OR ARMS? :NO ANY PACEMAKER,DEFIBRILLATOR, OR DORSAL COLUMN STIMULATOR? :NO DO YOU HAVE ANY RASHES OR OPEN SORES? :NO ARE YOU ALLERGIC TO IV DYE? :NO ARE YOU DIABETIC? :NO ANY NEW PROBLEMS WITH YOUR MEDICATIONS? :NO HAVE YOU RECEIVED A VACCINE IN THE PAST 30 DAYS? :NO DO YOU PLAN TO RECEIVE A VACCINE IN THE NEXT 21 DAYS? :NO DO YOU NEED ANY PRESCRIPTION? :NO DO YOU TAKE ANY IMMUNOSUPPRESSIVE MEDICATIONS? :NO IS THERE A CHANCE YOU COULD BE ? :NO ARE YOU BREAST FEEDING? :NO CURRENT MEDICATIONS TAKING ASPIR-81 81 MG TABLET DELAYED RELEASE 1 TABLET ORALLY DAILY TAKING FISH OIL TRIPLE STRENGTH 1400 MG CAPSULE 2 CAPSULE ORALLY ONCE A DAY TAKING COQ-10 200 MG CAPSULE 1 CAPSULE WITH A MEAL ORALLY ONCE A DAY TAKING CALTRATE 600+D PLUS MINERALS 600-800 MG-UNIT TABLET 1 TABLET ORALLY TWICE A DAY TAKING MULTIVITAMINS CAPSULE ORALLY ONCE DAILY TAKING LIDOCAINE & ADHESIVE SHEET 5 % KIT DIRECTED EXTERNALLY DAILY TAKING MAY USE CBD OIL 25MG BID TAKING CETIRIZINE HCL 10 MG TABLET 1 TABLET ORALLY ONCE A DAY TAKING LOSARTAN POTASSIUM 25 MG TABLET 1 TABLET ORALLY ONCE A DAY TAKING CYMBALTA 30 MG CAPSULE DELAYED RELEASE PARTICLES 1 CAPSULE ORALLY TWICE A DAY FOR PAIN NOT-TAKING DIAZEPAM 5 MG TABLET 1 TABLET NEEDED ORALLY FOR MRI NOT-TAKING CRESTOR 5 MG TABLET 1 TABLET ORALLY ONCE A DAY NOT-TAKING ESTROVEN + ENERGY MAX STRENGTH TABLET 1 TAB ORALLY NOT-TAKING MOVE FREE JOINT HEALTH ADVANCE - TABLET ORALLY DAILY NOT-TAKING MAY USE 1 CEYLON CINNAMON 2 CAP ORALLY ONCE DAILY NOT-TAKING MAY USE ULTRA NICA 1 CAP ORALLY DAILY NOT-TAKING GABAPENTIN 300 MG CAPSULE 1 CAPSULE ORALLY DAILY AT BEDTIME NOT-TAKING CLARITIN 10 MG TABLET 1 TABLET ORALLY ONCE A DAY NOT-TAKING MAY USE DICLOFENAC GEL 1% TID NOT-TAKING IBUPROFEN 200 MG 1 TAB ORAL BEFORE BEDTIME PRN NOT-TAKING CULTURELLE CAPSULE ORALLY ONCE DAILY NOT-TAKING EMERGEN-C IMMUNE PACKET ORALLY ONCE DAILY NOT-TAKING PAZEO 0.7 % SOLUTION 1 DROP INTO AFFECTED EYE OPHTHALMIC ONCE A DAY NOT-TAKING MAY USE MYOCALM 2 CAPS ORALLY ONCE DAILY NOT-TAKING VALIUM 5 MG TABLET 1 TAB DIRECTED ORALLY 1 TAB 1HR PRE MRI AND 1 TAB AT TIME OF MRI MDD2 MEDICATION LIST REVIEWED AND RECONCILED WITH THE PATIENT PAST MEDICAL HISTORY BRI - CPAP IMPLANTABLE LOOP RECORDER- FOR EPISODES OF SYNCOPE( [id number]) HYPERLIPID CHRONIC BACK AND NECK PAIN HEADACHES DIZZINESS HAS BEEN KNOWN TO VASAL VAGAL SEVERLY WITH PROCEDURES INVOLVING NEEDLES CARPAL TUNNEL RIGHT HAND DE QUERVAIN'S TENOSYNOVITIS-RIGHT TENNIS ELBOW-RIGHT LEFT INTERCOSTAL NEURALGIA FATTY LIVER BORDERLINE HYPERTENSION ALLERGIES TAPE: RASH - ALLERGY ORANGE: DRY MOUTH/DIFFICULTY SWALLOWING - ALLERGY PINE: RASH/CONGESTION - ALLERGY GRASS: SNEEZING, WATERY EYES - ALLERGY TEGADERM : REDNESS, SWELLING AT SIGHT - SIDE EFFECTS SURGICAL HISTORY TONSILLECTOMY 1965 D/C (MISCARRIAGE) 12/1978 D/C ENDOMETRIAL ABLATION 08/1979 HYSTERECTOMY/OOPHORECTOMY 11/2009 IMPLANTABLE LOOP RECORDER 01/2015 THYROID BX 06/2016 RIGHT HAND CARPAL TUNNEL RELEASE 04/22/2018 REMOVAL OF LOOP RECORDER 06/2018 FAMILY HISTORY FATHER: , COLON CA, DIAGNOSED WITH HYPERTENSION, DIABETES, OTHER MALIGNANT NEOPLASM OF UNSPECIFIED SITE, UNSPECIFIED CEREBRAL ARTERY OCCLUSION WITH CEREBRAL INFARCTION MOTHER: , ENDOMETRIAL CA PARKINSONS ALZHEIMER'S DEMENTIA,, OTHER MALIGNANT NEOPLASM OF UNSPECIFIED SITE DAUGHTER(S): DIABETES DAUGHTER IS TYPE 1 DIABETIC. SOCIAL HISTORY GENERAL: TOBACCO USE ARE YOU A:FORMER SMOKER HOW LONG HAS IT BEEN SINCE YOU LAST SMOKED? QUIT 12/2015 LATEX QUESTIONNAIRE LATEX ALLERGY : HAVE YOU EVER DEVELOPED ANY TYPE OF REACTION AFTER HANDLING LATEX PRODUCTS SUCH RUBBER GLOVES, CONDOMS, DIAPHRAGMS, BALLOONS, SOCKS, OR UNDERWEAR?NO DOES HAVE ALLERGY TO TAPE LATEX ALLERGY : HAVE YOU EVER DEVELOPED ANY TYPE OF REACTION DURING OR AFTER DENTAL APPOINTMENT, VAGINAL/RECTAL EXAMINATION, SURGICAL PROCEDURE, OR ANY OTHER EXPOSURE?NO LATEX RISK : HAVE YOU EVER HAD ANY DIFFICULTY BREATHING OR HIVES AFTER EATING OR HANDLING ANY FRUITS, OR VEGETABLES; SUCH KIWI, BANANAS, STONE FRUITS, OR CHESTNUTSNO LATEX RISK : DO YOU HAVE A PREVIOUS PERSONAL HISTORY OF MORE THAN NINE SURGERIES, SPINA BIFIDA, OR REPEATED CATHERIZATIONS? NO LATEX RISK : ARE YOU FREQUENTLY EXPOSED TO LATEX PRODUCTS IN YOUR OCCUPATION?NO DATE ASKED : 10/31/2020 ALCOHOL SCREENING DID YOU HAVE A DRINK CONTAINING ALCOHOL IN THE PAST YEAR?NO POINTS0 INTERPRETATIONNEGATIVE RECREATIONAL DRUG USE DRUG USE?NO CAFFEINE CAFFEINE USE?YES HOW OFTEN AND HOW MUCH? 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 DIET: REGULAR. EXERCISE: WALKS. MARITAL STATUS: . PAIN CLINIC PFS, CLERGY, PUBLIC HEALTH REFERRALS PFS REFERRAL NEEDED?NO CLERGY REFERRAL NEEDED?NO PUBLIC HEALTH REFERRAL NEEDED?NO HAS THE PATIENT BEEN EDUCATED REGARDING HIS/HER PLAN OF CARE?YES HAS THE PATIENT BEEN EDUCATED REGARDING PAIN, THE RISK FOR PAIN, THE IMPORTANCE OF EFFECTIVE PAIN MANAGEMENT, AND THE PAIN ASSESSMENT PROCESS?YES ADVANCE DIRECTIVE ADVANCE DIRECTIVE DISCUSSED WITH PATIENT:YES PT DOES NOT HAVE ANY ADVANCED DIRECTIVES. SHE STATES SHE HAS INFORMATION ON HCP ALREADY. HELP OFFERED IN FILLING FORM OUT IF NEEDED. SHE DECLINES AT THIS TIME. HOSPITALIZATION/MAJOR DIAGNOSTIC PROCEDURE SURGERIES CHILDBIRTH REVIEW OF SYSTEMS CONSTITUTIONAL: ANY RECENT FEVER NO . CHILLS NO . WEIGHT CHANGE OF UNKNOWN REASONS NO . GASTROENTEROLOGY: NEW UNEXPLAINABLE CHANGES IN BOWEL CONTROL NO . CONSTIPATION NO . GENITOURINARY: ANY NEW CHANGE IN BLADDER CONTROL? NO . NEUROLOGY: NEW ONSET DIZZINESS OR NEUROLOGICAL CHANGES NOT MENTIONED NO . NEW NUMBNESS OR PAIN PATTERNS NOT MENTIONED AND PERTINENT TO TODAY'S VISIT NO . CARDIOLOGY: NEW CHEST PRESSURE NO . NEW CHEST PAIN NO . RESPIRATORY: UNEXPLAINABLE COUGH NO . NEW SHORTNESS OF BREATH NO . VITAL SIGNS WT 233.0 LBS, HT 66 IN, BMI 37.60 INDEX, BP 143/83 MM HG, HR 56 /MIN, RR 18 /MIN, TEMP 96.3 F, OXYGEN SAT % 94%, SAFE IN ENV? (Y/N) YES, NA INITIALS AW 1025, REVIEWED BY: EZEKIEL STOCK. EXAMINATION GENERAL EXAMINATION: GENERAL ALERT,NO DISTRESS . PSYCH AFFECT NORMAL . LUNGS: LUNG SOUNDS ARE CLEAR . HEART: HEART RATE REGULAR . MUSCULOSKELETAL: MST 5/5 BILAT. LOWER EXTREMITIES . LUMBAR: TENDERNESS BILAT. SIJ RIGHT GREATER THAN LEFT.POSITIVE SONNY TESTING BILAT . DIAGNOSTIC TESTS REVIEWEDMRI L/S SPINE 2017 REVIEWED. ASSESSMENTS SPONDYLOSIS WITHOUT MYELOPATHY OR RADICULOPATHY, CERVICAL REGION - M47.812 (PRIMARY) SACROILIITIS, NOT ELSEWHERE CLASSIFIED - M46.1 TREATMENT SPONDYLOSIS WITHOUT MYELOPATHY OR RADICULOPATHY, CERVICAL REGION NOTES: BILATERAL SACROILIAC JOINT BLOCK ADVISED PATIENT TO FOLLOW-UP ON AN INCIDENTAL FINDING OF THYROID NODULE ON MRI OF CERVICAL SPINE 09/2020 PATIENT WILL HAVE [facility] LOOK AT RIGHT KNEE PAIN. PROCEDURE CODES FA211 ESTABILISHED PATIENT [facility] CHARGE DISPOSITION & COMMUNICATION FOLLOW UP POST PROCEDURE-REQUEST LUMBAR MRI FROM [facility] (REASON: BILATERAL SACROILIAC JOINT BLOCK) ELECTRONICALLY SIGNED BY CARLENE FERRELL ON 11/01/2020 AT 03:21 PM EST DISCLAIMER : THIS IS A VISIT SUMMARY EXTRACTED FROM THE [employer] CHART. IT IS NOT A COPY OF THE [employer] PROGRESS NOTE. ALCON
== END ==
LOC: M PAIN 10:30
PROVIDERS: ATTEND Nurse Practitioner Family
DX: M47.812 Spondylosis without myelopathy or radiculopathy, cervical region (principal); M46.1 Sacroiliitis, not elsewhere classified; G47.33 Obstructive sleep apnea (adult) (pediatric); Z87.891 Personal history of nicotine dependence; Z91.018 Allergy to other foods; Z91.09 Other allergy status, other than to drugs and biological substances; Z79.82 Long term (current) use of aspirin; Z79.899 Other long term (current) drug therapy

== ENCOUNTER → 2020-11-16 | Outpatient (CLI) | payer BC | LOC: M LABSMTC 10:13 | PROVIDERS: ATTEND Anesthesiology | DX: Z20.822 Contact with and (suspected) exposure to COVID-19 (principal) ==

== ENCOUNTER → 2020-11-21 | Outpatient (CLI) | payer BC ==
[~2020-11-21] MED LIST changes: +BUPIVACAINE HCL 0.25% 30ML VIAL As Ordered ONE; +ISOVUE-M 300 61% 15ML VIAL As Ordered ONE; +LIDOCAINE 1% SDV 30ML VIAL As Ordered ONE; +TRIAMCINOLONE ACETONIDE SUSP 40 MG/ML VIAL (J3301) As Ordered ONE; +diazePAM 5MG TABLET As Ordered ONE; +oxyCODONE 5MG TAB As Ordered ONE
--- NOTE | 2020-11-21 17:29 | REP ---
INDICATION: BILATERAL SIJ. COMPARISON: None. TECHNIQUE: Four views. 12 seconds of fluoroscopy time is reported peer FINDINGS: A sequence of 4 last image hold fluoroscopically obtained spot radiographs of the SI joints bilaterally document needle position and contrast injection associated with SI joint injection procedure. IMPRESSION: Procedural imaging. <Electronically signed by Aníbal Perkins > 11/21/20 [id number]
--- NOTE | 2020-11-23 00:40 | ECWPNPC ---
PATIENT NAME: IAM DHALIWAL : 1955 GENDER: FEMALE VISIT DATE: 11/21/2020 DISCHARGE DATE: 11/21/20 0000 VISIT LOCKED DATE TIME: PHYSICIAN: ELENO BONE MD RESOURCE: ELENO BONE MD REASON FOR APPOINTMENT 1. BILATERAL SACROILIAC JOINT BLOCK HISTORY OF PRESENT ILLNESS GENERAL: -. FALL RISK SCREENING: SCREENING :ONE FALL WITHOUT INJURY IN THE PAST YEAR JUST BRUISES AND BUMPS AFTER FALLING FROM GETTING TANGLED WITH HER DOG PAIN SCREENING: PATIENT HAS A COMPLAINT OF ACUTE OR CHRONIC PAIN :YES LOCATION OF PAIN:LOW BACK, LEFT HIP, RIGHT HIP, LEG(S) BILATERAL LEGS INTENSITY OF PAIN (SCALE OF 1 TO 10):6 AVERAGING 6-7 WHAT DOES YOUR PAIN FEEL LIKE:ACHING, BURNING, CONTINOUS, TENDER, SORE DURATION:CONTINOUS, CONSTANT, AWAKENS FROM SLEEP VARIES IN INTENSITY BUT IS ALWAYS THERE PAIN IS INCREASED BY:PROLONGED STANDING PAIN IS DECREASED BY:OTHERS LYING DOWN FLAT. PAIN INJECTIONS PLAN/GOALS/TREATMENT/INTERVENTION/FOLLOW UP:SEE PLAN NURSING NOTE: -. PAIN CENTER INTAKE QUESTIONS: DO YOU HAVE A HISTORY OF MRSA? :NO DO YOU TAKE A BLOOD THINNERS? :NO DO YOU HAVE ANY BLEEDING DISORDERS? :NO ANY NEW NUMBNESS OR WEAKNESS IN YOUR LEGS OR ARMS? :NO ANY PACEMAKER,DEFIBRILLATOR, OR DORSAL COLUMN STIMULATOR? :NO DO YOU HAVE ANY RASHES OR OPEN SORES? :NO ARE YOU ALLERGIC TO IV DYE? :NO ARE YOU DIABETIC? :NO ANY NEW PROBLEMS WITH YOUR MEDICATIONS? :NO HAVE YOU RECEIVED A VACCINE IN THE PAST 30 DAYS? :NO DO YOU PLAN TO RECEIVE A VACCINE IN THE NEXT 21 DAYS? :NO DO YOU TAKE ANY IMMUNOSUPPRESSIVE MEDICATIONS? :NO ANY HISTORY OF SEIZURES? :NO ANY HISTORY OF CARDIAC ISSUES OR EVENTS? :NO DO YOU HAVE SLEEP APNEA? :YES DO YOU WEAR A CPAP?YES ANY RECENT HEAD INJURY? :NO DO YOU HAVE ANY NEW INFECTIONS? :NO IS THERE A CHANCE YOU COULD BE ? :NO ARE YOU BREAST FEEDING? :NO WHEN DID YOU LAST EAT? : 11/21/20 0800 WHEN DID YOU LAST DRINK? : 11/21/20 1230 WHAT DID YOU LAST DRINK? : WATER NAME OF PERSON DRIVING YOU HOME? : ASHLEIGH () DO YOU HAVE ANY OTHER QUESTIONS OR CONCERNS? : NO CURRENT MEDICATIONS TAKING ASPIR-81 81 MG TABLET DELAYED RELEASE 1 TABLET ORALLY DAILY TAKING FISH OIL TRIPLE STRENGTH 1400 MG CAPSULE 2 CAPSULE ORALLY ONCE A DAY TAKING COQ-10 200 MG CAPSULE 1 CAPSULE WITH A MEAL ORALLY ONCE A DAY TAKING CALTRATE 600+D PLUS MINERALS 600-800 MG-UNIT TABLET 1 TABLET ORALLY TWICE A DAY TAKING MULTIVITAMINS CAPSULE ORALLY ONCE DAILY TAKING LIDOCAINE & ADHESIVE SHEET 5 % KIT DIRECTED EXTERNALLY DAILY, NOTES: 11/20/20 TAKING MAY USE CBD OIL 25MG BID, NOTES: 11/20/20 AM TAKING CETIRIZINE HCL 10 MG TABLET 1 TABLET ORALLY ONCE A DAY TAKING LOSARTAN POTASSIUM 25 MG TABLET 1 TABLET ORALLY ONCE A DAY TAKING CYMBALTA 30 MG CAPSULE DELAYED RELEASE PARTICLES 1 CAPSULE ORALLY TWICE A DAY FOR PAIN TAKING CULTURELLE CAPSULE ORALLY ONCE DAILY NOT-TAKING DIAZEPAM 5 MG TABLET 1 TABLET NEEDED ORALLY FOR MRI NOT-TAKING CRESTOR 5 MG TABLET 1 TABLET ORALLY ONCE A DAY NOT-TAKING ESTROVEN + ENERGY MAX STRENGTH TABLET 1 TAB ORALLY NOT-TAKING MOVE FREE JOINT HEALTH ADVANCE - TABLET ORALLY DAILY NOT-TAKING MAY USE 1 CEYLON CINNAMON 2 CAP ORALLY ONCE DAILY NOT-TAKING MAY USE ULTRA NICA 1 CAP ORALLY DAILY NOT-TAKING GABAPENTIN 300 MG CAPSULE 1 CAPSULE ORALLY DAILY AT BEDTIME NOT-TAKING CLARITIN 10 MG TABLET 1 TABLET ORALLY ONCE A DAY NOT-TAKING MAY USE DICLOFENAC GEL 1% TID NOT-TAKING IBUPROFEN 200 MG 1 TAB ORAL BEFORE BEDTIME PRN NOT-TAKING EMERGEN-C IMMUNE PACKET ORALLY ONCE DAILY NOT-TAKING PAZEO 0.7 % SOLUTION 1 DROP INTO AFFECTED EYE OPHTHALMIC ONCE A DAY NOT-TAKING MAY USE MYOCALM 2 CAPS ORALLY ONCE DAILY NOT-TAKING VALIUM 5 MG TABLET 1 TAB DIRECTED ORALLY 1 TAB 1HR PRE MRI AND 1 TAB AT TIME OF MRI MDD2 MEDICATION LIST REVIEWED AND RECONCILED WITH THE PATIENT PAST MEDICAL HISTORY BRI - CPAP IMPLANTABLE LOOP RECORDER- FOR EPISODES OF SYNCOPE( [id number]) HYPERLIPID CHRONIC BACK AND NECK PAIN HEADACHES DIZZINESS HAS BEEN KNOWN TO VASAL VAGAL SEVERLY WITH PROCEDURES INVOLVING NEEDLES CARPAL TUNNEL RIGHT HAND DE QUERVAIN'S TENOSYNOVITIS-RIGHT TENNIS ELBOW-RIGHT LEFT INTERCOSTAL NEURALGIA FATTY LIVER BORDERLINE HYPERTENSION ALLERGIES TAPE: RASH - ALLERGY ORANGE: DRY MOUTH/DIFFICULTY SWALLOWING - ALLERGY PINE: RASH/CONGESTION - ALLERGY GRASS: SNEEZING, WATERY EYES - ALLERGY TEGADERM : REDNESS, SWELLING AT SIGHT - SIDE EFFECTS SOCIAL HISTORY GENERAL: TOBACCO USE ARE YOU A:FORMER SMOKER HOW LONG HAS IT BEEN SINCE YOU LAST SMOKED? QUIT 12/2015 LATEX QUESTIONNAIRE LATEX ALLERGY : HAVE YOU EVER DEVELOPED ANY TYPE OF REACTION AFTER HANDLING LATEX PRODUCTS SUCH RUBBER GLOVES, CONDOMS, DIAPHRAGMS, BALLOONS, SOCKS, OR UNDERWEAR?NO DOES HAVE ALLERGY TO TAPE LATEX ALLERGY : HAVE YOU EVER DEVELOPED ANY TYPE OF REACTION DURING OR AFTER DENTAL APPOINTMENT, VAGINAL/RECTAL EXAMINATION, SURGICAL PROCEDURE, OR ANY OTHER EXPOSURE?NO LATEX RISK : HAVE YOU EVER HAD ANY DIFFICULTY BREATHING OR HIVES AFTER EATING OR HANDLING ANY FRUITS, OR VEGETABLES; SUCH KIWI, BANANAS, STONE FRUITS, OR CHESTNUTSNO LATEX RISK : DO YOU HAVE A PREVIOUS PERSONAL HISTORY OF MORE THAN NINE SURGERIES, SPINA BIFIDA, OR REPEATED CATHERIZATIONS? NO LATEX RISK : ARE YOU FREQUENTLY EXPOSED TO LATEX PRODUCTS IN YOUR OCCUPATION?NO DATE ASKED : 11/20/2020 ALCOHOL SCREENING DID YOU HAVE A DRINK CONTAINING ALCOHOL IN THE PAST YEAR?NO POINTS0 INTERPRETATIONNEGATIVE RECREATIONAL DRUG USE DRUG USE?NO CAFFEINE CAFFEINE USE?YES HOW OFTEN AND HOW MUCH? 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 DIET: REGULAR. EXERCISE: WALKS. MARITAL STATUS: . - PFS REFERRAL NEEDED?NO CLERGY REFERRAL NEEDED?NO PUBLIC HEALTH REFERRAL NEEDED?NO HAS THE PATIENT BEEN EDUCATED REGARDING HIS/HER PLAN OF CARE?YES HAS THE PATIENT BEEN EDUCATED REGARDING PAIN, THE RISK FOR PAIN, THE IMPORTANCE OF EFFECTIVE PAIN MANAGEMENT, AND THE PAIN ASSESSMENT PROCESS?YES ADVANCE DIRECTIVE ADVANCE DIRECTIVE DISCUSSED WITH PATIENT:YES 11/20/20 PT DOES NOT HAVE ANY ADVANCED DIRECTIVES. SHE STATES SHE HAS INFORMATION ON HCP ALREADY. HELP OFFERED IN FILLING FORM OUT IF NEEDED. SHE DECLINES AT THIS TIME. VITAL SIGNS WT 235.6 LBS, HT 66 IN, BMI 38.02 INDEX, BP 121/73 MM HG, HR 99 /MIN, RR 18 /MIN, TEMP 97.6 F, OXYGEN SAT % 98%, SAFE IN ENV? (Y/N) YES, NA INITIALS AW 1448, REVIEWED BY: Zoe LEUNG RN BSN. EXAMINATION GENERAL EXAMINATION: THE PATIENT IS ALERT, ORIENTED TIMES THREE AND COOPERATIVE. LUNGS ARE CLEAR TO AUSCULTATION. HEART SHOWS REGULAR RHYTHM, NO MURMURS AND NO GALLOPS. ASSESSMENTS SACROILIITIS, NOT ELSEWHERE CLASSIFIED - M46.1 (PRIMARY) TREATMENT SACROILIITIS, NOT ELSEWHERE CLASSIFIED [facility] FLUORO GUIDANCE (PAIN)[id number] MEDICATION: VALIUM TAB 10MG ORALLY (DIAZEPAM)JEFE MALLORY 11/21/2020 3:26:01 PM > VERIFIED NOHEMI LEUNG 11/21/2020 3:29:49 PM > ADMINISTERED. MEDICATION: OXYCODONE HCL TAB 10MG ORALLYJEFE MALLORY 11/21/2020 3:25:28 PM > VERIFIED NOHEMI LEUNG 11/21/2020 3:30:08 PM > ADMINISTERED. [facility] 11/21/2020 3:46:08 PM > IV # 22 INITIATED ON SECOND ATTEMPT. PATIENT TOLERATED IV START WELL. HILDA LEUNGISSA 11/21/2020 3:56:11 PM > LR INITIATED PER MD ORDER. NOHEMI LEUNG 11/21/2020 4:22:41 PM > LESS THAN 50CCS INFUSED. COMPLETION OF PROCEDURAL VISIT WHEN MEETS CRITERIA OTHERS CLINICAL NOTES: 11/20/20 1822 PRE-PROCEDURE CALL COMPLETED. PT DENIES ANY CHANGES IN SURGURIES, PAST HOSPITALIZATIONS OR FAMILY HISTORY Nikolas KING RN . PROCEDURES PAIN NURSING RECORD PROCEDURE IN ROOM 1601 , PHYSICIAN IN ROOM 1611 , START 1618 , FINISH 1623 , PHYSICIAN OUT OF ROOM 1628 , OUT OF ROOM 1638 , ECG NORMAL SINUS , PATIENT SHIELDED YES , SAFETY STRAP YES , PREP CHLOROPREP Zoe ELUNG RN BSN, DRESSING OTHER ALLERGY TO TEGADERM (RASH/SWELLING AT SITE). DR. BONE TO USED 2X2 GAUZE AND PAPER TAPE. LOC: HILDA LEUNGISSA 11/21/2020 4:01:43 PM > 1. ALERT, ORIENTED, LOC REMAINED AT BASELINE THROUGHOUT THE PROCEDURE RESP: NHOEMI LEUNG 11/21/2020 4:01:43 PM > 1. REGULAR, NO DYSPNEA COLOR: MADHUNOHEMI 11/21/2020 4:01:43 PM > 1. PINK SKIN: NOHEMI LEUNG 11/21/2020 4:01:43 PM > 1. WARM, DRY POSITION: NOHEMI LEUNG 11/21/2020 4:01:43 PM > 1. PRONE VITALS: NOHEMI LEUNG 11/21/2020 4:03:43 PM > 165/78, 79, 97% RA. NOHEMI LEUNG 11/21/2020 4:17:10 PM > 136/79, 80, 96% RA. NOHEMI LEUNG 11/21/2020 4:25:28 PM > 116/87, 78, 96% RA. NOHEMI LEUNG 11/21/2020 4:44:50 PM > POST PROCEDURE 122/80, 106, 97% RA. COMPLETION OF PROCEDURE APPOINTMENT: POST PAIN 0/10, DRESSING SITE DRY AND INTACT, IV DISCONTINUED, SITE CLEAR, CATHETER INTACT BLEEDING CONTROLLED, DSD APPLIED, PATIENT TOLERATED PROCEDURE WELL., GAIT STEADY, TEACHING COMPLETED, PATIENT ACKNOWLEDGES UNDERSTANDING YES PATIENT GIVEN POST PROCEDURE INSTRUCTIONS, COVID HANDOUT, PATIENT VERBALIZED UNDERSTANDING, NO QUESTIONS OR CONCERNS AT THIS TIME., PROCEDURE APPOINTMENT COMPLETED AT BY: Zoe LEUNG RN AT 1650. PN SI PRE PROCEDURE DIAGNOSIS SACROILIITIS, SACROILIAC JOINT DYSFUNCTION POST PROCEDURE DIAGNOSIS SACROILIITIS, SACROILIAC JOINT DYSFUNCTION PROCEDURE BILATERAL SACROILIAC JOINT BLOCK SURGEON DR. ELENO BONE MICROFABRICATION ENGINEER MANAGER NONE ANESTHESIA LOCAL PRE PROCEDURE NOTE THE PATIENT WITH HISTORY OF CHRONIC LOW BACK PAIN. I EVALUATED THE PATIENT AND REVIEWED THE CHART. I WENT OVER THE RISKS, ALTERNATIVES, AND BENEFITS ASSOCIATED WITH THIS PROCEDURE. THE PATIENT WOULD LIKE TO PROCEED AND GAVE CONSENT TO PERFORM THE PROCEDURE. THE PATIENT DENIES UNEXPLAINABLE WEIGHT LOSS, FEVER, CHILLS, OR NEW CHANGES IN URINARY OR BOWEL CONTROL. THE PATIENT IS COVID-19 NEGATIVE DESCRIPTION OF PROCEDURE THE PATIENT WAS BROUGHT TO THE PROCEDURE ROOM AND PLACED IN THE PRONE POSITION. THE LUMBOSACRAL AREA WAS CLEANED WITH CHLORAPREP SOLUTION AND DRAPED ASEPTICALLY. THE PROCEDURE WAS DONE UNDER STERILE CONDITIONS. A TIMEOUT WAS PERFORMED WHERE THE CONSENTED SITE WAS VERIFIED WITH EVERYONE IN THE ROOM. UNDER FLUOROSCOPIC GUIDANCE, THE TARGET POINT WAS SELECTED AT THE LOWER BORDER OF THE RIGHT AND LEFT SACROILIAC JOINT. TARGET POINT WAS SELECTED AFTER MEDIAL ROTATION AND TILT OF THE MAGNIFIER OR THE C-ARM. I CONFIRMED AGAIN THE SITE OF THE TARGET. LIDOCAINE 0.5% WAS USED TO NUMB THE SKIN AND THE SUBCUTANEOUS TISSUE BELOW IT. SPINAL NEEDLES, 22-GAUGE, WERE ADVANCED UNDER FLUOROSCOPIC GUIDANCE AND FOLLOWING PATIENT FEEDBACK UNTIL THE TARGETS WERE TOUCHED. THE POSITION OF THE NEEDLES WAS VERIFIED WITH AP AND OBLIQUE VIEWS. AFTER PROPER POSITION OF THE NEEDLES WAS ACHIEVED, ISOVUE-M DYE 30%, 0.1 ML, WAS INJECTED SHOWING ADEQUATE SPREAD OF THE DYE. KENALOG 40 MG WAS INJECTED AT EACH SITE. THEN, A SOLUTION OF 3.0 ML OF BUPIVACAINE 0.125% WAS USED TO FLUSH EACH NEEDLE. THE MEDICATIONS WERE VERIFIED WITH THE NURSE. THERE WAS NO EVIDENCE OF BLOOD, PARESTHESIA OR CEREBROSPINAL FLUID DURING THE PROCEDURE. THE PATIENT WAS SENT TO THE RECOVERY ROOM. THE PATIENT WAS MOVING THE EXTREMITIES AND DOING WELL. THERE WERE NO COMPLICATIONS DURING THE PROCEDURE. ESTIMATED BLOOD LOSS WAS LESS THAN 5 ML. FLUOROSCOPIC TIME WAS 12 SECONDS. POST PROCEDURE NOTE THE PATIENT WILL NOT NEED AN IV UNLESS SHE IS HAVING AN EPIDURAL. THE PROCEDURE DONE WAS DISCUSSED WITH THE PATIENT. THE PATIENT WILL BE SEEN IN A FOLLOW UP IN THE NEXT FEW WEEKS. I AM LOOKING FOR LONG LASTING PAIN RELIEF FOR THE PATIENT WITH THIS INTERVENTION. INSTRUCTIONS WERE GIVEN, QUESTIONS WERE ANSWERED, AND THE PATIENT EXPRESSED UNDERSTANDING AND AGREES WITH THE PLAN. I, ANNETTE MERCADO, DOCUMENTED THE ABOVE INFORMATION ACTING A SCRIBE FOR DR. BONE. I HAVE REVIEWED THE ABOVE DOCUMENT, WRITTEN BY JESS DIRECTOR OF CORPORATE STRATEGY, AND I VERIFY THAT IT IS ACCURATE PROCEDURE CODES 01718 INJECT SACROILIAC JOINT, MODIFIERS: 50 DISPOSITION & COMMUNICATION FOLLOW UP FOLLOW UP WITH WELFARE ELIGIBILITY INTERVIEWER (REASON: POST BILATERAL SACROILIAC JOINT BLOCK) ELECTRONICALLY SIGNED BY ELENO BONE MD, MD ON 11/22/2020 AT 03:10 PM EST DISCLAIMER : THIS IS A VISIT SUMMARY EXTRACTED FROM THE [employer] CHART. IT IS NOT A COPY OF THE [employer] PROGRESS NOTE. ALCON
== END ==
LOC: M PAIN 14:30
PROVIDERS: ATTEND Anesthesiology
DX: M46.1 Sacroiliitis, not elsewhere classified (principal); Z79.82 Long term (current) use of aspirin; Z79.899 Other long term (current) drug therapy; G47.33 Obstructive sleep apnea (adult) (pediatric); E78.5 Hyperlipidemia, unspecified; R42 Dizziness and giddiness; K76.0 Fatty (change of) liver, not elsewhere classified; Z87.891 Personal history of nicotine dependence; Z88.8 Allergy status to other drugs, medicaments and biological substances; Z91.018 Allergy to other foods; Z91.048 Other nonmedicinal substance allergy status; J30.1 Allergic rhinitis due to pollen
CPT/HCPCS: G0260; J3301; Q9967

== ENCOUNTER → 2020-12-05 | Outpatient (CLI) | payer BC ==
[~2020-12-05] MED LIST changes: -BUPIVACAINE HCL 0.25% 30ML VIAL As Ordered ONE; -ISOVUE-M 300 61% 15ML VIAL As Ordered ONE; -LIDOCAINE 1% SDV 30ML VIAL As Ordered ONE; -TRIAMCINOLONE ACETONIDE SUSP 40 MG/ML VIAL (J3301) As Ordered ONE; -diazePAM 5MG TABLET As Ordered ONE; -oxyCODONE 5MG TAB As Ordered ONE
--- NOTE | 2020-12-08 04:06 | ECWPNPC ---
PATIENT NAME: IAM DHALIWAL : 1955 GENDER: FEMALE VISIT DATE: 12/05/2020 DISCHARGE DATE: 12/05/20 1122 VISIT LOCKED DATE TIME: PHYSICIAN: EDGARD STEWART RESOURCE: EDGARD STEWART REASON FOR APPOINTMENT 1. POST BILATERAL SACROILIAC JOINT INJECTION HISTORY OF PRESENT ILLNESS DEPRESSION SCREENING: PHQ-2 (2015 EDITION) LITTLE INTEREST OR PLEASURE IN DOING THINGS?NOT AT ALL FEELING DOWN, DEPRESSED, OR HOPELESS?NOT AT ALL TOTAL SCORE0 GENERAL: HERE FOR POST PROCEDURE F/U.HAD BILATERAL SIJ INJECTION 2 WEEKS AGO.DOING WELL WITH LESS PAIN AND IMPROVED MOBILITY AND TOLERANCE TO ADLS SINCE INJECTION. -. FALL RISK SCREENING: SCREENING :ONE FALL WITHOUT INJURY IN THE PAST YEAR PAIN SCREENING: PATIENT HAS A COMPLAINT OF ACUTE OR CHRONIC PAIN :NO NURSING NOTE: -. PAIN CENTER INTAKE QUESTIONS: DO YOU HAVE A HISTORY OF MRSA? :NO DO YOU TAKE A BLOOD THINNERS? :NO DO YOU HAVE ANY BLEEDING DISORDERS? :NO ANY NEW NUMBNESS OR WEAKNESS IN YOUR LEGS OR ARMS? :NO ANY PACEMAKER,DEFIBRILLATOR, OR DORSAL COLUMN STIMULATOR? :NO DO YOU HAVE ANY RASHES OR OPEN SORES? :NO ARE YOU ALLERGIC TO IV DYE? :NO ARE YOU DIABETIC? :NO ANY NEW PROBLEMS WITH YOUR MEDICATIONS? :NO HAVE YOU RECEIVED A VACCINE IN THE PAST 30 DAYS? :NO DO YOU PLAN TO RECEIVE A VACCINE IN THE NEXT 21 DAYS? :NO DO YOU NEED ANY PRESCRIPTION? :NO DO YOU TAKE ANY IMMUNOSUPPRESSIVE MEDICATIONS? :NO IS THERE A CHANCE YOU COULD BE ? :NO ARE YOU BREAST FEEDING? :NO CURRENT MEDICATIONS TAKING ASPIR-81 81 MG TABLET DELAYED RELEASE 1 TABLET ORALLY DAILY TAKING FISH OIL TRIPLE STRENGTH 1400 MG CAPSULE 2 CAPSULE ORALLY ONCE A DAY TAKING COQ-10 200 MG CAPSULE 1 CAPSULE WITH A MEAL ORALLY ONCE A DAY TAKING CALTRATE 600+D PLUS MINERALS 600-800 MG-UNIT TABLET 1 TABLET ORALLY TWICE A DAY TAKING MULTIVITAMINS CAPSULE ORALLY ONCE DAILY TAKING LIDOCAINE & ADHESIVE SHEET 5 % KIT DIRECTED EXTERNALLY DAILY, NOTES: 11/20/20 TAKING MAY USE CBD OIL 25MG BID, NOTES: 11/20/20 AM TAKING CETIRIZINE HCL 10 MG TABLET 1 TABLET ORALLY ONCE A DAY TAKING LOSARTAN POTASSIUM 25 MG TABLET 1 TABLET ORALLY ONCE A DAY TAKING CYMBALTA 30 MG CAPSULE DELAYED RELEASE PARTICLES 1 CAPSULE ORALLY TWICE A DAY FOR PAIN TAKING CULTURELLE CAPSULE ORALLY ONCE DAILY NOT-TAKING DIAZEPAM 5 MG TABLET 1 TABLET NEEDED ORALLY FOR MRI NOT-TAKING CRESTOR 5 MG TABLET 1 TABLET ORALLY ONCE A DAY NOT-TAKING ESTROVEN + ENERGY MAX STRENGTH TABLET 1 TAB ORALLY NOT-TAKING MOVE FREE JOINT HEALTH ADVANCE - TABLET ORALLY DAILY NOT-TAKING MAY USE 1 CEYLON CINNAMON 2 CAP ORALLY ONCE DAILY NOT-TAKING MAY USE ULTRA NICA 1 CAP ORALLY DAILY NOT-TAKING GABAPENTIN 300 MG CAPSULE 1 CAPSULE ORALLY DAILY AT BEDTIME NOT-TAKING CLARITIN 10 MG TABLET 1 TABLET ORALLY ONCE A DAY NOT-TAKING MAY USE DICLOFENAC GEL 1% TID NOT-TAKING IBUPROFEN 200 MG 1 TAB ORAL BEFORE BEDTIME PRN NOT-TAKING EMERGEN-C IMMUNE PACKET ORALLY ONCE DAILY NOT-TAKING PAZEO 0.7 % SOLUTION 1 DROP INTO AFFECTED EYE OPHTHALMIC ONCE A DAY NOT-TAKING MAY USE MYOCALM 2 CAPS ORALLY ONCE DAILY NOT-TAKING VALIUM 5 MG TABLET 1 TAB DIRECTED ORALLY 1 TAB 1HR PRE MRI AND 1 TAB AT TIME OF MRI MDD2 MEDICATION LIST REVIEWED AND RECONCILED WITH THE PATIENT PAST MEDICAL HISTORY BRI - CPAP IMPLANTABLE LOOP RECORDER- FOR EPISODES OF SYNCOPE( [id number]) HYPERLIPID CHRONIC BACK AND NECK PAIN HEADACHES DIZZINESS HAS BEEN KNOWN TO VASAL VAGAL SEVERLY WITH PROCEDURES INVOLVING NEEDLES CARPAL TUNNEL RIGHT HAND DE QUERVAIN'S TENOSYNOVITIS-RIGHT TENNIS ELBOW-RIGHT LEFT INTERCOSTAL NEURALGIA FATTY LIVER BORDERLINE HYPERTENSION TORN MENISCUS IN RIGHT KNEE ENLARGED NODULE ON THYROID ALLERGIES TAPE: RASH - ALLERGY ORANGE: DRY MOUTH/DIFFICULTY SWALLOWING - ALLERGY PINE: RASH/CONGESTION - ALLERGY GRASS: SNEEZING, WATERY EYES - ALLERGY TEGADERM : REDNESS, SWELLING AT SIGHT - SIDE EFFECTS SOCIAL HISTORY GENERAL: TOBACCO USE ARE YOU A:FORMER SMOKER HOW LONG HAS IT BEEN SINCE YOU LAST SMOKED? QUIT 12/2015 LATEX QUESTIONNAIRE LATEX ALLERGY : HAVE YOU EVER DEVELOPED ANY TYPE OF REACTION AFTER HANDLING LATEX PRODUCTS SUCH RUBBER GLOVES, CONDOMS, DIAPHRAGMS, BALLOONS, SOCKS, OR UNDERWEAR?NO DOES HAVE ALLERGY TO TAPE LATEX ALLERGY : HAVE YOU EVER DEVELOPED ANY TYPE OF REACTION DURING OR AFTER DENTAL APPOINTMENT, VAGINAL/RECTAL EXAMINATION, SURGICAL PROCEDURE, OR ANY OTHER EXPOSURE?NO LATEX RISK : HAVE YOU EVER HAD ANY DIFFICULTY BREATHING OR HIVES AFTER EATING OR HANDLING ANY FRUITS, OR VEGETABLES; SUCH KIWI, BANANAS, STONE FRUITS, OR CHESTNUTSNO LATEX RISK : DO YOU HAVE A PREVIOUS PERSONAL HISTORY OF MORE THAN NINE SURGERIES, SPINA BIFIDA, OR REPEATED CATHERIZATIONS? NO LATEX RISK : ARE YOU FREQUENTLY EXPOSED TO LATEX PRODUCTS IN YOUR OCCUPATION?NO DATE ASKED : 12/05/2020 ALCOHOL USE: NO. ALCOHOL SCREENING DID YOU HAVE A DRINK CONTAINING ALCOHOL IN THE PAST YEAR?NO POINTS0 INTERPRETATIONNEGATIVE RECREATIONAL DRUG USE DRUG USE?NO CAFFEINE CAFFEINE USE?YES HOW OFTEN AND HOW MUCH? 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 DIET: REGULAR. EXERCISE: WALKS. MARITAL STATUS: . - PFS REFERRAL NEEDED?NO CLERGY REFERRAL NEEDED?NO PUBLIC HEALTH REFERRAL NEEDED?NO HAS THE PATIENT BEEN EDUCATED REGARDING HIS/HER PLAN OF CARE?YES HAS THE PATIENT BEEN EDUCATED REGARDING PAIN, THE RISK FOR PAIN, THE IMPORTANCE OF EFFECTIVE PAIN MANAGEMENT, AND THE PAIN ASSESSMENT PROCESS?YES ADVANCE DIRECTIVE ADVANCE DIRECTIVE DISCUSSED WITH PATIENT:YES 11/20/20 PT DOES NOT HAVE ANY ADVANCED DIRECTIVES. SHE STATES SHE HAS INFORMATION ON HCP ALREADY. HELP OFFERED IN FILLING FORM OUT IF NEEDED. SHE DECLINES AT THIS TIME. REVIEW OF SYSTEMS CONSTITUTIONAL: ANY RECENT FEVER NO . CHILLS NO . WEIGHT CHANGE OF UNKNOWN REASONS NO . GASTROENTEROLOGY: NEW UNEXPLAINABLE CHANGES IN BOWEL CONTROL NO . CONSTIPATION NO . GENITOURINARY: ANY NEW CHANGE IN BLADDER CONTROL? NO . NEUROLOGY: NEW ONSET DIZZINESS OR NEUROLOGICAL CHANGES NOT MENTIONED NO . NEW NUMBNESS OR PAIN PATTERNS NOT MENTIONED AND PERTINENT TO TODAY'S VISIT NO . CARDIOLOGY: NEW CHEST PRESSURE NO . NEW CHEST PAIN NO . RESPIRATORY: UNEXPLAINABLE COUGH NO . NEW SHORTNESS OF BREATH NO . VITAL SIGNS WT 231.8 LBS, HT 66 IN, BMI 37.41 INDEX, BP 152/71 MM HG, HR 73 /MIN, RR 18 /MIN, TEMP 97.3 F, OXYGEN SAT % 96%, SAFE IN ENV? (Y/N) YES, REVIEWED BY: LOCO SAUER MA. EXAMINATION GENERAL EXAMINATION: GENERALAWAKE,ALERT ,PLEASANT . PSYCHAFFECT NORMAL . LUNGS:LUNG [place] ARE CLEAR TO AUSCULTATION BILATERALLY. GOOD MOVEMENT OF AIR . HEART:S1, S2 IN A REGULAR RATE AND RHYTHM. NO SIGNIFICANT MURMURS, RUBS OR GALLOPS NOTED . ASSESSMENTS OTHER CHRONIC PAIN - G89.29 (PRIMARY) SACROILIITIS, NOT ELSEWHERE CLASSIFIED - M46.1 TREATMENT OTHER CHRONIC PAIN PAIN PROCEDURE LOGDATE OF [id number]/21PROCEDURE:BILATERAL SACROILLIAC JOINT INJECTIONAMOUNT OF PRE SEDATEVALIUM 10MG, OXYCODONE 10MGRESULT:ONTINUES WITH IMPROVEMENT IN PAIN TODAY PROCEDURE CODES FA211 ESTABILISHED PATIENT [facility] CHARGE DISPOSITION & COMMUNICATION FOLLOW UP 3 MONTHS (REASON: NECK,SACROILLITIS,INTERCOSTAL) ELECTRONICALLY SIGNED BY CARLENE FERRELL ON 12/07/2020 AT 09:24 PM EST DISCLAIMER : THIS IS A VISIT SUMMARY EXTRACTED FROM THE [employer] CHART. IT IS NOT A COPY OF THE [employer] PROGRESS NOTE. ALCON
== END ==
LOC: M PAIN 10:45
PROVIDERS: ATTEND Nurse Practitioner Family
DX: M46.1 Sacroiliitis, not elsewhere classified (principal); G89.29 Other chronic pain; G47.33 Obstructive sleep apnea (adult) (pediatric); Z87.891 Personal history of nicotine dependence; Z91.018 Allergy to other foods; Z91.09 Other allergy status, other than to drugs and biological substances; Z79.82 Long term (current) use of aspirin; Z79.899 Other long term (current) drug therapy

== ENCOUNTER → 2020-12-07 | Outpatient (REF) | payer BC | LOC: M LAB REF 16:51 | PROVIDERS: ATTEND Internal Medicine Endocrinology, Diabetes & Metabolism | DX: E04.1 Nontoxic single thyroid nodule (principal) ==

== ENCOUNTER → 2020-12-30 | Outpatient (CLI) | payer BC ==
[~2020-12-30] MED LIST changes: +CALCTAB41 PO; +CBD OIL; +CETI-36 PO; +CYMB1CAP5 PO; +LIDO1ADH10 TP; +LOSA25TA14 PO; +MULTTAB57 PO; +OMEG12003 PO
== END ==
LOC: M LABSMTC 09:52
PROVIDERS: ATTEND Anesthesiology
DX: Z01.812 Encounter for preprocedural laboratory examination (principal); Z20.822 Contact with and (suspected) exposure to COVID-19

== ENCOUNTER 2021-01-04 07:14 | Day surgery (SDC) | payer BC ==
[~2021-01-04] VITALS: Ht 167.6 cm; Wt 103.4 kg
[~2021-01-04 07:14] MED LIST changes: +NS 1,000 ML IV ONE
[2021-01-04] MEDS ORDERED: LIDOCAINE 2% 100MG/5ML SDV (FOR ANES.) As Ordered ONE (08:09)
[2021-01-04] MEDS ORDERED: propofoL 200 MG/20 ML VIAL As Ordered ONE ×3 (08:09→08:51)
--- NOTE | 2021-01-04 09:12 | ROOR ---
Patient Name: Paula Resendiz Procedure Date: 01/04/2021 8:17 AM Date of : 1955 Age: 65 Room: [facility] Gender: Female Note Status: Finalized Procedure: Colonoscopy Indications: High risk colon cancer surveillance: Personal history of colonic polyps, Last colonoscopy: September 2015 Providers: Julio Martin MD Referring MD: Esperanza Rashid MD Requesting Provider: Medicines: Monitored Anesthesia Care Complications: No immediate complications. Procedure: Pre-Anesthesia Assessment: - Prior to the procedure, a History and Physical was performed, and patient medications and allergies were reviewed. The patient is competent. The risks and benefits of the procedure and the sedation options and risks were discussed with the patient. All questions were answered and informed consent was obtained. Patient identification and proposed procedure were verified by the physician, the nurse and the anesthesiologist in the procedure room. Mental Status Examination: alert and oriented. Airway Examination: normal oropharyngeal airway and neck mobility. Prophylactic Antibiotics: The patient does not require prophylactic antibiotics. Prior Anticoagulants: The patient has taken no previous anticoagulant or antiplatelet agents. ASA Grade Assessment: III - A patient with severe systemic disease. After reviewing the risks and benefits, the patient was deemed in satisfactory condition to undergo the procedure. The anesthesia plan was to use monitored anesthesia care (MAC). Immediately prior to administration of medications, the patient was re-assessed for adequacy to receive sedatives. The heart rate, respiratory rate, oxygen saturations, blood pressure, adequacy of pulmonary ventilation, and response to care were monitored throughout the procedure. The physical status of the patient was re-assessed after the procedure. The Colonoscope was introduced through the anus and advanced to the cecum, identified by appendiceal orifice and ileocecal valve. The colonoscopy was somewhat difficult due to a redundant colon. Successful completion of the procedure was aided by changing the patient to a supine position and using manual pressure. The patient tolerated the procedure well. The quality of the bowel preparation was good. Findings: The perianal and digital rectal examinations were normal. A 7 mm polyp was found in the ascending colon. The polyp was sessile. The polyp was removed with a cold snare. Resection and retrieval were complete. Estimated blood loss was minimal. A 8 mm polyp was found in the splenic flexure. The polyp was sessile. The polyp was removed with a cold snare. Resection and retrieval were complete. Estimated blood loss was minimal. Multiple small-mouthed diverticula were found in the sigmoid colon and descending colon. Impression: - One 7 mm polyp in the ascending colon, removed with a cold snare. Resected and retrieved. - One 8 mm polyp at the splenic flexure, removed with a cold snare. Resected and retrieved. - Diverticulosis in the sigmoid colon and in the descending colon. Recommendation: - Discharge patient to home. - Resume previous diet. - Continue present medications. - Await pathology results. - Return to endoscopist in 2 weeks. Procedure Code(s): --- Professional --- 46557, Colonoscopy, flexible; with removal of tumor(s), polyp(s), or other lesion(s) by snare technique Diagnosis Code(s): --- Professional --- Z86.010, Personal history of colonic polyps K63.5, Polyp of colon K57.30, Diverticulosis of large intestine without perforation or abscess without bleeding CPT copyright 2019 [employer]. All rights reserved. The codes documented in this report are preliminary and upon lay out worker review may be revised to meet current compliance requirements. Julio Martin MD Julio Martin MD 01/04/2021 9:12:12 AM Electronically signed by Julio Martin MD Number of Addenda: 0 Note Initiated On: 01/04/2021 8:17 AM Estimated Blood Loss: Estimated blood loss was minimal.
[2021-01-04 09:37] VITALS: BP 117/74
== END 2021-01-04 09:37 | disposition home or self-care (01) ==
LOC: M OPP 07:14
PROVIDERS: ATTEND Surgery
DX: Z12.11 Encounter for screening for malignant neoplasm of colon (principal); Z86.010 Personal history of colon polyps; K63.5 Polyp of colon; K57.30 Diverticulosis of large intestine without perforation or abscess without bleeding; Z91.018 Allergy to other foods; Z91.048 Other nonmedicinal substance allergy status; Z79.82 Long term (current) use of aspirin; Z79.899 Other long term (current) drug therapy; Z87.891 Personal history of nicotine dependence

== ENCOUNTER → 2021-01-18 | Outpatient (CLI) | payer BC ==
[~2021-01-18] MED LIST changes: -NS 1,000 ML IV ONE
[2021-01-18 12:22] LABS: ALBUMIN 4.4 GM/DL (3.2-5.2); ALT/SGPT 253 U/L (12-78); BILIRUBIN,TOTAL 0.4 MG/DL (0.2-1.0); BLOOD UREA NITROGEN 17 MG/DL (7-18); CALCIUM LEVEL 9.8 MG/DL (8.8-10.2); CARBON DIOXIDE LEVEL 30 MEQ/L (21-32); CHLORIDE LEVEL 105 MEQ/L (98-107); CREATININE FOR GFR 0.74 MG/DL (0.55-1.30); GLOMERULAR FILTRATION RATE > 60.0 (>45); GLUCOSE, FASTING 106 MG/DL (70-100); POTASSIUM SERUM 4.1 MEQ/L (3.5-5.1); SODIUM LEVEL 140 MEQ/L (136-145)
== END ==
LOC: M WUC 09:22
PROVIDERS: ATTEND Internal Medicine Cardiovascular Disease
DX: I10 Essential (primary) hypertension (principal)

== ENCOUNTER 2021-01-23 15:15 | Inpatient (IN) | payer BC ==
[~2021-01-23] VITALS: Ht 167.6 cm; Wt 104.5 kg
[~2021-01-23 15:15] MED LIST changes: -CBD OIL; +CBD OIL PO
--- NOTE | 2021-01-23 16:31 | REP ---
INDICATION: trauma. COMPARISON: 01/23/2021 TECHNIQUE: CT BRAIN PERFORMED IN THE AXIAL PLANE. CORONAL RECONSTRUCTION IMAGES ARE PERFORMED. FINDINGS: THE VENTRICLES ARE NORMAL IN SIZE AND POSITION. THERE IS NO MIDLINE SHIFT OR MASS EFFECT. IVAN-WHITE DIFFERENTIATION IS WELL MAINTAINED. THERE IS NO ACUTE INTRACRANIAL HEMORRHAGE OR EXTRA-AXIAL FLUID COLLECTION. BONE WINDOW EXAMINATION IS UNREMARKABLE. VISUALIZED MASTOID AIR CELLS AND PARANASAL SINUSES ARE CLEAR. IMPRESSION: NEGATIVE NONCONTRAST CT BRAIN. NO INTRACRANIAL HEMORRHAGE, MASS, MASS EFFECT OR OTHER ACUTE FINDING. NO SKULL FRACTURE, SINUS OR MASTOID ACUTE ABNORMALITY. <Electronically signed by Stevo Tran > 01/23/21 [id number]
--- NOTE | 2021-01-23 16:34 | REP ---
INDICATION: trauma. COMPARISON: None. TECHNIQUE: Four views FINDINGS: There is soft tissue swelling about the lateral malleolus and a nondisplaced fracture of the distal fibula which extends laterally to the vertical aspect of the talus there is no displacement or angulation of the 2 fragments. Mortise joint symmetric and preserved. No talar dome osteochondral defect. Subtalar joints are intact. No heel spurs. Talonavicular and calcaneocuboid joints were normal. Distal tibia unremarkable. IMPRESSION: 1. Nondisplaced transverse fracture of the distal fibula extending to the medial articular surface adjacent to the vertical portion of the talus laterally. No involvement of the tibia or talus. Soft tissue swelling. No other finding. <Electronically signed by Stevo Tran > 01/23/21 1362
[2021-01-23 16:57] LABS: BASO % 0.1 % (0.0-1.0); HEMATOCRIT 39.8 % (36.0-47.0); HEMOGLOBIN 13.5 g/dl (12.0-15.5); LYMPH # 2.3 10^3/uL (1.5-5.0); MEAN CORPUSCULAR HEMOGLOBIN 30.8 pg (27.0-33.0); MEAN CORPUSCULAR HGB CONC 33.9 g/dl (32.0-36.5); MEAN CORPUSCULAR VOLUME 90.7 fl (80.0-96.0); MONO # 0.8 10^3/uL (0.0-0.8); MONO % 7.8 % (2.0-8.0); NEUTROPHILS # 7.2 10^3/uL (1.5-8.5); NEUTROPHILS % 69.8 % (36.0-66.0); PLATELET COUNT, AUTOMATED 266 10^3/uL (150-450); RED BLOOD COUNT 4.39 10^6/uL (4.00-5.40); WHITE BLOOD COUNT 10.3 10^3/uL (4.0-10.0)
[2021-01-23] MEDS ORDERED: IBUPROFEN 400MG TAB PO ONE (17:05)
[2021-01-23 17:27] LABS: BLOOD UREA NITROGEN 22 MG/DL (7-18); CALCIUM LEVEL 10.3 MG/DL (8.8-10.2); CARBON DIOXIDE LEVEL 27 MEQ/L (21-32); CHLORIDE LEVEL 106 MEQ/L (98-107); CK-MB VALUE MASS 1.1 NG/ML (<3.6); CPK CREATINE PHOSPHOKINASE 110 U/L (26-192); CREATININE FOR GFR 0.91 MG/DL (0.55-1.30); GLOMERULAR FILTRATION RATE > 60.0 (>45); GLUCOSE, FASTING 109 MG/DL (70-100); MAGNESIUM LEVEL 2.4 MG/DL (1.8-2.4); POTASSIUM SERUM 4.2 MEQ/L (3.5-5.1); SODIUM LEVEL 141 MEQ/L (136-145); TROPONIN I < 0.02 NG/ML (< 0.10)
[2021-01-23] MEDS ORDERED: CETI-24 PO (17:58)
--- NOTE | 2021-01-23 18:03 | ECGEPIP ---
[facility] - ED Test Date: 2021-01-23 Pat Name: IAM DHALIWAL Department: Room: - Gender: Female Deputy Administrator: NONI : 1955 Requested By: Pattie Corley Order Number: [id number] Reading MD: Pattie Corley Measurements Intervals [place] Rate: 76 P: 42 SC: 158 QRS: -13 QRSD: 80 T: 53 QT: 380 QTc: 427 Interpretive Statements Normal sinus rhythm increased rate 12/10/16 Electronically Signed on 01-23-2021 18:03:10 EDT by Pattie Corley
[2021-01-23] MEDS ORDERED: LIDOCAINE 5% (LIDODERM) PATCH TD ONE (18:30)
--- NOTE | 2021-01-23 19:05 | HPEPDOC ---
[facility] Medical History & Physical Date of Admission Jan 23, 2021 Date of Service: Jan 23, 2021 Attending Physician: Lillie Escalante MD History and Physical CHIEF COMPLAINT: LOSS OF CONSCIOUSNESS HISTORY OF PRESENT ILLNESS: Patient is a 65-year-old female with PMH of syncope, obstructive sleep apnea on CPAP nightly, hypertension, hyperlipidemia, chronic back pain, osteoarthritis who presented to [facility] emergency room after episode of loss of consciousness today while walking. According to the patient and her who witnessed the event, at approximally 2:30 this afternoon the patient suddenly lost consciousness while walking after a massage. She regained consciousness in less than 1 minute and had no post ictal phase. She had no tremoring noted, loss of bowel or bladder, tongue biting, weakness, drooling, palpitations prior to the event, chest pains, shortness of breath, lightheadedness, dizziness, slurred speech. She had a similar episode 3 years ago with syncope and having a low heart rate during that time as well. She was seen by cardiology and had an implantable loop recorder for 3 years which never recorded abnormalities. Today she states when she woke up from her loss of consciousness and had nausea with one episode of vomiting. She also had fallen on her right leg and was experiencing severe right lower leg pain. She was brought to the emergency room for further evaluation. In the emergency room, vital signs were initially stable. The CT of the head was negative. Labs were essentially unremarkable. She had imaging of her right lower extremity which showed a distal fibular fracture. It was put in a soft cast and recommended to follow-up with orthopedic surgery. The patient had an episode where she became lightheaded and passed out for less than several seconds in the ER. Her heart rate was recorded to be as low as 20s and was seen to be in sinus rhythm with a junctional escape. She spontaneously went back into normal sinus rhythm and maintained a heart rate in the 70s80s for the remainder of her ER stay. Again she denied any cardiac symptoms with this episode of her heart rate dropping into the 20s. This was witnessed by both the emergency room physician and her at the bedside. The patient was later admitted for syncope, bradycardia and distal fibular fracture. REVIEW OF SYSTEMS: Neg except for what is mentioned above PAST MEDICAL HISTORY: syncope, obstructive sleep apnea on CPAP nightly, hypertension, hyperlipidemia, chronic back pain, osteoarthritis PAST SURGICAL HISTORY: Carpal tunnel surgery on the right Total hysterectomy with bilateral oophrectomy D&C Tonsillectomy Adenoidectomy Colonoscopy FAMILY HISTORY: Father: Coronary artery disease, hypertension. at 79 years old Mother: Alzheimer's disease, Parkinson's. at 74 years old SOCIAL HISTORY: Prior smoker half pack per day for 30 years, quit 5 years ago. Denies alcohol or illicit drug use aside from cannabinoids oil for chronic pain. Lives locally with her . She follows readily with primary care provider Dr. Rashid and home care provider Dr. Mclean. ALLERGIES: Please see below. HOME MEDICATIONS: Please see below. PHYSICAL EXAMINATION: VS: please see below CONSTITUTIONAL: No acute distress, resting comfortably, AAO x 3 EYES: PERRLA, EOM intact HENT, MOUTH: Normocephalic, atraumatic, moist mucous membranes, NECK: SUPPLE, no JVD, no lymphadenopathy, no carotid bruit CV: Regular rate and rhythm, S1S2 normal, no murmurs/rubs/gallops RESPIRATORY: Clear to auscultation bilaterally, no rales/rhonchi/wheezes GI: BS positive in 4 quadrants, soft, nontender, nondistended, no rebound or guarding, no organomegaly : Deferred MUSCULOSKELETAL: Normal ROM. No cyanosis, clubbing, swelling, joint deformity, extremity edema. soft cast in place RLE with boot INTEGUMENTARY: Scraped skin on right dorsum of hand, b/l knees . NEUROLOGIC: Cranial Nerves II-XII are intact, no focal deficits PSYCHIATRIC: Mood and affect are normal LABORATORY DATA: Please see below IMAGING: CT head: NEGATIVE NONCONTRAST CT BRAIN. NO INTRACRANIAL HEMORRHAGE, MASS, MASS EFFECT OR OTHER ACUTE FINDING. NO SKULL FRACTURE, SINUS OR MASTOID ACUTE ABNORMALITY. Ankle XR: 1. Nondisplaced transverse fracture of the distal fibula extending to the medial articular surface adjacent to the vertical portion of the talus laterally. No involvement of the tibia or talus. Soft tissue swelling. No other finding. ASSESSMENT: 65-year-old female with PMH of syncope, obstructive sleep apnea on CPAP nightly, hypertension, hyperlipidemia, chronic back pain, osteoarthritis admitted for further evaualtion of syncope, bradycardia and distal fibular fr acture PLAN: Syncope r/o neurological vs. cardiac cause (bradycardia) -HR 20's noted with second LOC episode in ER, not suspecting seizure -CT head neg, neg neuro exam -F/u echocardiogram, carotid US, tele events overnight -Neuro checks Q4H, orthostatics BID Bradycardia, sinus -Hx of sinus bradycardia with prior syncopal episode many years ago -Had implantable loop recorder for 3 years without events, followed by Dr. Mclean -ECG: NSR -Trop neg -Cardiology consulted for possible PM placement Nondisplaced transverse fracture of the distal fibula -XR above -Discussed with Dr. Srivastava, orthopedic surgery. Recommending pain control, NWB RLE, follow up with him on 01/26/21 at 08:45 at ortho clinic. -C/w soft cast with boot HTN -C/w home meds HLD -Not currently on medications due to it causing transaminitis BRI -Home cpap can be use Chronic back pain / OA -Stable -Lidocaine patch, duloxetine DVT px -Lovenox DISPOSITION: Admitted to medicine service, cardiology consulted. Plan is home when medically improved. Vital Signs Vital Signs Date Time Temp Pulse Resp B/P (MAP) Pulse Ox O2 Delivery O2 Flow Rate FiO2 01/23/21 17:52 77 96 01/23/21 17:49 110/55 (73) 01/23/21 17:30 18 Room Air 01/23/21 15:38 98.7 Laboratory Data Labs 24H Laboratory Tests 2 01/23/21 15:54: Immature Granulocyte % (Auto) 0.3, Neutrophils (%) (Auto) 69.8H, Lymphocytes (%) (Auto) 22.0L, Monocytes (%) (Auto) 7.8, Eosinophils (%) (Auto) 0.0, Basophils (%) (Auto) 0.1, Neutrophils # (Auto) 7.2, Lymphocytes # (Auto) 2.3, Monocytes # (Auto) 0.8, Eosinophils # (Auto) 0.0, Basophils # (Auto) 0.0, Nucleated Red Blood Cells % (auto) 0.0, Anion Gap 8, Glomerular Filtration Rate > 60.0, Calcium Level 10.3H, Magnesium Level 2.4, Total Creatine Kinase 110, Creatine Kinase MB 1.1, Creatine Kinase MB Relative Index 1.00, Troponin I < 0.02, Thyroid Stimulating Hormone (TSH) 3.120 01/23/21 15:59: Bedside Glucose (Misc Panel) 114 01/23/21 18:13: CBC/BMP Laboratory Tests 01/23/21 15:54 Home Medications Scheduled Aspirin (Aspirin EC) 81 Mg Tab, 81 MG PO DAILY Calcium Carbonate/Vitamin D3 (Calcium 500-Vit D3 400 Tablet) 1 Each Tablet, 1 TAB PO BID Cannabidiol (Cbd Oil) Btl, 1 DOSE PO DAILY TAKES AT 11A Cetirizine HCl (Cetirizine HCl) 10 Mg Tablet, 10 MG PO QHS Duloxetine Hcl (Cymbalta) 30 Mg Capsule.dr, 30 MG PO DAILY Iron Fum,Ag/C/B12/Folic/Ca/Suc (Multigen Plus Caplet) 1 Each Tablet, 1 TAB PO DAILY Lactobacillus Rhamnosus GG (ChipSensors) 1 Cap Cap, 1 CAP PO DAILY Losartan Potassium (Losartan Potassium) 25 Mg Tablet, 25 MG PO QHS Ubidecarenone (Co Q-10) 200 Mg Cap, 200 MG PO QPM Scheduled PRN Lidocaine (Lidocaine Pain Relief) 1 Each Adh..patch, 1 EACH TP Q12H PRN for PAIN APPLY TO LEFT SIDE OF BACK (THORACIC) Miscellaneous Medications [place]-3/Dha/Epa/Fish Oil (Fish Oil 1,200 mg Softgel) 1 Each Capsule.dr, 2,800 MG PO Allergies Coded Allergies: Grass (Verified Allergy, Intermediate, 12/25/20) TAPE (Verified Allergy, Mild, RASH, 01/23/21) lactose (Verified Allergy, Unknown, 12/25/20) orange (Verified Allergy, Unknown, 12/25/20) A-FIB/CHADSVASC A-FIB History Current/History of A-Fib/PAF?: No Current PO Anticoag Therapy: No Age/Risk Factor Scoring CHADSVASC: CHADSVASC Response (Comments) Value Age Risk Factor Age < 65 years old 0 Gender Risk Factor Female 1 Hx of CHF No 0 Hx of HTN Yes 1 Hx of Stroke/TIA/or VTE No 0 Hx of Diabetes No 0 Hx of Vascular Disease No 0 Total 2 Treatment Treatment ordered: Other Other anticoagulant ordered: Lillie Ingram MD Jan 23, 2021 19:05
[2021-01-23 19:08] LABS: RSV AMPLIFICATION NEGATIVE (NEGATIVE)
[2021-01-23] MEDS: **NOTE PATIENT COMMENT** MISC XX SCH (21:00)
[2021-01-23 23:15] VITALS: BP 137/75
[2021-01-23] MEDS: CETIRIZINE (ZyrTEC) 10 MG TAB PO SCH (23:42)
[2021-01-23] MEDS: LOSARTAN 25 MG TAB PO SCH (23:42)
--- NOTE | 2021-01-23 23:48 | REPVR ---
PROCEDURE INFORMATION: Exam: US Duplex Bilateral Extracranial Arteries Exam date and time: 01/23/2021 10:59 PM Age: 65 years old Clinical indication: Syncope and collapse TECHNIQUE: Imaging protocol: Real-time Duplex ultrasound scan of the bilateral carotid and vertebral arteries combining roa scale, color Doppler and spectral waveform analysis. Bilateral exam. COMPARISON: MRI-Spine,Cervical without con 10/24/2020 9:29 AM FINDINGS: Right side: There is mild atherosclerotic plaque formation. The right ICA/CCA ratio is 0.9 with a peak velocity of the right internal carotid artery of 97 cm/s. The amount of narrowing would be less than 50%. The right vertebral artery is antegrade. Left side: There is mild atherosclerotic plaque formation. The left ICA/CCA ratio is 0.6 with a peak velocity of the left internal carotid artery of 73 cm/s. The amount of narrowing of the left internal carotid artery would be less than 50%. The left vertebral artery is antegrade. IMPRESSION: No evidence of significant stenosis right or left internal carotid artery. REFERENCES: SRU CRITERIA. The degree of internal carotid artery stenosis is based on criteria defined by the Society of Radiologists in Ultrasound (SRU). Normal is no stenosis. Mild is less than 50% stenosis. Moderate is 50-69% stenosis. Severe is greater than 69% stenosis to near occlusion. Near occlusion is a markedly narrowed lumen. Total occlusion is no detectable patent lumen. Electronically signed by: Dameon De Jesus On 01/23/2021 23:49:00 PM
[2021-01-24] VITALS: BP_SYST 137; BP_SYST 139; BP_SYST 142; BP_DIAS 72; BP_DIAS 75; BP_DIAS 97
[2021-01-24] MEDS: ACETAMINOPHEN TAB 650MG DOSE (2X325MG) PO PRN ×2 (02:58→09:53)
[2021-01-24] MEDS: IBUPROFEN 400MG TAB PO PRN ×3 (05:58→22:13)
[2021-01-24 06:00] VITALS: BP 117/64
[2021-01-24 06:28] LABS: HEMATOCRIT 37.5 % (36.0-47.0); HEMOGLOBIN 12.4 g/dl (12.0-15.5); MEAN CORPUSCULAR HEMOGLOBIN 30.6 pg (27.0-33.0); MEAN CORPUSCULAR HGB CONC 33.1 g/dl (32.0-36.5); MEAN CORPUSCULAR VOLUME 92.6 fl (80.0-96.0); PLATELET COUNT, AUTOMATED 262 10^3/uL (150-450); RED BLOOD COUNT 4.05 10^6/uL (4.00-5.40); WHITE BLOOD COUNT 9.6 10^3/uL (4.0-10.0)
[2021-01-24 06:43] LABS: ALBUMIN 3.8 GM/DL (3.2-5.2); ALT/SGPT 196 U/L (12-78); BILIRUBIN,TOTAL 0.6 MG/DL (0.2-1.0); BLOOD UREA NITROGEN 23 MG/DL (7-18); CALCIUM LEVEL 9.5 MG/DL (8.8-10.2); CARBON DIOXIDE LEVEL 28 MEQ/L (21-32); CHLORIDE LEVEL 106 MEQ/L (98-107); CREATININE FOR GFR 0.94 MG/DL (0.55-1.30); GLOMERULAR FILTRATION RATE > 60.0 (>45); GLUCOSE, FASTING 105 MG/DL (70-100); POTASSIUM SERUM 3.9 MEQ/L (3.5-5.1); SODIUM LEVEL 140 MEQ/L (136-145)
[2021-01-24] MEDS: DULoxetine 30 MG CAP (CYMBALTA) PO SCH (09:52)
[2021-01-24] MEDS: ENOXAPARIN 40MG/0.4ML SYRINGE (J1650 PER 10MG) SC SCH (09:52)
[2021-01-24] MEDS: ASPIRIN 81MG ENTERIC TABLET PO SCH (09:52)
[2021-01-24 14:00] VITALS: BP 139/68
--- NOTE | 2021-01-24 15:32 | IPNPDOC ---
Date Seen The patient was seen on 01/24/21. Progress Note SUBJECTIVE: No neurological or cardiac events on tele overnight. Evaluated by cardiology, attempted to call and awaiting call back. Echo today, will f/u results. PT/OT. She denies chest pain, shortness of breath, n/v/d. OBJECTIVE: PHYSICAL EXAMINATION: VS: please see below CONSTITUTIONAL: No acute distress, resting comfortably, AAO x 3 EYES: PERRLA, EOM intact HENT, MOUTH: Normocephalic, atraumatic, moist mucous membranes, NECK: SUPPLE, no JVD, no lymphadenopathy, no carotid bruit CV: Regular rate and rhythm, S1S2 normal, no murmurs/rubs/gallops RESPIRATORY: Clear to auscultation bilaterally, no rales/rhonchi/wheezes GI: BS positive in 4 quadrants, soft, nontender, nondistended, no rebound or guarding, no organomegaly : Deferred MUSCULOSKELETAL: Normal ROM. No cyanosis, clubbing, swelling, joint deformity, extremity edema. soft cast in place RLE with boot INTEGUMENTARY: Scraped skin on right dorsum of hand, b/l knees . NEUROLOGIC: Cranial Nerves II-XII are intact, no focal deficits PSYCHIATRIC: Mood and affect are normal LABORATORY DATA: Please see below IMAGING: F/u echocardiogram US Carotid: No evidence of significant stenosis right or left internal carotid artery. CT head: NEGATIVE NONCONTRAST CT BRAIN. NO INTRACRANIAL HEMORRHAGE, MASS, MASS EFFECT OR OTHER ACUTE FINDING. NO SKULL FRACTURE, SINUS OR MASTOID ACUTE ABNORMALITY. Ankle XR: 1. Nondisplaced transverse fracture of the distal fibula extending to the medial articular surface adjacent to the vertical portion of the talus laterally. No involvement of the tibia or talus. Soft tissue swelling. No other finding. ASSESSMENT: 65-year-old female with PMH of syncope, obstructive sleep apnea on CPAP nightly, hypertension, hyperlipidemia, chronic back pain, osteoarthritis admitted for further evaualtion of syncope, bradycardia and distal fibular fracture PLAN: Syncope r/o cardiac cause (bradycardia) vs. vasovagal episodes -Neuro checks neg, neg orthostatics, HR 70's overnight -CT head neg, neg neuro exam -Carotid US neg -Echo to be done today -No events on tele -F/u with cardiology who evaluated 01/23/21 Bradycardia, sinus -Hx of sinus bradycardia with prior syncopal episode many years ago -Had implantable loop recorder for 3 years without events, followed by Dr. Mclean -ECG: NSR -Trop neg -Cardiology consulted for possible PM placement- awaiting call back Nondisplaced transverse fracture of the distal fibula -XR above -Discussed with Dr. Srivastava, orthopedic surgery. Recommending pain control, NWB RLE, follow up with him on 01/26/21 at 08:45 at ortho clinic. -C/w soft cast or boot HTN -C/w home meds HLD -Not currently on medications due to it causing transaminitis Transaminitis, chronic -F/u with PCP BRI -Home cpap can be use Chronic back pain / OA -Stable -Lidocaine patch, duloxetine DVT px -Lovenox DISPOSITION: Admitted to medicine service, cardiology consulted. Plan is home when medically improved. VS, I&O, 24H, Fishbone Vital Signs/I&O Vital Signs Date Time Temp Pulse Resp B/P (MAP) Pulse Ox O2 Delivery O2 Flow Rate FiO2 01/24/21 14:00 98.7 106 18 139/68 (91) 94 Room Air I&O- Last 24 Hours up to 6 AM 01/24/21 06:00 Intake Total 0 ml Output Total 650 ml Balance -650 ml Laboratory Data 24H LABS Laboratory Tests 2 01/23/21 15:54: Immature Granulocyte % (Auto) 0.3, Neutrophils (%) (Auto) 69.8H, Lymphocytes (%) (Auto) 22.0L, Monocytes (%) (Auto) 7.8, Eosinophils (%) (Auto) 0.0, Basophils (%) (Auto) 0.1, Neutrophils # (Auto) 7.2, Lymphocytes # (Auto) 2.3, Monocytes # (Auto) 0.8, Eosinophils # (Auto) 0.0, Basophils # (Auto) 0.0, Nucleated Red Blood Cells % (auto) 0.0, Anion Gap 8, Glomerular Filtration Rate > 60.0, Calcium Level 10.3H, Magnesium Level 2.4, Total Creatine Kinase 110, Creatine Kinase MB 1.1, Creatine Kinase MB Relative Index 1.00, Troponin I < 0.02, Thyroid Stimulating Hormone (TSH) 3.120 01/23/21 15:59: Bedside Glucose (Misc Panel) 114 01/23/21 18:13: Coronavirus (COVID-19)(PCR) NEGATIVE, Influenza Type A (RT-PCR) NEGATIVE, Influenza Type B (RT-PCR) NEGATIVE, Respiratory Syncytial Virus (PCR) NEGATIVE 01/24/21 05:52: Nucleated Red Blood Cells % (auto) 0.0, Anion Gap 6L, Glomerular Filtration Rate > 60.0, Calcium Level 9.5, Total Bilirubin 0.6, Aspartate Amino Transf (AST /SGOT) 72H, Alanine Aminotransferase (ALT/SGPT) 196H, Alkaline Phosphatase 86, Total Protein 7.0, Albumin 3.8, Albumin/Globulin Ratio 1.2 CBC/BMP Laboratory Tests 01/23/21 15:54 01/24/21 05:52 Current Medications Current Medications Medications (Trade) Dose Ordered Sig/Donna Route PRN Reason Start Time Stop Time Status Last Admin Dose Admin Acetaminophen (Tylenol Tab) 650 mg Q4HP PRN PO PAIN OR FEVER 01/23/21 18:30 01/24/21 09:53 Aspirin (Ecotrin) 81 mg DAILY PO 01/24/21 09:00 01/24/21 09:52 Cetirizine HCl (ZyrTEC) 10 mg QHS PO 01/23/21 21:00 01/23/21 23:42 Duloxetine HCl (Cymbalta) 30 mg DAILY PO 01/24/21 09:00 01/24/21 09:52 Enoxaparin Sodium (Lovenox) 40 mg DAILY SC 01/24/21 09:00 01/24/21 09:52 Home Med (Med Rec Complete!) ASDIRECTED XX 01/23/21 18:00 01/23/21 18:01 DC Ibuprofen (Advil) 400 mg Q6HP PRN PO PAIN 01/24/21 05:05 01/24/21 05:58 Losartan Potassium (Cozaar) 25 mg QHS PO 01/23/21 21:00 01/23/21 23:42 Non-Formulary Medication ( See Comment Field Below ) REMOVE LIDODERM PATCH DAILY@21 XX 01/23/21 21:00 Allergies Coded Allergies: Grass (Verified Allergy, Intermediate, 12/25/20) TAPE (Verified Allergy, Mild, RASH, 01/23/21) lactose (Verified Allergy, Unknown, 12/25/20) orange (Verified Allergy, Unknown, 12/25/20) Lillie Escalante MD Jan 24, 2021 15:32
[2021-01-24 17:05] VITALS: BP_SYST 136; BP_SYST 148; BP_SYST 153; BP_DIAS 72; BP_DIAS 73; BP_DIAS 88
[2021-01-24] MEDS: **NOTE PATIENT COMMENT** MISC XX SCH (21:00)
[2021-01-24 22:00] VITALS: BP 114/72
[2021-01-24] MEDS: CETIRIZINE (ZyrTEC) 10 MG TAB PO SCH (22:13)
[2021-01-24 22:15] VITALS: BP 115/71
[2021-01-24] MEDS: LOSARTAN 25 MG TAB PO SCH (22:15)
[2021-01-25 06:00] VITALS: BP_SYST 127; BP_SYST 130; BP_SYST 141; BP_DIAS 63; BP_DIAS 75; BP_DIAS 80
[2021-01-25 06:16] LABS: HEMATOCRIT 37.2 % (36.0-47.0); HEMOGLOBIN 12.4 g/dl (12.0-15.5); MEAN CORPUSCULAR HGB CONC 33.3 g/dl (32.0-36.5); PLATELET COUNT, AUTOMATED 238 10^3/uL (150-450)
[2021-01-25 06:37] LABS: ALBUMIN 3.7 GM/DL (3.2-5.2); ALT/SGPT 198 U/L (12-78); BILIRUBIN,TOTAL 0.6 MG/DL (0.2-1.0); BLOOD UREA NITROGEN 19 MG/DL (7-18); CALCIUM LEVEL 8.9 MG/DL (8.8-10.2); CARBON DIOXIDE LEVEL 27 MEQ/L (21-32); CHLORIDE LEVEL 108 MEQ/L (98-107); CREATININE FOR GFR 0.88 MG/DL (0.55-1.30); GLOMERULAR FILTRATION RATE > 60.0 (>45); GLUCOSE, FASTING 107 MG/DL (70-100); POTASSIUM SERUM 3.5 MEQ/L (3.5-5.1); SODIUM LEVEL 141 MEQ/L (136-145); TOTAL PROTEIN 6.9 GM/DL (6.4-8.2)
--- NOTE | 2021-01-25 08:25 | ECGEPIP ---
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
[2021-01-25] MEDS: ASPIRIN 81MG ENTERIC TABLET PO SCH (08:47)
[2021-01-25] MEDS: DULoxetine 30 MG CAP (CYMBALTA) PO SCH (08:47)
[2021-01-25] MEDS: IBUPROFEN 400MG TAB PO PRN (08:47)
[2021-01-25] MEDS: ENOXAPARIN 40MG/0.4ML SYRINGE (J1650 PER 10MG) SC SCH (08:48)
[2021-01-25] MEDS ORDERED: LORazepam 1 MG TAB PO ONE (11:10)
[2021-01-25] MEDS ORDERED: LORazepam 1 MG TAB PO PRN (11:15)
[2021-01-25] MEDS ORDERED: IBUP-1114 PO (11:30)
[2021-01-25] MEDS ORDERED: LOVE1INJ SC (11:30)
[2021-01-25] MEDS ORDERED: ACET1TAB55 PO (11:30)
--- NOTE | 2021-01-25 11:32 | DS.PDOC ---
Discharge Summary General Date of Admission Jan 23, 2021 at 19:04 Date of Discharge 01/25/21 Attending Physician: Lillie Escalante MD Discharge Summary HISTORY OF PRESENT ILLNESS: Patient is a 65-year-old female with PMH of syncope, obstructive sleep apnea on CPAP nightly, hypertension, hyperlipidemia, chronic back pain, osteoarthritis who presented to [facility] emergency room after episode of loss of consciousness today while walking. According to the patient and her who witnessed the event, at approximally 2:30 this afternoon the patient suddenly lost consciousness while walking after a massage. She regained consciousness in less than 1 minute and had no post ictal phase. She had no tremoring noted, loss of bowel or bladder, tongue biting, weakness, drooling, palpitations prior to the event, chest pains, shortness of breath, lightheadedness, dizziness, slurred spe ech. She had a similar episode 3 years ago with syncope and having a low heart rate during that time as well. She was seen by cardiology and had an implantable loop recorder for 3 years which never recorded abnormalities. Today she states when she woke up from her loss of consciousness and had nausea with one episode of vomiting. She also had fallen on her right leg and was experiencing severe right lower leg pain. She was brought to the emergency room for further evaluation. In the emergency room, vital signs were initially stable. The CT of the head was negative. Labs were essentially unremarkable. She had imaging of her right lower extremity which showed a distal fibular fracture. It was put in a soft cast and recommended to follow-up with orthopedic surgery. The patient had an episode where she became lightheaded and passed out for less than several seconds in the ER. Her heart rate was recorded to be as low as 20s and was seen to be in sinus rhythm with a junctional escape. She spontaneously went back into normal sinus rhythm and maintained a heart rate in the 70s80s for the remainder of her ER stay. Again she denied any cardiac symptoms with this episode of her heart rate dropping into the 20s. This was witnessed by both the emergency room physician and her at the bedside. The patient was later admitted for syncope, bradycardia and distal fibular fracture. HOSPITAL COURSE: After admission, patient had no additional syncope episodes, no recorded bradycardic events. She participated well with PT, NWB of RLE per orthopedic surgery. Neuro checks neg, neg orthostatics. 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 she had no recorded events on telemetry. Cardiology () reviewed strips and ECG from admission. He discussed with Dr. Marroquin, EP cards at [facility]. Transferring today for further EP eval and possible PM placement. For nondisplaced transverse fracture of the distal fibula, plan is pain control, NWB RLE, follow up with him in ortho clinic after discharge. C/w soft cast PAST MEDICAL HISTORY: Hx of syncope with bradycardia (3 yrs ago), obstructive sleep apnea on CPAP nightly, hypertension, hyperlipidemia, chronic back pain, osteoarthritis PAST SURGICAL HISTORY: Carpal tunnel surgery on the right Total hysterectomy with bilateral oophrectomy D&C Tonsillectomy Adenoidectomy Colonoscopy FAMILY HISTORY: Father: Coronary artery disease, hypertension. at 79 years old Mother: Alzheimer's disease, Parkinson's. at 74 years old SOCIAL HISTORY: Prior smoker half pack per day for 30 years, quit 5 years ago. Denies alcohol or illicit drug use aside from cannabinoids oil for chronic pain. Lives locally with her . She follows readily with primary care provider Dr. Rashid and x ray technologist Dr. Mclean. DISCHARGE MEDICATIONS: Pleas see below PHYSICAL EXAMINATION: VS: please see below CONSTITUTIONAL: No acute distress, resting comfortably, AAO x 3 EYES: PERRLA, EOM intact HENT, MOUTH: Normocephalic, atraumatic, moist mucous membranes NECK: SUPPLE, no JVD, no lymphadenopathy, no carotid bruit CV: Regular rate and rhythm, S1S2 normal, no murmurs/rubs/gallops RESPIRATORY: Clear to auscultation bilaterally, no rales/rhonchi/wheezes GI: BS positive in 4 quadrants, soft, nontender, nondistended, no rebound or guarding, no organomegaly : Deferred MUSCULOSKELETAL: Normal ROM. No cyanosis, clubbing, swelling, joint deformity, e xtremity edema. soft cast in place RLE INTEGUMENTARY: Scraped skin on right dorsum of hand, b/l knees NEUROLOGIC: Cranial Nerves II-XII are intact, no focal deficits PSYCHIATRIC: Mood and affect are normal LABORATORY DATA: Please see below IMAGING: Echocardiogram 3/30/21: Official reading pending US Carotid: No evidence of significant stenosis right or left internal carotid artery. CT head: NEGATIVE NONCONTRAST CT BRAIN. NO INTRACRANIAL HEMORRHAGE, MASS, MASS EFFECT OR OTHER ACUTE FINDING. NO SKULL FRACTURE, SINUS OR MASTOID ACUTE ABNORMALITY. Ankle XR: 1. Nondisplaced transverse fracture of the distal fibula extending to the medial articular surface adjacent to the vertical portion of the talus laterally. No involvement of the tibia or talus. Soft tissue swelling. No other finding. ASSESSMENT: 65-year-old female with PMH of syncope, obstructive sleep apnea on CPAP nightly, hypertension, hyperlipidemia, chronic back pain, osteoarthritis admitted for further evaualtion of syncope, bradycardia and distal fibular fracture PLAN: Syncope likely 2/2 to bradycardia -Hx of sinus bradycardia with prior syncopal episode many years ago -Had implantable loop recorder for 3 years without events, followed by Dr. Mclean -Neuro checks neg, neg orthostatics, HR 70's overnight -CT head neg, neg neuro exam -Carotid US neg -Echo pending -No events on tele -Cardiology () reviewed strips and ECG. Discussed with Dr. Marroquin, EP cards at [facility]. Transferring today for further EP eval and possible PM placement Nondisplaced transverse fracture of the distal fibula -XR above -Discussed with Dr. Srivastava, orthopedic surgery. Recommending pain control, NWB RLE, follow up with him in ortho clinic after discharge -C/w soft cast HTN -C/w home meds HLD -Not currently on statin due to transaminitis Transaminitis, chronic -F/u with PCP BRI -Home cpap Chronic back pain / OA -Stable -Lidocaine patch, duloxetine DVT px -Lovenox DISPOSITION: Transferring to [facility] today, Dr. Marroquin TIME SPENT ON DISCHARGE: 35 minutes. Vital Signs/I&Os Vital Signs Date Time Temp Pulse Resp B/P (MAP) Pulse Ox O2 Delivery O2 Flow Rate FiO2 01/25/21 06:00 98.5 18 94 Room Air 01/25/21 06:00 68 130/63 (85) 72 141/75 (97) 84 127/80 (96) I&O- Last 24 Hours up to 6 AM 01/25/21 06:00 Intake Total 1170 ml Output Total 400 ml Balance 770 ml Laboratory Data Labs 24H Laboratory Tests 2 4/1/21 05:45: Nucleated Red Blood Cells % (auto) 0.0, Anion Gap 6L, Glomerular Filtration Rate > 60.0, Calcium Level 8.9, Total Bilirubin 0.6, Aspartate Amino Transf (AST/SGOT) 80H, Alanine Aminotransferase (ALT/SGPT) 198H, Alkaline Phosphatase 84, Total Protein 6.9, Albumin 3.7, Albumin/Globulin Ratio 1.2 CBC/BMP Laboratory Tests 01/25/21 05:45 Discharge Medications Scheduled Aspirin (Aspirin EC) 81 Mg Tab, 81 MG PO DAILY, (Reported) Calcium Carbonate/Vitamin D3 (Calcium 500-Vit D3 400 Tablet) 1 Each Tablet, 1 TAB PO BID, (Reported) Cetirizine HCl (Cetirizine HCl) 10 Mg Tablet, 10 MG PO QHS, (Reported) Duloxetine Hcl (Cymbalta) 30 Mg Capsule.dr, 30 MG PO DAILY, (Reported) Enoxaparin Sodium (Lovenox) 40 Mg/0.4 Ml Syringe, 40 MG SC DAILY Iron Fum,Ag/C/B12/Folic/Ca/Suc (Multigen Plus Caplet) 1 Each Tablet, 1 TAB PO DAILY, (Reported) Lactobacillus Rhamnosus GG (hovelstay) 1 Cap Cap, 1 CAP PO DAILY, (Reported) Losartan Potassium (Losartan Potassium) 25 Mg Tablet, 25 MG PO QHS, (Reported) Ubidecarenone (Co Q-10) 200 Mg Cap, 200 MG PO QPM, (Reported) Scheduled PRN Acetaminophen (Acetaminophen) 325 Mg Tablet, 650 MG PO Q6HP PRN for PAIN OR FEVER Ibuprofen (Ibuprofen) 400 Mg Tablet, 400 MG PO Q6HP PRN for PAIN Lidocaine (Lidocaine Pain Relief) 1 Each Adh..patch, 1 EACH TP Q12H PRN for PAIN, (Reported) APPLY TO LEFT SIDE OF BACK (THORACIC) Miscellaneous Medications Deer-3/Dha/Epa/Fish Oil (Fish Oil 1,200 mg Softgel) 1 Each Capsule.dr, 2,800 MG PO, (Reported) Allergies Coded Allergies: Grass (Verified Allergy, Intermediate, 12/25/20) TAPE (Verified Allergy, Mild, RASH, 01/23/21) lactose (Verified Allergy, Unknown, 12/25/20) orange (Verified Allergy, Unknown, 12/25/20) Lillie Escalante MD Jan 25, 2021 11:32
--- NOTE | 2021-01-26 11:15 | ECHO ---
DATE OF PROCEDURE: 01/24/2021 Age: 65 Gender: Female REFERRING PROVIDER: Dr. Dalila Escalante. PATIENT LOCATION: Room 4211. REASON FOR STUDY: Syncope. 2D MEASUREMENTS: IVS 1.2 cm LV 4.0 cm LVPW 1.2 cm LA 3.9 cm Aorta 3.1 cm IVC 1.3 cm DOPPLER MEASUREMENT Peak velocity across the aortic valve 1.3 m/s Peak velocity across the LVOT 1.1 m/s Mitral E 0.85 Mitral A 1.1 with a ratio of 0.8 2D COMMENTS: 1. Normal left ventricular size, wall thickness, and normal global left ventricular systolic function. The estimated left ventricular systolic ejection fraction is 60 to 65%. 2. Normal left atrium. Normal right atrium and right ventricle. 3. The atrial septum appeared to be normal without evidence of defect or shunt. 4. Normal aortic root. 5. Just a small pericardial effusion noted. No evidence of cardiac tamponade. 6. The aortic valve, mitral valve, tricuspid valve, and pulmonic valve appeared to be normal. The proximal pulmonary artery branches were not well visualized. 7. The inferior vena cava was normal in size, central venous pressure is most likely normal. DOPPLER: No significant valvular abnormalities detected. Abnormal relaxation pattern was noted cross the mitral valve leaflets as well as the mitral valve annulus consistent with features of grade 1 left ventricular diastolic dysfunction. IMPRESSION: 1. Normal global left ventricular systolic function. There were some features of grade 1 left ventricular diastolic dysfunction manifested by abnormal relaxation. 2. Trace to small pericardial effusion, no evidence of cardiac tamponade. MTDD
== END 2021-01-25 12:51 | disposition short-term general hospital (02) | DRG 201 ==
LOC: M ED 15:15 → EDBD 15:15 → M ED INP 15:16 → OBSVTOIN 19:04 → ENRESERV 20:41 → M MSPAV 23:04
PROVIDERS: ADMIT Internal Medicine; ATTEND Internal Medicine
PROC: 2W3LX2Z Immobilization of Right Lower Extremity using Cast (ICD-10-PCS; principal; 2021-01-23)
DX: R00.1 Bradycardia, unspecified (principal); I10 Essential (primary) hypertension; S82.424A Nondisplaced transverse fracture of shaft of right fibula, initial encounter for closed fracture; R55 Syncope and collapse; G47.33 Obstructive sleep apnea (adult) (pediatric); E78.5 Hyperlipidemia, unspecified; M19.90 Unspecified osteoarthritis, unspecified site; J30.1 Allergic rhinitis due to pollen; E73.9 Lactose intolerance, unspecified; R74.01 Elevation of levels of liver transaminase levels; Z87.891 Personal history of nicotine dependence; Z79.82 Long term (current) use of aspirin; Z79.899 Other long term (current) drug therapy; Z91.018 Allergy to other foods; Z91.048 Other nonmedicinal substance allergy status; W18.30XA Fall on same level, unspecified, initial encounter; Y92.89 Other specified places as the place of occurrence of the external cause; Y99.8 Other external cause status; Y93.89 Activity, other specified

== ENCOUNTER → 2021-02-08 | Outpatient (CLI) | payer BC ==
[~2021-02-08] MED LIST changes: +ACET1TAB55 PO; +CETI-24 PO; +IBUP-1114 PO; +LOVE1INJ SC
--- NOTE | 2021-02-09 06:47 | REP ---
INDICATION: F/U FX. COMPARISON: 01/23/2021 TECHNIQUE: AP, lateral, bilateral oblique views of the right ankle. FINDINGS: Transverse nondisplaced fracture of the distal fibular metaphysis/lateral malleolus again noted and appears stable. Overlying soft tissue swelling slightly decreased from prior examination. Ankle mortise intact. IMPRESSION: Stable transverse fracture through the distal fibula with moderate overlying soft tissue swelling. <Electronically signed by Marvin Garg > 02/09/21 [id number]
== END ==
LOC: M SOG 15:41
PROVIDERS: ATTEND Orthopaedic Surgery Sports Medicine
DX: S82.64XA Nondisplaced fracture of lateral malleolus of right fibula, initial encounter for closed fracture (principal); X58.XXXA Exposure to other specified factors, initial encounter; Y92.9 Unspecified place or not applicable; Y93.9 Activity, unspecified; Y99.9 Unspecified external cause status

== ENCOUNTER → 2021-03-09 | Outpatient (CLI) | payer BC ==
--- NOTE | 2021-03-11 06:29 | REP ---
INDICATION: F/U FX. COMPARISON: 02/08/2021 TECHNIQUE: AP, lateral, bilateral oblique views of the right ankle. FINDINGS: Nondisplaced healing fracture of the distal fibula/lateral malleolus noted with overlying soft tissue swelling. IMPRESSION: Healing fracture of the lateral malleolus/distal fibula <Electronically signed by Marvin Garg > 03/11/21 [id number]
== END ==
LOC: M SOG 10:47
PROVIDERS: ATTEND Orthopaedic Surgery Sports Medicine
DX: S82.64XD Nondisplaced fracture of lateral malleolus of right fibula, subsequent encounter for closed fracture with routine healing (principal)

== ENCOUNTER → 2021-04-02 | Outpatient (CLI) | payer BC ==
--- NOTE | 2021-04-04 02:41 | ECWPNPC ---
PATIENT NAME: IAM DHALIWAL : 1955 GENDER: FEMALE VISIT DATE: 04/02/2021 DISCHARGE DATE: 04/02/21 1150 VISIT LOCKED DATE TIME: PHYSICIAN: EDGARD STEWART RESOURCE: EDGARD STEWART REASON FOR APPOINTMENT 1. NECK, SACROILLITIS, INTERCOSTAL HISTORY OF PRESENT ILLNESS GENERAL: HERE FOR FOLLOW-UP OF CHRONIC NECK, THORACIC AND LOW BACK PAIN. PATIENT PASSED OUT AND FELL IN DECEMBER FRACTURING HER RIGHT LOWER EXTREMITY. SHE HAD A PACEMAKER PLACED IN JANUARY. FOLLOWING WITH , CARDBOARD INSERTER. DOING BETTER. PAIN HAS BEEN AGGRAVATED OVER THE PAST FEW MONTHS. PATIENT IS WALKING WITH A WALKER. WORST AREA OF PAIN IS OVER HER SACROILIAC REGION OF THE LOWER BACK BILATERALLY. HAS RESPONDED WELL TO SACROILIAC JOINT BLOCK. -. FALL RISK SCREENING: SCREENING 01/23/2021 ON FALL BROKE RIGHTANKEL SHE PASS OUT. PAIN SCREENING: PATIENT HAS A COMPLAINT OF ACUTE OR CHRONIC PAIN :YES LOCATION OF PAIN:NECK, LOW BACK INTENSITY OF PAIN (SCALE OF 1 TO 10):6 WHAT DOES YOUR PAIN FEEL LIKE:BURNING, THROBBING, SHOOTING DURATION:CONTINOUS, CONSTANT, ALL DAY PAIN IS INCREASED BY:ACTIVITIES, PROLONGED STANDING " NOTING FOR A LONG PEROID OF TIME " PAIN IS DECREASED BY:OTHERS LAYING DOWN ON BACK FLAT NURSING NOTE: -. PAIN CENTER INTAKE QUESTIONS: DO YOU HAVE A HISTORY OF MRSA? :NO DO YOU TAKE A BLOOD THINNERS? :NO ASPIR-81 81 MG DO YOU HAVE ANY BLEEDING DISORDERS? :NO ANY NEW NUMBNESS OR WEAKNESS IN YOUR LEGS OR ARMS? :NO ANY PACEMAKER,DEFIBRILLATOR, OR DORSAL COLUMN STIMULATOR? :YES PACEMAKER DO YOU HAVE ANY RASHES OR OPEN SORES? :NO ARE YOU ALLERGIC TO IV DYE? :NO ARE YOU DIABETIC? :NO ANY NEW PROBLEMS WITH YOUR MEDICATIONS? :NO HAVE YOU RECEIVED A VACCINE IN THE PAST 30 DAYS? :NO DO YOU PLAN TO RECEIVE A VACCINE IN THE NEXT 21 DAYS? :NO DO YOU NEED ANY PRESCRIPTION? :NO DO YOU TAKE ANY IMMUNOSUPPRESSIVE MEDICATIONS? :NO IS THERE A CHANCE YOU COULD BE ? :NO ARE YOU BREAST FEEDING? :NO CURRENT MEDICATIONS TAKING ASPIR-81 81 MG TABLET DELAYED RELEASE 1 TABLET ORALLY DAILY TAKING FISH OIL TRIPLE STRENGTH 1400 MG CAPSULE 2 CAPSULE ORALLY ONCE A DAY TAKING COQ-10 200 MG CAPSULE 1 CAPSULE WITH A MEAL ORALLY ONCE A DAY TAKING CALTRATE 600+D PLUS MINERALS 600-800 MG-UNIT TABLET 1 TABLET ORALLY TWICE A DAY TAKING MULTIVITAMINS CAPSULE ORALLY ONCE DAILY TAKING LIDOCAINE & ADHESIVE SHEET 5 % KIT DIRECTED EXTERNALLY DAILY TAKING MAY USE CBD OIL 25MG BID TAKING CETIRIZINE HCL 10 MG TABLET 1 TABLET ORALLY ONCE A DAY TAKING LOSARTAN POTASSIUM 25 MG TABLET 1 TABLET ORALLY ONCE A DAY TAKING CYMBALTA 30 MG CAPSULE DELAYED RELEASE PARTICLES 1 CAPSULE ORALLY TWICE A DAY FOR PAIN TAKING CULTURELLE CAPSULE ORALLY ONCE DAILY NOT-TAKING DIAZEPAM 5 MG TABLET 1 TABLET NEEDED ORALLY FOR MRI NOT-TAKING CRESTOR 5 MG TABLET 1 TABLET ORALLY ONCE A DAY NOT-TAKING ESTROVEN + ENERGY MAX STRENGTH TABLET 1 TAB ORALLY NOT-TAKING MOVE FREE JOINT HEALTH ADVANCE - TABLET ORALLY DAILY NOT-TAKING MAY USE 1 CEYLON CINNAMON 2 CAP ORALLY ONCE DAILY NOT-TAKING MAY USE ULTRA NICA 1 CAP ORALLY DAILY NOT-TAKING GABAPENTIN 300 MG CAPSULE 1 CAPSULE ORALLY DAILY AT BEDTIME NOT-TAKING CLARITIN 10 MG TABLET 1 TABLET ORALLY ONCE A DAY NOT-TAKING MAY USE DICLOFENAC GEL 1% TID NOT-TAKING IBUPROFEN 200 MG 1 TAB ORAL BEFORE BEDTIME PRN NOT-TAKING EMERGEN-C IMMUNE PACKET ORALLY ONCE DAILY NOT-TAKING PAZEO 0.7 % SOLUTION 1 DROP INTO AFFECTED EYE OPHTHALMIC ONCE A DAY NOT-TAKING MAY USE MYOCALM 2 CAPS ORALLY ONCE DAILY NOT-TAKING VALIUM 5 MG TABLET 1 TAB DIRECTED ORALLY 1 TAB 1HR PRE MRI AND 1 TAB AT TIME OF MRI MDD2 MEDICATION LIST REVIEWED AND RECONCILED WITH THE PATIENT PAST MEDICAL HISTORY BRI - CPAP IMPLANTABLE LOOP RECORDER- FOR EPISODES OF SYNCOPE( [id number]) HYPERLIPID CHRONIC BACK AND NECK PAIN HEADACHES DIZZINESS HAS BEEN KNOWN TO VASAL VAGAL SEVERLY WITH PROCEDURES INVOLVING NEEDLES CARPAL TUNNEL RIGHT HAND DE QUERVAIN'S TENOSYNOVITIS-RIGHT TENNIS ELBOW-RIGHT LEFT INTERCOSTAL NEURALGIA FATTY LIVER BORDERLINE HYPERTENSION TORN MENISCUS IN RIGHT KNEE ENLARGED NODULE ON THYROID 01/23/2021 ON FALL BROKE RIGHTANKEL SHE PASS OUT PACEMAKER ALLERGIES TAPE: RASH - ALLERGY ORANGE: DRY MOUTH/DIFFICULTY SWALLOWING - ALLERGY PINE: RASH/CONGESTION - ALLERGY GRASS: SNEEZING, WATERY EYES - ALLERGY TEGADERM : REDNESS, SWELLING AT SIGHT - SIDE EFFECTS SURGICAL HISTORY TONSILLECTOMY 1965 D/C (MISCARRIAGE) 12/1978 D/C ENDOMETRIAL ABLATION 08/1979 HYSTERECTOMY/OOPHORECTOMY 11/2009 IMPLANTABLE LOOP RECORDER 01/2015 THYROID BX 06/2016 RIGHT HAND CARPAL TUNNEL RELEASE 04/22/2018 REMOVAL OF LOOP RECORDER 06/2018 PACEMAKER 02/15/2021 SOCIAL HISTORY GENERAL: TOBACCO USE ARE YOU A:FORMER SMOKER HOW LONG HAS IT BEEN SINCE YOU LAST SMOKED?5-10 YEARS QUIT 12/2015 LATEX QUESTIONNAIRE LATEX ALLERGY : HAVE YOU EVER DEVELOPED ANY TYPE OF REACTION AFTER HANDLING LATEX PRODUCTS SUCH RUBBER GLOVES, CONDOMS, DIAPHRAGMS, BALLOONS, SOCKS, OR UNDERWEAR?YES DOES HAVE ALLERGY TO TAPE LATEX ALLERGY : HAVE YOU EVER DEVELOPED ANY TYPE OF REACTION DURING OR AFTER DENTAL APPOINTMENT, VAGINAL/RECTAL EXAMINATION, SURGICAL PROCEDURE, OR ANY OTHER EXPOSURE?NO LATEX RISK : HAVE YOU EVER HAD ANY DIFFICULTY BREATHING OR HIVES AFTER EATING OR HANDLING ANY FRUITS, OR VEGETABLES; SUCH KIWI, BANANAS, STONE FRUITS, OR CHESTNUTSNO LATEX RISK : DO YOU HAVE A PREVIOUS PERSONAL HISTORY OF MORE THAN NINE SURGERIES, SPINA BIFIDA, OR REPEATED CATHERIZATIONS? NO LATEX RISK : ARE YOU FREQUENTLY EXPOSED TO LATEX PRODUCTS IN YOUR OCCUPATION?NO DATE ASKED : 04/02/2021 ALCOHOL USE: NO. ALCOHOL SCREENING DID YOU HAVE A DRINK CONTAINING ALCOHOL IN THE PAST YEAR?NO POINTS0 INTERPRETATIONNEGATIVE RECREATIONAL DRUG USE DRUG USE?NO CAFFEINE CAFFEINE USE?YES HOW OFTEN AND HOW MUCH? 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 DIET: REGULAR. EXERCISE: WALKS. MARITAL STATUS: . - PFS REFERRAL NEEDED?NO CLERGY REFERRAL NEEDED?NO PUBLIC HEALTH REFERRAL NEEDED?NO HAS THE PATIENT BEEN EDUCATED REGARDING HIS/HER PLAN OF CARE?YES HAS THE PATIENT BEEN EDUCATED REGARDING PAIN, THE RISK FOR PAIN, THE IMPORTANCE OF EFFECTIVE PAIN MANAGEMENT, AND THE PAIN ASSESSMENT PROCESS?YES ADVANCE DIRECTIVE ADVANCE DIRECTIVE DISCUSSED WITH PATIENT:YES 11/20/20 PT DOES NOT HAVE ANY ADVANCED DIRECTIVES. SHE STATES SHE HAS INFORMATION ON HCP ALREADY. HELP OFFERED IN FILLING FORM OUT IF NEEDED. SHE DECLINES AT THIS TIME. HOSPITALIZATION/MAJOR DIAGNOSTIC PROCEDURE SURGERIES CHILDBIRTH 01/23/2021 ON FALL OMARI OROZCO SHE PASS OUT 01/23/2021 REVIEW OF SYSTEMS CONSTITUTIONAL: ANY RECENT FEVER NO . CHILLS NO . WEIGHT CHANGE OF UNKNOWN REASONS NO . GASTROENTEROLOGY: NEW UNEXPLAINABLE CHANGES IN BOWEL CONTROL NO . CONSTIPATION NO . GENITOURINARY: ANY NEW CHANGE IN BLADDER CONTROL? NO . NEUROLOGY: NEW ONSET DIZZINESS OR NEUROLOGICAL CHANGES NOT MENTIONED NO . NEW NUMBNESS OR PAIN PATTERNS NOT MENTIONED AND PERTINENT TO TODAY'S VISIT NO . CARDIOLOGY: NEW CHEST PRESSURE NO . PATIENT DENIES NO . RESPIRATORY: UNEXPLAINABLE COUGH NO . NEW SHORTNESS OF BREATH NO . VITAL SIGNS WT 231.8 LBS, HT 66 IN, BMI 37.41 INDEX, BP 180/87 MM HG, REPEAT BP 147/85 MM HG, HR 110 /MIN, RR 18 /MIN, TEMP 96.6 F, OXYGEN SAT % 98%, SAFE IN ENV? (Y/N) YES, NA INITIALS [place] 11:03MICHELLE STOCK. EXAMINATION GENERAL EXAMINATION: GENERAL ALERT,NO DISTRESS . PSYCH AFFECT NORMAL . LUNGS: LUNG SOUNDS ARE CLEAR . HEART: HEART RATE REGULAR . MUSCULOSKELETAL: MST 5/5 BILAT. LOWER EXTREMITIES . LUMBAR: TENDERNESS BILAT. SIJ RIGHT GREATER THAN LEFT.POSITIVE SONNY TESTING BILAT . DIAGNOSTIC TESTS REVIEWEDMRI L/S SPINE 2017 REVIEWED. ASSESSMENTS SACROILIITIS, NOT ELSEWHERE CLASSIFIED - M46.1 (PRIMARY) TREATMENT SACROILIITIS, NOT ELSEWHERE CLASSIFIED REFILL CYMBALTA CAPSULE DELAYED RELEASE PARTICLES, 30 MG, 1 CAPSULE, ORALLY, TWICE A DAY FOR PAIN, 90 DAY(S), 180, REFILLS 1 MEDICATION: VALIUM TAB 10MG ORALLY (DIAZEPAM) (ORDERED FOR 04/16/2021) MEDICATION: OXYCODONE HCL TAB 10MG ORALLY (ORDERED FOR 04/16/2021) NOTES: BILATERAL SACROILIAC JOINT BLOCK /HOLD CARDIOLOGY CLEARANCE/ PRINTED AND REVIEWED PRE PROCEDURE INFORMATION, PATIENT VERBALIZED UNDERSTANDING MICHELLE LLAMAS REFERRAL TO:[facility] REASON:RECENT PACEMAKER/SYNCOPAL EVENT. PLEASE SEND CARDIOLOGY CLEARANCE FOR PROCEDURE-BILATERAL SACROILIAC JOINT STEROID INJECTION PROCEDURE CODES FA211 ESTABILISHED PATIENT [facility] CHARGE DISPOSITION & COMMUNICATION FOLLOW UP POST (REASON: BILATERAL SACROILIAC JOINT BLOCK /HOLD CARDIOLOGY CLEARANCE/) ELECTRONICALLY SIGNED BY CARLENE FERRELL ON 04/03/2021 AT 11:09 AM EDT DISCLAIMER : THIS IS A VISIT SUMMARY EXTRACTED FROM THE [employer] CHART. IT IS NOT A COPY OF THE [facility] PROGRESS NOTE. ALCON
== END ==
LOC: M PAIN 11:00
PROVIDERS: ATTEND Nurse Practitioner Family
DX: M46.1 Sacroiliitis, not elsewhere classified (principal); G89.29 Other chronic pain; G47.33 Obstructive sleep apnea (adult) (pediatric); Z95.0 Presence of cardiac pacemaker; Z87.891 Personal history of nicotine dependence; Z91.018 Allergy to other foods; Z91.09 Other allergy status, other than to drugs and biological substances; Z79.82 Long term (current) use of aspirin; Z79.899 Other long term (current) drug therapy

== ENCOUNTER → 2021-07-11 | Outpatient (CLI) | payer BC | LOC: M LABSMTC 09:08 | PROVIDERS: ATTEND Anesthesiology | DX: Z20.822 Contact with and (suspected) exposure to COVID-19 (principal) ==

== ENCOUNTER → 2021-07-16 | Outpatient (CLI) | payer BC ==
[~2021-07-16] MED LIST changes: +BUPIVACAINE HCL 0.25% 30ML VIAL As Ordered ONE; +ISOVUE-M 300 61% 15ML VIAL As Ordered ONE; +LIDOCAINE 1% SDV 30ML VIAL As Ordered ONE; +TRIAMCINOLONE ACETONIDE SUSP 40 MG/ML VIAL (J3301) As Ordered ONE; +diazePAM 5MG TABLET As Ordered ONE; +oxyCODONE 5MG TAB As Ordered ONE
--- NOTE | 2021-07-16 12:23 | REP ---
INDICATION: BILAT SIJ. COMPARISON: None. TECHNIQUE: Two C-arm views bilateral sacroiliac joints. FINDINGS: A needle overlies each sacroiliac joint. IMPRESSION: 17 seconds fluoroscopy time utilized. <Electronically signed by Saturnino Arreola > 07/16/21 [id number]
== END ==
LOC: M PAIN 10:20
PROVIDERS: ATTEND Anesthesiology
DX: M46.1 Sacroiliitis, not elsewhere classified (principal); G47.33 Obstructive sleep apnea (adult) (pediatric); Z95.0 Presence of cardiac pacemaker; Z91.018 Allergy to other foods; Z91.09 Other allergy status, other than to drugs and biological substances; Z79.82 Long term (current) use of aspirin; Z79.899 Other long term (current) drug therapy
CPT/HCPCS: G0260; J3301; Q9967

== ENCOUNTER → 2021-07-24 | Outpatient (CLI) | payer BC ==
[~2021-07-24] MED LIST changes: -BUPIVACAINE HCL 0.25% 30ML VIAL As Ordered ONE; -ISOVUE-M 300 61% 15ML VIAL As Ordered ONE; -LIDOCAINE 1% SDV 30ML VIAL As Ordered ONE; -TRIAMCINOLONE ACETONIDE SUSP 40 MG/ML VIAL (J3301) As Ordered ONE; -diazePAM 5MG TABLET As Ordered ONE; -oxyCODONE 5MG TAB As Ordered ONE
--- NOTE | 2021-07-24 13:47 | REP ---
INDICATION: RT KNEE ARTHRITIS. COMPARISON: None. TECHNIQUE: Five views FINDINGS: There is mild tricompartmental marginal osteophytosis. There is mild asymmetric patellofemoral joint space narrowing. There is no acute fracture, dislocation, or subluxation. IMPRESSION: Mild degenerative changes <Electronically signed by Ulices Monet > 07/24/21 [id number]
== END ==
LOC: M SOG 11:14
PROVIDERS: ATTEND Orthopaedic Surgery Sports Medicine
DX: M17.11 Unilateral primary osteoarthritis, right knee (principal)

== ENCOUNTER → 2021-08-23 | Outpatient (CLI) | payer BC | LOC: M PAIN 10:45 | PROVIDERS: ATTEND Anesthesiology | DX: M51.16 Intervertebral disc disorders with radiculopathy, lumbar region (principal); M53.3 Sacrococcygeal disorders, not elsewhere classified; G89.29 Other chronic pain; G47.30 Sleep apnea, unspecified; Z95.0 Presence of cardiac pacemaker; Z87.891 Personal history of nicotine dependence; Z79.82 Long term (current) use of aspirin; Z79.899 Other long term (current) drug therapy ==

== ENCOUNTER → 2021-09-17 | Outpatient (CLI) | payer BC ==
[2021-09-17 16:04] LABS: BASO % 0.2 % (0.0-1.0); HEMATOCRIT 40.3 % (36.0-47.0); HEMOGLOBIN 13.6 g/dl (12.0-15.5); LYMPH # 3.4 10^3/uL (1.5-5.0); LYMPH % 39.2 % (24.0-44.0); MEAN CORPUSCULAR HEMOGLOBIN 30.9 pg (27.0-33.0); MEAN CORPUSCULAR HGB CONC 33.7 g/dl (32.0-36.5); MEAN CORPUSCULAR VOLUME 91.6 fl (80.0-96.0); MONO # 0.8 10^3/uL (0.0-0.8); MONO % 9.4 % (2.0-8.0); NEUTROPHILS # 4.4 10^3/uL (1.5-8.5); NEUTROPHILS % 50.9 % (36.0-66.0); PLATELET COUNT, AUTOMATED 275 10^3/uL (150-450); WHITE BLOOD COUNT 8.6 10^3/uL (4.0-10.0)
[2021-09-17 16:28] LABS: ALBUMIN 4.2 GM/DL (3.2-5.2); ALT/SGPT 100 U/L (12-78); BILIRUBIN,TOTAL 0.6 MG/DL (0.2-1.0); BLOOD UREA NITROGEN 16 MG/DL (7-18); CALCIUM LEVEL 10.2 MG/DL (8.8-10.2); CARBON DIOXIDE LEVEL 32 MEQ/L (21-32); CHLORIDE LEVEL 104 MEQ/L (98-107); CHOLESTEROL LEVEL 281 MG/DL (<200); CHOLESTEROL RISK RATIO 6.244 (<5); CREATININE FOR GFR 0.93 MG/DL (0.55-1.30); GLOMERULAR FILTRATION RATE > 60.0 (>45); GLUCOSE, FASTING 92 MG/DL (70-100); HDL CHOLESTEROL 45 MG/DL (>40); LDL CHOLESTEROL 168 MG/DL (<100); NON-HDL-C 236 MG/DL; SODIUM LEVEL 139 MEQ/L (136-145); TOTAL PROTEIN 7.6 GM/DL (6.4-8.2); TRIGLYCERIDES LEVEL 341 MG/DL (<150)
== END ==
LOC: M WUC 11:13
PROVIDERS: ATTEND Family Medicine
DX: I10 Essential (primary) hypertension (principal)

== ENCOUNTER → 2021-10-24 | Outpatient (CLI) | payer BC ==
--- NOTE | 2021-10-24 12:08 | REP ---
INDICATION: SACROILLIAC JOINT DYSFUNCTION. COMPARISON: None. TECHNIQUE: 3 x 3 mm increments using helical technique and reconstructed in both sagittal and coronal planes. FINDINGS: There is bilateral asymmetric hip joint space narrowing which is [id number]. There is no evidence of subchondral sclerosis or subchondral cyst formation. Femoral heads are spherical in shape and symmetric in appearance. The sacroiliac joints are non fused. No abnormal sclerosis is seen on either side of either SI joint. There is no prominent marginal osteophytosis. Rather marked appearing facet joint DJD is seen bilaterally at L5 right greater than left. There is no acute fracture, dislocation, or subluxation. There is no gross hip joint effusion. IMPRESSION: Chronic changes as described above. There is no evidence of an acute osseous abnormality. <Electronically signed by Ulices Monet > 10/24/21 [id number]
--- NOTE | 2021-10-24 14:09 | REPVR ---
PROCEDURE INFORMATION: Exam: CT Lumbar Spine Without Contrast Exam date and time: 10/24/2021 11:43 AM Age: 66 years old Clinical indication: Low back pain; Additional info: Sacroilliac joint dysfunction TECHNIQUE: Imaging protocol: Computed tomography images of the lumbar spine without contrast. Radiation optimization: All CT scans at this facility use at least one of these dose optimization techniques: automated exposure control; mA and/or kV adjustment per patient size (includes targeted exams where dose is matched to clinical indication); or iterative reconstruction. COMPARISON: MRI-Spine, L.S. without con 09/26/2017 11:02 AM FINDINGS: Vertebrae: No acute fracture. Apparent mild levoscoliosis.. Degenerative changes noted within the sacroiliac joints bilaterally with subchondral sclerosis in its and vacuum disc. The joints remain unfused. No fracture seen. L1-L2: No significant disc protrusion. No severe spinal canal stenosis. No significant neural foraminal narrowing. L2-L3: No significant disc protrusion. No severe spinal canal stenosis. No significant neural foraminal narrowing. L3-L4: Circumferential annulus bulge.. Hypertrophic facet arthropathy. No severe spinal canal stenosis. No significant neural foraminal narrowing. L4-L5: Circumferential annulus bulge. Calcification within the disc. Hypertrophic facet arthropathy, right side greater than left.. No severe spinal canal stenosis. No significant neural foraminal narrowing. L5-S1: Circumferential annulus bulge. Calcification within the disc. Large bridging osteophyte on the left at L5-S1.. No severe spinal canal stenosis. No significant neural foraminal narrowing. Liver: Liver is low in density. Soft tissues: Unremarkable. IMPRESSION: 1. Minimal degenerative disc disease. Moderate hypertrophic facet arthropathy at L4-L5 and L5-S1. 2. Mild degenerative changes of the sacroiliac joints which remain unfused. Electronically signed by: Marsha Jackson On 10/24/2021 14:08:55 PM
== END ==
LOC: M PLAIMG 11:11
PROVIDERS: ATTEND Anesthesiology
DX: M53.3 Sacrococcygeal disorders, not elsewhere classified (principal); M51.16 Intervertebral disc disorders with radiculopathy, lumbar region; M51.36 Other intervertebral disc degeneration, lumbar region

== ENCOUNTER → 2021-12-07 | Outpatient (CLI) | payer BC ==
[~2021-12-07] MED LIST changes: +LOSA25TA13 PO; -LOSA25TA14 PO
== END ==
LOC: M PAIN 11:45
PROVIDERS: ATTEND Anesthesiology
DX: M51.16 Intervertebral disc disorders with radiculopathy, lumbar region (principal); G89.29 Other chronic pain; G47.33 Obstructive sleep apnea (adult) (pediatric); Z95.0 Presence of cardiac pacemaker; Z87.891 Personal history of nicotine dependence; Z91.018 Allergy to other foods; Z91.09 Other allergy status, other than to drugs and biological substances; Z79.82 Long term (current) use of aspirin; Z79.899 Other long term (current) drug therapy

== ENCOUNTER → 2022-01-24 | Outpatient (CLI) | payer BC, MEDICARE ==
[2022-01-24 13:30] LABS: INR 1.03; PARTIAL THROMBOPLASTIN TIME 34.3 SECONDS (25.9-37.0); PROTHROMBIN TIME 13.9 SECONDS (12.7-14.5)
[2022-01-24 19:58] LABS: ALBUMIN 4.3 GM/DL (3.2-5.2); ALT/SGPT 101 U/L (12-78); BILIRUBIN,DIRECT 0.1 MG/DL (0.0-0.2); BILIRUBIN,TOTAL 0.8 MG/DL (0.2-1.0); FERRITIN 132 NG/ML (8-252); HEPATITIS B SURFACE ANTIBODY NEGATIVE (POSITIVE); HEPATITIS C VIRUS ABY INDEX 0.2 INDEX (<0.8); IRON (FE) 87 UG/DL (50-170); PERCENT SATURATION 24.5 % (13.2-45.0); TOTAL IRON BINDING CAPACITY 355 UG/DL (250-450); TOTAL PROTEIN 7.4 GM/DL (6.4-8.2)
[2022-01-25 13:19] LABS: ALBUMIN % 64.9 % (55.8-66.1); ALPHA-1-GLOBULIN % 4.5 % (2.9-4.9); ALPHA-1-GLOBULINS 0.33 GM/DL (0.17-0.41); ALPHA-2-GLOBULINS 0.61 GM/DL (0.42-0.99); ALPHA-2-GLOBULINS % 8.2 % (7.1-11.8); BETA-1-GLOBULINS 0.44 GM/DL (0.28-0.60); BETA-1-GLOBULINS % 5.9 % (4.7-7.2); BETA-2-GLOBULINS 0.36 GM/DL (0.19-0.55); BETA-2-GLOBULINS % 4.8 % (3.2-6.5); GAMMA GLOBULIN % 11.7 % (11.1-18.8); GAMMA GLOBULINS 0.87 GM/DL (0.65-1.58)
[2022-01-25 14:30] LABS: HEPATITIS B SURFACE ANTIGEN NEGATIVE (NEGATIVE)
[2022-01-26 02:07] LABS: ALPHA 1 ANTITRYPSIN 136 mg/dL (101-187); ANTI-MITOCHONDRIAL ANTIBODY <20.0 Units (0.0-20.0); ANTINUCLEAR ANTIBODIES DIRECT Negative (Negative); HEPATITIS A IgG TOTAL Negative (Negative); LIVER-KIDNEY MICROSOMAL ABY <20.1 Units (0.0-20.0); TISSUE TRANSGLUTAMINASE IgA <2 U/mL (0-3); TISSUE TRANSGLUTAMINASE IgG <2 U/mL (0-5)
== END ==
LOC: M WUC 09:09
PROVIDERS: ATTEND Physician Assistant Medical
DX: R94.5 Abnormal results of liver function studies (principal); K59.00 Constipation, unspecified

== ENCOUNTER → 2022-02-12 | Outpatient (CLI) | payer BC, MEDICARE ==
[~2022-02-12] MED LIST changes: +ISOVUE-M 300 61% 15ML VIAL As Ordered ONE; +LIDOCAINE 1% SDV 30ML VIAL As Ordered ONE; +diazePAM 5MG TABLET As Ordered ONE; +methylPREDNISolone SUSP 40MG/ML 1ML VIAL (DEPO MEDROL) As Ordered ONE; +oxyCODONE 5MG TAB As Ordered ONE
== END ==
LOC: M PAIN 08:30
PROVIDERS: ATTEND Anesthesiology
DX: M51.16 Intervertebral disc disorders with radiculopathy, lumbar region (principal); G47.33 Obstructive sleep apnea (adult) (pediatric); Z95.0 Presence of cardiac pacemaker; Z87.891 Personal history of nicotine dependence; Z91.018 Allergy to other foods; Z91.09 Other allergy status, other than to drugs and biological substances; Z79.82 Long term (current) use of aspirin; Z79.899 Other long term (current) drug therapy
CPT/HCPCS: 62323; J1030; Q9967

== ENCOUNTER → 2022-02-15 | Outpatient (CLI) | payer MEDICARE, BC ==
[~2022-02-15] MED LIST changes: -ISOVUE-M 300 61% 15ML VIAL As Ordered ONE; -LIDOCAINE 1% SDV 30ML VIAL As Ordered ONE; -diazePAM 5MG TABLET As Ordered ONE; -methylPREDNISolone SUSP 40MG/ML 1ML VIAL (DEPO MEDROL) As Ordered ONE; -oxyCODONE 5MG TAB As Ordered ONE
== END ==
LOC: M RAD 08:23
PROVIDERS: ATTEND Physician Assistant Medical
DX: K76.0 Fatty (change of) liver, not elsewhere classified (principal); R94.5 Abnormal results of liver function studies; K59.00 Constipation, unspecified; Z86.010 Personal history of colon polyps

== ENCOUNTER → 2022-02-26 | Outpatient (CLI) | payer MEDICARE, BC | LOC: M PAIN 09:30 | PROVIDERS: ATTEND Nurse Practitioner Family | DX: M47.816 Spondylosis without myelopathy or radiculopathy, lumbar region (principal); G89.29 Other chronic pain; G47.33 Obstructive sleep apnea (adult) (pediatric); Z95.0 Presence of cardiac pacemaker; Z87.891 Personal history of nicotine dependence; Z91.018 Allergy to other foods; Z91.09 Other allergy status, other than to drugs and biological substances; Z79.82 Long term (current) use of aspirin; Z79.899 Other long term (current) drug therapy ==

== ENCOUNTER → 2022-04-25 | Outpatient (CLI) | payer MEDICARE, BC | LOC: M PAIN 10:30 | PROVIDERS: ATTEND Anesthesiology | DX: M48.062 Spinal stenosis, lumbar region with neurogenic claudication (principal); M51.16 Intervertebral disc disorders with radiculopathy, lumbar region; G89.29 Other chronic pain; G47.33 Obstructive sleep apnea (adult) (pediatric); Z95.0 Presence of cardiac pacemaker; Z87.891 Personal history of nicotine dependence; Z91.018 Allergy to other foods; Z91.09 Other allergy status, other than to drugs and biological substances; Z79.82 Long term (current) use of aspirin; Z79.899 Other long term (current) drug therapy | CPT/HCPCS: 36415; 80076; G0463 ==

== ENCOUNTER → 2022-04-25 | Outpatient (REF) | payer MEDICARE, BC ==
[2022-04-25 16:28] LABS: ALBUMIN 4.7 GM/DL (3.2-5.2); ALT/SGPT 176 U/L (12-78); BILIRUBIN,DIRECT < 0.1 MG/DL (0.0-0.2); BILIRUBIN,TOTAL 0.6 MG/DL (0.2-1.0); TOTAL PROTEIN 7.2 GM/DL (6.4-8.2)
== END ==
LOC: M WUC 15:40
PROVIDERS: ATTEND Physician Assistant Medical
DX: R93.3 Abnormal findings on diagnostic imaging of other parts of digestive tract (principal); K76.0 Fatty (change of) liver, not elsewhere classified; R94.5 Abnormal results of liver function studies; K59.00 Constipation, unspecified

== ENCOUNTER → 2022-05-21 | Outpatient (CLI) | payer MEDICARE, BC | LOC: M RAD 08:59 | PROVIDERS: ATTEND Physician Assistant Medical | DX: K76.0 Fatty (change of) liver, not elsewhere classified (principal); R93.3 Abnormal findings on diagnostic imaging of other parts of digestive tract; R94.5 Abnormal results of liver function studies; K59.00 Constipation, unspecified ==

== ENCOUNTER → 2022-09-02 | Outpatient (CLI) | payer MEDICARE, BC | LOC: M LABSMTC 10:19 | PROVIDERS: ATTEND Anesthesiology | DX: Z01.812 Encounter for preprocedural laboratory examination (principal); Z11.52 Encounter for screening for COVID-19 ==

== ENCOUNTER → 2022-09-06 | Outpatient (CLI) | payer MEDICARE, BC ==
[~2022-09-06] MED LIST changes: +BUPIVACAINE HCL 0.25% 30ML VIAL As Ordered ONE; +ISOVUE-M 300 61% 15ML VIAL As Ordered ONE; +LIDOCAINE 1% SDV 30ML VIAL As Ordered ONE; +ONDANSETRON 4MG ORAL DISINTEGRATING TAB As Ordered ONE; +dexameTHASONE 10MG/1ML VIAL PRES.FREE (J1100 PER 1MG) As Ordered ONE; +diazePAM 5MG TABLET As Ordered ONE; +diphenhydrAMINE 25MG CAP As Ordered ONE; +oxyCODONE 5MG TAB As Ordered ONE
== END ==
LOC: M PAIN 11:00
PROVIDERS: ATTEND Anesthesiology
DX: M48.062 Spinal stenosis, lumbar region with neurogenic claudication (principal); G47.33 Obstructive sleep apnea (adult) (pediatric); Z95.0 Presence of cardiac pacemaker; Z87.891 Personal history of nicotine dependence; Z91.018 Allergy to other foods; Z91.09 Other allergy status, other than to drugs and biological substances; Z79.82 Long term (current) use of aspirin; Z79.899 Other long term (current) drug therapy
CPT/HCPCS: 64483; 64484; J1100; Q9967

== ENCOUNTER → 2022-09-23 | Outpatient (CLI) | payer MEDICARE, BC ==
[~2022-09-23] MED LIST changes: -BUPIVACAINE HCL 0.25% 30ML VIAL As Ordered ONE; -ISOVUE-M 300 61% 15ML VIAL As Ordered ONE; -LIDOCAINE 1% SDV 30ML VIAL As Ordered ONE; -ONDANSETRON 4MG ORAL DISINTEGRATING TAB As Ordered ONE; -dexameTHASONE 10MG/1ML VIAL PRES.FREE (J1100 PER 1MG) As Ordered ONE; -diazePAM 5MG TABLET As Ordered ONE; -diphenhydrAMINE 25MG CAP As Ordered ONE; -oxyCODONE 5MG TAB As Ordered ONE
== END ==
LOC: M PAIN 15:30
PROVIDERS: ATTEND Anesthesiology
DX: M51.16 Intervertebral disc disorders with radiculopathy, lumbar region (principal); M46.1 Sacroiliitis, not elsewhere classified; M53.3 Sacrococcygeal disorders, not elsewhere classified; G89.29 Other chronic pain; G47.33 Obstructive sleep apnea (adult) (pediatric); Z95.0 Presence of cardiac pacemaker; Z87.891 Personal history of nicotine dependence; Z91.018 Allergy to other foods; Z91.09 Other allergy status, other than to drugs and biological substances; Z79.82 Long term (current) use of aspirin; Z79.899 Other long term (current) drug therapy

== ENCOUNTER → 2022-10-03 | Outpatient (CLI) | payer MEDICARE, BC ==
[2022-10-03 13:25] LABS: ALBUMIN 4.2 G/DL (3.2-5.2); ALKALINE PHOSPHATASE 87 U/L (46-116); ALT/SGPT 138 U/L (7.0-40); AST/SGOT 69 U/L (<34); BILIRUBIN,TOTAL 0.5 MG/DL (0.3-1.2); BLOOD UREA NITROGEN 15 MG/DL (9-23); CALCIUM LEVEL 9.4 MG/DL (8.3-10.6); CARBON DIOXIDE LEVEL 29 MMOL/L (20-31); CHLORIDE LEVEL 105 MMOL/L (98-107); CHOLESTEROL LEVEL 133 MG/DL (<200); CHOLESTEROL RISK RATIO 2.77 (<5); CREATININE FOR GFR 0.73 MG/DL (0.55-1.30); GLOMERULAR FILTRATION RATE > 60.0 (>45); GLUCOSE, FASTING 106 MG/DL (74-106); LDL CHOLESTEROL 56.8 MG/DL (<100); NON-HDL-C 85 MG/DL; POTASSIUM SERUM 4.3 MMOL/L (3.5-5.1); SODIUM LEVEL 141 MMOL/L (136-145); TOTAL PROTEIN 6.7 G/DL (5.7-8.2); TRIGLYCERIDES LEVEL 141 MG/DL (<150)
== END ==
LOC: M WUC 09:24
PROVIDERS: ATTEND Physician Assistant
DX: E78.2 Mixed hyperlipidemia (principal)

== ENCOUNTER → 2022-11-05 | Outpatient (CLI) | payer MEDICARE, BC | LOC: M RAD 10:00 | PROVIDERS: ATTEND Physician Assistant | DX: R09.89 Other specified symptoms and signs involving the circulatory and respiratory systems (principal) ==

== ENCOUNTER → 2022-11-11 | Outpatient (CLI) | payer MEDICARE, BC ==
[2022-11-11 16:47] LABS: BASO % 0.4 % (0.0-1.0); EOS % 0.1 % (0.0-3.0); HEMOGLOBIN 12.5 g/dl (12.0-15.5); LYMPH # 3.3 10^3/uL (1.5-5.0); LYMPH % 39.1 % (24.0-44.0); MEAN CORPUSCULAR HEMOGLOBIN 30.5 pg (27.0-33.0); MEAN CORPUSCULAR HGB CONC 32.9 g/dl (32.0-36.5); MEAN CORPUSCULAR VOLUME 92.7 fl (80.0-96.0); MONO # 0.8 10^3/uL (0.0-0.8); NEUTROPHILS # 4.3 10^3/uL (1.5-8.5); NEUTROPHILS % 51.2 % (36.0-66.0); PLATELET COUNT, AUTOMATED 267 10^3/uL (150-450); WHITE BLOOD COUNT 8.4 10^3/uL (4.0-10.0)
[2022-11-11 17:25] LABS: THYROID STIMULATING HORMONE 1.868 uIU/ML (0.55-4.78)
[2022-11-11 17:26] LABS: FREE T4 1.11 NG/DL (0.89-1.76)
== END ==
LOC: M WUC 10:48
PROVIDERS: ATTEND Registered Nurse
DX: E04.9 Nontoxic goiter, unspecified (principal)

== ENCOUNTER → 2022-12-02 | Outpatient (CLI) | payer MEDICARE, BC | LOC: M LABSMTC 10:06 | PROVIDERS: ATTEND Anesthesiology | DX: Z01.812 Encounter for preprocedural laboratory examination (principal); Z11.52 Encounter for screening for COVID-19 ==

== ENCOUNTER → 2022-12-06 | Outpatient (CLI) | payer MEDICARE, BC ==
[~2022-12-06] MED LIST changes: +BUPIVACAINE HCL 0.25% 30ML VIAL As Ordered ONE; +ISOVUE-M 300 61% 15ML VIAL As Ordered ONE; +LIDOCAINE 1% SDV 30ML VIAL As Ordered ONE; +ONDANSETRON 4MG ORAL DISINTEGRATING TAB As Ordered ONE; +TRIAMCINOLONE ACETONIDE SUSP 40MG/ML 1ML VIAL As Ordered ONE; +diazePAM 5MG TABLET As Ordered ONE; +diphenhydrAMINE 25MG CAP As Ordered ONE; +oxyCODONE 5MG TAB As Ordered ONE
== END ==
LOC: M PAIN 08:00
PROVIDERS: ATTEND Anesthesiology
DX: M46.1 Sacroiliitis, not elsewhere classified (principal); G89.29 Other chronic pain; G47.33 Obstructive sleep apnea (adult) (pediatric); Z95.0 Presence of cardiac pacemaker; Z87.891 Personal history of nicotine dependence; Z91.018 Allergy to other foods; Z91.09 Other allergy status, other than to drugs and biological substances; Z79.82 Long term (current) use of aspirin; Z79.899 Other long term (current) drug therapy
CPT/HCPCS: G0260; J3301; Q9967

== ENCOUNTER → 2023-01-13 | Outpatient (CLI) | payer MEDICARE, BC ==
[~2023-01-13] MED LIST changes: -BUPIVACAINE HCL 0.25% 30ML VIAL As Ordered ONE; -ISOVUE-M 300 61% 15ML VIAL As Ordered ONE; -LIDOCAINE 1% SDV 30ML VIAL As Ordered ONE; -ONDANSETRON 4MG ORAL DISINTEGRATING TAB As Ordered ONE; -TRIAMCINOLONE ACETONIDE SUSP 40MG/ML 1ML VIAL As Ordered ONE; -diazePAM 5MG TABLET As Ordered ONE; -diphenhydrAMINE 25MG CAP As Ordered ONE; -oxyCODONE 5MG TAB As Ordered ONE
== END ==
LOC: M PAIN 09:15
PROVIDERS: ATTEND Anesthesiology
DX: G89.29 Other chronic pain (principal); M51.16 Intervertebral disc disorders with radiculopathy, lumbar region; M53.3 Sacrococcygeal disorders, not elsewhere classified; G47.33 Obstructive sleep apnea (adult) (pediatric); E78.5 Hyperlipidemia, unspecified; R51.9 Headache, unspecified; R42 Dizziness and giddiness; M65.4 Radial styloid tenosynovitis [de Quervain]; K76.0 Fatty (change of) liver, not elsewhere classified; Z95.0 Presence of cardiac pacemaker; M79.2 Neuralgia and neuritis, unspecified; J30.1 Allergic rhinitis due to pollen; Z87.891 Personal history of nicotine dependence; Z79.82 Long term (current) use of aspirin; Z79.899 Other long term (current) drug therapy; Z91.048 Other nonmedicinal substance allergy status; Z91.018 Allergy to other foods; Z88.8 Allergy status to other drugs, medicaments and biological substances

== ENCOUNTER → 2023-01-30 | Outpatient (CLI) | payer MEDICARE, BC | LOC: M PAIN 11:00 | PROVIDERS: ATTEND Anesthesiology | DX: M51.16 Intervertebral disc disorders with radiculopathy, lumbar region (principal); G89.29 Other chronic pain; G47.33 Obstructive sleep apnea (adult) (pediatric); Z95.0 Presence of cardiac pacemaker; Z87.891 Personal history of nicotine dependence; Z91.018 Allergy to other foods; Z91.09 Other allergy status, other than to drugs and biological substances; Z79.82 Long term (current) use of aspirin; Z79.899 Other long term (current) drug therapy ==

== ENCOUNTER → 2023-03-03 | Outpatient (CLI) | payer BC | LOC: M TMPAIN 17:30 → M PAIN 17:30 | PROVIDERS: ATTEND Anesthesiology | DX: M51.16 Intervertebral disc disorders with radiculopathy, lumbar region (principal); G89.29 Other chronic pain; G47.33 Obstructive sleep apnea (adult) (pediatric); Z95.0 Presence of cardiac pacemaker; Z87.891 Personal history of nicotine dependence; Z91.018 Allergy to other foods; Z91.09 Other allergy status, other than to drugs and biological substances; Z79.82 Long term (current) use of aspirin; Z79.899 Other long term (current) drug therapy ==

== ENCOUNTER → 2023-03-20 | Outpatient (CLI) | payer BC ==
[2023-03-20 14:00] LABS: ALBUMIN 4.2 G/DL (3.2-5.2); BILIRUBIN,DIRECT 0.2 MG/DL (<0.4); BILIRUBIN,TOTAL 0.6 MG/DL (0.3-1.2); TOTAL PROTEIN 6.6 G/DL (5.7-8.2)
== END ==
LOC: M WUC 09:30
PROVIDERS: ATTEND Physician Assistant Medical
DX: R94.5 Abnormal results of liver function studies (principal)

== ENCOUNTER → 2023-07-08 | Outpatient (CLI) | payer BC ==
[2023-07-08 12:22] LABS: BILIRUBIN,DIRECT 0.2 MG/DL (<0.4); BILIRUBIN,TOTAL 0.6 MG/DL (0.3-1.2); TOTAL PROTEIN 6.8 G/DL (5.7-8.2)
== END ==
LOC: M WUC 09:13
PROVIDERS: ATTEND Physician Assistant Medical
DX: R94.5 Abnormal results of liver function studies (principal)

== ENCOUNTER → 2023-07-28 | Outpatient (CLI) | payer MEDICARE, BC | LOC: M TMPAIN 10:15 → M PAIN 10:15 | PROVIDERS: ATTEND Nurse Practitioner Family | DX: M51.16 Intervertebral disc disorders with radiculopathy, lumbar region (principal); Z95.0 Presence of cardiac pacemaker; Z80.0 Family history of malignant neoplasm of digestive organs; Z80.49 Family history of malignant neoplasm of other genital organs; Z87.891 Personal history of nicotine dependence; Z91.018 Allergy to other foods; Z91.09 Other allergy status, other than to drugs and biological substances; Z79.82 Long term (current) use of aspirin; Z79.899 Other long term (current) drug therapy ==

== ENCOUNTER → 2023-09-10 | Outpatient (CLI) | payer MEDICARE, BC | LOC: M PAIN 10:30 | PROVIDERS: ATTEND Anesthesiology | DX: M51.16 Intervertebral disc disorders with radiculopathy, lumbar region (principal); G89.29 Other chronic pain; Z95.0 Presence of cardiac pacemaker; Z80.0 Family history of malignant neoplasm of digestive organs; Z80.8 Family history of malignant neoplasm of other organs or systems; Z87.891 Personal history of nicotine dependence; Z91.018 Allergy to other foods; Z91.09 Other allergy status, other than to drugs and biological substances; Z79.82 Long term (current) use of aspirin; Z79.899 Other long term (current) drug therapy ==

== ENCOUNTER → 2023-10-14 | Outpatient (CLI) | payer MEDICARE, BC | LOC: M PAIN 15:00 | PROVIDERS: ATTEND Anesthesiology | DX: M51.16 Intervertebral disc disorders with radiculopathy, lumbar region (principal); G89.29 Other chronic pain; Z95.0 Presence of cardiac pacemaker; Z80.0 Family history of malignant neoplasm of digestive organs; Z80.49 Family history of malignant neoplasm of other genital organs; Z87.891 Personal history of nicotine dependence; Z91.018 Allergy to other foods; Z91.09 Other allergy status, other than to drugs and biological substances; Z79.82 Long term (current) use of aspirin; Z79.899 Other long term (current) drug therapy ==

== ENCOUNTER → 2023-10-15 | Outpatient (CLI) | payer MEDICARE, BC ==
[2023-10-15 13:05] LABS: CHOLESTEROL RISK RATIO 3.52 (<5); LDL CHOLESTEROL 86.6 MG/DL (<100)
== END ==
LOC: M WUC 09:44
PROVIDERS: ATTEND Nurse Practitioner Family
DX: E78.5 Hyperlipidemia, unspecified (principal)

== ENCOUNTER → 2023-10-15 | Outpatient (CLI) | payer MEDICARE, BC ==
[2023-10-15 12:57] LABS: BASO % 0.3 % (0.0-1.0); EOS % 0.1 % (0.0-3.0); HEMATOCRIT 39.6 % (36.0-47.0); HEMOGLOBIN 13.4 g/dl (12.0-15.5); LYMPH # 3.4 10^3/uL (1.5-5.0); LYMPH % 42.8 % (24.0-44.0); MEAN CORPUSCULAR HEMOGLOBIN 30.7 pg (27.0-33.0); MEAN CORPUSCULAR HGB CONC 33.8 g/dl (32.0-36.5); MEAN CORPUSCULAR VOLUME 90.8 fl (80.0-96.0); MONO # 0.6 10^3/uL (0.0-0.8); MONO % 8.1 % (2.0-8.0); NEUTROPHILS # 3.8 10^3/uL (1.5-8.5); NEUTROPHILS % 48.2 % (36.0-66.0); PLATELET COUNT, AUTOMATED 258 10^3/uL (150-450); RED BLOOD COUNT 4.36 10^6/uL (4.00-5.40); WHITE BLOOD COUNT 7.9 10^3/uL (4.0-10.0)
[2023-10-15 13:10] LABS: ALBUMIN 4.5 G/DL (3.2-5.2); ALKALINE PHOSPHATASE 90 U/L (46-116); ALT/SGPT 106 U/L (7.0-40); AST/SGOT 54 U/L (<34); BILIRUBIN,TOTAL 0.7 MG/DL (0.3-1.2); BLOOD UREA NITROGEN 14 MG/DL (9-23); CALCIUM LEVEL 9.7 MG/DL (8.3-10.6); CARBON DIOXIDE LEVEL 28 MMOL/L (20-31); CHLORIDE LEVEL 104 MMOL/L (98-107); CREATININE FOR GFR 0.75 MG/DL (0.55-1.30); FREE T4 1.31 NG/DL (0.89-1.76); GLOMERULAR FILTRATION RATE > 60.0 (>45); GLUCOSE, FASTING 107 MG/DL (74-106); POTASSIUM SERUM 4.1 MMOL/L (3.5-5.1); SODIUM LEVEL 140 MMOL/L (136-145); THYROID STIMULATING HORMONE 3.239 uIU/ML (0.55-4.78); TOTAL 25(OH) VITAMIN D 51.2 NG/ML (20.0-100.0)
== END ==
LOC: M WUC 09:42
PROVIDERS: ATTEND Registered Nurse
DX: I10 Essential (primary) hypertension (principal); G89.29 Other chronic pain; E78.5 Hyperlipidemia, unspecified; Z79.899 Other long term (current) drug therapy

== ENCOUNTER → 2023-10-30 | Outpatient (CLI) | payer MEDICARE, BC | LOC: M RAD 12:37 | PROVIDERS: ATTEND Anesthesiology | DX: G89.29 Other chronic pain (principal) ==

== ENCOUNTER → 2023-11-20 | Outpatient (CLI) | payer MEDICARE, BC | LOC: M PAIN 10:30 | PROVIDERS: ATTEND Anesthesiology | DX: M51.16 Intervertebral disc disorders with radiculopathy, lumbar region (principal); G89.29 Other chronic pain; G47.33 Obstructive sleep apnea (adult) (pediatric); Z87.891 Personal history of nicotine dependence; Z79.82 Long term (current) use of aspirin; Z79.899 Other long term (current) drug therapy; Z91.018 Allergy to other foods; Z91.048 Other nonmedicinal substance allergy status ==

== ENCOUNTER → 2023-11-27 | Outpatient (CLI) | payer MEDICARE, BC | LOC: M PAIN 16:30 | PROVIDERS: ATTEND Anesthesiology | DX: M51.16 Intervertebral disc disorders with radiculopathy, lumbar region (principal); G89.29 Other chronic pain; Z95.0 Presence of cardiac pacemaker; Z80.8 Family history of malignant neoplasm of other organs or systems; Z87.891 Personal history of nicotine dependence; Z91.018 Allergy to other foods; Z91.09 Other allergy status, other than to drugs and biological substances; Z79.82 Long term (current) use of aspirin; Z79.899 Other long term (current) drug therapy ==

== ENCOUNTER → 2023-12-19 | Outpatient (CLI) | payer MEDICARE, BC | LOC: M PAIN 09:15 | PROVIDERS: ATTEND Nurse Practitioner Family | DX: M51.16 Intervertebral disc disorders with radiculopathy, lumbar region (principal); Z79.891 Long term (current) use of opiate analgesic; E78.5 Hyperlipidemia, unspecified; G47.30 Sleep apnea, unspecified; Z99.89 Dependence on other enabling machines and devices; Z95.5 Presence of coronary angioplasty implant and graft; Z87.891 Personal history of nicotine dependence; Z79.02 Long term (current) use of antithrombotics/antiplatelets; Z79.2 Long term (current) use of antibiotics; Z79.82 Long term (current) use of aspirin; Z79.899 Other long term (current) drug therapy; Z91.018 Allergy to other foods; Z91.048 Other nonmedicinal substance allergy status ==

== ENCOUNTER → 2024-02-19 | Outpatient (CLI) | payer MEDICARE, BC | LOC: M PAIN 11:00 | PROVIDERS: ATTEND Nurse Practitioner Family | DX: M51.16 Intervertebral disc disorders with radiculopathy, lumbar region (principal); G89.29 Other chronic pain; G47.33 Obstructive sleep apnea (adult) (pediatric); E78.5 Hyperlipidemia, unspecified; M54.2 Cervicalgia; R51.9 Headache, unspecified; R42 Dizziness and giddiness; R03.0 Elevated blood-pressure reading, without diagnosis of hypertension; Z87.891 Personal history of nicotine dependence; Z79.82 Long term (current) use of aspirin; Z79.899 Other long term (current) drug therapy; Z91.018 Allergy to other foods; Z91.048 Other nonmedicinal substance allergy status ==

== ENCOUNTER → 2024-03-25 | Outpatient (CLI) | payer MEDICARE, BC | LOC: M PAIN 10:45 | PROVIDERS: ATTEND Nurse Practitioner Family | DX: M51.16 Intervertebral disc disorders with radiculopathy, lumbar region (principal); G89.29 Other chronic pain; R55 Syncope and collapse; Z79.02 Long term (current) use of antithrombotics/antiplatelets; Z79.82 Long term (current) use of aspirin; Z79.899 Other long term (current) drug therapy; Z91.048 Other nonmedicinal substance allergy status; Z91.018 Allergy to other foods; Z95.0 Presence of cardiac pacemaker ==

== ENCOUNTER → 2024-04-22 | Outpatient (REF) | payer MEDICARE, BC ==
[2024-04-22 15:10] LABS: ALBUMIN 4.2 G/DL (3.2-5.2); BILIRUBIN,DIRECT 0.2 MG/DL (<0.4); BILIRUBIN,TOTAL 0.7 MG/DL (0.3-1.2); TOTAL PROTEIN 6.6 G/DL (5.7-8.2)
== END ==
LOC: M LABWUC 11:40
PROVIDERS: ATTEND Physician Assistant Medical
DX: R94.5 Abnormal results of liver function studies (principal); K76.0 Fatty (change of) liver, not elsewhere classified; K59.00 Constipation, unspecified

== ENCOUNTER → 2024-04-26 | Outpatient (CLI) | payer MEDICARE, BC | LOC: M PAIN 11:45 | PROVIDERS: ATTEND Nurse Practitioner Family | DX: M79.18 Myalgia, other site (principal); M51.16 Intervertebral disc disorders with radiculopathy, lumbar region; M47.816 Spondylosis without myelopathy or radiculopathy, lumbar region; G89.29 Other chronic pain; G47.33 Obstructive sleep apnea (adult) (pediatric); E78.5 Hyperlipidemia, unspecified; I10 Essential (primary) hypertension; Z87.891 Personal history of nicotine dependence; Z79.82 Long term (current) use of aspirin; Z79.899 Other long term (current) drug therapy; Z91.018 Allergy to other foods; Z91.048 Other nonmedicinal substance allergy status ==

== ENCOUNTER → 2024-05-20 | Outpatient (CLI) | payer MEDICARE, BC ==
[~2024-05-20] MED LIST changes: +TRIAMCINOLONE ACETONIDE SUSP 40MG/ML 1ML VIAL As Ordered ONE; +diazePAM 5MG TABLET As Ordered ONE
== END ==
LOC: M PAIN 08:00
PROVIDERS: ATTEND Anesthesiology
DX: M79.18 Myalgia, other site (principal); G89.29 Other chronic pain; G47.33 Obstructive sleep apnea (adult) (pediatric); E78.5 Hyperlipidemia, unspecified; M54.2 Cervicalgia; R42 Dizziness and giddiness; K76.0 Fatty (change of) liver, not elsewhere classified; R03.0 Elevated blood-pressure reading, without diagnosis of hypertension; Z87.891 Personal history of nicotine dependence; Z79.82 Long term (current) use of aspirin; Z79.899 Other long term (current) drug therapy; Z91.018 Allergy to other foods; Z91.048 Other nonmedicinal substance allergy status
CPT/HCPCS: 20553; J0665; J3301

== ENCOUNTER → 2024-05-25 | Outpatient (CLI) | payer MEDICARE, BC ==
[~2024-05-25] MED LIST changes: -TRIAMCINOLONE ACETONIDE SUSP 40MG/ML 1ML VIAL As Ordered ONE; -diazePAM 5MG TABLET As Ordered ONE
== END ==
LOC: M RAD 11:09
PROVIDERS: ATTEND Nurse Practitioner Family
DX: K76.0 Fatty (change of) liver, not elsewhere classified (principal); R94.5 Abnormal results of liver function studies; K59.00 Constipation, unspecified

== ENCOUNTER 2024-06-01 18:52 | Emergency (ER) | payer MEDICARE, BC ==
[~2024-06-01] VITALS: Ht 167.6 cm; Wt 105.0 kg
[2024-06-01 18:53] VITALS: BP 158/82; TEMP 98.8; O2SAT 98
[2024-06-01 20:28] LABS: BASO % 0.1 % (0.0-1.0); HEMATOCRIT 42.7 % (36.0-47.0); HEMOGLOBIN 14.4 g/dl (12.0-15.5); LYMPH % 28.9 % (24.0-44.0); MEAN CORPUSCULAR HEMOGLOBIN 31.1 pg (27.0-33.0); MEAN CORPUSCULAR HGB CONC 33.7 g/dl (32.0-36.5); MEAN CORPUSCULAR VOLUME 92.2 fl (80.0-96.0); MONO # 0.8 10^3/uL (0.0-0.8); NEUTROPHILS % 64.5 % (36.0-66.0); PLATELET COUNT, AUTOMATED 303 10^3/uL (150-450); RED BLOOD COUNT 4.63 10^6/uL (4.00-5.40)
[2024-06-01 20:33] LABS: APPEARANCE, URINE CLEAR (CLEAR); BACTERIA, URINE AUTO NEGATIVE (NEGATIVE); BILIRUBIN, URINE AUTO NEGATIVE (NEGATIVE); BLOOD, URINE BLOOD 1+ (NEGATIVE); COLOR, URINE YELLOW (YELLOW); GLUCOSE, URINE (UA) AUTO NEGATIVE (NEGATIVE); KETONE, URINE AUTO NEGATIVE (NEGATIVE); LEUKOCYTE ESTERASE, URINE AUTO NEGATIVE (NEGATIVE); MUCUS, URINE SMALL (NEGATIVE); NITRITE, URINE AUTO NEGATIVE (NEGATIVE); PROTEIN, URINE AUTO 1+ mg/dL (NEGATIVE); RBC, URINE AUTO 2 /HPF (0-3); SPECIFIC GRAVITY URINE AUTO 1.011 (1.002-1.035); SQUAMOUS EPITHELIAL CELL UR AU 0 /HPF (0-6); UROBILINOGEN, URINE AUTO 0.2 mg/dL (0.0-2.0); WBC, URINE AUTO 0 /HPF (0-3)
[2024-06-01 20:51] LABS: CK-MB VALUE MASS < 1.0 NG/ML (<3.6); LIPASE 37 U/L (12-53)
[2024-06-01 20:53] LABS: ALBUMIN 4.7 G/DL (3.2-5.2); ALKALINE PHOSPHATASE 99 U/L (46-116); ALT/SGPT 83 U/L (7.0-40); AST/SGOT 38 U/L (<34); BILIRUBIN,DIRECT 0.2 MG/DL (<0.4); BILIRUBIN,TOTAL 0.8 MG/DL (0.3-1.2); BLOOD UREA NITROGEN 19 MG/DL (9-23); CARBON DIOXIDE LEVEL 26 MMOL/L (20-31); CHLORIDE LEVEL 103 MMOL/L (98-107); CREATININE FOR GFR 0.74 MG/DL (0.55-1.30); GLOMERULAR FILTRATION RATE > 60.0 (>45); GLUCOSE, FASTING 104 MG/DL (74-106); POTASSIUM SERUM 4.3 MMOL/L (3.5-5.1); SODIUM LEVEL 140 MMOL/L (136-145); TOTAL PROTEIN 7.9 G/DL (5.7-8.2)
[2024-06-01 21:11] LABS: CPK CREATINE PHOSPHOKINASE 119 U/L (34-145); MB/CK RELATIVE INDEX 0.84 (< OR =4)
== END 2024-06-01 23:05 | disposition left against medical advice (07) ==
LOC: M ED 18:52
DX: Z53.21 Procedure and treatment not carried out due to patient leaving prior to being seen by health care provider (principal)

== ENCOUNTER → 2024-06-03 | Outpatient (CLI) | payer MEDICARE, BC ==
[~2024-06-03] MED LIST changes: +BACL10TA2 PO; +ROSU5TAB40; +TIZA2TA
== END ==
LOC: M PAIN 10:30
PROVIDERS: ATTEND Anesthesiology
DX: M47.816 Spondylosis without myelopathy or radiculopathy, lumbar region (principal); M51.16 Intervertebral disc disorders with radiculopathy, lumbar region; Z95.5 Presence of coronary angioplasty implant and graft; Z79.02 Long term (current) use of antithrombotics/antiplatelets; Z79.82 Long term (current) use of aspirin; Z79.899 Other long term (current) drug therapy; Z88.8 Allergy status to other drugs, medicaments and biological substances; Z91.018 Allergy to other foods; Z91.048 Other nonmedicinal substance allergy status

== ENCOUNTER → 2024-06-04 | Outpatient (CLI) | payer MEDICARE, BC ==
[2024-06-04 14:35] LABS: HEMOGLOBIN A1c 5.1 % (4.0-6.0)
[2024-06-04 14:45] LABS: IRON (FE) 81 UG/DL (50-170)
[2024-06-04 14:46] LABS: CHOLESTEROL LEVEL 172 MG/DL (<200); CHOLESTEROL RISK RATIO 2.61 (<5); FERRITIN 74.9 NG/ML (7.3-270.7); HDL CHOLESTEROL 65.8 MG/DL (>40); MAGNESIUM LEVEL 2.1 MG/DL (1.8-2.4); NON-HDL-C 106.2 MG/DL; TOTAL IRON BINDING CAPACITY 352 UG/DL (250-425); TRIGLYCERIDES LEVEL 121 MG/DL (<150)
[2024-06-04 14:48] LABS: FOLATE > 24.0 NG/ML (>5.4); TOTAL 25(OH) VITAMIN D 49.9 NG/ML (20.0-100.0)
[2024-06-04 14:50] LABS: VITAMIN B12 LEVEL 458 PG/ML (211-911)
== END ==
LOC: M WUC 09:14
PROVIDERS: ATTEND Registered Nurse
DX: R25.8 Other abnormal involuntary movements (principal); E78.2 Mixed hyperlipidemia; Z79.899 Other long term (current) drug therapy

== ENCOUNTER 2024-06-10 11:47 | Emergency (ER) | payer MEDICARE, BC ==
[~2024-06-10] VITALS: Ht 167.6 cm; Wt 105.0 kg
[~2024-06-10 11:47] MED LIST changes: -BACL10TA2 PO; -ROSU5TAB40; -TIZA2TA
[2024-06-10] MEDS ORDERED: ROSU5TAB40 (12:07)
[2024-06-10] MEDS ORDERED: TIZA2TA (12:07)
[2024-06-10] MEDS: BACLOFEN 10 MG TAB PO ONE (13:50)
[2024-06-10 13:59] LABS: BASO % 0.1 % (0.0-1.0); HEMATOCRIT 39.1 % (36.0-47.0); HEMOGLOBIN 13.4 g/dl (12.0-15.5); LYMPH # 2.8 10^3/uL (1.5-5.0); LYMPH % 30.1 % (24.0-44.0); MEAN CORPUSCULAR HEMOGLOBIN 30.7 pg (27.0-33.0); MEAN CORPUSCULAR HGB CONC 34.3 g/dl (32.0-36.5); MEAN CORPUSCULAR VOLUME 89.5 fl (80.0-96.0); MONO # 0.6 10^3/uL (0.0-0.8); MONO % 6.8 % (2.0-8.0); NEUTROPHILS # 5.9 10^3/uL (1.5-8.5); NEUTROPHILS % 62.6 % (36.0-66.0); PLATELET COUNT, AUTOMATED 227 10^3/uL (150-450); RED BLOOD COUNT 4.37 10^6/uL (4.00-5.40); WHITE BLOOD COUNT 9.4 10^3/uL (4.0-10.0)
[2024-06-10 14:32] LABS: ALBUMIN 4.3 G/DL (3.2-5.2); ALKALINE PHOSPHATASE 83 U/L (46-116); ALT/SGPT 69 U/L (7.0-40); AST/SGOT 35 U/L (<34); BILIRUBIN,TOTAL 0.7 MG/DL (0.3-1.2); BLOOD UREA NITROGEN 18 MG/DL (9-23); CALCIUM LEVEL 10.2 MG/DL (8.3-10.6); CARBON DIOXIDE LEVEL 26 MMOL/L (20-31); CHLORIDE LEVEL 108 MMOL/L (98-107); GLOMERULAR FILTRATION RATE > 60.0 (>45); GLUCOSE, FASTING 92 MG/DL (74-106); SODIUM LEVEL 141 MMOL/L (136-145); TOTAL PROTEIN 7.1 G/DL (5.7-8.2)
[2024-06-10 14:33] LABS: THYROID STIMULATING HORMONE 1.916 uIU/ML (0.55-4.78)
[2024-06-10 14:34] LABS: VITAMIN B12 LEVEL 544 PG/ML (211-911)
[2024-06-10] MEDS ORDERED: BACL10TA2 PO (15:22)
[2024-06-10 15:40] VITALS: BP 157/71; TEMP 97.2; O2SAT 96
[2024-06-14 07:48] LABS: COPPER PLASMA 101 mcg/dL (70-175)
[2024-06-15 20:37] LABS: VITAMIN E(ALPHA TOCOPHEROL) 20.4 mg/L (5.7-19.9); VITAMIN E(GAMMA TOCOPHEROL) < 1.0 mg/L (<=4.3)
== END 2024-06-10 15:41 | disposition home or self-care (01) ==
LOC: M ED 11:47
DX: R25.9 Unspecified abnormal involuntary movements (principal); I10 Essential (primary) hypertension; E78.5 Hyperlipidemia, unspecified; G47.33 Obstructive sleep apnea (adult) (pediatric); K57.92 Diverticulitis of intestine, part unspecified, without perforation or abscess without bleeding; Z91.048 Other nonmedicinal substance allergy status; Z91.011 Allergy to milk products; Z95.0 Presence of cardiac pacemaker; Z79.82 Long term (current) use of aspirin; Z79.811 Long term (current) use of aromatase inhibitors; Z79.899 Other long term (current) drug therapy

== ENCOUNTER → 2024-06-16 | Outpatient (CLI) | payer MEDICARE, BC ==
[~2024-06-16] MED LIST changes: +BACL10TA2 PO; +ROSU5TAB40; +TIZA2TA
== END ==
LOC: M PAIN 14:30
PROVIDERS: ATTEND Anesthesiology
DX: M54.6 Pain in thoracic spine (principal); R25.2 Cramp and spasm; M51.16 Intervertebral disc disorders with radiculopathy, lumbar region; Z87.891 Personal history of nicotine dependence; Z88.8 Allergy status to other drugs, medicaments and biological substances; Z91.018 Allergy to other foods; Z91.048 Other nonmedicinal substance allergy status

== ENCOUNTER → 2024-07-02 | Outpatient (CLI) | payer MEDICARE, BC | LOC: M PAIN 09:15 | PROVIDERS: ATTEND Anesthesiology | DX: M51.16 Intervertebral disc disorders with radiculopathy, lumbar region (principal); R25.2 Cramp and spasm; G47.33 Obstructive sleep apnea (adult) (pediatric); E78.5 Hyperlipidemia, unspecified; G89.29 Other chronic pain; R51.9 Headache, unspecified; R42 Dizziness and giddiness; M65.4 Radial styloid tenosynovitis [de Quervain]; K76.0 Fatty (change of) liver, not elsewhere classified; Z95.0 Presence of cardiac pacemaker; Z87.891 Personal history of nicotine dependence; Z79.82 Long term (current) use of aspirin; Z79.899 Other long term (current) drug therapy; Z91.018 Allergy to other foods; Z91.048 Other nonmedicinal substance allergy status ==

== ENCOUNTER 2024-07-14 16:30 | Emergency (ER) | payer MEDICARE, BC ==
[~2024-07-14] VITALS: Ht 167.6 cm; Wt 107.3 kg
[2024-07-14 16:33] VITALS: TEMP 98.6
[2024-07-14] MEDS ORDERED: CARI1TAB7 (16:44)
[2024-07-14 20:58] LABS: BASO % 0.1 % (0.0-1.0); HEMATOCRIT 39.5 % (36.0-47.0); HEMOGLOBIN 13.5 g/dl (12.0-15.5); LYMPH # 3.2 10^3/uL (1.5-5.0); LYMPH % 37.6 % (24.0-44.0); MEAN CORPUSCULAR HEMOGLOBIN 30.7 pg (27.0-33.0); MEAN CORPUSCULAR HGB CONC 34.2 g/dl (32.0-36.5); MEAN CORPUSCULAR VOLUME 89.8 fl (80.0-96.0); MONO # 0.6 10^3/uL (0.0-0.8); MONO % 6.9 % (2.0-8.0); NEUTROPHILS # 4.7 10^3/uL (1.5-8.5); PLATELET COUNT, AUTOMATED 224 10^3/uL (150-450); WHITE BLOOD COUNT 8.5 10^3/uL (4.0-10.0)
[2024-07-14 21:27] LABS: BLOOD UREA NITROGEN 15 MG/DL (9-23); CALCIUM LEVEL 10.1 MG/DL (8.3-10.6); CARBON DIOXIDE LEVEL 26 MMOL/L (20-31); CHLORIDE LEVEL 110 MMOL/L (98-107); CREATININE FOR GFR 0.66 MG/DL (0.55-1.30); GLOMERULAR FILTRATION RATE > 60.0 (>45); GLUCOSE, FASTING 93 MG/DL (74-106); POTASSIUM SERUM 3.8 MMOL/L (3.5-5.1); SODIUM LEVEL 142 MMOL/L (136-145)
[2024-07-14 22:40] VITALS: BP 163/77; O2SAT 95
== END 2024-07-14 22:41 | disposition home or self-care (01) ==
LOC: M ED 16:30
DX: R25.9 Unspecified abnormal involuntary movements (principal); I10 Essential (primary) hypertension; M54.50 Low back pain, unspecified; Z87.891 Personal history of nicotine dependence; Z91.011 Allergy to milk products; Z91.018 Allergy to other foods; Z91.048 Other nonmedicinal substance allergy status; Z79.82 Long term (current) use of aspirin; Z79.899 Other long term (current) drug therapy

== ENCOUNTER → 2024-07-22 | Outpatient (CLI) | payer MEDICARE, BC ==
[~2024-07-22] MED LIST changes: +CARI1TAB7
== END ==
LOC: M RAD 12:28
PROVIDERS: ATTEND Anesthesiology
DX: M54.14 Radiculopathy, thoracic region (principal)

== ENCOUNTER → 2024-08-04 | Outpatient (CLI) | payer MEDICARE, BC | LOC: M PAIN 14:45 | PROVIDERS: ATTEND Anesthesiology | DX: M54.6 Pain in thoracic spine (principal); Z79.891 Long term (current) use of opiate analgesic; M79.18 Myalgia, other site; G47.33 Obstructive sleep apnea (adult) (pediatric); E78.5 Hyperlipidemia, unspecified; M54.2 Cervicalgia; G89.29 Other chronic pain; H40.9 Unspecified glaucoma; Z95.0 Presence of cardiac pacemaker; M65.4 Radial styloid tenosynovitis [de Quervain]; Z87.891 Personal history of nicotine dependence; Z79.82 Long term (current) use of aspirin; Z79.899 Other long term (current) drug therapy; Z91.018 Allergy to other foods; Z91.048 Other nonmedicinal substance allergy status ==

== ENCOUNTER → 2024-08-13 | Outpatient (CLI) | payer MEDICARE, BC ==
[~2024-08-13] MED LIST changes: +TRIAMCINOLONE ACETONIDE SUSP 40MG/ML 1ML VIAL As Ordered ONE; +diazePAM 5MG TABLET As Ordered ONE
== END ==
LOC: M PAIN 12:45
PROVIDERS: ATTEND Anesthesiology
DX: M79.18 Myalgia, other site (principal); G89.29 Other chronic pain; G47.33 Obstructive sleep apnea (adult) (pediatric); E78.5 Hyperlipidemia, unspecified; Z95.0 Presence of cardiac pacemaker; H40.9 Unspecified glaucoma; Z87.891 Personal history of nicotine dependence; Z79.82 Long term (current) use of aspirin; Z79.899 Other long term (current) drug therapy; Z91.048 Other nonmedicinal substance allergy status; Z91.018 Allergy to other foods
CPT/HCPCS: 20552; J0665; J3301

== ENCOUNTER → 2024-10-13 | Outpatient (CLI) | payer MEDICARE, BC ==
[~2024-10-13] MED LIST changes: -ROSU5TAB40; +ROSU5TAB49; -TRIAMCINOLONE ACETONIDE SUSP 40MG/ML 1ML VIAL As Ordered ONE; -diazePAM 5MG TABLET As Ordered ONE
== END ==
LOC: M PAIN 10:00
PROVIDERS: ATTEND Anesthesiology
DX: M79.18 Myalgia, other site (principal); M79.10 Myalgia, unspecified site; M54.6 Pain in thoracic spine; G47.33 Obstructive sleep apnea (adult) (pediatric); E78.5 Hyperlipidemia, unspecified; Z87.891 Personal history of nicotine dependence; Z79.82 Long term (current) use of aspirin; Z79.899 Other long term (current) drug therapy; Z91.018 Allergy to other foods; Z91.048 Other nonmedicinal substance allergy status

== ENCOUNTER → 2024-11-03 | Outpatient (CLI) | payer MEDICARE, BC | LOC: M PAIN 09:30 | PROVIDERS: ATTEND Anesthesiology | DX: M54.6 Pain in thoracic spine (principal); M47.814 Spondylosis without myelopathy or radiculopathy, thoracic region; G47.33 Obstructive sleep apnea (adult) (pediatric); E78.5 Hyperlipidemia, unspecified; Z95.0 Presence of cardiac pacemaker; H40.9 Unspecified glaucoma; Z87.891 Personal history of nicotine dependence; Z79.82 Long term (current) use of aspirin; Z79.899 Other long term (current) drug therapy; Z88.8 Allergy status to other drugs, medicaments and biological substances; Z91.018 Allergy to other foods; Z91.048 Other nonmedicinal substance allergy status | CPT/HCPCS: 76000; G0463 ==

== ENCOUNTER → 2024-11-09 | Outpatient (CLI) | payer MEDICARE, BC ==
[2024-11-09 10:33] LABS: ALBUMIN 4.4 G/DL (3.2-5.2); BILIRUBIN,DIRECT 0.2 MG/DL (<0.4); BILIRUBIN,TOTAL 0.6 MG/DL (0.3-1.2); TOTAL PROTEIN 7.1 G/DL (5.7-8.2)
== END ==
LOC: M WUC 09:05
PROVIDERS: ATTEND Physician Assistant Medical
DX: R94.5 Abnormal results of liver function studies (principal)

== ENCOUNTER → 2024-11-17 | Outpatient (CLI) | payer MEDICARE, BC | LOC: M PAIN 14:00 | PROVIDERS: ATTEND Anesthesiology | DX: M47.814 Spondylosis without myelopathy or radiculopathy, thoracic region (principal); E78.5 Hyperlipidemia, unspecified; G47.33 Obstructive sleep apnea (adult) (pediatric); Z79.82 Long term (current) use of aspirin; Z79.899 Other long term (current) drug therapy; Z87.891 Personal history of nicotine dependence; Z91.018 Allergy to other foods; Z91.048 Other nonmedicinal substance allergy status ==

== ENCOUNTER → 2024-12-01 | Outpatient (CLI) | payer MEDICARE, BC | LOC: M PAIN 13:00 | PROVIDERS: ATTEND Anesthesiology | DX: M54.6 Pain in thoracic spine (principal); M47.814 Spondylosis without myelopathy or radiculopathy, thoracic region; E78.5 Hyperlipidemia, unspecified; Z87.891 Personal history of nicotine dependence; Z79.82 Long term (current) use of aspirin; Z79.899 Other long term (current) drug therapy; Z91.048 Other nonmedicinal substance allergy status; Z91.018 Allergy to other foods ==

== ENCOUNTER → 2025-03-16 | Outpatient (CLI) | payer MEDICARE, BC ==
[~2025-03-16] MED LIST changes: +CARI-555; -CARI1TAB7
[2025-03-16 12:20] LABS: EOS % 0.1 % (0.0-3.0); HEMATOCRIT 38.7 % (36.0-47.0); HEMOGLOBIN 13.1 g/dl (12.0-15.5); LYMPH % 38.6 % (24.0-44.0); MEAN CORPUSCULAR HEMOGLOBIN 30.3 pg (27.0-33.0); MEAN CORPUSCULAR HGB CONC 33.9 g/dl (32.0-36.5); MEAN CORPUSCULAR VOLUME 89.6 fl (80.0-96.0); MONO # 0.7 10^3/uL (0.0-0.8); PLATELET COUNT, AUTOMATED 227 10^3/uL (150-450); RED BLOOD COUNT 4.32 10^6/uL (4.00-5.40); WHITE BLOOD COUNT 7.7 10^3/uL (4.0-10.0)
[2025-03-16 12:24] LABS: ERYTHROCYTE SEDIMENTATION RATE 4 mm/hr (0-30)
[2025-03-16 12:46] LABS: URIC ACID 5.5 MG/DL (3.1-7.8)
[2025-03-16 12:48] LABS: C REACTIVE PROTEIN QUANTITATIV < 0.50 MG/DL (<1.0)
[2025-03-16 12:49] LABS: ALBUMIN 4.6 G/DL (3.2-5.2); ALKALINE PHOSPHATASE 82 U/L (35-104); ALT/SGPT 68 U/L (7.0-40); AST/SGOT 37 U/L (<34); BILIRUBIN,TOTAL 0.7 MG/DL (0.3-1.2); BLOOD UREA NITROGEN 18 MG/DL (9-23); CALCIUM LEVEL 9.8 MG/DL (8.3-10.6); CARBON DIOXIDE LEVEL 29 MMOL/L (20-31); CHLORIDE LEVEL 104 MMOL/L (98-107); CREATININE FOR GFR 0.72 MG/DL (0.55-1.30); GLOMERULAR FILTRATION RATE > 90.0 (>45); GLUCOSE, FASTING 98 MG/DL (74-106); SODIUM LEVEL 144 MMOL/L (136-145)
[2025-03-16 14:48] LABS: RHEUMATOID FACTOR QUANT 8.2 IU/ML (<14)
[2025-03-18 15:17] LABS: ANA SCREEN, IFA NEGATIVE (NEGATIVE)
== END ==
LOC: M WUC 09:19
PROVIDERS: ATTEND Registered Nurse
DX: R25.8 Other abnormal involuntary movements (principal); M54.50 Low back pain, unspecified

== ENCOUNTER → 2025-05-16 | Outpatient (CLI) | payer MEDICARE, BC ==
[2025-05-16 12:43] LABS: BASO # 0.0 10^3/uL (0.0-0.2); BASO % 0.1 % (0.0-1.0); EOS # 0.0 10^3/uL (0.0-0.5); EOS % 0.1 % (0.0-3.0); LYMPH # 2.9 10^3/uL (1.5-5.0); LYMPH % 42.6 % (24.0-44.0); MONO # 0.6 10^3/uL (0.0-0.8); MONO % 8.8 % (2.0-8.0); NEUTROPHILS # 3.3 10^3/uL (1.5-8.5); NEUTROPHILS % 48.1 % (36.0-66.0); PLATELET COUNT, AUTOMATED 239 10^3/uL (150-450)
[2025-05-16 13:23] LABS: FREE T4 1.36 NG/DL (0.89-1.76)
[2025-05-16 13:25] LABS: ALT/SGPT 71.0 U/L (7.0-40); AST/SGOT 39.0 U/L (<34); CALCIUM LEVEL 9.5 MG/DL (8.3-10.6); CARBON DIOXIDE LEVEL 27.0 MMOL/L (20-31); CHLORIDE LEVEL 103.0 MMOL/L (98-107); CHOLESTEROL LEVEL 168.0 MG/DL (<200); CHOLESTEROL RISK RATIO 3.55 (<5); CREATININE FOR GFR 0.74 MG/DL (0.55-1.30); GLOMERULAR FILTRATION RATE 88.1 (>45); LDL CHOLESTEROL 66.1 MG/DL (<100); NON-HDL-C 120.7 MG/DL; POTASSIUM SERUM 4.3 MMOL/L (3.5-5.1); SODIUM LEVEL 143.0 MMOL/L (136-145); TRIGLYCERIDES LEVEL 273.0 MG/DL (<150)
[2025-05-16 14:00] LABS: ESTIMATED AVERAGE GLUCOSE 94.0 MG/DL (60-110)
== END ==
LOC: M WUC 09:19
PROVIDERS: ATTEND Registered Nurse
DX: I10 Essential (primary) hypertension (principal); Z79.899 Other long term (current) drug therapy

== ENCOUNTER → 2025-08-25 | Outpatient (CLI) | payer MEDICARE, BC ==
[2025-08-25 17:27] LABS: PLATELET COUNT, AUTOMATED 232 10^3/uL (150-450)
[2025-08-25 17:59] LABS: INR 0.93
== END ==
LOC: M WUC 14:12
PROVIDERS: ATTEND Physician Assistant
DX: M47.816 Spondylosis without myelopathy or radiculopathy, lumbar region (principal); M54.59 Other low back pain; G89.29 Other chronic pain